=== PATIENT | male | born 1935 | race Caucasian/White ===

== ENCOUNTER 2018-10-11 14:10 | Inpatient (IN) | payer OTHER, MEDICARE ==
[2018-09-19 13:25] VITALS: BMI 28.8
--- NOTE | 2018-09-24 07:53 | HP ---
Admitting History and Physical - Admission Chief Complaint: left knee osteoarthritis x years History of Present Illness: 83 year old male presents in regard to his left knee. Longstanding history of left knee osteoarthritis. Patient complains of pain, limited ROM, difficulty ambulating and difficulty completing ADLs. Patient has failed conservative treatment measures including PO medications, injections, activity modifications and exercise programs. At this point, patient wishes to proceed with a left total knee arthroplasty, MAKOplasty. History Source: Patient - Past Medical History Cardiovascular: Yes: HTN, Hyperlipdemia Endocrine: Yes: Diabetes Mellitus - Past Surgical History Additional Past Surgical History: See written history & physical. - Advance Directives Advance Directives: Yes: Living Will, Health Care Proxy - Smoking History Smoking history: Never smoked - Alcohol/Substance Use Hx Alcohol Use: No Home Medications - Allergies Allergies/Adverse Reactions: Allergies Allergy/AdvReac Type Severity Reaction Status Date / Time No Known Allergies Allergy Verified 03/18/13 10:20 - Home Medications Home Medications: Ambulatory Orders metFORMIN HCL [Glucophage -] 500 mg PO BID 02/28/13 Amlodipine Besylate [Norvasc -] 5 mg PO DAILY 09/19/18 Fenofibrate Nanocrystallized [Fenofibrate] 160 mg PO DAILY 09/19/18 Lisinopril [Zestril] 40 mg PO DAILY 09/19/18 Physical Examination Constitutional: Yes: Well Nourished, No Distress Eyes: Yes: Conjunctiva Clear HENT: Yes: Atraumatic, Normocephalic Neck: Yes: Supple Cardiovascular: Yes: Regular Rate and Rhythm Respiratory: Yes: Regular Gastrointestinal: Yes: Soft ...Rectal Exam: Yes: Deferred Musculoskeletal: Yes: Joint Stiffness (left knee), Joint Swelling (left knee) Assessment/Plan 83 year old male presents in regard to his left knee. Longstanding history of left knee osteoarthritis. Patient complains of pain, limited ROM, difficulty ambulating and difficulty completing ADLs. Patient has failed conservative treatment measures including PO medications, injections, activity modifications and exercise programs. At this point, patient wishes to proceed with a left total knee arthroplasty, MAKOplasty. Pros, cons, risks, benefits and alternatives of a left total knee arthroplasty, MAKOplasty was discussed at length. Patient confirms his understanding and consents to proceed with a left total knee arthroplasty, MAKOplasty.
[~2018-10-11 14:10] MED LIST: CEFAZOLIN 2 GM in DEXTROSE 5%-WATER - 50 ML IVPB ONE; CELECOXIB 200 MG CAPSULE PO ONE; GABAPENTIN 300 MG CAPSULE (FP) PO ONE; PANTOPRAZOLE 40 MG TABLET (FP) PO ONE; TRANEXAMIC ACID 1000 MG/10 ML VIAL IVPUSH ONE; oxyCODONE HCL 10 MG SUSTAINED ACTING TABLET PO ONE
[2018-10-15] MEDS ORDERED: CEFAZOLIN 2 GM in DEXTROSE 5%-WATER - 50 ML IVPB ONE (07:02)
[2018-10-15] MEDS ORDERED: TRANEXAMIC ACID 1000 MG/10 ML VIAL IVPUSH ONE (07:02)
[2018-10-15] MEDS: PANTOPRAZOLE 40 MG TABLET (FP) PO ONE (07:10)
[2018-10-15] MEDS: oxyCODONE HCL 10 MG SUSTAINED ACTING TABLET PO ONE (07:10)
[2018-10-15] MEDS: GABAPENTIN 300 MG CAPSULE (FP) PO ONE (07:10)
[2018-10-15] MEDS: CELECOXIB 200 MG CAPSULE PO ONE (07:10)
[2018-10-15] MEDS ORDERED: oxyCODONE HCL 5 MG TABLET PO PRN ×2 (07:19)
[2018-10-15] MEDS ORDERED: ONDANSETRON 4 MG/2 ML VIAL IVPUSH PRN ×2 (07:19→15:43)
[2018-10-15] MEDS ORDERED: MIDAZOLAM HCL 2 MG/2 ML SINGLE DOSE VIAL ONE (07:24)
[2018-10-15] MEDS ORDERED: BUPIVACAINE LIPOSOME/PF (EXPAREL) 266 MG/20 ML VIAL ONE (07:24)
[2018-10-15] MEDS ORDERED: BUPIVACAINE HCL/PF 2.5 MG/ML - 30 ML VIAL IJ ONE (07:25)
[2018-10-15] MEDS ORDERED: ceFAZolin SODIUM 1 GM VIAL ONE (07:25)
[2018-10-15] MEDS ORDERED: DEXAMETHASONE SOD PHOSPHATE/PF 10 MG/ML SDV ONE (07:25)
[2018-10-15] MEDS ORDERED: VANCOMYCIN 1,000 MG VIAL (RESTRICTED TO ID ONLY) ONE (07:25)
[2018-10-15] MEDS ORDERED: BUPIVACAINE HCL/PF 0.5% (5MG/ML) 10 ML VIAL ONE (07:27)
[2018-10-15] MEDS ORDERED: VANCOMYCIN 1,000 MG VIAL (RESTRICTED TO ID ONLY) IVPB ONE ×2 (11:15)
[2018-10-15] MEDS ORDERED: TRANEXAMIC ACID 1000 MG/10 ML VIAL IVPB ONE ×2 (11:37)
[2018-10-15] MEDS ORDERED: ACETAMINOPHEN 1000 MG/100 ML VIAL (NON FORMULARY) IVPB ONE ×2 (12:00→12:29)
[2018-10-15] MEDS ORDERED: traMADol HCL 50 MG TABLET ONE (12:01)
[2018-10-15] MEDS ORDERED: ACETAMINOPHEN INJECTION 100 ML IVPB ONE (12:01)
[2018-10-15] MEDS ORDERED: KETOROLAC TROMETHAMINE 30 MG/1 ML VIAL ONE (12:01)
--- NOTE | 2018-10-15 12:09 | HP ---
Admitting History and Physical - Admission Chief Complaint: left knee osteoarthritis x years History of Present Illness: 83 year old male presents in regard to their left knee. Longstanding history of left knee osteoarthritis. Patient complains of pain, limited ROM, difficulty ambulating and difficulty completing ADLs. Patient has failed conservative treatment measures including PO medications, injections, exercise programs and activity modification. At this point, patient wishes to proceed with surgical intervention, a left total knee arthroplasty - MAKOplasty. History Source: Patient Limitations to Obtaining History: No Limitations - Past Medical History Cardiovascular: Yes: HTN, Hyperlipdemia, Other (AAA) Endocrine: Yes: Diabetes Mellitus - Past Surgical History Additional Past Surgical History: See written history & physical. - Advance Directives Advance Directives: Yes: Living Will, Health Care Proxy - Smoking History Smoking history: Never smoked Have you smoked in the past 12 months: No - Alcohol/Substance Use Hx Alcohol Use: No Home Medications - Allergies Allergies/Adverse Reactions: Allergies Allergy/AdvReac Type Severity Reaction Status Date / Time No Known Allergies Allergy Verified 10/15/18 07:04 - Home Medications Home Medications: Ambulatory Orders metFORMIN HCL [Glucophage -] 500 mg PO BID 02/28/13 Amlodipine Besylate [Norvasc -] 5 mg PO DAILY 09/19/18 Fenofibrate Nanocrystallized [Fenofibrate] 160 mg PO DAILY 09/19/18 Lisinopril [Zestril] 40 mg PO DAILY 09/19/18 Review of Systems - Review of Systems Musculoskeletal: reports: Crepitus (left knee), Decreased ROM (left knee), Joint Pain (left lnee), Joint Swelling (left knee) Physical Examination Vital Signs: Vital Signs Temperature 97.7 F 10/15/18 06:41 Pulse Rate 73 10/15/18 06:41 Respiratory Rate 18 10/15/18 06:41 Blood Pressure 144/73 10/15/18 06:41 O2 Sat by Pulse Oximetry (%) 100 10/15/18 07:00 Constitutional: Yes: Well Nourished Eyes: Yes: Conjunctiva Clear HENT: Yes: Atraumatic Neck: Yes: Supple Cardiovascular: Yes: Regular Rate and Rhythm Respiratory: Yes: Regular Gastrointestinal: Yes: Soft ...Rectal Exam: Yes: Deferred Musculoskeletal: Yes: Joint Stiffness (left knee), Joint Swelling (left kneep) Assessment/Plan 83 year old presents in regard to their left knee. Longstanding history of left knee osteoarthritis. Patient complains of pain, limited ROM, difficulty ambulating and difficulty completing ADLs. Patient has failed conservative treatment measures including PO medications, injections, exercise programs and activity modification. At this point, patient wishes to proceed with surgical intervention, a left total knee arthroplasty - MAKOplasty. Pros, cons, risks benefits and alternatives of a left total knee arthroplasty, MAKOplasty were discussed with the patient at length. Patient confirms their understanding and consents to proceed with a left total knee arthroplasty, MAKOplasty.
--- NOTE | 2018-10-15 12:27 | OP ---
Operative Note - Note: Operative Date: 10/15/18 Pre-Operative Diagnosis: left knee OA Operation: left OCHOA TKA Post-Operative Diagnosis: Same as Pre-op Surgeon: Abdirahman Post Rn Cardiology: Coco Fong Anesthesia: Spinal Estimated Blood Loss (mls): 100
[2018-10-15] MEDS: traMADol HCL 50 MG TABLET PO SCH ×2 (12:30→17:58)
[2018-10-15] MEDS: KETOROLAC TROMETHAMINE 30 MG/1 ML VIAL IVPUSH SCH ×2 (12:30→17:57)
[2018-10-15] MEDS ORDERED: MAGNESIUM HYDROX 2400MG/30ML ORAL SUSPENSION 30 ML CUP PO PRN (15:43)
[2018-10-15] MEDS ORDERED: MAG HYDROX/AL HYDROX/SIMETH 30 ML UNIT-DOSE CUP PO PRN (15:43)
[2018-10-15] MEDS ORDERED: LACTATED RINGERS SOLUTION 1,000 ML IV SCH (15:45)
[2018-10-15] MEDS: metFORMIN HCL 500 MG TABLET (FP) PO SCH (17:17)
[2018-10-15] MEDS: CEFAZOLIN 2 GM/D5W 2 GM/50 ML ML IVPB SCH (17:56)
[2018-10-15] MEDS ORDERED: DEXAMETHASONE SOD PHOSPHATE 10 MG/1 ML VIAL IVPB ONE (20:00)
--- NOTE | 2018-10-15 21:18 | SPEC ---
DATE OF OPERATION: 10/15/2018 PREOPERATIVE DIAGNOSIS: Left knee osteoarthritis. POSTOPERATIVE DIAGNOSIS: Left knee osteoarthritis. PROCEDURE: Left total knee replacement with MAKOplasty robotic navigation. ATTENDING: Jersey Alicea MD BLUE SPLIT TRIMMER: REMBERTO Hernandez ANESTHESIA: Spinal plus sedation. ESTIMATED BLOOD LOSS: 100 mL. COMPLICATIONS: None. DISPOSITION: The patient was transferred to the PACU in stable condition. IMPLANTS USED: Maritza Triathlon size 8 femoral component, size 7 tibial component, 9-mm total-stabilized polyethylene component, 40-mm patellar component. INDICATIONS: This is an 83-year-old male who presented to the office complaining of severe left knee pain. He was seen and examined by Dr. Alicea and diagnosed with severe left knee osteoarthritis. The patient was treated initially non-operatively with injections, medications, and physical therapy, but continued to have severe pain and ambulatory dysfunction. He was, therefore, indicated for a left total knee replacement. The risks, benefits, and alternatives to the procedure were explained to the patient in great detail, and he elected to proceed with surgery. On the day of surgery, the patient was taken to the operating room and placed on the OR table. Spinal anesthesia was administered by the anesthesiologist. The patient was then positioned supine on the table and all bony prominences were padded. The knee was then prepped and draped in the usual sterile fashion and intravenous antibiotics were given for infection prophylaxis. A surgical time-out was then performed with the team, and the patients identity, procedure, side, availability of implants, and the administration of antibiotics was confirmed. With the knee flexed, a midline incision was made and carried down through the subcutaneous fat to the underlying retinaculum. A medial parapatellar arthrotomy was performed. This was followed by a subperiosteal dissection of the tissue off the proximal, medial tibia. A portion of fat pad was removed from under the patellar tendon, and a small portion of fat was excised off the distal supracondylar femur. Electrocautery and an Aquamantys bipolar sealing device were used to achieve hemostasis. The knee was then flexed further and the anterior horn of the lateral meniscus was released from the midline. Next, the anterior and posterior cruciate ligaments were transected. Grade 4 changes were noted diffusely throughout the knee. Femoral and tibial checkpoints were then placed in the appropriate location using a mallet. Two parallel bicortical self-drilling pins were placed in the tibial diaphysis after making stab incisions and bluntly dissecting down to bone. Two pins were then placed in the distal supracondylar femur. The [employer] navigation arrays were then attached to both the femoral and tibial pins and the lower extremity was then registered to the robotic navigation device using various joint movements, as well as inputting several dozen reference points. The knee was then taken through a full range of motion with a corrective force applied. Alignment in varus/valgus as well as flexion/extension and soft tissue balance was measured in various positions. The navigation device showed a numerical and graphic representation of the soft tissue balance. The components were repositioned virtually using the software until optimal soft tissue balance was achieved on screen. Once this was accomplished, the final plan was saved and sent to the robot. Self-retaining retractors were then placed at the joint line for exposure and protection of the collateral ligaments. The robot was brought into the sterile field and registered with the navigation device. The robotic arm with attached oscillating saw blade was then used to perform femoral and tibial bone cuts as per the saved software plan. The femoral box cut was made using the appropriately sized manual cutting guide. The knee was then irrigated. Trial components were placed and the knee was taken through a full range of motion to assess soft tissue balance and alignment. The range of motion was found to be excellent and the soft tissue balance was optimal and according to plan. The knee was then put into extension and the patella everted. The synovium around the patella was circumscribed with electrocautery. A caliper was used to measure the patellar thickness and a saw was then used to resect the patella at the chondro-osseous junction. The cut surface was then sized and drilled for the appropriate patellar button, with care taken to medialize it. A trial patella was then placed and the knee was again taken through a full range of motion. The knee was found to have both good balance and good patellar tracking. All of the components were removed except the tibial base plate. The appropriate instrumentation was used to drill and punch the proximal tibia for the keel of the final component. All bony surfaces were then cleaned with pulsatile lavage and dried. Bone cement was then prepared on the back table, and final components were cemented in place in the usual fashion. Extruded cement was removed. The polyethylene trial was placed, the knee was put into extension, and axial pressure was applied for compression while the cement hardened. The patellar button was similarly cemented into place. Once the cement had hardened, the knee was taken through a full range of motion to assess stability, balance, and patellar tracking. This was found to be optimal and the trial polyethylene was exchanged for the appropriately sized real implant. The wound was then thoroughly irrigated with normal saline. A 3-minute dilute Betadine lavage was performed. The knee was again irrigated using a pulsatile lavage device. A periarticular injection was used to locally infiltrate the capsular tissues surrounding the implant and prosthesis. Then No. 1 Polysorb and 0 VLoc 180 barbed sutures were used to close the arthrotomy. Then No. 1 Polysorb and 2-0 VLoc 90 sutures were used in the subcutaneous tissues. Then 4-0 undyed Vicryl and Dermabond skin adhesive was used to close the stab incisions made for the navigation pins. The skin was closed using both 3-0 VLoc 90 suture in a running subcuticular fashion and Dermabond skin adhesive. Once this was completed a sterile Aquacel dressing and compressive Rhett-wrap was applied. The patient was then awakened and taken to the PACU in stable condition. JERSEY ALICEA M.D. [id number]
[2018-10-15] MEDS: oxyCODONE HCL 10 MG SUSTAINED ACTING TABLET PO SCH (22:00)
[2018-10-15] MEDS: ASCORBIC ACID 500 MG TABLET (FP) PO SCH (22:00)
[2018-10-15] MEDS: GABAPENTIN 300 MG CAPSULE (FP) PO SCH (22:00)
[2018-10-15] MEDS: SENNOSIDES/DOCUSATE COMBO (SENNA PLUS) TABLET (UD) PO SCH (22:00)
[2018-10-16] MEDS: traMADol HCL 50 MG TABLET PO SCH ×4 (00:36→17:46)
[2018-10-16] MEDS: KETOROLAC TROMETHAMINE 30 MG/1 ML VIAL IVPUSH SCH ×2 (00:37→06:07)
[2018-10-16] MEDS: CEFAZOLIN 2 GM/D5W 2 GM/50 ML ML IVPB SCH (03:29)
[2018-10-16] MEDS: metFORMIN HCL 500 MG TABLET (FP) PO SCH ×2 (06:08→16:30)
[2018-10-16 07:46] LABS: HEMATOCRIT 34.7 % (35.4-49); HEMOGLOBIN 11.8 GM/dl (11.7-16.9); MCH 32.6 pg (25.7-33.7); MCHC 33.9 g/dl (32.0-35.9); MEAN CELL VOLUME 96.2 fl (80-96); MEAN PLT VOLUME 9.1 fl (7.5-11.1); PLATELET COUNT 226 K/MM3 (134-434); RDW 14.5 % (11.9-15.9); WHITE BLOOD COUNT 15.9 K/mm3 (4.0-10.8)
[2018-10-16] MEDS: CELECOXIB 200 MG CAPSULE PO ONE (08:24)
[2018-10-16] MEDS: GABAPENTIN 300 MG CAPSULE (FP) PO ONE (08:24)
[2018-10-16] MEDS: oxyCODONE HCL 10 MG SUSTAINED ACTING TABLET PO ONE (08:24)
[2018-10-16] MEDS: PANTOPRAZOLE 40 MG TABLET (FP) PO ONE (08:25)
[2018-10-16] MEDS: ASPIRIN 325 MG TABLET PO SCH (08:30)
[2018-10-16 08:42] LABS: CALCIUM 8.8 mg/dl (8.5-10); CREATININE 1.7 mg/dl (0.55-1.3); POTASSIUM 4.5 mmol/L (3.5-5.1)
[2018-10-16] MEDS ORDERED: FENOFIBRATE NANOCRYSTALLIZED PO SCH (10:00)
[2018-10-16] MEDS ORDERED: PATIENT'S OWN MEDICATION (NON-FORMULARY) (Lisinopril [Zestril] 40 MG) PO SCH (10:00)
[2018-10-16] MEDS ORDERED: CELECOXIB 200 MG CAPSULE PO SCH (10:00)
[2018-10-16] MEDS: amLODIPine BESYLATE 5 MG TABLET (FP) PO SCH (10:48)
[2018-10-16] MEDS: PANTOPRAZOLE 40 MG TABLET (FP) PO SCH (10:48)
[2018-10-16] MEDS: oxyCODONE HCL 10 MG SUSTAINED ACTING TABLET PO SCH ×2 (10:49→21:42)
[2018-10-16] MEDS: GABAPENTIN 300 MG CAPSULE (FP) PO SCH ×2 (10:49→21:42)
[2018-10-16] MEDS: SENNOSIDES/DOCUSATE COMBO (SENNA PLUS) TABLET (UD) PO SCH ×2 (10:50→21:42)
[2018-10-16] MEDS: LISINOPRIL 20 MG TABLET (FP) PO SCH (10:50)
[2018-10-16] MEDS: FENOFIBRIC ACID 135 MG CAP PO SCH (10:50)
[2018-10-16] MEDS: MULTIVITAMINS (DAILY MVI) TABLET (FP) PO SCH (10:51)
[2018-10-16] MEDS: ASCORBIC ACID 500 MG TABLET (FP) PO SCH ×2 (10:51→21:43)
--- NOTE | 2018-10-16 19:48 | PN ---
Progress Note (short form) - Note Progress Note: Pt seen and examined. Doing well. AVSS Selected Entries 10/16/18 22:00 Temperature 97.7 F Pulse Rate 60 Respiratory 18 Rate Blood Pressure 139/63 O2 Sat by Pulse 96 Oximetry (%) Oxygen Delivery Room Air Method Laboratory Tests 10/16/18 10/16/18 10/17/18 07:09 07:09 07:16 WBC 15.9 H 12.8 H Hgb 11.8 11.1 L Hct 34.7 L 33.1 L Plt Count 226 197 Sodium 138 Potassium 4.5 Chloride 104 Carbon Dioxide 25 Anion Gap 9 BUN 43.0 H Creatinine 1.7 H Random Glucose 183 H Gen: NAD LLE: c/d/i, NVID A/P s/p L OCHOA TKA Doing well D/C home Monday
[2018-10-17] MEDS: traMADol HCL 50 MG TABLET PO SCH ×3 (07:01→13:20)
[2018-10-17] MEDS: metFORMIN HCL 500 MG TABLET (FP) PO SCH (07:01)
[2018-10-17 07:06] VITALS: BP 136/65; PULSE 67; TEMP 97.7
[2018-10-17 07:41] LABS: HEMATOCRIT 33.1 % (35.4-49); HEMOGLOBIN 11.1 GM/dl (11.7-16.9); MCH 32.4 pg (25.7-33.7); MCHC 33.6 g/dl (32.0-35.9); MEAN CELL VOLUME 96.5 fl (80-96); MEAN PLT VOLUME 8.9 fl (7.5-11.1); PLATELET COUNT 197 K/MM3 (134-434); RBC 3.43 M/mm3 (4.00-5.60); RDW 14.8 % (11.9-15.9); WHITE BLOOD COUNT 12.8 K/mm3 (4.0-10.8)
--- NOTE | 2018-10-17 08:29 | DS ---
Physical Examination Vital Signs: Vital Signs Temperature 97.7 F 10/17/18 06:00 Pulse Rate 67 10/17/18 06:00 Respiratory Rate 18 10/17/18 06:00 Blood Pressure 136/65 10/17/18 06:00 O2 Sat by Pulse Oximetry (%) 95 10/17/18 07:05 Labs: CBC, BMP 10/17/18 07:16 10/16/18 07:09 Discharge Summary Current Active Problems Osteoarthritis of left knee (Acute) Procedures: Principal: left TKA [facility] Hospital Course: Admitted for elective surgery. Procedure performed without complications. Pt received postoperative antibiotic prophylaxis and DVT ppx. Ambulated with physical therapy. Stable for discharge home with outpatient followup. Condition: Stable - Instructions Diet, Activity, Other Instructions: Dr. Post - Knee Replacement Instructions Keep the Aquacel dressing on until removed by Dr. Post in 10-14 days - it is antibacterial and waterproof and you can shower with it on. Call the office for a follow-up appointment with Dr. Post in 10-14 days. Take one Aspirin 325mg daily for 6 weeks to prevent blood clots in your legs. Take one Pantoprazole 40mg daily for 6 weeks to protect against heartburn and ulcers. Take Cephalexin (antibiotic) 3x/day for 10 days to help prevent skin infection. Take a multivitamin, stool softener, and extra Vitamin C supplement daily. For pain: *Mild pain (1-3/10): Take 1 Tramadol tablet every 4 hours as needed. Moderate pain (4-6/10): Take 1 Tramadol tablet and 1 Percocet tablet every 4 hours as needed. Severe pain (7-10/10): Take 1 Tramadol tablet and 2 Percocet tablets every 4 hours as needed. Activity: You can put as much weight on the operative leg as you want. Right after you get home, there will be a physical therapist coming to your house to help you walk around and bend/straighten your knee. After your follow-up appointment, you will be sent for more intensive outpatient physical therapy which will include machines and equipment that the home therapist cannot bring to your house. Always use a walker or cane for balance and to prevent falls. Expect to see swelling/bruising from the operative site all the way down to your toes. Wear the compression stocking on the operative side during the day to minimize how much swelling there is in your foot/ankle. Don't wear the stocking at night. You don't have to wear a stocking on the other side. Disposition: VNS/HOME HEALTH CARE - Home Medications Comprehensive Discharge Medication List: Ambulatory Orders metFORMIN HCL [Glucophage -] 500 mg PO BID 02/28/13 Amlodipine Besylate [Norvasc -] 5 mg PO DAILY 09/19/18 Fenofibrate Nanocrystallized [Fenofibrate] 160 mg PO DAILY 09/19/18 Lisinopril [Zestril] 40 mg PO DAILY 09/19/18 Ascorbic Acid [Vitamin C -] 500 mg PO BID tablet 10/17/18 Aspirin [ASA -] 325 mg PO DAILY@0800 tablet 10/17/18 Cephalexin Monohydrate [Keflex -] 500 mg PO TID #30 capsule 10/17/18 Multivitamins [Multivit ([facility] Formulary)] 1 tab PO DAILY tab 10/17/18 Oxycodone HCl/Acetaminophen [Percocet 5-325 mg Tablet] 1 - 2 tab PO Q4H PRN #60 tablet MDD 10 10/17/18 Pantoprazole Sodium [Protonix -] 40 mg PO DAILY #40 tablet.ec 10/17/18 Sennosides/Docusate Sodium [Pericolace -] 2 tablet PO BID tablet 10/17/18 traMADol HCL [Ultram -] 50 mg PO Q4H PRN #42 tablet MDD 6 10/17/18
[2018-10-17] MEDS: ASPIRIN 325 MG TABLET PO SCH (09:16)
[2018-10-17] MEDS: GABAPENTIN 300 MG CAPSULE (FP) PO SCH (09:17)
[2018-10-17] MEDS: oxyCODONE HCL 10 MG SUSTAINED ACTING TABLET PO SCH (09:17)
[2018-10-17] MEDS: amLODIPine BESYLATE 5 MG TABLET (FP) PO SCH (09:18)
[2018-10-17] MEDS: SENNOSIDES/DOCUSATE COMBO (SENNA PLUS) TABLET (UD) PO SCH (09:19)
[2018-10-17] MEDS: LISINOPRIL 20 MG TABLET (FP) PO SCH (09:19)
[2018-10-17] MEDS: MULTIVITAMINS (DAILY MVI) TABLET (FP) PO SCH (09:20)
[2018-10-17] MEDS: PANTOPRAZOLE 40 MG TABLET (FP) PO SCH (09:20)
[2018-10-17] MEDS: FENOFIBRIC ACID 135 MG CAP PO SCH (09:20)
[2018-10-17] MEDS: ASCORBIC ACID 500 MG TABLET (FP) PO SCH (09:21)
--- NOTE | 2018-10-19 11:56 | PATH ---
Surgical Pathology Report Patient Name: VINAY DAY Med. Rec. #: [id number] /Age/Gender: 1935 (Age: 83) / M Account: [id number] Location: [facility] MED-SURG Taken: 10/15/2018 Received: 10/15/2018 Reported: 10/19/2018 Physicians: Abdirahman Post M.D. Specimen(s) Received BONE LEFT KNEE Clinical History Left knee osteoarthritis Final Diagnosis BONE, LEFT KNEE, TOTAL KNEE REPLACEMENT: DEGENERATIVE JOINT DISEASE. Electronically Signed Mayda Hammonds M.D. Gross Description Received in formalin labeled "bone left knee," is a 15.0 x 11.5 x 1.5 cm aggregate of multiple portions of bone soft tissue, consistent with knee bones. There are multiple areas of eburnation present, measuring up to 3.2 cm in greatest dimension. The remaining articular surfaces are guadarrama-brown and diffusely granular. The underlying trabecular bone is yellow and hard. Treater sections are submitted in one cassette, following decalcification. /10/17/2018 [facility]
== END 2018-10-17 13:10 | disposition home health service (06) | DRG 470 ==
LOC: FM/S 10-15 06:08
PROVIDERS: ADMIT Student in an Organized Health Care Education/Training Program; ATTEND Student in an Organized Health Care Education/Training Program
PROC: 8E0Y0CZ Robotic Assisted Procedure of Lower Extremity, Open Approach (ICD-10-PCS; 2018-10-15)
PROC: 0SRD0J9 Replacement of Left Knee Joint with Synthetic Substitute, Cemented, Open Approach (ICD-10-PCS; principal; 2018-10-15 09:17)
DX: M17.12 Unilateral primary osteoarthritis, left knee (principal); I10 Essential (primary) hypertension; E11.9 Type 2 diabetes mellitus without complications; Z79.84 Long term (current) use of oral hypoglycemic drugs; E78.5 Hyperlipidemia, unspecified
CPT/HCPCS: 36415; 73560-TC-LT-FY; 80048; 82962; 85027; 88304-TC; 88311-TC; 97116-GP; 97161-GP; J0131; J1100

== ENCOUNTER 2018-10-22 11:43 | Inpatient (IN) | payer OTHER, MEDICARE ==
[2018-10-22] MEDS ORDERED: methylPREDNISolone NA SUCC 125 MG/2 ML VIAL IVPUSH ONE (12:05)
[2018-10-22] MEDS ORDERED: ALBUTEROL SO4 2.5/IPRATROPIUM 0.5 INH SOL 3 ML VIAL.NEB. NEB ONE ×2 (12:05→13:34)
--- NOTE | 2018-10-22 12:58 | PDOC ---
History of Present Illness - General Chief Complaint: Shortness of Breath Stated Complaint: SHORT OF BREATH Time Seen by Provider: 10/22/18 12:05 - History of Present Illness Initial Comments: 10/22/18 21:43 83yo M hx HTN, HLD, DM, AAA presents with SOB x 2days s/p L knee replacement 1 week ago. Pt states that he has been hearing a "wheezing" for 2 days now, progressive, constant, worse at night, unchanged with activity or lying down. Denies difficulty breathing, CP, F/C, N/V, RICO, vision changes, dizziness, dysuria, D/C, blood in stool or urine, numbness/tingling, weakness. Endorses chronic frequent urination seen by urologist. Daughter states she heard pt dry heaving 2 days ago. Daughter thought it was just anxiety but today the nurse at home said his O2 sat was in the 80s so to come here to assess for a clot. Denies hx smoking, hx COPD/asthma/wheezing, hx similar sx, cardiac hx, recent travel, [place], hemoptysis, hx clot/PE. Pt had L knee replacement on 10/15/18 and was discharged on 10/17/18 on Keflex as well as tramadol and percocet for pain. AAA managed by Dr. Rivera. PCP Dr Barajas. Ortho Dr Post. Past History - Past Medical History Allergies/Adverse Reactions: Allergies Allergy/AdvReac Type Severity Reaction Status Date / Time No Known Allergies Allergy Verified 10/22/18 12:05 Home Medications: Ambulatory Orders metFORMIN HCL [Glucophage -] 500 mg PO BID 02/28/13 Amlodipine Besylate [Norvasc -] 5 mg PO DAILY 09/19/18 Fenofibrate Nanocrystallized [Fenofibrate] 160 mg PO DAILY 09/19/18 Lisinopril [Zestril] 40 mg PO DAILY 09/19/18 Ascorbic Acid [Vitamin C -] 500 mg PO BID tablet 10/17/18 Aspirin [ASA -] 325 mg PO DAILY@0800 tablet 10/17/18 Cephalexin Monohydrate [Keflex -] 500 mg PO TID #30 capsule 10/17/18 Multivitamins [Multivit ([facility] Formulary)] 1 tab PO DAILY tab 10/17/18 Oxycodone HCl/Acetaminophen [Percocet 5-325 mg Tablet] 1 - 2 tab PO Q4H PRN #60 tablet MDD 10 10/17/18 Pantoprazole Sodium [Protonix -] 40 mg PO DAILY #40 tablet.ec 10/17/18 Sennosides/Docusate Sodium [Pericolace -] 2 tablet PO BID tablet 10/17/18 traMADol HCL [Ultram -] 50 mg PO Q4H PRN #42 tablet MDD 6 10/17/18 Anemia: No Asthma: No Cancer: No Cardiac Disorders: Yes (PT HAS AORTIC ANEURYSM HAS BEEN BEING WATCHED/SEEN BY DR MONTOYA 09/24) CVA: No COPD: No CHF: No Dementia: No Diabetes: Yes GI Disorders: No Disorders: No HTN: Yes Hypercholesterolemia: Yes Liver Disease: No Seizures: No Thyroid Disease: No - Surgical History Abdominal Surgery: No Appendectomy: No Cardiac Surgery: No Cholecystectomy: No Lung Surgery: No Neurologic Surgery: No Orthopedic Surgery: Yes - Suicide/Smoking/Psychosocial Hx Smoking History: Never smoked Have you smoked in the past 12 months: No Hx Alcohol Use: No Drug/Substance Use Hx: No Review of Systems - Review of Systems Comments:: 10/22/18 21:44 Constitutional: Negative for chills, fever, fatigue. HENT: Negative for sore throat, rhinorrhea, congestion. Eyes: Negative for visual disturbance. Respiratory: Positive for SOB, wheezing. Negative for cough. Cardiovascular: Negative for chest pain, palpitations, and leg swelling. Gastrointestinal: Negative for abdominal pain, blood in stool, constipation, diarrhea, nausea, and vomiting. Genitourinary: Negative for dysuria, flank pain, and hematuria. Musculoskeletal: Negative for myalgias, back pain, and neck pain. Skin: Negative for rash. Neurological: Negative for light-headedness, dizziness, syncope, weakness, numbness and headaches. Psychiatric/Behavioral: Negative for behavioral problems and confusion. *Physical Exam - Vital Signs Last Vital Signs Temp Pulse Resp BP Pulse Ox 98.6 F 104 H 28 H 126/72 95 10/22/18 12:03 10/22/18 12:19 10/22/18 12:03 10/22/18 12:03 10/22/18 12:19 - Physical Exam Comments: 10/22/18 21:45 Gen: Alert, NAD, comfortable-appearing, on NRB. HEENT: PERRL, EOMI, MMM, NCAT. No conjunctival pallor. Sclera are non-icteric. Oropharynx is clear. CV: Regular rate and rhythm. No murmurs, rubs, or gallops. PULM: No resp distress. CTAB, no wheezes, rales, or rhonchi. ABD: soft, NT/ND, no rebound tenderness or guarding, no CVA tenderness. BACK: No TTP of c/t/l-spine. No step-offs or deformities. MSK: No bony deformities. 2+ pulses in all extremities. NEURO: AAOx3. PERRL. No gross CN deficits. Strength and sensation grossly intact throughout. EXTREMITIES: No cyanosis. No clubbing. No edema. No calf tenderness. Wearing compression stockings. PSYCH: Normal mood and thought pattern. SKIN: Warm and dry. Normal capillary refill. No jaundice. No erythema, purulence, or warmth surrounding L knee surgical site. + large ecchymoses to posterior L calf and thigh. Heart Score/ECG Review - ECG Impressions Comment:: 10/22/18 21:37 sinus tachycardia, 103bpm, L axis deviation, RBBB, TWIs in V2/V3, ST depressions in V4/V5/V6 ED Treatment Course - LABORATORY CBC & Chemistry Diagram: 10/22/18 12:30 10/22/18 12:30 Medical Decision Making - Medical Decision Making 83yo M hx HTN, HLD, DM, AAA presents with SOB x 2days s/p L knee replacement 1week ago. Tachycardic, tachypneic, O2 sat 83% on 5L to 96% on NRB, afebrile, lungs CTAB, ecchymoses to posterior L thigh and calf but otherwise well-healing L knee. High concern for PE due to recent surgery and O2 sat, Wells 6 moderate, obtain D-Dimer and doppler, and pending renal function, CTA PE. Vital signs meet sepsis criteria - start sepsis w/u including UA/UC for possible UTI, BC, and CXR for possible PNA. Also high concern for ACS/WY due to significant RFs and moderate HEART score pre-trop/EKG - obtain EKG and troponin. Less likely PNA due to lack of cough and lungs CTAB, but evaluate with CXR. Give duonebs and methylprednisone for SOB. -EKG -CXR -Labs: CBC, CMP, Coags, VBG, ABG, Trop, Lact, D-dimer, BC, UA/UC -Duonebs, Methylprednisone -Pending labs, consider CTA PE -Dispo: likely admit pending w/u Spoke with Dr Barajas and received previous EKG via fax. EKG 09/11/18: NSR, 1st degree AV block, L axis deviation, RBBB, TWI in V2 EKG today: sinus tachycardia, 103bpm, L axis deviation, RBBB, TWIs in V2/V3, ST depressions in V4/V5/V6 EKG concerning for new ST depressions and TWI. CXR: possible infiltrates at bases and congestive changes and large heart concerning for possible PNA vs PE Labs reviewed. WBC 15.7 (12.8 on 10/17/18), H/H 9.5/28.1 (11.1/33.1 on 10/17/18), PT 19.6, INR 1.77, K 5.4, BUN 62, Cr 2, GFR 29.76, AST 220, ALT 152, ALP 40. Trop 7.64 Due to Cr 2 and BUN 62, will wait for Doppler read before deciding between CTA vs empirical heparin. Started discussion with pt and daughter. Give 1L IVF. Abx started for possible infiltrates on CXR and WBC elevation. 10/22/18 13:[address] Vicente spoke with Dr. Ramirez covering for Dr. Mathis - agreed with plan to empirically start heparin. Spoke with resident in ICU and will admit for hypoxia to Dr Briscoe. Signed out to admitting hospitalist. 10/22/18 15:36 Guiac test done - negative. Discussed risks and benefits of heparin as well as risks and benefits of CTA to make joint decision. Pt and daughter agree with plan and understand risks and all questions were answered. Heparin bolus and drip started. 10/22/18 16:23 Ambulance called - on their way. Pt desatting to 80s, hyperventilating, diaphoretic, rales on exam. Lasix ordered. Put on Bipap and improved to 99%. BP 143/93. Pt feeling much better. 10/22/18 16:38 EMS arrived for pt for transfer to [facility] ICU. D-dimer 2525. VBG pH 7.42, pCO2 36.3, O2 sat 67.3, BE -0.7. *DC/Admit/Observation/Transfer Diagnosis at time of Disposition: Shortness of breath, Hypoxia, Troponin level elevated - Discharge Dispostion Condition at time of disposition: Fair Decision to Admit order: Yes - Referrals - Patient Instructions - Post Discharge Activity
[2018-10-22 13:15] LABS: BASO % 0.1 % (0-2.0); HEMATOCRIT 28.1 % (35.4-49); HEMOGLOBIN 9.5 GM/dl (11.7-16.9); LYMPH % 6.1 % (8-40); MCH 32.3 pg (25.7-33.7); MCHC 33.8 g/dl (32.0-35.9); MEAN CELL VOLUME 95.6 fl (80-96); MEAN PLT VOLUME 8.9 fl (7.5-11.1); MONO % 6.7 % (3.8-10.2); NEUT % 87.1 % (42.8-82.8); PLATELET COUNT 244 K/MM3 (134-434); RBC 2.94 M/mm3 (4.00-5.60); RDW 14.7 % (11.9-15.9); WHITE BLOOD COUNT 15.7 K/mm3 (4.0-10.8)
[2018-10-22 13:23] LABS: ALBUMIN 2.7 g/dl (3.4-5.0); BILIRUBIN,TOTAL 1.7 mg/dl (0.2-1); CALCIUM 8.5 mg/dl (8.5-10); POTASSIUM 5.4 mmol/L (3.5-5.1); TOT PROT 5.8 g/dl (6.4-8.2)
[2018-10-22 13:29] LABS: INR 1.77 (0.82-1.09); PROTHROMBIN TIME (PATIENT) 19.6 SEC (10.2-13.0)
[2018-10-22] MEDS ORDERED: SODIUM CHLORIDE 0.9% 1000 ML INFUS.BAG IV ONE (13:29)
[2018-10-22] MEDS ORDERED: REFRIGERATED ANITBIOTICS ONE (13:31)
[2018-10-22] MEDS ORDERED: methylPREDNISolone NA SUCC 125 MG/2 ML VIAL ONE (13:33)
[2018-10-22] MEDS ORDERED: PIPERACILLIN/TAZOB 3.375 GM 3.375 GM in DEXTROSE 5%-WATER - 50 ML IVPB ONE (13:39)
[2018-10-22] MEDS ORDERED: PIPERACILLIN/TAZOBACTAM 3.375 GM VIAL IVPB ONE (13:48)
[2018-10-22 14:44] LABS: VENOUS PC02 36.3 mmHg (41-51); VENOUS PH 7.42 (7.31-7.41); VENOUS PO2 39.8 mmHg (30-40)
[2018-10-22] MEDS ORDERED: HEPARIN NA (PORCINE) 5,000 UNITS/ML 1ML VIAL IVPUSH PRN ×2 (14:47)
[2018-10-22] MEDS ORDERED: HEPARIN NA (PORCINE) 5,000 UNITS/ML 1ML VIAL IVPUSH ONE (14:47)
[2018-10-22] MEDS ORDERED: HEPARIN NA (PORCINE) 5,000 UNITS/ML 1ML VIAL ONE (15:36)
[2018-10-22] MEDS ORDERED: HEPARIN INFUSION - 25,000 UNITS/500 ML INFUS.BAG IVPB ONE (15:36)
[2018-10-22] MEDS ORDERED: FUROSEMIDE 40 MG/4 ML INJECTABLE VIAL IVPUSH ONE (15:58)
[2018-10-22] MEDS: HEPARIN INFUSION - 25,000 UNITS/500 ML INFUS.BAG IVPB SCH (16:00)
--- NOTE | 2018-10-22 16:11 | PDOC ---
Attending Attestation - Resident Resident Name: Kate Aggarwal - ED Attending Attestation I have performed the following: I have examined & evaluated the patient, The case was reviewed & discussed with the resident, I agree w/resident's findings & plan, Exceptions are as noted - HPI HPI: 10/22/18 16:27 Chief complaint: Shortness of breath History of present illness: 83 years old past medical history significant for hypertension hyperlipidemia diabetes, AAA stable status post left total knee arthroscopy makoplasty 10/15 and some the ED with 2 day history of cough shortness of breath found to be hypoxic by visiting nurse today and sent to the emergency department. Patient tachycardia tachypnea Hypoxic upon Arrival Improved on Nonrebreather Symptoms Are Moderate Persistent Constant with No Exacerbating or Alleviating Factors. - Physicial Exam PE: 10/22/18 16:29 Vitals: Triage Vital signs reviewed General Appearance: no acute distress, well nourished well developed, Eyes: Pupils equal reactive round, extraocular movement intact Neck: Supple;No Nucal rigidity Chest Wall: Nontender Cardiac: Tachycardic Lungs: Crackles at the bases Abdomen: Soft, non distended, normal bowel sounds, non tender to palpation Extremities: Full range of motion to all extremities, no cyanosis, clubbing, or edema Skin: Warm and dry, left lower extremity echhymosis Psych: normal mood, normal affect - Critical Care Time Total Critical Care Time: 65 Critical Care Statement: The care of this patient involved high complexity decision making to prevent further life threatening deterioration of the patient 's condition and/or to evaluate & treat vital organ system(s) failure or risk of failure. - Medical Decision Making 10/22/18 16:32 Hypertension diabetes high cholesterol AAA presents with hypoxia shortness of breath tachycardia status post left knee replacement last week High in the differential diagnosis for this patient is PE. We'll perform a DVT study d-dimer labs EKG chest x-ray observe and reassess Reevaluation elevated white blood cell count chest x-ray concerning for right lower lobe infiltrate broad-spectrum antibiotics given recent hospitalization initiated Reevaluation d-dimer elevated Doppler negative Given patient's elevated kidney function and YANCI decision made to empirically heparinize patient to treat for presumptive PE. This is also in light of an elevated troponin Case discussed with cardiology Dr. Ramirez as well as patient's surgeon Dr. Post No contraindications to heparin guaiac negative Risks and benefits of CAT scans discussed with patient. Reevaluation: Patient progressively becoming more short of breath with IV hydration for pretreatment for CAT scan, IVF Stopped At this time after discussion with family decision made to hold CTA given patient's acute kidney injury and his shortness of breath BiPAP ordered for shortness of breath Lasix given. Reevaluation patient probably would not tolerate laying flat for CT at this time patient a ready being treated for presumed PE ICU has been consult did and has accepted the patient. We'll transfer to [facility] for ICU placement Greater than 30 minutes spent the bedside answering all patient's and daughter' s questions regarding patient's status and prognosis Heart Score/ECG Review - ECG Impressions Comment:: 10/22/18 16:38 EKG demonstrates left axis deviation right bundle-branch block T-wave inversions anteriorly and ST depressions laterally this was compared to previous EKG only acute changes on the lateral ST depressions
[2018-10-22] MEDS ORDERED: FUROSEMIDE 40 MG/4 ML INJECTABLE VIAL ONE (16:36)
[2018-10-22] MEDS ORDERED: ASPIRIN SUPPOSITORY 600 MG SUPP.RECT PR ONE (16:39)
[2018-10-22] MEDS ORDERED: ASPIRIN 300 MG SUPP.RECT RC ONE (16:45)
--- NOTE | 2018-10-22 16:50 | CON.CARD ---
Consult Consult Specialty:: Cardiology Referred by:: Dr. Vicente Reason for Consultation:: Elevated Troponin - History of Present Illness Chief Complaint: Shortness of breath History of Present Illness: ER H&P reviewed: "83 years old past medical history significant for hypertension ,hyperlipidemia diabetes, CKD, AAA stable status post left total knee arthroscopy makoplasty and some the ED with 2 day history of cough shortness of breath found to be hypoxic by visiting nurse today and sent to the emergency department. Patient tachycardia tachypnea Hypoxic upon Arrival Improved on Nonrebreather." ER course notable for: -Sinus tachycardia -Elevated WBC. -CXR reviewed, showed increased PVC and possible RLL infiltrate. -Mildly elevated creatinine above baseline -+ TnI - 7 -elevated D-dimer, LE venous duplex negative b/l -Anemia, stool guaiac negative. Case was discussed w/ ER attending prior to transfer to [facility]: differential includes PNA/SIRS triggering CHF decompensation/ NSTEMI triggering CHF/ Pulmonary embolism also to be ruled out. Patient was cultured, started on IV abx and given dose Solumedrol in ER. Anticoagulation was started for possible NSTEMI and prior to r/o PE. Aspirin was given. Prehydration for CTA was started---> patient then desaturated further prompting need to BIPAP and abort CTA efforts. A dose of IV Lasix was given. Seen and examined in ICU upon arrival by EMS. He spent several days in hospital, went home. 2 days ago reports central chest pressure after he ate a "wedge sandwich." Lasted 15-20 minutes and he went to sleep. Following day, felt dry cough and had difficulty taking deep breath. Gary some chills which he attributed to being in air conditioning. Today, felt very SOB and visiting RN suggested he go back to ER when he was found to be hypoxic. He is feeling improved after dose of IV Lasix and BiPAP. Denies prior cardiac hx; no hx smoking; no h/o asthma or chronic lung disease. - History Source History Provided By: Medical Record - Past Medical History Cardio/Vascular: Yes: HTN, Hyperlipdemia, Other (AAA) Pulmonary: No: Asthma, Bronchitis, Cancer, COPD, O2 Dependent, Pneumonia, Previously Intubated, Pulmonary Embolus, Pulmonary Fibrosis, Sleep Apnea, Other Gastrointestinal: No: Ascites, Cancer, Constipation, Crohn's Disease, Diverticulitis, Diverticulosis, Esophageal Varices, Gastritis, GERD, GI Bleed, Hemorrhoids, Hiatal Hernia, Inflamatory Bowel Disease, Irritable Bowel Disease, Pancreatitis, Peptic Ulcer Disease, Ulcerative Colitis, Other Hepatobiliary: No: Cirrhosis, Cholelithiasis, Cholecystitis, Choledocholithiasis , Hepatitis A, Hepatitis B, Hepatitis C, Other Renal/: Yes: Renal Inusuff (baseline creat around 1.7) Heme/Onc: No: Anemia, B12 Deficiency, Bleeding Disorder, Cancer, Current Chemotherapy, Current Radiation Therapy, Hemochromatosis, Hypercoaguable State, Myeloproliferative Synd, Sickle Cell Disease, Sickle Cell Trait, Thrombocytopenia, Other Infectious Disease: No: AIDS, C-Diff, Herpes Zoster, HIV, MRSA, STD's, Tuberculosis, VREF, Other Endocrine: Yes: Diabetes Mellitus - Past Surgical History Additional Surgical History: Makoplasty knee - Alcohol/Substance Use Hx Alcohol Use: No - Smoking History Smoking history: Never smoked Have you smoked in the past 12 months: No - Social History Usual Living Arrangement: With Spouse History of Recent Travel: No Home Medications - Allergies Allergies/Adverse Reactions: Allergies Allergy/AdvReac Type Severity Reaction Status Date / Time No Known Allergies Allergy Verified 10/22/18 12:05 - Home Medications Home Medications: Ambulatory Orders metFORMIN HCL [Glucophage -] 500 mg PO BID 02/28/13 Amlodipine Besylate [Norvasc -] 5 mg PO DAILY 09/19/18 Fenofibrate Nanocrystallized [Fenofibrate] 160 mg PO DAILY 09/19/18 Lisinopril [Zestril] 40 mg PO DAILY 09/19/18 Ascorbic Acid [Vitamin C -] 500 mg PO BID tablet 10/17/18 Aspirin [ASA -] 325 mg PO DAILY@0800 tablet 10/17/18 Cephalexin Monohydrate [Keflex -] 500 mg PO TID #30 capsule 10/17/18 Multivitamins [Multivit ([facility] Formulary)] 1 tab PO DAILY tab 10/17/18 Oxycodone HCl/Acetaminophen [Percocet 5-325 mg Tablet] 1 - 2 tab PO Q4H PRN #60 tablet MDD 10 10/17/18 Pantoprazole Sodium [Protonix -] 40 mg PO DAILY #40 tablet.ec 10/17/18 Sennosides/Docusate Sodium [Pericolace -] 2 tablet PO BID tablet 10/17/18 traMADol HCL [Ultram -] 50 mg PO Q4H PRN #42 tablet MDD 6 10/17/18 Family Disease History - Family Disease History Family History: Unremarkable (non-contributory to this presentation) Review of Systems Findings/Remarks: see HPI - Review of Systems Constitutional: denies: No Symptoms, Chills, Diaphoresis, Fever, Lethargy, Loss of Appetite, Malaise, Night Sweats, Unintentional Wgt. Loss, Weakness, Other Eyes: denies: No Symptoms, Blind Spots, Blurred Vision, Double Vision, Eye Pain , Floaters, Photophobia, Recent Change in Vision, Other HENT: denies: No Symptoms, Difficult Swallowing, Ear Discharge, Ear Pain, Epistaxis, Gingival Bleeding, Hearing Loss, Mouth Swelling, Nasal Congestion, Ocular Prosthesis, Throat Pain, Toothache, Ringing in Ears, Other Neck: denies: No Symptoms, Decreased ROM, Lumps, Pain on Movement, Stiffness, Swollen Glands, Tenderness, Other Cardiovascular: reports: Chest Pain, Shortness of Breath Respiratory: reports: Cough, SOB on Exertion Gastrointestinal: denies: No Symptoms, Abdominal Pain, Bloating, Constipation, Diarrhea, Dysphagia, Indigestion, Melena, Nausea, Rectal Bleeding, Vomiting, Vomiting Blood, Other Genitourinary: denies: No Symptoms, Burning, Discharge, Dysuria, Flank Pain, Frequency, Hematuria, Incontinence, Lesions, Menses, Pain, Testicular Mass, Testicular Pain, Testicular Swelling, Urgency, Vaginal Bleeding, Other Breasts: denies: No Symptoms Reported, See HPI, Breast Implants, Discharge from Nipple, Lumps, Pain, Skin Changes, Other Musculoskeletal: denies: No Symptoms, Back Pain, Crepitus, Decreased ROM, Extremity Pain, Joint Pain, Joint Swelling, Muscle Pain, Muscle Cramps, Muscle Weakness, Other Integumentary: denies: No Symptoms, Blister, Bruising, Change in Color, Eczema, Erythema, Incision, Lesions, Lump, Pallor, Pruritis, Rash, Wound, Other Neurological: denies: No Symptoms, Change in LOC, Change in Speech, Confusion, Dizziness, Headache, Incoordination, Numbness, Parasthesia, Pre-Existing Deficit , Seizure, Syncope, Tremors, Unsteady Gait, Weakness, Other Endocrine: denies: No Symptoms, Excessive Sweating, Flushing, Increased Hunger, Increased Thirst, Intolerance to Cold, Intolerance to Heat, Unexplained Weight Gain, Unexplained Weight Loss, Other Hematology/Lymphatic: denies: No Symptoms, Easily Bruised, Excessive Bleeding, Swollen Glands, Other Psychiatric: denies: No Symptoms, Altered Sleep Pattern, Anxiety, Depression, Hallucinations, Panic, Paranoia, Suicidal, Other - Risk Factors Known Risk Factors: Yes: Diabetes Mellitus, Hypercholesterolemia, Hypertension Vital Signs: Vital Signs Temperature 98.6 F 10/22/18 12:03 Pulse Rate 115 H 10/22/18 15:00 Respiratory Rate 28 H 10/22/18 15:00 Blood Pressure 120/66 10/22/18 15:00 O2 Sat by Pulse Oximetry (%) 89 L 10/22/18 15:00 Constitutional: Yes: Mild Distress Eyes: Yes: Conjunctiva Clear, EOM Intact HENT: Yes: Atraumatic, Normocephalic Neck: Yes: Supple, Trachea Midline Respiratory: Yes: Other (rales right bases w/ expiratory wheezing. Decreased breath sounds left base with expiratory wheezing.) Gastrointestinal: Yes: Soft, Other (Nontender) Cardiovascular: Yes: Regular Rate and Rhythm, Tachycardia JVD: Yes Carotid Bruit: No PMI: Non-Displaced Heart Sounds: Yes: S1, S2 (Tachy: cannot appreciate murmur but coarse breath sounds make it difficult) Edema: Yes (L Stewart incision C/D/I) Peripheral Pulses WNL: Yes Neurological: Yes: Alert, Oriented - Other Data Labs, Other Data: CBC, BMP 10/22/18 12:30 10/22/18 12:30 INR, PTT INR 1.77 (0.82-1.09) H 10/22/18 12:30 Troponin, BNP 10/22/18 12:30 Troponin I 7.64 H* Troponin, BNP 10/22/18 12:30 Troponin I 7.64 H* ST, 1st degree AV Block, LAHB, RBBB, ST depressions I, AvL, V4-V6 Echo: Pending Imaging - Results Chest X-ray: Image Reviewed EKG: Image Reviewed Assessment/Plan IMP: 1. Hypoxic respiratory failure secondary to possible RLL PNA w/ superimposed CHF ; r/o pulmonary embolism (recent L. knee makoplasty risk factor) 2. Elevated TnI: secondary to possible NSTEMI vs PE (unable to obtain CTA due volume overload and worsening O2 sat with minimal prehydration/ CKD) 3. Leukocytosis 4. CKD 5. DM 6. Anemia, guaiac negative. REC: Admit to ICU 1. Cont IV heparin gtts for NSTEMI vs PE; continued tele monitoring in ICU 2. ASA daily 3. Echo to assess LV/RV fx, RVSP. Daily ECGs. 4. Trend cardiac enzymes overnight. If clear and marked uptrend in enzymes would Plavix load. 5. CTA chest when stable for scan: will depend on volume status and GFR. Was not stable for scan in [facility] ER per my d/w attending. 6. Diurese, daily weights, daily BMP to monitor renal function. 7. BiPAP as needed, as per ICU team. 8. Follow cultures and continue abx as per critical care. Over 60 minutes spent in discussing case with ER staff, reviewing chart (labs/ scans), obtaining history and physical exam and formulating plan of care.
--- NOTE | 2018-10-22 17:02 | HP ---
Admitting History and Physical - Primary Care Physician PCP: Rony Barajas - Admission History Source: Patient, Family Member (daughter) Limitations to Obtaining History: No Limitations - Past Medical History Cardiovascular: Yes: HTN, Hyperlipdemia, Other (AAA) Pulmonary: No: Asthma, Bronchitis, Cancer, COPD, O2 Dependent, Pneumonia, Previously Intubated, Pulmonary Embolus, Pulmonary Fibrosis, Sleep Apnea, Other Gastrointestinal: No: Ascites, Cancer, Constipation, Crohn's Disease, Diverticulitis, Diverticulosis, Esophageal Varices, Gastritis, GERD, GI Bleed, Hemorrhoids, Hiatal Hernia, Inflamatory Bowel Disease, Irritable Bowel Disease, Pancreatitis, Peptic Ulcer Disease, Ulcerative Colitis, Other Hepatobiliary: No: Cirrhosis, Cholelithiasis, Cholecystitis, Choledocholithiasis , Hepatitis A, Hepatitis B, Hepatitis C, Other Renal/: Yes: Renal Inusuff (baseline creat around 1.7) Heme/Onc: No: Anemia, B12 Deficiency, Bleeding Disorder, Cancer, Current Chemotherapy, Current Radiation Therapy, Hemochromatosis, Hypercoaguable State, Myeloproliferative Synd, Sickle Cell Disease, Sickle Cell Trait, Thrombocytopenia, Other Infectious Disease: No: AIDS, C-Diff, Herpes Zoster, HIV, MRSA, STD's, Tuberculosis, VREF, Other Endocrine: Yes: Diabetes Mellitus - Past Surgical History Past Surgical History: Yes: AAA Repair - Smoking History Smoking history: Never smoked Have you smoked in the past 12 months: No - Alcohol/Substance Use Hx Alcohol Use: No - Social History Usual Living Arrangement: Yes: With Spouse ADL: Independent (prior to Left TKR) History of Recent Travel: No Home Medications - Allergies Allergies/Adverse Reactions: Allergies Allergy/AdvReac Type Severity Reaction Status Date / Time No Known Allergies Allergy Verified 10/22/18 12:05 - Home Medications Home Medications: Ambulatory Orders metFORMIN HCL [Glucophage -] 500 mg PO BID 02/28/13 Amlodipine Besylate [Norvasc -] 5 mg PO DAILY 09/19/18 Fenofibrate Nanocrystallized [Fenofibrate] 160 mg PO DAILY 09/19/18 Lisinopril [Zestril] 40 mg PO DAILY 09/19/18 Ascorbic Acid [Vitamin C -] 500 mg PO BID tablet 10/17/18 Aspirin [ASA -] 325 mg PO DAILY@0800 tablet 10/17/18 Cephalexin Monohydrate [Keflex -] 500 mg PO TID #30 capsule 10/17/18 Multivitamins [Multivit ([facility] Formulary)] 1 tab PO DAILY tab 10/17/18 Oxycodone HCl/Acetaminophen [Percocet 5-325 mg Tablet] 1 - 2 tab PO Q4H PRN #60 tablet MDD 10 10/17/18 Pantoprazole Sodium [Protonix -] 40 mg PO DAILY #40 tablet.ec 10/17/18 Sennosides/Docusate Sodium [Pericolace -] 2 tablet PO BID tablet 10/17/18 traMADol HCL [Ultram -] 50 mg PO Q4H PRN #42 tablet MDD 6 10/17/18 Family Disease History - Family Disease History Family History: Unable to Obtain Review of Systems - Review of Systems Constitutional: reports: Lethargy, Malaise Eyes: reports: No Symptoms HENT: reports: No Symptoms Neck: reports: No Symptoms Cardiovascular: reports: Edema, Shortness of Breath Respiratory: reports: Cough, PND, SOB, SOB on Exertion, Wheezing (increased over last 2 days) Genitourinary: reports: No Symptoms Breasts: reports: No Symptoms Reported Musculoskeletal: reports: Other (s/p TKR 11/15) Integumentary: reports: Incision (to left knee) Neurological: reports: No Symptoms Endocrine: reports: No Symptoms Hematology/Lymphatic: reports: No Symptoms Psychiatric: reports: No Symptoms Physical Examination Vital Signs: Vital Signs Temperature 98.6 F 10/22/18 12:03 Pulse Rate 115 H 10/22/18 15:00 Respiratory Rate 28 H 10/22/18 15:00 Blood Pressure 120/66 10/22/18 15:00 O2 Sat by Pulse Oximetry (%) 100 10/22/18 15:45 Constitutional: Yes: Moderate Distress (related to dyspnea) Eyes: Yes: WNL, Conjunctiva Clear, EOM Intact HENT: Yes: WNL, Atraumatic, Normocephalic Neck: Yes: WNL, Supple, Trachea Midline Cardiovascular: Yes: Regular Rate and Rhythm, Tachycardia Respiratory: Yes: On Venti-Mask, Tachypnea, Wheezes (audible) Gastrointestinal: Yes: WNL, Normal Bowel Sounds, Abdomen, Obese ...Rectal Exam: Yes: WNL, Deferred, Other (guaiac negative) Renal/: Yes: WNL Breast(s): Yes: WNL Musculoskeletal: Yes: Joint Swelling (to left TKR) Extremities: Yes: Erythema (to surgical site) Edema: Yes Edema: LLE: 2+, RLE: 2+ Peripheral Pulses WNL: Yes Integumentary: Yes: Other (ecchymosis to left calf to inner thigh) ...Motor Strength: LLE (4/5) Psychiatric: Yes: WNL, Alert, Oriented Labs: CBC, BMP 10/22/18 12:30 10/22/18 12:30 Imaging - Results Chest X-ray: Report Reviewed, Image Reviewed (bl infiltartes?, increased oulmonary vascular congestion) Ultrasound: Report Reviewed (dopplers negativeor DVT) EKG: Report Reviewed, Image Reviewed (ST depressions to lateral leads) Problem List - Problems (1) ACS (acute coronary syndrome) Assessment/Plan: questional ACS vs demand ischema vs PE vs PNA appreciate cardiology consultation. Anticoagulation was started for possible NSTEMI and prior to r/o PE in ED c/w heparin gtt according to protocol continue to trend troponins with serial ekgs Code(s): I24.9 - ACUTE ISCHEMIC HEART DISEASE, UNSPECIFIED (2) Respiratory failure Assessment/Plan: worsening respiratory failure after hydration for preparation for CTA lasix 20mg IVP given and Bipap started with improved respiratory function c/w abx duo nebs prn Code(s): J96.90 - RESPIRATORY FAILURE, UNSP, UNSP W HYPOXIA OR HYPERCAPNIA (3) Elevated brain natriuretic peptide (BNP) level Assessment/Plan: continue to trend BNP continue with lasix 40mg BID appreciate cardiology consultation daily weights Code(s): R79.89 - OTHER SPECIFIED ABNORMAL FINDINGS OF BLOOD CHEMISTRY (4) HTN (hypertension) Assessment/Plan: hold home dose of lisinopril and reassess in am Code(s): I10 - ESSENTIAL (PRIMARY) HYPERTENSION (5) Diabetes Assessment/Plan: BGM q 6h with novolog sliding scale diabetic diet when eating Code(s): E11.9 - TYPE 2 DIABETES MELLITUS WITHOUT COMPLICATIONS (6) HLD (hyperlipidemia) Assessment/Plan: c/w statin Code(s): E78.5 - HYPERLIPIDEMIA, UNSPECIFIED (7) Hypoxia Assessment/Plan: imrpoved with Bipap continue as needed duo nebs prn no further dose of steroids Code(s): R09.02 - HYPOXEMIA (8) Troponin level elevated Assessment/Plan: trop >7.0 Cont IV heparin gtts for NSTEMI vs PE; continued tele monitoring in ICU ASA daily Echo to assess LV/RV fx, RVSP. Daily ECGs. Trend cardiac enzymes overnight, as per cardiology . If clear and marked uptrend in enzymes would Plavix load. Code(s): R74.8 - ABNORMAL LEVELS OF OTHER SERUM ENZYMES (9) Leukocytosis Assessment/Plan: leukocytosis most liekely secondary to SIRS blood /Urine cx pending surgical site without signs of infection, will continue to monitor zosyn started and will continue pending cultures Code(s): D72.829 - ELEVATED WHITE BLOOD CELL COUNT, UNSPECIFIED (10) D-dimer, elevated Assessment/Plan: CTA chest when stable for scan lower extrem dopplers negative Code(s): R79.89 - OTHER SPECIFIED ABNORMAL FINDINGS OF BLOOD CHEMISTRY (11) Prophylactic measure Assessment/Plan: FEN continue diuresis monitor electrolytes, maintain K>4.0 & Mq > 2.0 NPO as of now pending further cardiac testing DVT mainatin on heparin gtt Dispo transfer to [facility] ICU full code discharge planning Code(s): Z29.9 - ENCOUNTER FOR PROPHYLACTIC MEASURES, UNSPECIFIED (12) YANCI (acute kidney injury) Assessment/Plan: Mildly elevated creatinine above baseline now 2.0 continue to trend, avoid all nephrotoxic agents monitor for rising Cr now that standing lasix is started Code(s): N17.9 - ACUTE KIDNEY FAILURE, UNSPECIFIED (13) Admitted to intensive care unit Assessment/Plan: appreciate ICU level of care will continue to follow patient Code(s): Z78.9 - OTHER SPECIFIED HEALTH STATUS (14) Anemia Assessment/Plan: hct 28, continue to trend guaiac negative Code(s): D64.9 - ANEMIA, UNSPECIFIED Assessment/Plan . Visit type - Emergency Visit Emergency Visit: Yes ED Registration Date: 10/22/18 Care time: The patient presented to the Emergency Department on the above date and was hospitalized for further evaluation of their emergent condition. - New Patient This patient is new to me today: Yes Date on this admission: 10/22/18 - Critical Care Critical Care patient: Yes Total Critical Care Time (in minutes): 75 Critical Care Statement: The care of this patient involved high complexity decision making to prevent further life threatening deterioration of the patient 's condition and/or to evaluate & treat vital organ system(s) failure or risk of failure.
--- NOTE | 2018-10-22 17:52 | CONSULT ---
Consultation: CONSULT SERVICE: ICU Resident HISTORY OF PRESENT ILLNESS: 83yo M with h/o HTN, HLd, T2DM, CKD, stable AAA who presents today after L total knee arthroscopy makoplasty on 10/15/18 at [facility] due to 2 days worth of cough and shortness of breath. Pt reports he was doing well after his surgery, however the past two days he would feel worsening shortness of breath. Pt has a visiting nurse due to his rehability needs and today the nurse recommended him to come to the ER for further evaluation. In the ER workup he was found to be tachycardic, tachypneic, and hypoxic to 70% on RA and was placed on NRB with appropriate normalization of his SpO2. CXR revealed enlarged cardiac silhouette, prominent pulmonary vasculature and possible RLL opacification suggestive of an infiltrate. Pt at time of exam in ICU at [facility] appears comfortable on NIPPV and reports improvement of shortness of breath. Pt denies any productivity to his cough, palpitations, chest pain/discomfort, back pain, worsening edema of his legs, numbness/tingling, weakness, lightheadedness/ dizziness. Of note, pt denies any issues with bleeding in the past. Denies any previous DVTs or PEs diagnosed and denies prior history of atrial fibrillation. Pt does not recall any moment of having increased leg swelling. Pt reports 2 weeks prior he drove ~3 hrs to [place] and back prior to his procedure. REVIEW OF SYSTEMS: As per HPI PHYSICAL EXAMINATION Vital Signs 10/22/18 10/22/18 10/22/18 12:03 12:05 12:19 Temperature 98.6 F Pulse Rate 106 H 104 H 104 H Pulse Rate [ Apical] Respiratory 28 H Rate Blood Pressure 126/72 Blood Pressure [Right Arm] O2 Sat by Pulse 83 L 95 95 Oximetry (%) 10/22/18 10/22/18 10/22/18 13:00 13:15 14:05 Temperature Pulse Rate 105 H Pulse Rate [ 107 H 106 H Apical] Respiratory 25 H 22 H Rate Blood Pressure Blood Pressure 107/65 113/73 [Right Arm] O2 Sat by Pulse 95 93 L 93 L Oximetry (%) 10/22/18 10/22/18 10/22/18 14:45 15:00 15:45 Temperature Pulse Rate 114 H Pulse Rate [ 115 H Apical] Respiratory 28 H Rate Blood Pressure Blood Pressure 120/66 [Right Arm] O2 Sat by Pulse 89 L 89 L 100 Oximetry (%) 10/22/18 10/22/18 16:45 17:15 Temperature 97.9 F 97.9 F Pulse Rate 108 H Pulse Rate [ 112 H Apical] Respiratory 18 19 Rate Blood Pressure 143/92 Blood Pressure 143/93 [Right Arm] O2 Sat by Pulse 100 Oximetry (%) GENERAL: Awake, alert, and fully oriented, in no acute distress. HEENT: NC/AT, EOMI, AVRIL, sclera anicteric, MMM, biLevel mask in place NECK: No JVD LUNGS: Diminished breath sounds R>L base. No wheezes, and no crackles. No accessory muscle use. NIPPV S/T mode HEART: Tachycardic with regular rhythm, normal S1 and S2 without murmur. No splitting of S2 appreciated ABDOMEN: Soft, NT/ND, normoactive bowel sounds, no guarding EXTREMITIES: 2+ pulses, warm, well-perfused. No calf tenderness. No peripheral edema. SKIN: Warm, dry, no rashes or lesions noted. Laboratory Results - last 24 hr 10/22/18 10/22/18 10/22/18 12:30 12:30 12:30 WBC 15.7 H RBC 2.94 L Hgb 9.5 L Hct 28.1 L D MCV 95.6 MCH 32.3 MCHC 33.8 RDW 14.7 Plt Count 244 D MPV 8.9 Absolute Neuts (auto) 13.7 Neutrophils % 87.1 H Lymphocytes % 6.1 L Monocytes % 6.7 Eosinophils % 0.0 Basophils % 0.1 PT with INR INR PTT (Actin FS) 25.3 D-Dimer VBG pH POC VBG pCO2 POC VBG pO2 VBG HCO3 VBG O2 Sat (Bhavik) VBG Base Excess Sodium 138 Potassium 5.4 H Chloride 105 Carbon Dioxide 23 Anion Gap 10 BUN 62.0 H Creatinine 2.0 H Est GFR (CKD-EPI)AfAm 34.50 Est GFR (CKD-EPI)NonAf 29.76 Random Glucose 166 H Lactic Acid Calcium 8.5 Total Bilirubin 1.7 H AST 220 H ALT 152 H Alkaline Phosphatase 40 L Troponin I Total Protein 5.8 L Albumin 2.7 L Urine Color Urine Appearance Urine pH Urine Protein Urine Glucose (UA) Urine Ketones Urine Blood Urine Nitrite Urine Bilirubin Urine Urobilinogen Ur Leukocyte Esterase Stool Occult Blood 10/22/18 10/22/18 10/22/18 12:30 12:30 12:30 WBC RBC Hgb Hct MCV MCH MCHC RDW Plt Count MPV Absolute Neuts (auto) Neutrophils % Lymphocytes % Monocytes % Eosinophils % Basophils % PT with INR 19.6 H INR 1.77 H PTT (Actin FS) D-Dimer 2525 H VBG pH POC VBG pCO2 POC VBG pO2 VBG HCO3 VBG O2 Sat (Bhavik) VBG Base Excess Sodium Potassium Chloride Carbon Dioxide Anion Gap BUN Creatinine Est GFR (CKD-EPI)AfAm Est GFR (CKD-EPI)NonAf Random Glucose Lactic Acid 2.9 H* Calcium Total Bilirubin AST ALT Alkaline Phosphatase Troponin I Total Protein Albumin Urine Color Urine Appearance Urine pH Urine Protein Urine Glucose (UA) Urine Ketones Urine Blood Urine Nitrite Urine Bilirubin Urine Urobilinogen Ur Leukocyte Esterase Stool Occult Blood 10/22/18 10/22/18 10/22/18 12:30 12:30 15:30 WBC RBC Hgb Hct MCV MCH MCHC RDW Plt Count MPV Absolute Neuts (auto) Neutrophils % Lymphocytes % Monocytes % Eosinophils % Basophils % PT with INR INR PTT (Actin FS) D-Dimer VBG pH 7.42 H POC VBG pCO2 36.3 L POC VBG pO2 39.8 VBG HCO3 23.0 VBG O2 Sat (Bhavik) 67.3 L VBG Base Excess -0.7 Sodium Potassium Chloride Carbon Dioxide Anion Gap BUN Creatinine Est GFR (CKD-EPI)AfAm Est GFR (CKD-EPI)NonAf Random Glucose Lactic Acid Calcium Total Bilirubin AST ALT Alkaline Phosphatase Troponin I 7.64 H* Total Protein Albumin Urine Color Urine Appearance Urine pH Urine Protein Urine Glucose (UA) Urine Ketones Urine Blood Urine Nitrite Urine Bilirubin Urine Urobilinogen Ur Leukocyte Esterase Stool Occult Blood Negative 10/22/18 17:30 WBC RBC Hgb Hct MCV MCH MCHC RDW Plt Count MPV Absolute Neuts (auto) Neutrophils % Lymphocytes % Monocytes % Eosinophils % Basophils % PT with INR INR PTT (Actin FS) D-Dimer VBG pH POC VBG pCO2 POC VBG pO2 VBG HCO3 VBG O2 Sat (Bhavik) VBG Base Excess Sodium Potassium Chloride Carbon Dioxide Anion Gap BUN Creatinine Est GFR (CKD-EPI)AfAm Est GFR (CKD-EPI)NonAf Random Glucose Lactic Acid Calcium Total Bilirubin AST ALT Alkaline Phosphatase Troponin I Total Protein Albumin Urine Color Yellow Urine Appearance Clear Urine pH 5.0 Urine Protein Negative Urine Glucose (UA) Negative Urine Ketones Negative Urine Blood Negative Urine Nitrite Negative Urine Bilirubin Negative Urine Urobilinogen 0.2 Ur Leukocyte Esterase Negative Stool Occult Blood Active Medications Generic Name Dose Route Start Last Admin Trade Name Freq PRN Reason Stop Dose Admin Aspirin 81 mg 10/23/18 10:00 Asa - PO DAILY [facility] Chlorhexidine Gluconate 1 applic 10/22/18 22:00 Hibiclens For Decolonization - TP HS [facility] Fenofibric Acid 135 mg 10/23/18 10:00 Trilipix - PO DAILY [facility] Heparin Sodium (Porcine) 4,000 unit 10/22/18 14:47 Heparin - 40 unit/kg (4000 unit) IVPUSH PRN PRN For aPTT 35 to 45 seconds Heparin Sodium (Porcine) 8,000 unit 10/22/18 14:47 Heparin - 80 unit/kg (8000 unit) IVPUSH PRN PRN aPTT <35 seconds Heparin Sodium/Dextrose 25,000 units in 500 mls @ 36 mls/hr 10/22/18 15:00 16:00 Heparin Infusion - IVPB 18 units/kg/hr TITR SAE 36 mls/hr Administration Protocol 18 UNITS/KG/HR Insulin Aspart 1 vial 10/22/18 16:30 Novolog Vial Sliding Scale - SQ ACHS [facility] Protocol Mupirocin 1 applic 10/22/18 22:00 Bactroban Ointment (For Decolonization) - NS 10/27/18 21:59 BID [facility] Pantoprazole Sodium 40 mg 10/23/18 10:00 Protonix Iv IVPUSH DAILY [facility] ASSESSMENT/PLAN: Acute hypoxic respiratory distress NSTEMI Pulmonary embolism Possible RLL PNA S/p L knee arthroscopy and makoplasty Lactic acidosis Transaminitis Acute vs. chronic kidney insufficiency Hyperkalemia --DDx at this time includes: NSTEMI, r/o PE, and respiratory distress 2/2 to possible RLL PNA --Pt already started on Heparin gtt --CTA cannot be performed at current point due to Cr 2.0 --Echocardiogram ordered --Cardiology on board and appreciated recommendations --ASA daily --Continue to trend troponins --Zosyn (renally dosed) to continue for possible RLL HCAPna --Monitor fever trend --Continue NIPPV settings as patient's work of breathing is improved --LA possible hypoxemia 2/2 intrapulmonary shunting vs. sepsis 2/2 to PNA; trend until normalization --Transaminitis possibly congestive hepatopathy --RUQ US ordered --Avoid hepatotoxic agents --Monitor for continue downtrend with daily labs --YANCI vs. CKD noted with again possible decreased perfusion pressure to the kidneys --Monitor urine output (goal 0.5cc/kg/hr) --Doubt obstruction as patient is urinating however will order Renal U/S if continues to increase --Avoid nephrotoxic agents --Once pt is stable can continue with physical therapy s/p his orthopedic procedure FEN: Fluids: Active diuresis ongoing Electrolyte abnormalities: Hyperkalemia 2/2 to renal dysfunction; monitor Nutrition: NPO except medications while on NIPPV PPX: DVT - Already on heparin gtt GI - Protonix qdaily Dispo: Monitor in ICU considering r/o submassive PE Case discussed with Dr. Ashley Hall, DO - IM PGY-3 Visit type - Emergency Visit Emergency Visit: Yes ED Registration Date: 10/22/18 Care time: The patient presented to the Emergency Department on the above date and was hospitalized for further evaluation of their emergent condition. - New Patient This patient is new to me today: Yes Date on this admission: 10/22/18 - Critical Care Critical Care patient: Yes Total Critical Care Time (in minutes): 35 Critical Care Statement: The care of this patient involved high complexity decision making to prevent further life threatening deterioration of the patient 's condition and/or to evaluate & treat vital organ system(s) failure or risk of failure.
[2018-10-22] MEDS: INSULIN SLIDING SCALE (NOVOLOG) 1 VIAL SQ SCH ×2 (19:30→21:55)
[2018-10-22] MEDS: CHLORHEXIDINE GLUCONATE 4% CLEANSER FOR DECOLONIZATION TP SCH (21:54)
[2018-10-22] MEDS: MUPIROCIN 2% TOPICAL OINTMENT FOR DECOLONIZATION NS SCH (21:55)
[2018-10-23] MEDS ORDERED: DEXTROSE 5%-WATER - 50 ML IVPB ONE ×3 (02:28→17:05)
[2018-10-23] MEDS ORDERED: PIPERACILLIN/TAZOBACTAM 3.375 GM VIAL IVPB ONE ×3 (02:28→17:05)
[2018-10-23] MEDS: PIPERACILLIN/TAZOB 3.375 GM 3.375 GM in DEXTROSE 5%-WATER - 50 ML IVPB SCH ×3 (02:38→17:10)
--- NOTE | 2018-10-23 05:00 | PN ---
Physical Exam: SUBJECTIVE: Patient seen and examined at bed side , no acute events over night , feeling better , on NIPAP , no fever or chills , no chest pain was reported. OBJECTIVE: Vital Signs Period Temp Pulse Resp BP Sys/العلي Pulse Ox Last 24 Hr 97.2 F-98.6 F 72-117 18-28 95-143/62-93 78-100 GENERAL: AAOx3 in NAD , on NIPAP HEAD: NC/AT, + JVD EYES: Conjunctiva clear, sclera anicteric NECK: Supple, + JVD LUNGS: CTA B/L, no wheezing HEART: RRR, NSR, normal s1, s2, murmur no M/R/G ABDOMEN:Obese , Soft, ND, NT, +BS 4 Q, no CVA Tenderness LOWER EXTREMITIES: no edema, +2DP pulse, NEUROLOGICAL: No focal deficit. Normal speech. gait not observed. Laboratory Results - last 24 hr 10/22/18 10/22/18 10/22/18 12:30 12:30 12:30 WBC 15.7 H RBC 2.94 L Hgb 9.5 L Hct 28.1 L D MCV 95.6 MCH 32.3 MCHC 33.8 RDW 14.7 Plt Count 244 D MPV 8.9 Absolute Neuts (auto) 13.7 Neutrophils % 87.1 H Lymphocytes % 6.1 L Monocytes % 6.7 Eosinophils % 0.0 Basophils % 0.1 PT with INR INR PTT (Actin FS) 25.3 D-Dimer VBG pH POC VBG pCO2 POC VBG pO2 VBG HCO3 VBG O2 Sat (Bhavik) VBG Base Excess Sodium 138 Potassium 5.4 H Chloride 105 Carbon Dioxide 23 Anion Gap 10 BUN 62.0 H Creatinine 2.0 H Est GFR (CKD-EPI)AfAm 34.50 Est GFR (CKD-EPI)NonAf 29.76 POC Glucometer Random Glucose 166 H Lactic Acid Calcium 8.5 Total Bilirubin 1.7 H AST 220 H ALT 152 H Alkaline Phosphatase 40 L Creatine Kinase Creatine Kinase Index CK-MB (CK-2) Troponin I Total Protein 5.8 L Albumin 2.7 L Urine Color Urine Appearance Urine pH Urine Protein Urine Glucose (UA) Urine Ketones Urine Blood Urine Nitrite Urine Bilirubin Urine Urobilinogen Ur Leukocyte Esterase Stool Occult Blood 10/22/18 10/22/18 10/22/18 12:30 12:30 12:30 WBC RBC Hgb Hct MCV MCH MCHC RDW Plt Count MPV Absolute Neuts (auto) Neutrophils % Lymphocytes % Monocytes % Eosinophils % Basophils % PT with INR 19.6 H INR 1.77 H PTT (Actin FS) D-Dimer 2525 H VBG pH POC VBG pCO2 POC VBG pO2 VBG HCO3 VBG O2 Sat (Bhavik) VBG Base Excess Sodium Potassium Chloride Carbon Dioxide Anion Gap BUN Creatinine Est GFR (CKD-EPI)AfAm Est GFR (CKD-EPI)NonAf POC Glucometer Random Glucose Lactic Acid 2.9 H* Calcium Total Bilirubin AST ALT Alkaline Phosphatase Creatine Kinase Creatine Kinase Index CK-MB (CK-2) Troponin I Total Protein Albumin Urine Color Urine Appearance Urine pH Urine Protein Urine Glucose (UA) Urine Ketones Urine Blood Urine Nitrite Urine Bilirubin Urine Urobilinogen Ur Leukocyte Esterase Stool Occult Blood 10/22/18 10/22/18 10/22/18 12:30 12:30 15:30 WBC RBC Hgb Hct MCV MCH MCHC RDW Plt Count MPV Absolute Neuts (auto) Neutrophils % Lymphocytes % Monocytes % Eosinophils % Basophils % PT with INR INR PTT (Actin FS) D-Dimer VBG pH 7.42 H POC VBG pCO2 36.3 L POC VBG pO2 39.8 VBG HCO3 23.0 VBG O2 Sat (Bhavik) 67.3 L VBG Base Excess -0.7 Sodium Potassium Chloride Carbon Dioxide Anion Gap BUN Creatinine Est GFR (CKD-EPI)AfAm Est GFR (CKD-EPI)NonAf POC Glucometer Random Glucose Lactic Acid Calcium Total Bilirubin AST ALT Alkaline Phosphatase Creatine Kinase Creatine Kinase Index CK-MB (CK-2) Troponin I 7.64 H* Total Protein Albumin Urine Color Urine Appearance Urine pH Urine Protein Urine Glucose (UA) Urine Ketones Urine Blood Urine Nitrite Urine Bilirubin Urine Urobilinogen Ur Leukocyte Esterase Stool Occult Blood Negative 10/22/18 10/22/18 10/22/18 17:30 19:18 21:36 WBC RBC Hgb Hct MCV MCH MCHC RDW Plt Count MPV Absolute Neuts (auto) Neutrophils % Lymphocytes % Monocytes % Eosinophils % Basophils % PT with INR INR PTT (Actin FS) D-Dimer VBG pH POC VBG pCO2 POC VBG pO2 VBG HCO3 VBG O2 Sat (Bhavik) VBG Base Excess Sodium Potassium Chloride Carbon Dioxide Anion Gap BUN Creatinine Est GFR (CKD-EPI)AfAm Est GFR (CKD-EPI)NonAf POC Glucometer 209 Random Glucose Lactic Acid Calcium Total Bilirubin AST ALT Alkaline Phosphatase Creatine Kinase 262 Creatine Kinase Index 2.3 CK-MB (CK-2) 6.2 H Troponin I 6.54 H* Total Protein Albumin Urine Color Yellow Urine Appearance Clear Urine pH 5.0 Urine Protein Negative Urine Glucose (UA) Negative Urine Ketones Negative Urine Blood Negative Urine Nitrite Negative Urine Bilirubin Negative Urine Urobilinogen 0.2 Ur Leukocyte Esterase Negative Stool Occult Blood 10/22/18 10/22/18 10/22/18 21:36 21:36 21:38 WBC RBC Hgb Hct MCV MCH MCHC RDW Plt Count MPV Absolute Neuts (auto) Neutrophils % Lymphocytes % Monocytes % Eosinophils % Basophils % PT with INR INR PTT (Actin FS) 60.7 H D-Dimer VBG pH POC VBG pCO2 POC VBG pO2 VBG HCO3 VBG O2 Sat (Bhavik) VBG Base Excess Sodium Potassium Chloride Carbon Dioxide Anion Gap BUN Creatinine Est GFR (CKD-EPI)AfAm Est GFR (CKD-EPI)NonAf POC Glucometer 196 Random Glucose Lactic Acid 1.9 Calcium Total Bilirubin AST ALT Alkaline Phosphatase Creatine Kinase Creatine Kinase Index CK-MB (CK-2) Troponin I Total Protein Albumin Urine Color Urine Appearance Urine pH Urine Protein Urine Glucose (UA) Urine Ketones Urine Blood Urine Nitrite Urine Bilirubin Urine Urobilinogen Ur Leukocyte Esterase Stool Occult Blood Active Medications Generic Name Dose Route Start Last Admin Trade Name Freq PRN Reason Stop Dose Admin Aspirin 81 mg 10/23/18 10:00 Asa - PO DAILY [facility] Chlorhexidine Gluconate 1 applic 10/22/18 22:00 10/22/18 21:54 Hibiclens For Decolonization - TP 1 applic HS [facility] Administration Fenofibric Acid 135 mg 10/23/18 10:00 Trilipix - PO DAILY [facility] Furosemide 40 mg 10/23/18 06:00 Lasix Injection - IVPUSH BID@0600,1400 SAE Heparin Sodium (Porcine) 4,000 unit 10/22/18 14:47 Heparin - 40 unit/kg (4000 unit) IVPUSH PRN PRN For aPTT 35 to 45 seconds Heparin Sodium (Porcine) 8,000 unit 10/22/18 14:47 Heparin - 80 unit/kg (8000 unit) IVPUSH PRN PRN aPTT <35 seconds Heparin Sodium/Dextrose 25,000 units in 500 mls @ 36 mls/hr 10/22/18 15:00 16:00 Heparin Infusion - IVPB 18 units/kg/hr TITR SAE 36 mls/hr Administration Protocol 18 UNITS/KG/HR Piperacillin Sod/Tazobactam 50 mls @ 100 mls/hr 10/23/18 02:00 Sod 3.375 gm/ Dextrose IVPB Q8H-IV SAE Protocol Piperacillin Sod/Tazobactam 50 mls @ 100 mls/hr 10/23/18 02:00 10/23/18 02:38 Sod 3.375 gm/ Dextrose IVPB 10/23/18 18:29 100 mls/hr Q8H-IV SAE Administration Insulin Aspart 1 vial 10/22/18 16:30 10/22/18 21:55 Novolog Vial Sliding Scale - SQ Not Given ACHS SAE Protocol Mupirocin 1 applic 10/22/18 22:00 10/22/18 21:55 Bactroban Ointment (For Decolonization) - NS 10/27/18 21:59 1 applic BID SAE Administration Pantoprazole Sodium 40 mg 10/23/18 10:00 Protonix Iv IVPUSH DAILY SAE EKG :ST, 1st degree AV Block, LAHB, RBBB, ST depressions I, AvL, V4-V6 Echo: EF 30%, nl RV function, mod MR with eccentric jet, mild TR, RVSP 44 mmHg, lg L pleural effusion ASSESSMENT/PLAN: # Acute hypoxic hypercapnic respiratory failure due to Possible HCPNA(RLL) on supperimposed CHF can not R.o PE # NSTEMI # R.P PE # recent Makoplast 10/15 # elevated trop # YANCI on CKD # Hyperkalemia resolved Plan: * maintain O2 sat > 90 % , wean off NIPAP as tolerated * ABx per ID Zosyn , ID on board added on dose of Azithromax pending [employer] * Duoneb , ASA , * Lasix 40 IV push BID * ON Hep Gtt for NSTEMI and possible PE * PPI * ISS * F.U cx * daily weight , I&O * hold on CTA due to kidney function * cont to monitor in ICU Visit type - Emergency Visit Emergency Visit: Yes ED Registration Date: 10/22/18 Care time: The patient presented to the Emergency Department on the above date and was hospitalized for further evaluation of their emergent condition. - New Patient This patient is new to me today: Yes Date on this admission: 10/23/18 - Critical Care Critical Care patient: Yes Total Critical Care Time (in minutes): 45 Critical Care Statement: The care of this patient involved high complexity decision making to prevent further life threatening deterioration of the patient 's condition and/or to evaluate & treat vital organ system(s) failure or risk of failure. ATTENDING PHYSICIAN STATEMENT I saw and evaluated the patient. I reviewed the resident's note and discussed the case with the resident. I agree with the resident's findings and plan as documented. SUBJECTIVE: OBJECTIVE: ASSESSMENT AND PLAN:
[2018-10-23] MEDS: FUROSEMIDE 40 MG/4 ML INJECTABLE VIAL IVPUSH SCH ×2 (05:58→13:49)
[2018-10-23] MEDS: INSULIN SLIDING SCALE (NOVOLOG) 1 VIAL SQ SCH ×4 (06:16→21:57)
[2018-10-23] MEDS: HEPARIN INFUSION - 25,000 UNITS/500 ML INFUS.BAG IVPB SCH ×3 (06:51→21:57)
[2018-10-23 08:19] LABS: BASO % 0.2 % (0-2.0); HEMOGLOBIN 9.7 GM/dL (11.7-16.9); LYMPH % 5.7 % (8-40); MCH 32.1 pg (25.7-33.7); MCHC 33.5 g/dl (32.0-35.9); MEAN CELL VOLUME 95.9 fl (80-96); MEAN PLT VOLUME 8.9 fl (7.5-11.1); MONO % 7.3 % (3.8-10.2); N-TERMINAL BNP > 35000.0 pg/ml (5-450); NEUT % 86.8 % (42.8-82.8); PLATELET COUNT 248 K/MM3 (134-434); RBC 3.02 M/mm3 (4.00-5.60); RDW 15.9 % (11.9-15.9); WHITE BLOOD COUNT 18.7 K/mm3 (4.0-10.0)
[2018-10-23 08:56] LABS: ALBUMIN 2.6 g/dl (3.4-5.0); ALK PHOS 50 U/L (45-117); ANION GAP 9 MMOL/L (8-16); BILIRUBIN,TOTAL 0.7 mg/dL (0.2-1); BLOOD UREA NITROGEN 67.1 mg/dL (7-18); CALCIUM 8.2 mg/dL (8.5-10.1); CHLORIDE 109 mmol/L (98-107); CO2 25 mmol/L (21-32); CREATININE 2.2 mg/dL (0.55-1.3); GLUCOSE,RANDOM 181 mg/dL (74-106); MAGNESIUM 2.4 mg/dL (1.8-2.4); PHOSPHOROUS 4.7 mg/dL (2.5-4.9); SGOT/AST 136 U/L (15-37); SGPT/ALT 151 U/L (13-61); SODIUM 143 mmol/L (136-145); TOT PROT 6.2 g/dl (6.4-8.2)
--- NOTE | 2018-10-23 09:31 | EKG ---
Test Reason : Blood Pressure : / mmHG Vent. Rate : 103 BPM Atrial Rate : 103 BPM P-R Int : 200 ms QRS Dur : 140 ms QT Int : 396 ms P-R-T Axes : 000 -80 092 degrees QTc Int : 518 ms SINUS TACHYCARDIA LEFT AXIS DEVIATION RIGHT BUNDLE BRANCH BLOCK POSSIBLE ANTEROSEPTAL INFARCT , AGE UNDETERMINED ABNORMAL ECG NO PREVIOUS ECGS AVAILABLE Confirmed by Jagdish King MD ([id number]) on 10/23/2018 9:31:31 AM Referred By: HANANH HUNTER Confirmed By:Jagdish King MD
[2018-10-23] MEDS: PANTOPRAZOLE SODIUM 40 MG VIAL IVPUSH SCH (09:38)
--- NOTE | 2018-10-23 09:38 | ECHO ---
Name: VINAY DAY Exam:Adult Echocardiogram Study Date: 10/23/2018 07:25 AM Age: 83 yrs Reason For Study: CHF Height: 72 in Weight: 246 lb BSA: 2.3 m2 MMode/2D Measurements & Calculations IVSd: 1.5 cm Ao root diam: 3.9 cm LVIDd: 4.8 cm LA dimension: 3.2 cm LVIDs: 3.0 cm LVPWd: 1.7 cm EDV(Teich): 109.2 ml LVOT diam: 2.0 cm ESV(Teich): 34.1 ml Doppler Measurements & Calculations MV E max willard: 107.0 cm/sec Ao V2 max: 95.0 cm/sec MV dec time: 0.18 sec Ao max P.6 mmHg AI P1/2t: 462.1 msec BHANU(V,D): 1.7 cm2 AI max willard: 218.5 cm/sec LV V1 max P.96 mmHg AI max P.1 mmHg LV V1 max: 49.0 cm/sec AI dec slope: 138.5 cm/sec2 MR max willard: 432.7 cm/sec TR max willard: 337.6 cm/sec MR max P.2 mmHg TR max P.6 mmHg PA V2 max: 59.7 cm/sec Med Peak E' Willard: 5.5 cm/sec PA max P.4 mmHg Med E/e': 19.3 Lat Peak E' Willard: 8.8 cm/sec Lat E/e': 12.1 PI Vmax: 82.8 cm/sec Procedure A complete two-dimensional transthoracic echocardiogram was performed (2D, M-mode, Doppler and color flow Doppler). Left Ventricle The left ventricle is normal in size. Ejection Fraction = 30%. The transmitral spectral Doppler flow pattern is suggestive of impaired LV relaxation. There is severe global hypokinesis of the left ventricle. Right Ventricle The right ventricle is normal in size and function. Atria Normal left and right atrial size and function. Mitral Valve The mitral valve is normal. There is moderate mitral regurgitation. The mitral regurgitant jet is eccentrically directed. Tricuspid Valve The tricuspid valve is normal. There is mild tricuspid regurgitation. Right ventricular systolic pres sure is elevated at 44 mmhg. Aortic Valve There is mild aortic valve thickening. Trace aortic regurgitation. Pulmonic Valve The pulmonic valve is not well visualized. Great Vessels The aortic root is normal size. Pericardium/Pleura There is no pericardial effusion. Large left pleural effusion. Interpretation Summary The left ventricle is normal in size. Ejection Fraction = 30%. The right ventricle is normal in size and function. There is mild aortic valve thickening. There is moderate mitral regurgitation. The mitral regurgitant jet is eccentrically directed. There is mild tricuspid regurgitation. Right ventricular systolic pressure is elevated at 44 mmhg. Trace aortic regurgitation. Large left pleural effusion. MD Jagdish King 10/23/2018 09:37 AM
[2018-10-23] MEDS: ASPIRIN 81 MG CHEWABLE TABLETS PO SCH (09:40)
[2018-10-23] MEDS ORDERED: PT OWN MED DRAWER 7, Y5N ONE (09:44)
[2018-10-23 10:05] LABS: INR 1.53 (0.83-1.09); PROTHROMBIN TIME (PATIENT) 18.1 SEC (9.7-13.0)
[2018-10-23] MEDS: MUPIROCIN 2% TOPICAL OINTMENT FOR DECOLONIZATION NS SCH ×2 (11:11→21:57)
[2018-10-23] MEDS: FENOFIBRIC ACID 135 MG CAP PO SCH (11:12)
--- NOTE | 2018-10-23 11:29 | CONSULT ---
Admitting History and Physical - Admission History of Present Illness: 83yo M with h/o HTN, HLd, T2DM, CKD, stable AAA who presents today after L total knee arthroscopy makoplasty on 10/15/18 at [facility] due to 2 days worth of cough and shortness of breath. Pt reports he was doing well after his surgery, however the past two days he would feel worsening shortness of breath. In ER found to be tachycardic, tachypneic, and hypoxic to 70% on RA and was placed on NRB with appropriate normalization of his SpO2. CXR revealed enlarged cardiac silhouette, prominent pulmonary vasculature CXR- RLL opacification suggestive of an infiltrate. Selected Entries 10/22/18 10/22/18 10/22/18 12:03 16:45 17:15 Temperature 98.6 F 97.9 F 97.9 F 10/22/18 10/22/18 10/23/18 17:51 19:00 02:00 Temperature 97.5 F L 97.6 F 97.2 F L 10/23/18 06:00 Temperature 97.8 F Laboratory Tests 10/22/18 10/23/18 12:30 06:30 WBC 15.7 H 18.7 H This is my first consult with this pt. Pt is on BIPAP, NPO.Noted by nurses to cough on sips of water Pt reports using Biotene spray for oral dryness at night at home. History Source: Patient Limitations to Obtaining History: No Limitations - Past Medical History Cardiovascular: Yes: HTN, Hyperlipdemia, Other (AAA) Pulmonary: No: Asthma, Bronchitis, Cancer, COPD, O2 Dependent, Pneumonia, Previously Intubated, Pulmonary Embolus, Pulmonary Fibrosis, Sleep Apnea, Other Gastrointestinal: No: Ascites, Cancer, Constipation, Crohn's Disease, Diverticulitis, Diverticulosis, Esophageal Varices, Gastritis, GERD, GI Bleed, Hemorrhoids, Hiatal Hernia, Inflamatory Bowel Disease, Irritable Bowel Disease, Pancreatitis, Peptic Ulcer Disease, Ulcerative Colitis, Other Hepatobiliary: No: Cirrhosis, Cholelithiasis, Cholecystitis, Choledocholithiasis , Hepatitis A, Hepatitis B, Hepatitis C, Other Renal/: Yes: Renal Inusuff (baseline creat around 1.7) Heme/Onc: No: Anemia, B12 Deficiency, Bleeding Disorder, Cancer, Current Chemotherapy, Current Radiation Therapy, Hemochromatosis, Hypercoaguable State, Myeloproliferative Synd, Sickle Cell Disease, Sickle Cell Trait, Thrombocytopenia, Other Infectious Disease: No: AIDS, C-Diff, Herpes Zoster, HIV, MRSA, STD's, Tuberculosis, VREF, Other Endocrine: Yes: Diabetes Mellitus - Past Surgical History Past Surgical History: Yes: AAA Repair - Smoking History Smoking history: Never smoked Have you smoked in the past 12 months: No - Alcohol/Substance Use Hx Alcohol Use: No - Social History ADL: Independent (prior to Left TKR) History of Recent Travel: No History - Admission Reason For Visit: HYPOXIA - Diagnostics X-ray: Report Reviewed (increased pulm/pleural changes on repeat CXR) - General Mental Status: Alert and Oriented, Awake and Alert, Able to Follow Commands Attention: Intact Ability to Follow Directions: Excellent Head/Neck Control: WFL - Hearing Hearing: Functional Hearing: Normal Hearing Aide: No Speech Evaluation - Communication Primary Language: DUTCH Communication: Yes: Within Normal Limits Oral Expression Ability: Yes: No Impairment - Speech Production Able to Make Needs Known: Yes: WNL Intelligibility: Yes: WNL - Speech Characteristics Voice Loudness: Normal Voice Pitch: Yes: Normal Voice Phonatory-based Quality: Yes: Normal, Quivering Speech Clarity: < 100% Nasal Resonance: Normal Articulation: Yes: Precise Rate of Speech: Intact - Language/Auditory Comprehension Follows: Yes: 2 Stage Simple Commands - Language/Verbal Expression Able to Respond to Simple Queries: Yes: WNL Able to Communicate Wants and Needs: Yes: WNL Functional Communication Status: Yes: WNL Attention: Yes: Intact - Memory/Perception CHCF Memory: Yes: WNL Short Term Memory: Yes: WNL - Swallow Evaluation/Bedside Assessment Current Nutritional Intake: NPO, Other (sips of water with intermittent cough response) Oral Secretions: Yes: WFL, Tongue Coated (slight.) Dentition: Yes: Adequate Facial Symmetry at Rest: Symmetrical Facial Symmetry on Retraction: Symmetrical Sensation: Normal Against Resistance Opening: Normal Against Resistance Closing: Normal Pucker Lips: Normal Smile: Normal Lingual Movement: Normal, Symmetric Lingual Speed of Movement: Normal Lingual Movement Strgth Against Opposition: Normal Lingual Movement Characteristics: Normal Velopharyngeal Movement: Normal Laryngeal Elevation: WFL Laryngeal Movement: Able to Palpate Rate of Intake: WFL Bolus Size: WFL Labial Seal: WFL Oral Prep Time: WFL A-P Transit: WFL Pocketing: None Coughing/Throat Clear: Yes (thin liquid.intermittent) Recommendations - Speech Evaluation, Impression/Plan Impression: Unable to tolerate being off BIPAP at this time. Cough response when given sips of water per nursing. Noted to cough intermittently during assessment. Strong voice. - Dysphagia Impressions/Plan Dysphagia Impressions: Mild Impairment, Risk of Aspiration *Silent aspiration: cannot be R/O at bedside Recommendations: Other (Mouth care. To reassess when off BIPAP for PO trials. Please inform me.) - Recommendations Diet Consistency: NPO, Other (ice chips.)
--- NOTE | 2018-10-23 11:51 | PN ---
Physical Exam: SUBJECTIVE: Patient seen and examined at bedside. Patient admitted to ICU for workup of NSTEMI vs. PE vs. respiratory distress 2/2 R LL PNA. Still unable to obtain CTA due to patients renal function, unclear whether acute vs. chronic kidney insufficiency. Plan to continue to diurese patient and follow BMPs, will obtain CTA once renal function improves. Patient appears comfortable on NIPPV and reports improvement of shortness of breath. OBJECTIVE: Vital Signs Period Temp Pulse Resp BP Sys/العلي Pulse Ox Last 24 Hr 97.2 F-98.6 F 72-117 18-28 95-143/62-93 78-100 GENERAL: Awake, alert, and fully oriented, in no acute distress. HEENT: NCAT, EOMI, PERRL, sclera anicteric, moist mucous membranes, biLevel mask in place NECK: No JVD LUNGS: Diminished breath sounds R>L base. No wheezes, and no crackles. No accessory muscle use. NIPPV S/T mode HEART: Tachycardic with regular rhythm, normal S1 and S2 without murmur. ABDOMEN: Soft, NT/ND, normoactive bowel sounds, no guarding EXTREMITIES: 2+ pulses, warm, well-perfused. No calf tenderness. No peripheral edema. SKIN: Warm, dry, no rashes or lesions noted. Laboratory Results - last 24 hr 10/22/18 10/22/18 10/22/18 12:30 12:30 12:30 WBC 15.7 H RBC 2.94 L Hgb 9.5 L Hct 28.1 L D MCV 95.6 MCH 32.3 MCHC 33.8 RDW 14.7 Plt Count 244 D MPV 8.9 Absolute Neuts (auto) 13.7 Neutrophils % 87.1 H Lymphocytes % 6.1 L Monocytes % 6.7 Eosinophils % 0.0 Basophils % 0.1 Nucleated RBC % PT with INR INR PTT (Actin FS) 25.3 D-Dimer VBG pH POC VBG pCO2 POC VBG pO2 VBG HCO3 VBG O2 Sat (Bhavik) VBG Base Excess Sodium 138 Potassium 5.4 H Chloride 105 Carbon Dioxide 23 Anion Gap 10 BUN 62.0 H Creatinine 2.0 H Est GFR (CKD-EPI)AfAm 34.50 Est GFR (CKD-EPI)NonAf 29.76 POC Glucometer Random Glucose 166 H Lactic Acid Calcium 8.5 Phosphorus Magnesium Total Bilirubin 1.7 H AST 220 H ALT 152 H Alkaline Phosphatase 40 L Creatine Kinase Creatine Kinase Index CK-MB (CK-2) Troponin I B-Natriuretic Peptide Total Protein 5.8 L Albumin 2.7 L Urine Color Urine Appearance Urine pH Urine Protein Urine Glucose (UA) Urine Ketones Urine Blood Urine Nitrite Urine Bilirubin Urine Urobilinogen Ur Leukocyte Esterase Stool Occult Blood 10/22/18 10/22/18 10/22/18 12:30 12:30 12:30 WBC RBC Hgb Hct MCV MCH MCHC RDW Plt Count MPV Absolute Neuts (auto) Neutrophils % Lymphocytes % Monocytes % Eosinophils % Basophils % Nucleated RBC % PT with INR 19.6 H INR 1.77 H PTT (Actin FS) D-Dimer 2525 H VBG pH POC VBG pCO2 POC VBG pO2 VBG HCO3 VBG O2 Sat (Bhavik) VBG Base Excess Sodium Potassium Chloride Carbon Dioxide Anion Gap BUN Creatinine Est GFR (CKD-EPI)AfAm Est GFR (CKD-EPI)NonAf POC Glucometer Random Glucose Lactic Acid 2.9 H* Calcium Phosphorus Magnesium Total Bilirubin AST ALT Alkaline Phosphatase Creatine Kinase Creatine Kinase Index CK-MB (CK-2) Troponin I B-Natriuretic Peptide Total Protein Albumin Urine Color Urine Appearance Urine pH Urine Protein Urine Glucose (UA) Urine Ketones Urine Blood Urine Nitrite Urine Bilirubin Urine Urobilinogen Ur Leukocyte Esterase Stool Occult Blood 10/22/18 10/22/18 10/22/18 12:30 12:30 15:30 WBC RBC Hgb Hct MCV MCH MCHC RDW Plt Count MPV Absolute Neuts (auto) Neutrophils % Lymphocytes % Monocytes % Eosinophils % Basophils % Nucleated RBC % PT with INR INR PTT (Actin FS) D-Dimer VBG pH 7.42 H POC VBG pCO2 36.3 L POC VBG pO2 39.8 VBG HCO3 23.0 VBG O2 Sat (Bhavik) 67.3 L VBG Base Excess -0.7 Sodium Potassium Chloride Carbon Dioxide Anion Gap BUN Creatinine Est GFR (CKD-EPI)AfAm Est GFR (CKD-EPI)NonAf POC Glucometer Random Glucose Lactic Acid Calcium Phosphorus Magnesium Total Bilirubin AST ALT Alkaline Phosphatase Creatine Kinase Creatine Kinase Index CK-MB (CK-2) Troponin I 7.64 H* B-Natriuretic Peptide Total Protein Albumin Urine Color Urine Appearance Urine pH Urine Protein Urine Glucose (UA) Urine Ketones Urine Blood Urine Nitrite Urine Bilirubin Urine Urobilinogen Ur Leukocyte Esterase Stool Occult Blood Negative 10/22/18 10/22/18 10/22/18 17:30 19:18 21:36 WBC RBC Hgb Hct MCV MCH MCHC RDW Plt Count MPV Absolute Neuts (auto) Neutrophils % Lymphocytes % Monocytes % Eosinophils % Basophils % Nucleated RBC % PT with INR INR PTT (Actin FS) D-Dimer VBG pH POC VBG pCO2 POC VBG pO2 VBG HCO3 VBG O2 Sat (Bhavik) VBG Base Excess Sodium Potassium Chloride Carbon Dioxide Anion Gap BUN Creatinine Est GFR (CKD-EPI)AfAm Est GFR (CKD-EPI)NonAf POC Glucometer 209 Random Glucose Lactic Acid Calcium Phosphorus Magnesium Total Bilirubin AST ALT Alkaline Phosphatase Creatine Kinase 262 Creatine Kinase Index 2.3 CK-MB (CK-2) 6.2 H Troponin I 6.54 H* B-Natriuretic Peptide Total Protein Albumin Urine Color Yellow Urine Appearance Clear Urine pH 5.0 Urine Protein Negative Urine Glucose (UA) Negative Urine Ketones Negative Urine Blood Negative Urine Nitrite Negative Urine Bilirubin Negative Urine Urobilinogen 0.2 Ur Leukocyte Esterase Negative Stool Occult Blood 10/22/18 10/22/18 10/22/18 21:36 21:36 21:38 WBC RBC Hgb Hct MCV MCH MCHC RDW Plt Count MPV Absolute Neuts (auto) Neutrophils % Lymphocytes % Monocytes % Eosinophils % Basophils % Nucleated RBC % PT with INR INR PTT (Actin FS) 60.7 H D-Dimer VBG pH POC VBG pCO2 POC VBG pO2 VBG HCO3 VBG O2 Sat (Bhavik) VBG Base Excess Sodium Potassium Chloride Carbon Dioxide Anion Gap BUN Creatinine Est GFR (CKD-EPI)AfAm Est GFR (CKD-EPI)NonAf POC Glucometer 196 Random Glucose Lactic Acid 1.9 Calcium Phosphorus Magnesium Total Bilirubin AST ALT Alkaline Phosphatase Creatine Kinase Creatine Kinase Index CK-MB (CK-2) Troponin I B-Natriuretic Peptide Total Protein Albumin Urine Color Urine Appearance Urine pH Urine Protein Urine Glucose (UA) Urine Ketones Urine Blood Urine Nitrite Urine Bilirubin Urine Urobilinogen Ur Leukocyte Esterase Stool Occult Blood 10/23/18 10/23/18 10/23/18 06:03 06:30 06:30 WBC 18.7 H RBC 3.02 L Hgb 9.7 L Hct 29.0 L MCV 95.9 MCH 32.1 MCHC 33.5 RDW 15.9 Plt Count 248 MPV 8.9 Absolute Neuts (auto) 16.2 H Neutrophils % 86.8 H Lymphocytes % 5.7 L Monocytes % 7.3 Eosinophils % 0.0 Basophils % 0.2 Nucleated RBC % 0 PT with INR 18.10 H INR 1.53 H PTT (Actin FS) D-Dimer VBG pH POC VBG pCO2 POC VBG pO2 VBG HCO3 VBG O2 Sat (Bhavik) VBG Base Excess Sodium Potassium Chloride Carbon Dioxide Anion Gap BUN Creatinine Est GFR (CKD-EPI)AfAm Est GFR (CKD-EPI)NonAf POC Glucometer 173 Random Glucose Lactic Acid Calcium Phosphorus Magnesium Total Bilirubin AST ALT Alkaline Phosphatase Creatine Kinase Creatine Kinase Index CK-MB (CK-2) Troponin I B-Natriuretic Peptide Total Protein Albumin Urine Color Urine Appearance Urine pH Urine Protein Urine Glucose (UA) Urine Ketones Urine Blood Urine Nitrite Urine Bilirubin Urine Urobilinogen Ur Leukocyte Esterase Stool Occult Blood 10/23/18 10/23/18 10/23/18 06:30 06:30 06:30 WBC RBC Hgb Hct MCV MCH MCHC RDW Plt Count MPV Absolute Neuts (auto) Neutrophils % Lymphocytes % Monocytes % Eosinophils % Basophils % Nucleated RBC % PT with INR INR PTT (Actin FS) D-Dimer VBG pH POC VBG pCO2 POC VBG pO2 VBG HCO3 VBG O2 Sat (Bhavik) VBG Base Excess Sodium 143 Potassium 5.0 Chloride 109 H Carbon Dioxide 25 Anion Gap 9 BUN 67.1 H Creatinine 2.2 H Est GFR (CKD-EPI)AfAm 30.74 Est GFR (CKD-EPI)NonAf 26.52 POC Glucometer Random Glucose 181 H Lactic Acid 2.3 H* Calcium 8.2 L Phosphorus 4.7 Magnesium 2.4 Total Bilirubin 0.7 AST 136 H ALT 151 H Alkaline Phosphatase 50 Creatine Kinase 223 Creatine Kinase Index 3.3 CK-MB (CK-2) 7.5 H Troponin I 7.51 H* B-Natriuretic Peptide > 80461.0 H Total Protein 6.2 L Albumin 2.6 L Urine Color Urine Appearance Urine pH Urine Protein Urine Glucose (UA) Urine Ketones Urine Blood Urine Nitrite Urine Bilirubin Urine Urobilinogen Ur Leukocyte Esterase Stool Occult Blood 10/23/18 11:17 WBC RBC Hgb Hct MCV MCH MCHC RDW Plt Count MPV Absolute Neuts (auto) Neutrophils % Lymphocytes % Monocytes % Eosinophils % Basophils % Nucleated RBC % PT with INR INR PTT (Actin FS) D-Dimer VBG pH POC VBG pCO2 POC VBG pO2 VBG HCO3 VBG O2 Sat (Bhavik) VBG Base Excess Sodium Potassium Chloride Carbon Dioxide Anion Gap BUN Creatinine Est GFR (CKD-EPI)AfAm Est GFR (CKD-EPI)NonAf POC Glucometer 135 Random Glucose Lactic Acid Calcium Phosphorus Magnesium Total Bilirubin AST ALT Alkaline Phosphatase Creatine Kinase Creatine Kinase Index CK-MB (CK-2) Troponin I B-Natriuretic Peptide Total Protein Albumin Urine Color Urine Appearance Urine pH Urine Protein Urine Glucose (UA) Urine Ketones Urine Blood Urine Nitrite Urine Bilirubin Urine Urobilinogen Ur Leukocyte Esterase Stool Occult Blood Active Medications Generic Name Dose Route Start Last Admin Trade Name Freq PRN Reason Stop Dose Admin Aspirin 81 mg 10/23/18 10:00 10/23/18 09:40 Asa - PO 81 mg DAILY SAE Administration Chlorhexidine Gluconate 1 applic 10/22/18 22:00 10/22/18 21:54 Hibiclens For Decolonization - TP 1 applic HS SAE Administration Fenofibric Acid 135 mg 10/23/18 10:00 10/23/18 11:12 Trilipix - PO Not Given DAILY SAE Furosemide 40 mg 10/23/18 06:00 10/23/18 05:58 Lasix Injection - IVPUSH 40 mg BID@0600,1400 SAE Administration Heparin Sodium (Porcine) 4,000 unit 10/22/18 14:47 Heparin - 40 unit/kg (4000 unit) IVPUSH PRN PRN For aPTT 35 to 45 seconds Heparin Sodium (Porcine) 8,000 unit 10/22/18 14:47 Heparin - 80 unit/kg (8000 unit) IVPUSH PRN PRN aPTT <35 seconds Heparin Sodium/Dextrose 25,000 units in 500 mls @ 36 mls/hr 10/22/18 15:00 06:51 Heparin Infusion - IVPB 18 units/kg/hr TITR SAE 36 mls/hr Administration Protocol 18 UNITS/KG/HR Piperacillin Sod/Tazobactam 50 mls @ 100 mls/hr 10/23/18 02:00 Sod 3.375 gm/ Dextrose IVPB Q8H-IV SAE Protocol Piperacillin Sod/Tazobactam 50 mls @ 100 mls/hr 10/23/18 02:00 10/23/18 09:40 Sod 3.375 gm/ Dextrose IVPB 10/23/18 18:29 100 mls/hr Q8H-IV SAE Administration Insulin Aspart 1 vial 10/22/18 16:30 10/23/18 06:16 Novolog Vial Sliding Scale - SQ Not Given ACHS SAE Protocol Mupirocin 1 applic 10/22/18 22:00 10/23/18 11:11 Bactroban Ointment (For Decolonization) - NS 10/27/18 21:59 1 applic BID SAE Administration Pantoprazole Sodium 40 mg 10/23/18 10:00 10/23/18 09:38 Protonix Iv IVPUSH 40 mg DAILY SAE Administration ASSESSMENT/PLAN: Mr. Tang is an 83yo M with h/o HTN, HLd, T2DM, CKD, stable AAA admitted to the ICU s/p L knee arthroscopy and makoplasty for work up of NSTEMI vs. PE vs. respiratory distress 2/2 RLL PNA. Neurologic/ MSK -AOx4 -stable currently -Once pt is stable can continue with physical therapy s/p his orthopedic procedure Cardiovascular -DDx at this time includes: NSTEMI vs. PE vs. respiratory distress 2/2 to possible RLL PNA -continue heparin gtts for NSTEMI vs PE. troponin 7.6->6.5->7.5 -ischemic workup when euvolemic -CTA cannot be performed at current point due to Cr 2.0 -continue to trend Cr, if renal function improves order CTA -Echocardiogram- EF 30%, RV systolic pressure elevated @ 44mmHg, large L pleural effusion noted -no prior history of HF, continue IV lasix with ischemic workup when euvolemic as above -EKG- sinus arrhythmia with first degree AV block, LA deviation, RBBB, septal infarct (also cited on 10/22 ECG), t wave abnormalities consistent with lateral ischemia.Compared to ECG done on 10/22, the TX interval as increased and there is evidence of serial changes of septal infarct present. -continue Lasix 40 IV push BID -daily weight , strict Is&Os -ASA daily -Continue to trend troponins -Cardiology on board, appreciate recommendations Pulmonary - Continue NIPPV settings as patient's work of breathing is improved - Decreased FiO2 from 100% to 80%, continue to wean down as tolerated - wean off NIPAP as tolerated - maintain O2 sat > 90 % - Duoneb Renal -YANCI vs. CKD noted with again possible decreased perfusion pressure to the kidneys - Monitor urine output (goal 0.5cc/kg/hr) - Avoid nephrotoxic agents ID -Zosyn (renally dosed) to continue for possible RLL HCAPna - Monitor fever trend -Per ID recommendation, added on dose of Azithromax pending [place] AG -Lactic acidosis possible hypoxemia 2/2 intrapulmonary shunting vs. sepsis 2/2 to PNA; trend until normalization -Dr. Bowden following, recommendations appreciated. GI -Transaminitis possibly congestive hepatopathy -F/U RUQ US -Avoid hepatotoxic agents - Monitor for continue downtrend with daily labs Endo: -ISS FEN: Fluids: Active diuresis ongoing Electrolyte abnormalities: Hyperkalemia 2/2 to renal dysfunction; monitor Nutrition: NPO except medications while on NIPPV PPX: DVT - heparin gtt GI - Protonix qdaily Dispo: continue to monitor in ICU Visit type - Emergency Visit Emergency Visit: Yes ED Registration Date: 10/22/18 Care time: The patient presented to the Emergency Department on the above date and was hospitalized for further evaluation of their emergent condition. - New Patient This patient is new to me today: Yes Date on this admission: 10/23/18 - Critical Care Critical Care patient: Yes Total Critical Care Time (in minutes): 40 Critical Care Statement: The care of this patient involved high complexity decision making to prevent further life threatening deterioration of the patient 's condition and/or to evaluate & treat vital organ system(s) failure or risk of failure. ATTENDING PHYSICIAN STATEMENT I saw and evaluated the patient. I reviewed the resident's note and discussed the case with the resident. I agree with the resident's findings and plan as documented. SUBJECTIVE: OBJECTIVE: ASSESSMENT AND PLAN:
--- NOTE | 2018-10-23 11:53 | PN ---
Progress Note (short form) - Note Progress Note: s: feels better, sob improving. on bipap. no chest pain, palps, dizziness Current Medications Aspirin (Asa -) 81 mg PO DAILY [facility] Last Admin: 10/23/18 09:40 Dose: 81 mg Chlorhexidine Gluconate (Hibiclens For Decolonization -) 1 applic TP HS [facility] Last Admin: 10/22/18 21:54 Dose: 1 applic Fenofibric Acid (Trilipix -) 135 mg PO DAILY [facility] Last Admin: 10/23/18 11:12 Dose: Not Given Furosemide (Lasix Injection -) 40 mg IVPUSH BID@0600,1400 [facility] Last Admin: 10/23/18 05:58 Dose: 40 mg Heparin Sodium (Porcine) (Heparin -) 4,000 unit 40 unit/kg (4000 unit) IVPUSH PRN PRN PRN Reason: For aPTT 35 to 45 seconds Heparin Sodium (Porcine) (Heparin -) 8,000 unit 80 unit/kg (8000 unit) IVPUSH PRN PRN PRN Reason: aPTT <35 seconds Heparin Sodium/Dextrose (Heparin Infusion -) 25,000 units in 500 mls @ 36 mls/ hr IVPB TITR SAE; Protocol Last Admin: 10/23/18 06:51 Dose: 18 units/kg/hr, 36 mls/hr Piperacillin Sod/Tazobactam (Sod 3.375 gm/ Dextrose) 50 mls @ 100 mls/hr IVPB Q8H-IV SAE; Protocol Piperacillin Sod/Tazobactam (Sod 3.375 gm/ Dextrose) 50 mls @ 100 mls/hr IVPB Q8H-IV [facility] Stop: 10/23/18 18:29 Last Admin: 10/23/18 09:40 Dose: 100 mls/hr Insulin Aspart (Novolog Vial Sliding Scale -) 1 vial SQ ACHS [facility]; Protocol Last Admin: 10/23/18 06:16 Dose: Not Given Mupirocin (Bactroban Ointment (For Decolonization) -) 1 applic NS BID [facility] Stop: 10/27/18 21:59 Last Admin: 10/23/18 11:11 Dose: 1 applic Pantoprazole Sodium (Protonix Iv) 40 mg IVPUSH DAILY [facility] Last Admin: 10/23/18 09:38 Dose: 40 mg Vital Signs Period Temp Pulse Resp BP Sys/العلي Pulse Ox Last 24 Hr 97.2 F-98.6 F 72-117 18-28 95-143/62-93 78-100 Constitutional: Yes: Mild Distress Eyes: Yes: Conjunctiva Clear, EOM Intact HENT: Yes: Atraumatic, Normocephalic Neck: Yes: Supple, Trachea Midline Respiratory: Yes: Other (rales at bases bilaterally. diffuse expiratory wheezes) Gastrointestinal: Yes: Soft, Other (Nontender) Cardiovascular: Yes: Regular Rate and Rhythm, Tachycardia JVD: Yes Carotid Bruit: No PMI: Non-Displaced Heart Sounds: Yes: S1, S2 (Tachy: cannot appreciate murmur but coarse breath sounds make it difficult) Edema: Yes (L Stewart incision C/D/I) Peripheral Pulses WNL: Yes Neurological: Yes: Alert, Oriented ST, 1st degree AV Block, LAHB, RBBB, ST depressions I, AvL, V4-V6 Echo: EF 30%, nl RV function, mod MR with eccentric jet, mild TR, RVSP 44 mmHg, lg L pleural effusion Imaging - Results Chest X-ray: Image Reviewed EKG: Image Reviewed tele: sinus, PACs Assessment/Plan IMP: 1. Hypoxic respiratory failure secondary to possible RLL PNA w/ superimposed CHF ; r/o pulmonary embolism (recent L. knee makoplasty risk factor) 2. Elevated TnI: secondary to possible NSTEMI vs PE (unable to obtain CTA due volume overload and worsening O2 sat with minimal prehydration/ CKD) 3. Leukocytosis 4. CKD 5. DM 6. Anemia, guaiac negative. REC: Admit to ICU - on IV heparin gtts for NSTEMI vs PE. troponin 7.6->6.5->7.5, flat trend in setting of YANCI on CKD. continue IV heparin, ischemic workup when euvolemic - ASA daily - Echo shows EF 30% - no prior history of HF, continue IV lasix with ischemic workup when euvolemic as above - CTA chest when stable for scan: will depend on volume status and GFR - Diurese, daily weights, daily BMP to monitor renal function. - BiPAP as needed, as per ICU team. - Follow cultures and continue abx as per critical care. estimated critical care time = 35 min
--- NOTE | 2018-10-23 12:46 | PN ---
Teaching Attending Note Name of Resident: Jannette Steen ATTENDING PHYSICIAN STATEMENT I saw and evaluated the patient. I reviewed the resident's note and discussed the case with the resident. I agree with the resident's findings and plan as documented. SUBJECTIVE: Patient seen and examined in the ICU. Awake ad responsive on NIPPV support, 100 % FiO2. Reports breathing is improved on NIPPV support. Some minimal dry cough. No hemoptysis. No CP. Intake & Output 10/20/18 10/21/18 10/22/18 10/23/18 23:59 23:59 23:59 23:59 Intake Total 2118 482 Output Total 475 700 Balance 1643 -218 Weight 247 lb 1.6 oz 246 lb 12.8 oz Last Vital Signs Temp Pulse Resp BP Pulse Ox 97.6 F 88 22 H 120/83 95 10/23/18 10:00 10/23/18 12:14 10/23/18 12:00 10/23/18 12:00 10/23/18 12:14 Active Medications Aspirin (Asa -) 81 mg PO DAILY SAE Last Admin: 10/23/18 09:40 Dose: 81 mg Chlorhexidine Gluconate (Hibiclens For Decolonization -) 1 applic TP HS SAE Last Admin: 10/22/18 21:54 Dose: 1 applic Fenofibric Acid (Trilipix -) 135 mg PO DAILY SAE Last Admin: 10/23/18 11:12 Dose: Not Given Furosemide (Lasix Injection -) 40 mg IVPUSH BID@0600,1400 SAE Last Admin: 10/23/18 05:58 Dose: 40 mg Heparin Sodium (Porcine) (Heparin -) 4,000 unit 40 unit/kg (4000 unit) IVPUSH PRN PRN PRN Reason: For aPTT 35 to 45 seconds Heparin Sodium (Porcine) (Heparin -) 8,000 unit 80 unit/kg (8000 unit) IVPUSH PRN PRN PRN Reason: aPTT <35 seconds Heparin Sodium/Dextrose (Heparin Infusion -) 25,000 units in 500 mls @ 36 mls/ hr IVPB TITR SAE; Protocol Last Titration: 10/23/18 12:21 Dose: 16 units/kg/hr, 32 mls/hr Piperacillin Sod/Tazobactam (Sod 3.375 gm/ Dextrose) 50 mls @ 100 mls/hr IVPB Q8H-IV SAE; Protocol Piperacillin Sod/Tazobactam (Sod 3.375 gm/ Dextrose) 50 mls @ 100 mls/hr IVPB Q8H-IV SAE Stop: 10/23/18 18:29 Last Admin: 10/23/18 09:40 Dose: 100 mls/hr Insulin Aspart (Novolog Vial Sliding Scale -) 1 vial SQ ACHS SAE; Protocol Last Admin: 10/23/18 11:20 Dose: Not Given Mupirocin (Bactroban Ointment (For Decolonization) -) 1 applic NS BID SAE Stop: 10/27/18 21:59 Last Admin: 10/23/18 11:11 Dose: 1 applic Pantoprazole Sodium (Protonix Iv) 40 mg IVPUSH DAILY SAE Last Admin: 10/23/18 09:38 Dose: 40 mg GENERAL: Awake, alert, and fully oriented on NIPPV, mildly tachypneic HEENT: NC/AT, sclera anicteric, (-) Pallor NECK: (+) JVD LUNGS: On NIPPV support, Bibasilar rales, no wheeze HEART: S1 and S2, (-) gallop ABDOMEN: Soft, NT/ND, normoactive bowel sounds, no guarding EXTREMITIES: 2+ pulses, warm, well-perfused. No calf tenderness. No peripheral edema. SKIN: Warm, dry, no rashes or lesions noted. Laboratory Results - last 24 hr 10/22/18 10/22/18 10/22/18 12:30 12:30 12:30 WBC 15.7 H RBC 2.94 L Hgb 9.5 L Hct 28.1 L D MCV 95.6 MCH 32.3 MCHC 33.8 RDW 14.7 Plt Count 244 D MPV 8.9 Absolute Neuts (auto) 13.7 Neutrophils % 87.1 H Lymphocytes % 6.1 L Monocytes % 6.7 Eosinophils % 0.0 Basophils % 0.1 Nucleated RBC % PT with INR INR PTT (Actin FS) 25.3 D-Dimer VBG pH POC VBG pCO2 POC VBG pO2 VBG HCO3 VBG O2 Sat (Bhavik) VBG Base Excess Sodium 138 Potassium 5.4 H Chloride 105 Carbon Dioxide 23 Anion Gap 10 BUN 62.0 H Creatinine 2.0 H Est GFR (CKD-EPI)AfAm 34.50 Est GFR (CKD-EPI)NonAf 29.76 POC Glucometer Random Glucose 166 H Lactic Acid Calcium 8.5 Phosphorus Magnesium Total Bilirubin 1.7 H AST 220 H ALT 152 H Alkaline Phosphatase 40 L Creatine Kinase Creatine Kinase Index CK-MB (CK-2) Troponin I B-Natriuretic Peptide Total Protein 5.8 L Albumin 2.7 L Urine Color Urine Appearance Urine pH Urine Protein Urine Glucose (UA) Urine Ketones Urine Blood Urine Nitrite Urine Bilirubin Urine Urobilinogen Ur Leukocyte Esterase Stool Occult Blood 10/22/18 10/22/18 10/22/18 12:30 12:30 12:30 WBC RBC Hgb Hct MCV MCH MCHC RDW Plt Count MPV Absolute Neuts (auto) Neutrophils % Lymphocytes % Monocytes % Eosinophils % Basophils % Nucleated RBC % PT with INR 19.6 H INR 1.77 H PTT (Actin FS) D-Dimer 2525 H VBG pH POC VBG pCO2 POC VBG pO2 VBG HCO3 VBG O2 Sat (Bhavik) VBG Base Excess Sodium Potassium Chloride Carbon Dioxide Anion Gap BUN Creatinine Est GFR (CKD-EPI)AfAm Est GFR (CKD-EPI)NonAf POC Glucometer Random Glucose Lactic Acid 2.9 H* Calcium Phosphorus Magnesium Total Bilirubin AST ALT Alkaline Phosphatase Creatine Kinase Creatine Kinase Index CK-MB (CK-2) Troponin I B-Natriuretic Peptide Total Protein Albumin Urine Color Urine Appearance Urine pH Urine Protein Urine Glucose (UA) Urine Ketones Urine Blood Urine Nitrite Urine Bilirubin Urine Urobilinogen Ur Leukocyte Esterase Stool Occult Blood 10/22/18 10/22/18 10/22/18 12:30 12:30 15:30 WBC RBC Hgb Hct MCV MCH MCHC RDW Plt Count MPV Absolute Neuts (auto) Neutrophils % Lymphocytes % Monocytes % Eosinophils % Basophils % Nucleated RBC % PT with INR INR PTT (Actin FS) D-Dimer VBG pH 7.42 H POC VBG pCO2 36.3 L POC VBG pO2 39.8 VBG HCO3 23.0 VBG O2 Sat (Bhavik) 67.3 L VBG Base Excess -0.7 Sodium Potassium Chloride Carbon Dioxide Anion Gap BUN Creatinine Est GFR (CKD-EPI)AfAm Est GFR (CKD-EPI)NonAf POC Glucometer Random Glucose Lactic Acid Calcium Phosphorus Magnesium Total Bilirubin AST ALT Alkaline Phosphatase Creatine Kinase Creatine Kinase Index CK-MB (CK-2) Troponin I 7.64 H* B-Natriuretic Peptide Total Protein Albumin Urine Color Urine Appearance Urine pH Urine Protein Urine Glucose (UA) Urine Ketones Urine Blood Urine Nitrite Urine Bilirubin Urine Urobilinogen Ur Leukocyte Esterase Stool Occult Blood Negative 10/22/18 10/22/18 10/22/18 17:30 19:18 21:36 WBC RBC Hgb Hct MCV MCH MCHC RDW Plt Count MPV Absolute Neuts (auto) Neutrophils % Lymphocytes % Monocytes % Eosinophils % Basophils % Nucleated RBC % PT with INR INR PTT (Actin FS) D-Dimer VBG pH POC VBG pCO2 POC VBG pO2 VBG HCO3 VBG O2 Sat (Bhavik) VBG Base Excess Sodium Potassium Chloride Carbon Dioxide Anion Gap BUN Creatinine Est GFR (CKD-EPI)AfAm Est GFR (CKD-EPI)NonAf POC Glucometer 209 Random Glucose Lactic Acid Calcium Phosphorus Magnesium Total Bilirubin AST ALT Alkaline Phosphatase Creatine Kinase 262 Creatine Kinase Index 2.3 CK-MB (CK-2) 6.2 H Troponin I 6.54 H* B-Natriuretic Peptide Total Protein Albumin Urine Color Yellow Urine Appearance Clear Urine pH 5.0 Urine Protein Negative Urine Glucose (UA) Negative Urine Ketones Negative Urine Blood Negative Urine Nitrite Negative Urine Bilirubin Negative Urine Urobilinogen 0.2 Ur Leukocyte Esterase Negative Stool Occult Blood 10/22/18 10/22/18 10/22/18 21:36 21:36 21:38 WBC RBC Hgb Hct MCV MCH MCHC RDW Plt Count MPV Absolute Neuts (auto) Neutrophils % Lymphocytes % Monocytes % Eosinophils % Basophils % Nucleated RBC % PT with INR INR PTT (Actin FS) 60.7 H D-Dimer VBG pH POC VBG pCO2 POC VBG pO2 VBG HCO3 VBG O2 Sat (Bhavik) VBG Base Excess Sodium Potassium Chloride Carbon Dioxide Anion Gap BUN Creatinine Est GFR (CKD-EPI)AfAm Est GFR (CKD-EPI)NonAf POC Glucometer 196 Random Glucose Lactic Acid 1.9 Calcium Phosphorus Magnesium Total Bilirubin AST ALT Alkaline Phosphatase Creatine Kinase Creatine Kinase Index CK-MB (CK-2) Troponin I B-Natriuretic Peptide Total Protein Albumin Urine Color Urine Appearance Urine pH Urine Protein Urine Glucose (UA) Urine Ketones Urine Blood Urine Nitrite Urine Bilirubin Urine Urobilinogen Ur Leukocyte Esterase Stool Occult Blood 10/23/18 10/23/18 10/23/18 06:03 06:30 06:30 WBC 18.7 H RBC 3.02 L Hgb 9.7 L Hct 29.0 L MCV 95.9 MCH 32.1 MCHC 33.5 RDW 15.9 Plt Count 248 MPV 8.9 Absolute Neuts (auto) 16.2 H Neutrophils % 86.8 H Lymphocytes % 5.7 L Monocytes % 7.3 Eosinophils % 0.0 Basophils % 0.2 Nucleated RBC % 0 PT with INR 18.10 H INR 1.53 H PTT (Actin FS) D-Dimer VBG pH POC VBG pCO2 POC VBG pO2 VBG HCO3 VBG O2 Sat (Bhavik) VBG Base Excess Sodium Potassium Chloride Carbon Dioxide Anion Gap BUN Creatinine Est GFR (CKD-EPI)AfAm Est GFR (CKD-EPI)NonAf POC Glucometer 173 Random Glucose Lactic Acid Calcium Phosphorus Magnesium Total Bilirubin AST ALT Alkaline Phosphatase Creatine Kinase Creatine Kinase Index CK-MB (CK-2) Troponin I B-Natriuretic Peptide Total Protein Albumin Urine Color Urine Appearance Urine pH Urine Protein Urine Glucose (UA) Urine Ketones Urine Blood Urine Nitrite Urine Bilirubin Urine Urobilinogen Ur Leukocyte Esterase Stool Occult Blood 10/23/18 10/23/18 10/23/18 06:30 06:30 06:30 WBC RBC Hgb Hct MCV MCH MCHC RDW Plt Count MPV Absolute Neuts (auto) Neutrophils % Lymphocytes % Monocytes % Eosinophils % Basophils % Nucleated RBC % PT with INR INR PTT (Actin FS) D-Dimer VBG pH POC VBG pCO2 POC VBG pO2 VBG HCO3 VBG O2 Sat (Bhavik) VBG Base Excess Sodium 143 Potassium 5.0 Chloride 109 H Carbon Dioxide 25 Anion Gap 9 BUN 67.1 H Creatinine 2.2 H Est GFR (CKD-EPI)AfAm 30.74 Est GFR (CKD-EPI)NonAf 26.52 POC Glucometer Random Glucose 181 H Lactic Acid 2.3 H* Calcium 8.2 L Phosphorus 4.7 Magnesium 2.4 Total Bilirubin 0.7 AST 136 H ALT 151 H Alkaline Phosphatase 50 Creatine Kinase 223 Creatine Kinase Index 3.3 CK-MB (CK-2) 7.5 H Troponin I 7.51 H* B-Natriuretic Peptide > 47862.0 H Total Protein 6.2 L Albumin 2.6 L Urine Color Urine Appearance Urine pH Urine Protein Urine Glucose (UA) Urine Ketones Urine Blood Urine Nitrite Urine Bilirubin Urine Urobilinogen Ur Leukocyte Esterase Stool Occult Blood 10/23/18 10/23/18 10/23/18 06:30 11:00 11:17 WBC RBC Hgb Hct MCV MCH MCHC RDW Plt Count MPV Absolute Neuts (auto) Neutrophils % Lymphocytes % Monocytes % Eosinophils % Basophils % Nucleated RBC % PT with INR INR PTT (Actin FS) 76.6 H D-Dimer VBG pH POC VBG pCO2 POC VBG pO2 VBG HCO3 VBG O2 Sat (Bhavik) VBG Base Excess Sodium Potassium Chloride Carbon Dioxide Anion Gap BUN Creatinine Est GFR (CKD-EPI)AfAm Est GFR (CKD-EPI)NonAf POC Glucometer 135 Random Glucose Lactic Acid 1.9 Calcium Phosphorus Magnesium Total Bilirubin AST ALT Alkaline Phosphatase Creatine Kinase Creatine Kinase Index CK-MB (CK-2) Troponin I B-Natriuretic Peptide Total Protein Albumin Urine Color Urine Appearance Urine pH Urine Protein Urine Glucose (UA) Urine Ketones Urine Blood Urine Nitrite Urine Bilirubin Urine Urobilinogen Ur Leukocyte Esterase Stool Occult Blood ASSESSMENT/PLAN: Acute hypoxic respiratory distress likely due to decompensated CHF (?) VTE: DVT was ruled out NSTEMI Possible RLL PNA: low clinical suspicion S/P L knee arthroscopy and makoplasty Lactic acidosis Transaminitis Acute vs. chronic kidney insufficiency Hyperkalemia Empiric IV Heparin NIPPV support, wean FiO2 as tolerated Strict I & O ID evaluation for ABX coverage Follow cultures Would hold on CTA: low utility of VQ in this setting Aspiration precautions Renal evaluation if worsening renal function Requires ICU monitoring for tenuous respiratory and cardiac status Dr Briscoe Critical care time spent in reviewing chart, evaluating patient and formulating plan - 36 minutes.
--- NOTE | 2018-10-23 13:28 | EKG ---
Test Reason : Blood Pressure : / mmHG Vent. Rate : 087 BPM Atrial Rate : 087 BPM P-R Int : 262 ms QRS Dur : 144 ms QT Int : 390 ms P-R-T Axes : 000 -67 109 degrees QTc Int : 469 ms SINUS RHYTHM WITH MARKED SINUS ARRHYTHMIA WITH 1ST DEGREE A-V BLOCK LEFT AXIS DEVIATION RIGHT BUNDLE BRANCH BLOCK SEPTAL INFARCT (CITED ON OR BEFORE 22-OCT-2018) T WAVE ABNORMALITY, CONSIDER LATERAL ISCHEMIA ABNORMAL ECG WHEN COMPARED WITH ECG OF 22-OCT-2018 13:01, [place] INTERVAL HAS INCREASED SERIAL CHANGES OF SEPTAL INFARCT PRESENT Confirmed by MD NADER, NESTOR ([id number]) on 10/23/2018 1:28:23 PM Referred By: Confirmed By:NESTOR DOE MD
--- NOTE | 2018-10-23 14:29 | PN ---
Progress Note (short form) - Note Progress Note: ID consult dictated imp/reccd respiratory failure hypoxia cannot r/o pneumonia echo with ef of 30%- probable CHF r/o PE- on empiric anticoagulation given elevated Creatinine recent makoplasty 10/15 elevated troponins- probable MN continue zosyn for HAP, zithromax one dose pending urinary antigens for legionella being diuresed f/u cultures check urinary antigens Problem List - Problems (1) Acute respiratory failure with hypoxia Code(s): J96.01 - ACUTE RESPIRATORY FAILURE WITH HYPOXIA (2) CHF (congestive heart failure) Code(s): I50.9 - HEART FAILURE, UNSPECIFIED Qualifiers: Heart failure type: systolic Heart failure chronicity: acute on chronic Qualified Code(s): I50.23 - Acute on chronic systolic (congestive) heart failure (3) Pneumonia Code(s): J18.9 - PNEUMONIA, UNSPECIFIED ORGANISM (4) YANCI (acute kidney injury) Code(s): N17.9 - ACUTE KIDNEY FAILURE, UNSPECIFIED (5) NSTEMI (non-ST elevated myocardial infarction) Code(s): I21.4 - NON-ST ELEVATION (NSTEMI) MYOCARDIAL INFARCTION
[2018-10-23] MEDS ORDERED: AZITHROMYCIN IVPB 500 MG/250 ML BAG IVPB ONE (15:00)
--- NOTE | 2018-10-23 18:39 | PN ---
Teaching Attending Note Name of Resident: Blake Valiente ATTENDING PHYSICIAN STATEMENT I saw and evaluated the patient. I reviewed the resident's note and discussed the case with the resident. I agree with the resident's findings and plan as documented. SUBJECTIVE: Mr Tang says he is feeling better today. He does not enjoy wearing the bipap and hopes to be able to take it off soon. Denies cp and n/v. OBJECTIVE: Last Vital Signs Temp Pulse Resp BP Pulse Ox 36.1 C L 115 H 26 H 141/75 95 10/23/18 16:00 10/23/18 16:00 10/23/18 16:00 10/23/18 16:00 10/23/18 16:26 Gen: nad Pulm: on bipap w/o diffuse ronchi bilaterally L>R CV: tachycardic, slight MART noted Abd: +bs, s/nt/nd Ext: trace edema CBC, BMP 10/23/18 06:30 10/23/18 06:30 36 minutes spent in preparation of this discharge Problem List - Problems (1) Acute respiratory failure with hypoxia Assessment/Plan: -secondary to NSTEMI, CHF exacerbation with pleural effusions, and possible PE -continue ICU care -continue bipap currently -diurese with IV lasix Code(s): J96.01 - ACUTE RESPIRATORY FAILURE WITH HYPOXIA (2) NSTEMI (non-ST elevated myocardial infarction) Assessment/Plan: -case d/w cardiology -continue heparin gtt -continue to trend troponin -continue aspirin Code(s): I21.4 - NON-ST ELEVATION (NSTEMI) MYOCARDIAL INFARCTION (3) CHF (congestive heart failure) Assessment/Plan: -acute on chronic -ECHO reviewed -continue IV lasix -continue bipap -clinically improving Code(s): I50.9 - HEART FAILURE, UNSPECIFIED Qualifiers: Heart failure type: systolic Heart failure chronicity: acute on chronic Qualified Code(s): I50.23 - Acute on chronic systolic (congestive) heart failure (4) Pneumonia Assessment/Plan: -infiltrates noted -also with lactic acid on admission and leukoctosis -sepsis present on admission -appreciate ID assistance -concern for HCAP -continue zosyn Code(s): J18.9 - PNEUMONIA, UNSPECIFIED ORGANISM (5) YANCI (acute kidney injury) Assessment/Plan: -unclear baseline -? cardiorenal syndrome -continue diuresis -monitor Code(s): N17.9 - ACUTE KIDNEY FAILURE, UNSPECIFIED (6) HLD (hyperlipidemia) Assessment/Plan: -continue fenofibrate Code(s): E78.5 - HYPERLIPIDEMIA, UNSPECIFIED (7) HTN (hypertension) Assessment/Plan: -currently controlled Code(s): I10 - ESSENTIAL (PRIMARY) HYPERTENSION
--- NOTE | 2018-10-23 19:27 | CONS ---
DATE OF CONSULTATION: DATE OF DICTATION: 10/23/2018 This is an 83-year-old man. He is status post recent MAKOplasty of his knee on October 15. He has had 2 days of dry cough with shortness of breath at home. He was seen by the visiting nurse who noted that he was hypoxic and he was advised hospital evaluation. He came to the emergency room where he was noted to be hypoxic. He was tachycardic, tachypneic with an O2 saturation of 70% on room air. He was placed on a nonrebreather mask. Chest x-ray revealed cardiomegaly with prominent pulmonary vasculature, possible right lower lobe opacification. He was transferred from [place] to [facility] where he was admitted to the ICU. He is currently on BiPAP, awake and alert. He does not recall having any fevers. PAST MEDICAL HISTORY: Notable for hypertension, hyperlipidemia, type 2 diabetes, CKD. He has a stable abdominal aortic aneurysm. He has a history of diabetes and renal insufficiency with a baseline creatinine of 1.7. PAST SURGICAL HISTORY: His most recent surgery was on October 15 when he underwent MAKOplasty of his left knee. SOCIAL HISTORY: Lives at home. There is no history of any cigarette use. He lives with his spouse. There is no recent travel. 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 He is currently resting comfortably in the ICU. He is feeling better. He has been receiving diuretics and antibiotics. REVIEW OF SYSTEMS: Notable for dry cough. He currently has no chest pain. He has no diarrhea or dysuria. PHYSICAL EXAMINATION: Vital Signs: The temperature is 97. He has had no fever since admission. Pulse of 115, blood pressure of 141/75, respiratory rate is 26. He is saturating 95% with FIO2 of 80%. HEENT: He is normocephalic. I cannot look in his mouth. He is wearing BiPAP. Neck: Supple. Neurologic: He is alert and following commands. Lungs: Have diminished breath sounds at the bases with few crackles. Heart: Regular rate and rhythm. Abdomen: Soft. Extremities: He has a dressing on his knee. He has no lower extremity edema. LABORATORY: White count on admission was 15.7, today is 18.7. He received steroids in the emergency room. Hemoglobin is 9.7, platelets are 248. INR is 1.5. BUN is 67, creatinine 2.2. Lactic acid was 2.3 and is now 1.9. Troponin is 7.5. Urinalysis is negative. Stool occult blood is negative. Blood cultures are pending as well as urine culture. He had an echocardiogram done today that is notable for ejection fraction of 30% with severe global hypokinesis of the left ventricle and he has a left pleural effusion. He has a chest x-ray that revealed cardiomegaly with possible right lower lobe infiltrate versus congestion. IN SUMMARY: This is an 83-year-old man with respiratory failure, hypoxia, cannot rule out pneumonia, probable congestive heart failure, cannot rule out pulmonary embolus with recent MAKOplasty and probable myocardial infarction. I would continue Zosyn for hospital-acquired pneumonia. I would give 1 dose of Zithromax pending urinary antigens and legionella. He is being diuresed and will follow up cultures and check urinary antigens. Further management per Cardiology. Elisa [id number]
[2018-10-23] MEDS: BIOTENE PO SCH (21:57)
[2018-10-23] MEDS: CHLORHEXIDINE GLUCONATE 4% CLEANSER FOR DECOLONIZATION TP SCH (21:57)
--- NOTE | 2018-10-23 22:02 | CONSULT ---
Consult - text type - Consultation Consultation Note: Orthopedics 83yo male s/p L TKA 10/15/18, readmitted for SOB. Chart reviewed / events noted. Pt seen and examined. Awake, on BiPAP but conversive Afebrile Selected Entries 10/23/18 10/23/18 10/23/18 16:00 16:26 18:00 Temperature 97 F L Pulse Rate 117 H Respiratory 28 H Rate Blood Pressure 122/77 O2 Sat by Pulse 95 Oximetry (%) Laboratory Tests 10/23/18 10/23/18 10/23/18 06:03 06:30 06:30 WBC 18.7 H Hgb 9.7 L Hct 29.0 L Plt Count 248 PT with INR 18.10 H INR 1.53 H PTT (Actin FS) Sodium Potassium Chloride Carbon Dioxide Anion Gap BUN Creatinine Est GFR (CKD-EPI)AfAm Est GFR (CKD-EPI)NonAf POC Glucometer 173 Random Glucose Calcium Phosphorus Magnesium Total Bilirubin AST ALT Alkaline Phosphatase Creatine Kinase Creatine Kinase Index CK-MB (CK-2) Troponin I B-Natriuretic Peptide Total Protein Albumin 10/23/18 10/23/18 10/23/18 06:30 06:30 06:30 WBC Hgb Hct Plt Count PT with INR INR PTT (Actin FS) 76.6 H Sodium 143 Potassium 5.0 Chloride 109 H Carbon Dioxide 25 Anion Gap 9 BUN 67.1 H Creatinine 2.2 H Est GFR (CKD-EPI)AfAm 30.74 Est GFR (CKD-EPI)NonAf 26.52 POC Glucometer Random Glucose 181 H Calcium 8.2 L Phosphorus 4.7 Magnesium 2.4 Total Bilirubin 0.7 AST 136 H ALT 151 H Alkaline Phosphatase 50 Creatine Kinase 223 Creatine Kinase Index 3.3 CK-MB (CK-2) 7.5 H Troponin I 7.51 H* B-Natriuretic Peptide > 09257.0 H Total Protein 6.2 L Albumin 2.6 L Duplex U/S negative for DVT CTA chest pending Gen: NAD LLE: incision c/d/i, no erythema, drainage, excessive swelling, or other signs of infection. Minimal discomfort with ROM of knee. Grossly NVID A/P 83yo male s/p L TKA 10/15, readmitted with respiratory distress Dressing changed - wound looks completely benign, normal for 9 days postop. No signs of infection. New Aquacel dressing placed - keep wound covered while in hospital. I will remove it in the office after discharge. PT when able - can do passive ROM exercises in bed to prevent arthrofibrosis until pt is well enough to get OOB with physical therapist. Medical care as per ICU team. Will monitor. If any questions, call my cell phone [phone]
[2018-10-24] MEDS ORDERED: PIPERACILLIN/TAZOBACTAM 3.375 GM VIAL IVPB ONE ×2 (01:39→10:42)
[2018-10-24] MEDS ORDERED: DEXTROSE 5%-WATER - 50 ML IVPB ONE ×2 (01:39→10:42)
[2018-10-24] MEDS: PIPERACILLIN/TAZOB 3.375 GM 3.375 GM in DEXTROSE 5%-WATER - 50 ML IVPB SCH ×3 (01:58→18:19)
[2018-10-24] MEDS: INSULIN SLIDING SCALE (NOVOLOG) 1 VIAL SQ SCH ×4 (06:01→21:33)
[2018-10-24] MEDS: FUROSEMIDE 40 MG/4 ML INJECTABLE VIAL IVPUSH SCH ×2 (06:32→14:02)
[2018-10-24 07:30] LABS: HEMATOCRIT 28.6 % (35.4-49); HEMOGLOBIN 9.5 GM/dL (11.7-16.9); MCH 31.8 pg (25.7-33.7); MCHC 33.1 g/dl (32.0-35.9); MEAN CELL VOLUME 95.9 fl (80-96); MEAN PLT VOLUME 9.1 fl (7.5-11.1); PLATELET COUNT 254 K/MM3 (134-434); RBC 2.99 M/mm3 (4.00-5.60); RDW 15.7 % (11.9-15.9); WHITE BLOOD COUNT 18.9 K/mm3 (4.0-10.0)
[2018-10-24 08:18] LABS: ALBUMIN 2.4 g/dl (3.4-5.0); BILIRUBIN,TOTAL 0.8 mg/dL (0.2-1); BLOOD UREA NITROGEN 71.5 mg/dL (7-18); CALCIUM 8.2 mg/dL (8.5-10.1); CREATININE 2.1 mg/dL (0.55-1.3); MAGNESIUM 2.2 mg/dL (1.8-2.4); PHOSPHOROUS 4.2 mg/dL (2.5-4.9); POTASSIUM 4.5 mmol/L (3.5-5.1); TOT PROT 5.6 g/dl (6.4-8.2)
--- NOTE | 2018-10-24 09:08 | PN ---
Physical Exam: SUBJECTIVE: Patient seen and examined at bed side , breathing is better, asking to remove t he BIPAP and asking for water and food. sat low 90 on non rebreathable mask. OBJECTIVE: Vital Signs Period Temp Pulse Resp BP Sys/العلي Pulse Ox Last 24 Hr 97 F-97.6 F 77-117 17-28 113-141/62-83 93-96 GENERAL: AAOx3 in NAD , on NIPAP , switch to Non rebreathable mask during the day HEAD: NC/AT, + JVD EYES: Conjunctiva clear, sclera anicteric NECK: Supple, + JVD LUNGS: CTA B/L, no wheezing HEART: RRR, NSR, normal s1, s2, murmur no M/R/G ABDOMEN:Obese , Soft, ND, NT, +BS 4 Q, no CVA Tenderness LOWER EXTREMITIES: no edema, +2DP pulse,left knee covered s.p makoplasty NEUROLOGICAL: No focal deficit. Normal speech. gait not observed. Laboratory Results - last 24 hr 10/23/18 10/23/18 10/23/18 06:30 06:30 11:00 WBC RBC Hgb Hct MCV MCH MCHC RDW Plt Count MPV PT with INR 18.10 H INR 1.53 H PTT (Actin FS) 76.6 H Sodium Potassium Chloride Carbon Dioxide Anion Gap BUN Creatinine Est GFR (CKD-EPI)AfAm Est GFR (CKD-EPI)NonAf POC Glucometer Random Glucose Lactic Acid 1.9 Calcium Phosphorus Magnesium Total Bilirubin AST ALT Alkaline Phosphatase Total Protein Albumin 10/23/18 10/23/18 10/23/18 11:17 17:11 17:30 WBC RBC Hgb Hct MCV MCH MCHC RDW Plt Count MPV PT with INR INR PTT (Actin FS) 48.4 H Sodium Potassium Chloride Carbon Dioxide Anion Gap BUN Creatinine Est GFR (CKD-EPI)AfAm Est GFR (CKD-EPI)NonAf POC Glucometer 135 177 Random Glucose Lactic Acid Calcium Phosphorus Magnesium Total Bilirubin AST ALT Alkaline Phosphatase Total Protein Albumin 10/23/18 10/24/18 10/24/18 21:06 00:45 05:50 WBC 18.9 H RBC 2.99 L Hgb 9.5 L Hct 28.6 L MCV 95.9 MCH 31.8 MCHC 33.1 RDW 15.7 Plt Count 254 MPV 9.1 PT with INR INR PTT (Actin FS) 58.7 H Sodium Potassium Chloride Carbon Dioxide Anion Gap BUN Creatinine Est GFR (CKD-EPI)AfAm Est GFR (CKD-EPI)NonAf POC Glucometer 135 Random Glucose Lactic Acid Calcium Phosphorus Magnesium Total Bilirubin AST ALT Alkaline Phosphatase Total Protein Albumin 10/24/18 10/24/18 10/24/18 05:50 05:50 05:59 WBC RBC Hgb Hct MCV MCH MCHC RDW Plt Count MPV PT with INR INR PTT (Actin FS) 62.2 H Sodium 143 Potassium 4.5 Chloride 108 H Carbon Dioxide 26 Anion Gap 9 BUN 71.5 H Creatinine 2.1 H Est GFR (CKD-EPI)AfAm 32.52 Est GFR (CKD-EPI)NonAf 28.06 POC Glucometer 131 Random Glucose 145 H Lactic Acid Calcium 8.2 L Phosphorus 4.2 Magnesium 2.2 Total Bilirubin 0.8 AST 228 H ALT 236 H Alkaline Phosphatase 50 Total Protein 5.6 L Albumin 2.4 L Active Medications Generic Name Dose Route Start Last Admin Trade Name Freq PRN Reason Stop Dose Admin Aspirin 81 mg 10/23/18 10:00 10/23/18 09:40 Asa - PO 81 mg DAILY SAE Administration Chlorhexidine Gluconate 1 applic 10/22/18 22:00 10/23/18 21:57 Hibiclens For Decolonization - TP 1 applic HS SAE Administration Fenofibric Acid 135 mg 10/23/18 10:00 10/23/18 11:12 Trilipix - PO Not Given DAILY SAE Furosemide 40 mg 10/23/18 06:00 10/24/18 06:32 Lasix Injection - IVPUSH 40 mg BID@0600,1400 SAE Administration Heparin Sodium (Porcine) 4,000 unit 10/22/18 14:47 Heparin - 40 unit/kg (4000 unit) IVPUSH PRN PRN For aPTT 35 to 45 seconds Heparin Sodium (Porcine) 8,000 unit 10/22/18 14:47 Heparin - 80 unit/kg (8000 unit) IVPUSH PRN PRN aPTT <35 seconds Heparin Sodium/Dextrose 25,000 units in 500 mls @ 36 mls/hr 10/22/18 15:00 21:57 Heparin Infusion - IVPB 16 units/kg/hr TITR SAE 32 mls/hr Administration Protocol 18 UNITS/KG/HR Piperacillin Sod/Tazobactam 50 mls @ 100 mls/hr 10/23/18 18:00 10/24/18 01:58 Sod 3.375 gm/ Dextrose IVPB 100 mls/hr Q8H-IV SAE Administration Protocol Insulin Aspart 1 vial 10/22/18 16:30 10/24/18 06:01 Novolog Vial Sliding Scale - SQ Not Given ACHS SAE Protocol Mupirocin 1 applic 10/22/18 22:00 10/23/18 21:57 Bactroban Ointment (For Decolonization) - NS 10/27/18 21:59 1 applic BID SAE Administration Patient's Own 1 each 10/23/18 19:15 10/23/18 21:57 Medication (Biotene PO 1 each [place]) DAILY SAE Administration Pantoprazole Sodium 40 mg 10/23/18 10:00 10/23/18 09:38 Protonix Iv IVPUSH 40 mg DAILY SAE Administration CBC, BMP 10/24/18 05:50 10/24/18 05:50 ASSESSMENT/PLAN: Mr. Tang is an 83yo M with h/o HTN, HLd, T2DM, CKD, stable AAA admitted to the ICU s/p L knee arthroscopy and makoplasty for work up of NSTEMI vs. PE vs. respiratory distress 2/2 RLL PNA. Clinical picture is more in line with NSTEMI given most recent EKGs showing evidence of septal infrarct and echo showing new reduced EF heart failure (EF 30%) rather than PE. # Acute hypoxic hypercapnic respiratory failure due to Possible HCPNA(RLL) on supperimposed CHF can not R.o PE # NSTEMI # R.o PE # recent Makoplast 10/15 # elevated trop , peaked # YANCI on CKD # Hyperkalemia resolved # transaminitis likely due to CHF, will obtain US abdomen Plan: * maintain O2 sat > 90 % , wean off NIPAP as tolerated , switch to Non rebreathable mask and sat low 90 % , can go back on BIPAP over night if needed * ABx per ID Zosyn , ID on board added on dose of Azithromax pending Legionall AG which came back negative * Duoneb , ASA , * Lasix 40 IV push BID * ON Hep Gtt for NSTEMI and , unlikely PE * PPI * ISS * F.U cx * daily weight , I&O * hold on CTA due to kidney function * cont to monitor in ICU * Repeat Echo EF 30% * US abdomen for transaminitis Visit type - Emergency Visit Emergency Visit: Yes ED Registration Date: 10/22/18 Care time: The patient presented to the Emergency Department on the above date and was hospitalized for further evaluation of their emergent condition. - New Patient This patient is new to me today: Yes Date on this admission: 10/24/18 - Critical Care Critical Care patient: Yes Total Critical Care Time (in minutes): 45 Critical Care Statement: The care of this patient involved high complexity decision making to prevent further life threatening deterioration of the patient 's condition and/or to evaluate & treat vital organ system(s) failure or risk of failure. ATTENDING PHYSICIAN STATEMENT I saw and evaluated the patient. I reviewed the resident's note and discussed the case with the resident. I agree with the resident's findings and plan as documented. SUBJECTIVE: OBJECTIVE: ASSESSMENT AND PLAN:
[2018-10-24] MEDS: ASPIRIN 81 MG CHEWABLE TABLETS PO SCH (10:00)
--- NOTE | 2018-10-24 10:45 | PN ---
Progress Note (short form) - Note Progress Note: s: dyspnea improving, on nonrebreather. no chest pain, palps, dizziness, dyspnea Current Medications Aspirin (Asa -) 81 mg PO DAILY [facility] Last Admin: 10/23/18 09:40 Dose: 81 mg Chlorhexidine Gluconate (Hibiclens For Decolonization -) 1 applic TP HS [facility]ENDING [facility] Last Admin: 10/23/18 21:57 Dose: 1 applic Fenofibric Acid (Trilipix -) 135 mg PO DAILY [facility] Last Admin: 10/23/18 11:12 Dose: Not Given Furosemide (Lasix Injection -) 40 mg IVPUSH BID@0600,1400 P[facility]ING [facility] Last Admin: 10/24/18 06:32 Dose: 40 mg Heparin Sodium (Porcine) (Heparin -) 4,000 unit 40 unit/kg (4000 unit) IVPUSH PRN PRN PRN Reason: For aPTT 35 to 45 seconds Heparin Sodium (Porcine) (Heparin -) 8,000 unit 80 unit/kg (8000 unit) IVPUSH PRN PRN PRN Reason: aPTT <35 seconds Heparin Sodium/Dextrose (Heparin Infusion -) 25,000 units in 500 mls @ 36 mls/ hr IVPB TITR SAE; Protocol Last Admin: 10/23/18 21:57 Dose: 16 units/kg/hr, 32 mls/hr Piperacillin Sod/Tazobactam (Sod 3.375 gm/ Dextrose) 50 mls @ 100 mls/hr IVPB Q8H-IV SAE; Protocol Last Admin: 10/24/18 01:58 Dose: 100 mls/hr Insulin Aspart (Novolog Vial Sliding Scale -) 1 vial SQ ACHS PENDING SALE TO [facility]; Protocol Last Admin: 10/24/18 06:01 Dose: Not Given Mupirocin (Bactroban Ointment (For Decolonization) -) 1 applic NS BID PENDING [facility] Stop: 10/27/18 21:59 Last Admin: 10/23/18 21:57 Dose: 1 applic Patient's Own Medication (Biotene [place]) 1 each PO DAILY [facility] Last Admin: 10/23/18 21:57 Dose: 1 each Pantoprazole Sodium (Protonix Iv) 40 mg IVPUSH DAILY [facility] Last Admin: 10/23/18 09:38 Dose: 40 mg Vital Signs Period Temp Pulse Resp BP Sys/العلي Pulse Ox Last 24 Hr 97 F-97.6 F 77-117 17-28 113-141/62-83 93-96 Constitutional: Yes: Mild Distress Eyes: Yes: Conjunctiva Clear, EOM Intact HENT: Yes: Atraumatic, Normocephalic Neck: Yes: Supple, Trachea Midline Respiratory: Yes: Other (+ exp wheezes, diminished breath sounds at bases) Gastrointestinal: Yes: Soft, Other (Nontender) Cardiovascular: Yes: Regular Rate and Rhythm, Tachycardia JVD: Yes Carotid Bruit: No PMI: Non-Displaced Heart Sounds: Yes: S1, S2 Edema: Yes 1+ LLE (L Stewart incision C/D/I) Peripheral Pulses WNL: Yes Neurological: Yes: Alert, Oriented ST, 1st degree AV Block, LAHB, RBBB, ST depressions I, AvL, V4-V6 Echo: EF 30%, nl RV function, mod MR with eccentric jet, mild TR, RVSP 44 mmHg, lg L pleural effusion Imaging - Results Chest X-ray: Image Reviewed EKG: Image Reviewed tele: sinus, PACs Assessment/Plan IMP: 1. Hypoxic respiratory failure secondary to possible RLL PNA w/ superimposed CHF ; r/o pulmonary embolism (recent L. knee makoplasty risk factor) 2. Elevated TnI: secondary to possible NSTEMI vs PE (unable to obtain CTA due volume overload and worsening O2 sat with minimal prehydration/ CKD) 3. Leukocytosis 4. CKD 5. DM 6. Anemia, guaiac negative. REC: Admit to ICU - on IV heparin gtts for NSTEMI vs PE. troponin 7.6->6.5->7.5, flat trend in setting of YANCI on CKD. d/w critical care, less likely PE, clinical picture more consistent with NSTEMI type I vs II with acute systolic HF. continue IV heparin for 72 hours, ischemic workup when euvolemic - ASA daily, deferring statin for elevated LFTs, start when able - Echo shows EF 30% - no prior history of HF, continue IV lasix with ischemic workup when euvolemic as above - Continue IV lasix, daily weights, daily BMP to monitor renal function. - BiPAP as needed, as per ICU team - Follow cultures and continue abx as per critical care. estimated critical care time = 35 min
--- NOTE | 2018-10-24 11:12 | PN ---
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 Swallowing reassessed. Still occasional delayed cough with continuous drinking of thin water. Seems to be more related to clearing secretions, however, silent aspiration can not be r/o at bedside. Pt did well with applesauce. Rec: Medication crushed per manufacturers guidelines, given in applesauce Mouth care TID trial of Chopped diet, sips of thin liquid Monitor tolerance If cough response, downgrade to Dys chopped/nectar, and MBS to r/o silent aspiration.
[2018-10-24] MEDS: BIOTENE PO SCH (12:00)
[2018-10-24] MEDS: PANTOPRAZOLE SODIUM 40 MG VIAL IVPUSH SCH (12:03)
[2018-10-24] MEDS: MUPIROCIN 2% TOPICAL OINTMENT FOR DECOLONIZATION NS SCH ×2 (12:03→21:33)
--- NOTE | 2018-10-24 12:12 | PN ---
Progress Note (short form) - Note Progress Note: alert no chest pain remains on NRB mask no fevers Vital Signs Period Temp Pulse Resp BP Sys/العلي Pulse Ox Last 24 Hr 97 F-97.6 F 77-117 17-28 113-141/62-77 93-97 cor-rrr lungs bibasilar crackles abd soft,nt ext dressing on knee, no edema CBC, BMP 10/24/18 05:50 10/24/18 05:50 Microbiology 10/23/18 15:00 Urine For Antigen Detection Legionella Antigen - Final- negative 10/23/18 15:00 Urine For Antigen Detection Streptococcus pneumoniae Antigen (M - Final-negative 10/22/18 17:30 Urine - Urine Clean Catch Urine Culture - Final NO GROWTH OBTAINED 10/22/18 12:30 Blood - Peripheral Venous Blood Culture - Preliminary NO GROWTH OBTAINED AFTER 24 HOURS, INCUBATION TO CONTINUE FOR 4 DAYS. 10/22/18 12:15 Blood - Peripheral Venous Blood Culture - Preliminary NO GROWTH OBTAINED AFTER 24 HOURS, INCUBATION TO CONTINUE FOR 4 DAYS. imp/reccd respiratory failure hypoxia cannot r/o pneumonia echo with ef of 30%- probable CHF r/o PE- on empiric anticoagulation given elevated Creatinine recent makoplasty 10/15 elevated troponins- ?TX abnl transaminases- ?CHF, for liver sonogram continue zosyn urinary antigens and blood cultures are negative continue diuresis nares swab
[2018-10-24] MEDS: CARVEDILOL 3.125 MG TABLET (FP) PO SCH ×2 (14:02→21:32)
--- NOTE | 2018-10-24 14:42 | PN ---
Teaching Attending Note Name of Resident: Jannette Steen ATTENDING PHYSICIAN STATEMENT I saw and evaluated the patient. I reviewed the resident's note and discussed the case with the resident. I agree with the resident's findings and plan as documented. SUBJECTIVE: Pt seen and examined in the ICU. States breathing is significantly improved. Off BiPAP on NRB with saturations low 90s. Denies chest pain. OBJECTIVE: Vital Signs Period Temp Pulse Resp BP Sys/العلي Pulse Ox Last 24 Hr 97 F-99.2 F 77-117 17-28 113-141/62-77 93-97 Intake & Output 10/21/18 10/22/18 10/23/18 10/24/18 23:59 23:59 23:59 23:59 Intake Total 2118 1236 434 Output Total 475 1400 850 Balance 1643 -164 -416 Weight 112.083 kg 111.947 kg 108.409 kg Gen: mildly tachypneic with speaking Heart: RRR Lung: scattered basilar rales Abd: soft, nontender Ext: no edema CBC, BMP 10/24/18 05:50 10/24/18 05:50 Active Medications Aspirin (Asa -) 81 mg PO DAILY [facility] Last Admin: 10/24/18 10:00 Dose: 81 mg Carvedilol (Coreg -) 3.125 mg PO BID [facility] Last Admin: 10/24/18 14:02 Dose: 3.125 mg Chlorhexidine Gluconate (Hibiclens For Decolonization -) 1 applic TP HS [facility] Last Admin: 10/23/18 21:57 Dose: 1 applic Fenofibric Acid (Trilipix -) 135 mg PO DAILY [facility] Last Admin: 10/23/18 11:12 Dose: Not Given Furosemide (Lasix Injection -) 40 mg IVPUSH BID@0600,1400 [facility] Last Admin: 10/24/18 14:02 Dose: 40 mg Heparin Sodium (Porcine) (Heparin -) 4,000 unit 40 unit/kg (4000 unit) IVPUSH PRN PRN PRN Reason: For aPTT 35 to 45 seconds Heparin Sodium (Porcine) (Heparin -) 8,000 unit 80 unit/kg (8000 unit) IVPUSH PRN PRN PRN Reason: aPTT <35 seconds Heparin Sodium/Dextrose (Heparin Infusion -) 25,000 units in 500 mls @ 36 mls/ hr IVPB TITR SAE; Protocol Last Admin: 10/23/18 21:57 Dose: 16 units/kg/hr, 32 mls/hr Piperacillin Sod/Tazobactam (Sod 3.375 gm/ Dextrose) 50 mls @ 100 mls/hr IVPB Q8H-IV SAE; Protocol Last Admin: 10/24/18 12:03 Dose: 100 mls/hr Insulin Aspart (Novolog Vial Sliding Scale -) 1 vial SQ ACHS SAE; Protocol Last Admin: 10/24/18 13:31 Dose: Not Given Mupirocin (Bactroban Ointment (For Decolonization) -) 1 applic NS BID SAE Stop: 10/27/18 21:59 Last Admin: 10/24/18 12:03 Dose: 1 applic Patient's Own Medication (Biotene [place]) 1 each PO DAILY [facility] Last Admin: 10/23/18 21:57 Dose: 1 each Pantoprazole Sodium (Protonix Iv) 40 mg IVPUSH DAILY [facility] Last Admin: 10/24/18 12:03 Dose: 40 mg ASSESSMENT AND PLAN: Acute Hypoxic Respiratory Failure Acute NSTEMI Acute LV Systolic Heart Failure/Acute Pulmonary Edema Lactic Acidosis Acute Kidney Injury Elevated LFTs Recent Left Knee surgery - ASA - anticoagulation per cardiology - beta sharlene - trend LFTs - statin when LFTs stable - continue lasix - monitor urine output, creatinine - attempt to obtain baseline renal function - O2 to keep Spo2 >90% - BiPAP as needed to assist in work of breathing - PO as tolerated - low suspicion for PE given grossly abnormal findings on CXR, can defer further work up - will likely need ischemic evaluation by cardiology - continue ICU monitoring critical care time spent in reviewing chart, evaluating patient and formulating plan 35 min
--- NOTE | 2018-10-24 15:13 | PN ---
Physical Exam: SUBJECTIVE: Patient seen and examined at bedside. Patient did well overnight but became agitated because of BiPAP/ NPO status. This morning patient demanding food and stating he would like to leave. Plan to stop heparin ggt tomorrow afternoon (~3pm) after it has finished running for 72h. Patient switched to non-rebreather mask this morning and is tolerating it well. Will resume diet. OBJECTIVE: Vital Signs Period Temp Pulse Resp BP Sys/العلي Pulse Ox Last 24 Hr 97 F-99.2 F 77-117 17-28 113-141/62-77 93-97 GENERAL: Awake, alert, and fully oriented, in no acute distress. HEENT: NCAT, EOMI, PERRL, sclera anicteric, moist mucous membranes, non- rebreather mask in place, patient satting >88% NECK: No JVD LUNGS: Diminished breath sounds R>L base. No wheezes, and no crackles. No accessory muscle use. HEART: Tachycardic with regular rhythm, normal S1 and S2 without murmur. ABDOMEN: Soft, NT/ND, normoactive bowel sounds, no guarding EXTREMITIES: 2+ pulses, warm, well-perfused. No calf tenderness. No peripheral edema. SKIN: Warm, dry, no rashes or lesions noted. Laboratory Results - last 24 hr 10/23/18 10/23/18 10/23/18 17:11 17:30 21:06 WBC RBC Hgb Hct MCV MCH MCHC RDW Plt Count MPV PTT (Actin FS) 48.4 H Sodium Potassium Chloride Carbon Dioxide Anion Gap BUN Creatinine Est GFR (CKD-EPI)AfAm Est GFR (CKD-EPI)NonAf POC Glucometer 177 135 Random Glucose Calcium Phosphorus Magnesium Total Bilirubin AST ALT Alkaline Phosphatase Troponin I Total Protein Albumin 10/24/18 10/24/18 10/24/18 00:45 05:50 05:50 WBC 18.9 H RBC 2.99 L Hgb 9.5 L Hct 28.6 L MCV 95.9 MCH 31.8 MCHC 33.1 RDW 15.7 Plt Count 254 MPV 9.1 PTT (Actin FS) 58.7 H 62.2 H Sodium Potassium Chloride Carbon Dioxide Anion Gap BUN Creatinine Est GFR (CKD-EPI)AfAm Est GFR (CKD-EPI)NonAf POC Glucometer Random Glucose Calcium Phosphorus Magnesium Total Bilirubin AST ALT Alkaline Phosphatase Troponin I Total Protein Albumin 10/24/18 10/24/18 10/24/18 05:50 05:59 10:30 WBC RBC Hgb Hct MCV MCH MCHC RDW Plt Count MPV PTT (Actin FS) Sodium 143 Potassium 4.5 Chloride 108 H Carbon Dioxide 26 Anion Gap 9 BUN 71.5 H Creatinine 2.1 H Est GFR (CKD-EPI)AfAm 32.52 Est GFR (CKD-EPI)NonAf 28.06 POC Glucometer 131 Random Glucose 145 H Calcium 8.2 L Phosphorus 4.2 Magnesium 2.2 Total Bilirubin 0.8 AST 228 H ALT 236 H Alkaline Phosphatase 50 Troponin I 6.30 H* Total Protein 5.6 L Albumin 2.4 L 10/24/18 13:21 WBC RBC Hgb Hct MCV MCH MCHC RDW Plt Count MPV PTT (Actin FS) Sodium Potassium Chloride Carbon Dioxide Anion Gap BUN Creatinine Est GFR (CKD-EPI)AfAm Est GFR (CKD-EPI)NonAf POC Glucometer 131 Random Glucose Calcium Phosphorus Magnesium Total Bilirubin AST ALT Alkaline Phosphatase Troponin I Total Protein Albumin Active Medications Generic Name Dose Route Start Last Admin Trade Name Freq PRN Reason Stop Dose Admin Aspirin 81 mg 10/23/18 10:00 10/24/18 10:00 Asa - PO 81 mg DAILY SAE Administration Carvedilol 3.125 mg 10/24/18 10:45 10/24/18 14:02 Coreg - PO 3.125 mg BID SAE Administration Chlorhexidine Gluconate 1 applic 10/22/18 22:00 10/23/18 21:57 Hibiclens For Decolonization - TP 1 applic HS SAE Administration Fenofibric Acid 135 mg 10/23/18 10:00 10/23/18 11:12 Trilipix - PO Not Given DAILY SAE Furosemide 40 mg 10/23/18 06:00 10/24/18 14:02 Lasix Injection - IVPUSH 40 mg BID@0600,1400 SAE Administration Heparin Sodium (Porcine) 4,000 unit 10/22/18 14:47 Heparin - 40 unit/kg (4000 unit) IVPUSH PRN PRN For aPTT 35 to 45 seconds Heparin Sodium (Porcine) 8,000 unit 10/22/18 14:47 Heparin - 80 unit/kg (8000 unit) IVPUSH PRN PRN aPTT <35 seconds Heparin Sodium/Dextrose 25,000 units in 500 mls @ 36 mls/hr 10/22/18 15:00 21:57 Heparin Infusion - IVPB 16 units/kg/hr TITR SAE 32 mls/hr Administration Protocol 18 UNITS/KG/HR Piperacillin Sod/Tazobactam 50 mls @ 100 mls/hr 10/23/18 18:00 10/24/18 12:03 Sod 3.375 gm/ Dextrose IVPB 100 mls/hr Q8H-IV SAE Administration Protocol Insulin Aspart 1 vial 10/22/18 16:30 10/24/18 13:31 Novolog Vial Sliding Scale - SQ Not Given ACHS SAE Protocol Mupirocin 1 applic 10/22/18 22:00 10/24/18 12:03 Bactroban Ointment (For Decolonization) - NS 10/27/18 21:59 1 applic BID SAE Administration Patient's Own 1 each 10/23/18 19:15 10/23/18 21:57 Medication (Biotene PO 1 each [place]) DAILY SAE Administration Pantoprazole Sodium 40 mg 10/23/18 10:00 10/24/18 12:03 Protonix Iv IVPUSH 40 mg DAILY SAE Administration ASSESSMENT/PLAN: Mr. Tang is an 83yo M with h/o HTN, HLd, T2DM, CKD, stable AAA admitted to the ICU s/p L knee arthroscopy and makoplasty for work up of NSTEMI vs. PE vs. respiratory distress 2/2 RLL PNA. Clinical picture is more in line with NSTEMI given most recent EKGs showing evidence of septal infrarct and echo showing new reduced EF heart failure (EF 30%) rather than PE. Neurologic/ MSK -AOx4 -stable currently -Once pt is stable can continue with physical therapy s/p his orthopedic procedure Cardiovascular -DDx at this time includes: NSTEMI vs. PE vs. respiratory distress 2/2 to possible RLL PNA. NSTEMI -Echocardiogram- EF 30%, RV systolic pressure elevated @ 44mmHg, large L pleural effusion noted -no prior history of HF, continue IV lasix with ischemic workup when euvolemic as above -EKG- sinus arrhythmia with first degree AV block, LA deviation, RBBB, septal infarct (also cited on 10/22 ECG), t wave abnormalities consistent with lateral ischemia.Compared to ECG done on 10/22, the [place] interval as increased and there is evidence of serial changes of septal infarct present. - Less likely PE, clinical picture more consistent with NSTEMI type I vs II with acute systolic HF, given EKG and ECHO results - troponin 7.6->6.5->7.5> 6.3, flat trend in setting of YANCI on CKD. -continue heparin gtts for 72h (d/c tomorrow afternoon) -ischemic workup when euvolemic -continue Lasix 40 IV push BID -daily weight , strict Is&Os -ASA daily -Continue to trend troponins -F/U lipid panel > was deferring statin for elevated LFTs > start statin pending results of lipid panel in AM -Started on Coreg 3.125mg PO BID -Cardiology on board, appreciate recommendations Pulmonary - Patient currently on non-rebreather, wean down as able - BiPAP PRN at night - maintain O2 sat > 90 % - Duoneb Renal -YANCI vs. CKD noted with again possible decreased perfusion pressure to the kidneys - Monitor urine output (goal 0.5cc/kg/hr) - daily BMP to monitor renal function - Avoid nephrotoxic agents - F/U with Dr. Arthur Barajas's office tomorrow to see if they have a record of patient's baseline renal function. ID - Continue Zosyn (renally dosed) for possible RLL HCAPna - Monitor fever trend - Per ID recommendation, added on dose of Azithromax pending Legionall AG - Lactic acidosis possible hypoxemia 2/2 intrapulmonary shunting vs. sepsis 2/2 to PNA; trend until normalization - urinary antigens and blood cultures are negative - F/U nares swab - Dr. Bowden following, recommendations appreciated. GI - Transaminitis possibly congestive hepatopathy - consider obtaining RUQ US if liver enzymes continue to trend upwards - Avoid hepatotoxic agents - Monitor for continue downtrend with daily labs Endo: -ISS FEN: Fluids: Active diuresis ongoing Electrolyte abnormalities: Hyperkalemia 2/2 to renal dysfunction; monitor Nutrition: Resumed chopped diet PPX: DVT - heparin gtt GI - Protonix qdaily Dispo: continue to monitor in ICU Visit type - Emergency Visit Emergency Visit: Yes ED Registration Date: 10/22/18 Care time: The patient presented to the Emergency Department on the above date and was hospitalized for further evaluation of their emergent condition. - New Patient This patient is new to me today: No - Critical Care Critical Care patient: Yes Total Critical Care Time (in minutes): 40 Critical Care Statement: The care of this patient involved high complexity decision making to prevent further life threatening deterioration of the patient 's condition and/or to evaluate & treat vital organ system(s) failure or risk of failure. ATTENDING PHYSICIAN STATEMENT I saw and evaluated the patient. I reviewed the resident's note and discussed the case with the resident. I agree with the resident's findings and plan as documented. SUBJECTIVE: OBJECTIVE: ASSESSMENT AND PLAN:
--- NOTE | 2018-10-24 15:14 | EKG ---
Test Reason : Blood Pressure : / mmHG Vent. Rate : 108 BPM Atrial Rate : 111 BPM P-R Int : 000 ms QRS Dur : 150 ms QT Int : 420 ms P-R-T Axes : 000 -77 091 degrees QTc Int : 562 ms sinus tachycardia with 1 avb LEFT AXIS DEVIATION RIGHT BUNDLE BRANCH BLOCK SEPTAL INFARCT , AGE UNDETERMINED ABNORMAL ECG Confirmed by ANGELA GATES MD [id number]) on 10/24/2018 3:13:53 PM Referred By: SAMY MARINO Confirmed By:ANGELA GATES MD
[2018-10-24] MEDS: HEPARIN INFUSION - 25,000 UNITS/500 ML INFUS.BAG IVPB SCH (15:30)
[2018-10-24 16:59] LABS: CHOLESTEROL 100 mg/dL (50-200); HDL CHOLESTEROL 29 mg/dL (40-60); TRIGLYCERIDES 114 mg/dL (0-150)
[2018-10-24] MEDS ORDERED: PT OWN MED DRAWER 7, Y5N ONE (17:20)
[2018-10-24] MEDS: FENOFIBRIC ACID 135 MG CAP PO SCH (18:18)
--- NOTE | 2018-10-24 19:22 | PN ---
Teaching Attending Note Name of Resident: Blake Valiente ATTENDING PHYSICIAN STATEMENT I saw and evaluated the patient. I reviewed the resident's note and discussed the case with the resident. I agree with the resident's findings and plan as documented with exceptions below. SUBJECTIVE: Patient seen and examined, on NRB, asking for food, no dyspnea or chest pain concerns. OBJECTIVE: Vital Signs Period Temp Pulse Resp BP Sys/العلي Pulse Ox Last 24 Hr 97.4 F-99.2 F 58-87 17-22 94-133/17-77 93-97 Intake & Output 10/21/18 10/22/18 10/23/18 10/24/18 23:59 23:59 23:59 23:59 Intake Total 2118 1236 434 Output Total 475 1400 1450 Balance 1643 -164 1016 Weight 247 lb 1.6 oz 246 lb 12.8 oz 239 lb General: sitting in bed, no acute distress, able to talk in full sentences CVS:S1S2 irregular Neck: Soft, supple Chest: Bibasilar rales Abdomen:Soft, NT Extremities: 1+ pedal edema, no calf tenderness Home Medications Medication Instructions Recorded metFORMIN HCL [Glucophage -] 500 mg PO BID 02/28/13 Amlodipine Besylate [Norvasc -] 5 mg PO DAILY 09/19/18 Fenofibrate Nanocrystallized 160 mg PO DAILY 09/19/18 [Fenofibrate] Lisinopril [Zestril] 40 mg PO DAILY 09/19/18 Ascorbic Acid [Vitamin C -] 500 mg PO BID tablet 10/17/18 Aspirin [ASA -] 325 mg PO DAILY@0800 tablet 10/17/18 Cephalexin Monohydrate [Keflex -] 500 mg PO TID #30 capsule 10/17/18 Multivitamins [Multivit ([facility] 1 tab PO DAILY tab 10/17/18 Formulary)] Oxycodone HCl/Acetaminophen 1 - 2 tab PO Q4H PRN #60 tablet 10/17/18 [Percocet 5-325 mg Tablet] MDD 10 Pantoprazole Sodium [Protonix -] 40 mg PO DAILY #40 tablet.ec 10/17/18 Sennosides/Docusate Sodium 2 tablet PO BID tablet 10/17/18 [Pericolace -] traMADol HCL [Ultram -] 50 mg PO Q4H PRN #42 tablet MDD 6 10/17/18 Active Medications Aspirin (Asa -) 81 mg PO DAILY [facility] Last Admin: 10/24/18 10:00 Dose: 81 mg Carvedilol (Coreg -) 3.125 mg PO BID [facility] Last Admin: 10/24/18 14:02 Dose: 3.125 mg Chlorhexidine Gluconate (Hibiclens For Decolonization -) 1 applic TP HS [facility] Last Admin: 10/23/18 21:57 Dose: 1 applic Fenofibric Acid (Trilipix -) 135 mg PO DAILY [facility] Last Admin: 10/24/18 18:18 Dose: Not Given Furosemide (Lasix Injection -) 40 mg IVPUSH BID@0600,1400 [facility] Last Admin: 10/24/18 14:02 Dose: 40 mg Heparin Sodium (Porcine) (Heparin -) 4,000 unit 40 unit/kg (4000 unit) IVPUSH PRN PRN PRN Reason: For aPTT 35 to 45 seconds Heparin Sodium (Porcine) (Heparin -) 8,000 unit 80 unit/kg (8000 unit) IVPUSH PRN PRN PRN Reason: aPTT <35 seconds Heparin Sodium/Dextrose (Heparin Infusion -) 25,000 units in 500 mls @ 36 mls/ hr IVPB TITR [facility]; Protocol Last Admin: 10/24/18 15:30 Dose: 16 units/kg/hr, 32 mls/hr Piperacillin Sod/Tazobactam (Sod 3.375 gm/ Dextrose) 50 mls @ 100 mls/hr IVPB Q8H-IV [facility]; Protocol Last Admin: 10/24/18 18:19 Dose: 100 mls/hr Insulin Aspart (Novolog Vial Sliding Scale -) 1 vial SQ ACHS [facility]; Protocol Last Admin: 10/24/18 18:44 Dose: Not Given Mupirocin (Bactroban Ointment (For Decolonization) -) 1 applic NS BID [facility] Stop: 10/27/18 21:59 Last Admin: 10/24/18 12:03 Dose: 1 applic Patient's Own Medication (Biotene [place]) 1 each PO DAILY [facility] Last Admin: 10/24/18 12:00 Dose: 1 each Pantoprazole Sodium (Protonix Iv) 40 mg IVPUSH DAILY [facility] Last Admin: 10/24/18 12:03 Dose: 40 mg Laboratory Results - last 24 hr 10/23/18 10/24/18 10/24/18 21:06 00:45 05:50 WBC 18.9 H RBC 2.99 L Hgb 9.5 L Hct 28.6 L MCV 95.9 MCH 31.8 MCHC 33.1 RDW 15.7 Plt Count 254 MPV 9.1 PTT (Actin FS) 58.7 H Sodium Potassium Chloride Carbon Dioxide Anion Gap BUN Creatinine Est GFR (CKD-EPI)AfAm Est GFR (CKD-EPI)NonAf POC Glucometer 135 Random Glucose Calcium Phosphorus Magnesium Total Bilirubin AST ALT Alkaline Phosphatase Troponin I Total Protein Albumin Triglycerides Cholesterol Total LDL Cholesterol HDL Cholesterol 10/24/18 10/24/18 10/24/18 05:50 05:50 05:59 WBC RBC Hgb Hct MCV MCH MCHC RDW Plt Count MPV PTT (Actin FS) 62.2 H Sodium 143 Potassium 4.5 Chloride 108 H Carbon Dioxide 26 Anion Gap 9 BUN 71.5 H Creatinine 2.1 H Est GFR (CKD-EPI)AfAm 32.52 Est GFR (CKD-EPI)NonAf 28.06 POC Glucometer 131 Random Glucose 145 H Calcium 8.2 L Phosphorus 4.2 Magnesium 2.2 Total Bilirubin 0.8 AST 228 H ALT 236 H Alkaline Phosphatase 50 Troponin I Total Protein 5.6 L Albumin 2.4 L Triglycerides Cholesterol Total LDL Cholesterol HDL Cholesterol 10/24/18 10/24/18 10/24/18 10:30 13:21 15:00 WBC RBC Hgb Hct MCV MCH MCHC RDW Plt Count MPV PTT (Actin FS) Sodium Potassium Chloride Carbon Dioxide Anion Gap BUN Creatinine Est GFR (CKD-EPI)AfAm Est GFR (CKD-EPI)NonAf POC Glucometer 131 Random Glucose Calcium Phosphorus Magnesium Total Bilirubin AST ALT Alkaline Phosphatase Troponin I 6.30 H* Total Protein Albumin Triglycerides 114 Cholesterol 100 Total LDL Cholesterol 57 HDL Cholesterol 29 L 10/24/18 18:38 WBC RBC Hgb Hct MCV MCH MCHC RDW Plt Count MPV PTT (Actin FS) Sodium Potassium Chloride Carbon Dioxide Anion Gap BUN Creatinine Est GFR (CKD-EPI)AfAm Est GFR (CKD-EPI)NonAf POC Glucometer 175 Random Glucose Calcium Phosphorus Magnesium Total Bilirubin AST ALT Alkaline Phosphatase Troponin I Total Protein Albumin Triglycerides Cholesterol Total LDL Cholesterol HDL Cholesterol Microbiology 10/22/18 12:30 Blood - Peripheral Venous Blood Culture - Preliminary NO GROWTH OBTAINED AFTER 48 HOURS, INCUBATION TO CONTINUE FOR 3 DAYS. 07/29/19 12:15 Blood - Peripheral Venous Blood Culture - Preliminary NO GROWTH OBTAINED AFTER 48 HOURS, INCUBATION TO CONTINUE FOR 3 DAYS. 10/23/18 15:00 Urine For Antigen Detection Legionella Antigen - Final 10/23/18 15:00 Urine For Antigen Detection Streptococcus pneumoniae Antigen (M - Final 10/22/18 17:30 Urine - Urine Clean Catch Urine Culture - Final NO GROWTH OBTAINED 2D echo results reviewed ASSESSMENT AND PLAN: 83 yom with PMHx of HTN, HLd, T2DM, CKD, stable AAA who presents today after L total knee arthroscopy makoplasty on 10/15/18, admitted with cough and dyspnea. Acute Hypoxic Respiratory Failure Acute NSTEMI Acute LV Systolic Heart Failure/Acute Pulmonary Edema Lactic Acidosis Acute Kidney Injury Elevated LFTs Recent Left Knee surgery - ASA - anticoagulation per cardiology,plan for heparin drip x 72 hours. - beta sharlene - trend LFTs - statin when LFTs stable - continue lasix - monitor urine output, creatinine - attempt to obtain baseline renal function - O2 to keep Spo2 >90% - BiPAP as needed to assist in work of breathing - PO as tolerated - low suspicion for PE given grossly abnormal findings on CXR, can defer further work up - will likely need ischemic evaluation by cardiology - continue ICU monitoring - Total critical care time spent 37 min
[2018-10-24] MEDS: CHLORHEXIDINE GLUCONATE 4% CLEANSER FOR DECOLONIZATION TP SCH (21:33)
[2018-10-25] MEDS ORDERED: DEXTROSE 5%-WATER - 50 ML IVPB ONE ×3 (01:33→18:16)
[2018-10-25] MEDS ORDERED: PIPERACILLIN/TAZOBACTAM 3.375 GM VIAL IVPB ONE ×3 (01:33→18:16)
[2018-10-25] MEDS: PIPERACILLIN/TAZOB 3.375 GM 3.375 GM in DEXTROSE 5%-WATER - 50 ML IVPB SCH ×3 (01:41→18:25)
[2018-10-25] MEDS: HEPARIN INFUSION - 25,000 UNITS/500 ML INFUS.BAG IVPB SCH (06:19)
[2018-10-25] MEDS: INSULIN SLIDING SCALE (NOVOLOG) 1 VIAL SQ SCH ×4 (06:19→22:31)
[2018-10-25] MEDS: FUROSEMIDE 40 MG/4 ML INJECTABLE VIAL IVPUSH SCH (06:19)
[2018-10-25 06:52] LABS: HEMATOCRIT 28.8 % (35.4-49); HEMOGLOBIN 9.6 GM/dL (11.7-16.9); MCH 32.2 pg (25.7-33.7); MCHC 33.5 g/dl (32.0-35.9); MEAN CELL VOLUME 96.3 fl (80-96); MEAN PLT VOLUME 9.3 fl (7.5-11.1); PLATELET COUNT 263 K/MM3 (134-434); RBC 2.99 M/mm3 (4.00-5.60); WHITE BLOOD COUNT 17.2 K/mm3 (4.0-10.0)
[2018-10-25 07:08] LABS: ALBUMIN 2.3 g/dl (3.4-5.0); BILIRUBIN,TOTAL 0.9 mg/dL (0.2-1); BLOOD UREA NITROGEN 79.1 mg/dL (7-18); CALCIUM 8.1 mg/dL (8.5-10.1); CREATININE 2.1 mg/dL (0.55-1.3); MAGNESIUM 2.6 mg/dL (1.8-2.4); PHOSPHOROUS 4.1 mg/dL (2.5-4.9); POTASSIUM 4.3 mmol/L (3.5-5.1); TOT PROT 5.7 g/dl (6.4-8.2)
--- NOTE | 2018-10-25 08:33 | PN ---
Physical Exam: SUBJECTIVE: Patient seen and examined at bedside this morning. He continues to endorse shortness of breath, and requests water. Patient failed trial of non- rebreather mask today, requiring him to be placed back onto BiLevel ventilation. OBJECTIVE: Vital Signs Period Temp Pulse Resp BP Sys/العلي Pulse Ox Last 24 Hr 97.8 F-99.2 F 58-92 16-25 94-133/17-78 94-97 GENERAL: Patient is awake, alert, and fully oriented, in no acute distress. HEAD: Normal with no signs of trauma. EYES: PERRL, extraocular movements intact, sclera anicteric, conjunctiva clear. ENT: Oropharynx clear without exudates, moist mucous membranes. on BiLevel ventilation NECK: Supple, without JVD. LUNGS: Good inspiratory effort, diminished air entery at bases bilaterally. HEART: Regular rate and rhythm, S1, S2 without murmur, rub or gallop. ABDOMEN: Soft, nontender, nondistended, normoactive bowel sounds, no guarding, no rebound tenderness. EXTREMITIES: 2+ radial, dorsalis pedis pulses bilaterally, warm, well-perfused. No edema. NEUROLOGICAL: Cranial nerves II through XII grossly intact. Normal speech. PSYCH: Normal mood, normal affect. SKIN: Warm, dry. Left knee surgical site bandaged clean, dry. Laboratory Results - last 24 hr 10/24/18 10/24/18 10/24/18 05:50 10:30 13:21 WBC RBC Hgb Hct MCV MCH MCHC RDW Plt Count MPV PTT (Actin FS) 62.2 H Sodium Potassium Chloride Carbon Dioxide Anion Gap BUN Creatinine Est GFR (CKD-EPI)AfAm Est GFR (CKD-EPI)NonAf POC Glucometer 131 Random Glucose Calcium Phosphorus Magnesium Total Bilirubin AST ALT Alkaline Phosphatase Troponin I 6.30 H* Total Protein Albumin Triglycerides Cholesterol Total LDL Cholesterol HDL Cholesterol 10/24/18 10/24/18 10/24/18 15:00 18:38 21:29 WBC RBC Hgb Hct MCV MCH MCHC RDW Plt Count MPV PTT (Actin FS) Sodium Potassium Chloride Carbon Dioxide Anion Gap BUN Creatinine Est GFR (CKD-EPI)AfAm Est GFR (CKD-EPI)NonAf POC Glucometer 175 135 Random Glucose Calcium Phosphorus Magnesium Total Bilirubin AST ALT Alkaline Phosphatase Troponin I Total Protein Albumin Triglycerides 114 Cholesterol 100 Total LDL Cholesterol 57 HDL Cholesterol 29 L 10/25/18 10/25/18 10/25/18 06:13 06:15 06:15 WBC 17.2 H RBC 2.99 L Hgb 9.6 L Hct 28.8 L MCV 96.3 H MCH 32.2 MCHC 33.5 RDW 16.0 H Plt Count 263 MPV 9.3 PTT (Actin FS) 58.5 H Sodium Potassium Chloride Carbon Dioxide Anion Gap BUN Creatinine Est GFR (CKD-EPI)AfAm Est GFR (CKD-EPI)NonAf POC Glucometer 145 Random Glucose Calcium Phosphorus Magnesium Total Bilirubin AST ALT Alkaline Phosphatase Troponin I Total Protein Albumin Triglycerides Cholesterol Total LDL Cholesterol HDL Cholesterol 10/25/18 06:15 WBC RBC Hgb Hct MCV MCH MCHC RDW Plt Count MPV PTT (Actin FS) Sodium 143 Potassium 4.3 Chloride 107 Carbon Dioxide 29 Anion Gap 7 L BUN 79.1 H Creatinine 2.1 H Est GFR (CKD-EPI)AfAm 32.52 Est GFR (CKD-EPI)NonAf 28.06 POC Glucometer Random Glucose 146 H Calcium 8.1 L Phosphorus 4.1 Magnesium 2.6 H Total Bilirubin 0.9 AST 203 H ALT 277 H Alkaline Phosphatase 65 Troponin I Total Protein 5.7 L Albumin 2.3 L Triglycerides 117 Cholesterol 104 Total LDL Cholesterol 64 HDL Cholesterol 29 L Active Medications Generic Name Dose Route Start Last Admin Trade Name Freq PRN Reason Stop Dose Admin Aspirin 81 mg 10/23/18 10:00 10/24/18 10:00 Asa - PO 81 mg DAILY SAE Administration Carvedilol 3.125 mg 10/24/18 10:45 10/24/18 21:32 Coreg - PO 3.125 mg BID SAE Administration Chlorhexidine Gluconate 1 applic 10/22/18 22:00 10/24/18 21:33 Hibiclens For Decolonization - TP 1 applic HS SAE Administration Fenofibric Acid 135 mg 10/23/18 10:00 10/24/18 18:18 Trilipix - PO Not Given DAILY SAE Furosemide 40 mg 10/23/18 06:00 10/25/18 06:19 Lasix Injection - IVPUSH 40 mg BID@0600,1400 SAE Administration Heparin Sodium (Porcine) 4,000 unit 10/22/18 14:47 Heparin - 40 unit/kg (4000 unit) IVPUSH PRN PRN For aPTT 35 to 45 seconds Heparin Sodium (Porcine) 8,000 unit 10/22/18 14:47 Heparin - 80 unit/kg (8000 unit) IVPUSH PRN PRN aPTT <35 seconds Heparin Sodium/Dextrose 25,000 units in 500 mls @ 36 mls/hr 10/22/18 15:00 06:19 Heparin Infusion - IVPB 16 units/kg/hr TITR SAE 32 mls/hr Administration Protocol 18 UNITS/KG/HR Piperacillin Sod/Tazobactam 50 mls @ 100 mls/hr 10/23/18 18:00 10/25/18 01:41 Sod 3.375 gm/ Dextrose IVPB 100 mls/hr Q8H-IV SAE Administration Protocol Insulin Aspart 1 vial 10/22/18 16:30 10/25/18 06:19 Novolog Vial Sliding Scale - SQ Not Given ACHS SAE Protocol Mupirocin 1 applic 10/22/18 22:00 10/24/18 21:33 Bactroban Ointment (For Decolonization) - NS 10/27/18 21:59 1 applic BID SAE Administration Patient's Own 1 each 10/23/18 19:15 10/24/18 12:00 Medication (Biotene PO 1 each [place]) DAILY SAE Administration Pantoprazole Sodium 40 mg 10/23/18 10:00 10/24/18 12:03 Protonix Iv IVPUSH 40 mg DAILY SAE Administration ASSESSMENT/PLAN: Patient is an 83 year old male with history of hypertension, hyperlipidemia, stable aortic aneurysm, admitted to ICU for acute hypoxic respiratory failure. Neurologic -patient is awake, alert, fully oriented -monitor for signs of mental status change Cardiovascular NSTEMI -Troponin peaked at 7.6 -EKG- sinus arrhythmia with first degree AV block, LA deviation, RBBB, septal infarct (also cited on 10/22 ECG), t wave abnormalities consistent with lateral ischemia.Compared to ECG done on 10/22, the [place] interval as increased and there is evidence of serial changes of septal infarct present. -Cardiac Echo reveals ejection fraction at 30%, RV systolic pressure elevated @ 44mmHg, large L pleural effusion noted -Less likely PE, clinical picture more consistent with NSTEMI type I vs II with acute systolic HF, given EKG and ECHO results -Continue heparin drip for total 72h (d/c later today afternoon) -Lasix drip; monitor intake, output -Aspirin 81mg daily -Started on Coreg 3.125mg PO BID -Cardiology recommendations (Dr. Mcghee) appreciated. Pulmonary Acute hypoxic respiratory failure -Paitent failed trial of non-rebreather mask. Currently on BiLevel ventilation at 03/01 at 100% -maintain O2 sat > 90 % -Kulwinder Renal -YANCI vs CKD. Likely pre-renal etiology. -F/U with Dr. Arthur Barajas's office to see if they have a record of patient's baseline renal function. -Monitor urine output; via paiz catheter ID -Zosyn 3.375mg IV Q8 hours for right lower lobe pneumonia -Lactic acidosis possible hypoxemia 2/2 intrapulmonary shunting vs. sepsis 2/2 to PNA; trend until normalization -Urinary antigens for Legionella, Strep negative for growth -Blood cultures negative for growth after 72 hours. -ID recommendations (Dr. Bowden) appreciated. GI -Transaminitis likely secondary to congestive hepatopathy -Follow right upper quadrant abdominal US -Follow transaminases FEN: -Fluids: No IV fluids currently indicated. -Electrolytes: Follow CMP -Nutrition: Chopoped diet, NPO while on BiLevel ventilation. PPX: -DVT- Heparin drip -GI- Protonix Disposition: -Continue to monitor in ICU Visit type - Emergency Visit Emergency Visit: Yes ED Registration Date: 10/22/18 Care time: The patient presented to the Emergency Department on the above date and was hospitalized for further evaluation of their emergent condition. - New Patient This patient is new to me today: Yes Date on this admission: 10/25/18 - Critical Care Critical Care patient: Yes Total Critical Care Time (in minutes): 35 Critical Care Statement: The care of this patient involved high complexity decision making to prevent further life threatening deterioration of the patient 's condition and/or to evaluate & treat vital organ system(s) failure or risk of failure. - Discharge Referral Referred to [facility] No ATTENDING PHYSICIAN STATEMENT I saw and evaluated the patient. I reviewed the resident's note and discussed the case with the resident. I agree with the resident's findings and plan as documented. SUBJECTIVE: OBJECTIVE: ASSESSMENT AND PLAN:
[2018-10-25] MEDS: ASPIRIN 81 MG CHEWABLE TABLETS PO SCH (10:19)
[2018-10-25] MEDS: PANTOPRAZOLE SODIUM 40 MG VIAL IVPUSH SCH (10:19)
[2018-10-25] MEDS: MUPIROCIN 2% TOPICAL OINTMENT FOR DECOLONIZATION NS SCH ×2 (10:20→22:30)
[2018-10-25] MEDS: CARVEDILOL 3.125 MG TABLET (FP) PO SCH ×2 (10:20→22:30)
[2018-10-25] MEDS: FENOFIBRIC ACID 135 MG CAP PO SCH (10:20)
[2018-10-25] MEDS: BIOTENE PO SCH (10:20)
--- NOTE | 2018-10-25 10:50 | PN ---
Physical Exam: SUBJECTIVE: Patient seen and examined at bed side in ICU desat over night on high flow and ICU team put him back on NIPAP no cough no chest pain , but still SOB OBJECTIVE: Vital Signs Period Temp Pulse Resp BP Sys/العلي Pulse Ox Last 24 Hr 97.8 F-99.2 F 58-92 16-25 94-133/17-78 92-97 GENERAL: AAOx3 in NAD , on NIPAP , HEAD: NC/AT, + JVD EYES: Conjunctiva clear, sclera anicteric NECK: Supple, + JVD LUNGS: decrease breath sound at the abses , bibasilar crackles HEART: RRR, NSR, normal s1, s2, murmur no M/R/G ABDOMEN:Obese , Soft, ND, NT, +BS 4 Q, no CVA Tenderness LOWER EXTREMITIES: LLE +2 , +2DP pulse,left knee covered s.p makoplasty NEUROLOGICAL: No focal deficit. Normal speech. gait not observed Laboratory Results - last 24 hr 10/24/18 10/24/18 10/24/18 10:30 13:21 15:00 WBC RBC Hgb Hct MCV MCH MCHC RDW Plt Count MPV PTT (Actin FS) Sodium Potassium Chloride Carbon Dioxide Anion Gap BUN Creatinine Est GFR (CKD-EPI)AfAm Est GFR (CKD-EPI)NonAf POC Glucometer 131 Random Glucose Calcium Phosphorus Magnesium Total Bilirubin AST ALT Alkaline Phosphatase Troponin I 6.30 H* Total Protein Albumin Triglycerides 114 Cholesterol 100 Total LDL Cholesterol 57 HDL Cholesterol 29 L 10/24/18 10/24/18 10/25/18 18:38 21:29 06:13 WBC RBC Hgb Hct MCV MCH MCHC RDW Plt Count MPV PTT (Actin FS) Sodium Potassium Chloride Carbon Dioxide Anion Gap BUN Creatinine Est GFR (CKD-EPI)AfAm Est GFR (CKD-EPI)NonAf POC Glucometer 175 135 145 Random Glucose Calcium Phosphorus Magnesium Total Bilirubin AST ALT Alkaline Phosphatase Troponin I Total Protein Albumin Triglycerides Cholesterol Total LDL Cholesterol HDL Cholesterol 10/25/18 10/25/18 10/25/18 06:15 06:15 06:15 WBC 17.2 H RBC 2.99 L Hgb 9.6 L Hct 28.8 L MCV 96.3 H MCH 32.2 MCHC 33.5 RDW 16.0 H Plt Count 263 MPV 9.3 PTT (Actin FS) 58.5 H Sodium 143 Potassium 4.3 Chloride 107 Carbon Dioxide 29 Anion Gap 7 L BUN 79.1 H Creatinine 2.1 H Est GFR (CKD-EPI)AfAm 32.52 Est GFR (CKD-EPI)NonAf 28.06 POC Glucometer Random Glucose 146 H Calcium 8.1 L Phosphorus 4.1 Magnesium 2.6 H Total Bilirubin 0.9 AST 203 H ALT 277 H Alkaline Phosphatase 65 Troponin I Total Protein 5.7 L Albumin 2.3 L Triglycerides 117 Cholesterol 104 Total LDL Cholesterol 64 HDL Cholesterol 29 L Active Medications Generic Name Dose Route Start Last Admin Trade Name Freq PRN Reason Stop Dose Admin Aspirin 81 mg 10/23/18 10:00 10/25/18 10:19 Asa - PO 81 mg DAILY SAE Administration Carvedilol 3.125 mg 10/24/18 10:45 10/25/18 10:20 Coreg - PO 3.125 mg BID SAE Administration Chlorhexidine Gluconate 1 applic 10/22/18 22:00 10/24/18 21:33 Hibiclens For Decolonization - TP 1 applic HS SAE Administration Fenofibric Acid 135 mg 10/23/18 10:00 10/25/18 10:20 Trilipix - PO 135 mg DAILY SAE Administration Furosemide 40 mg 10/23/18 06:00 10/25/18 06:19 Lasix Injection - IVPUSH 40 mg BID@0600,1400 SAE Administration Heparin Sodium (Porcine) 4,000 unit 10/22/18 14:47 Heparin - 40 unit/kg (4000 unit) IVPUSH PRN PRN For aPTT 35 to 45 seconds Heparin Sodium (Porcine) 8,000 unit 10/22/18 14:47 Heparin - 80 unit/kg (8000 unit) IVPUSH PRN PRN aPTT <35 seconds Heparin Sodium/Dextrose 25,000 units in 500 mls @ 36 mls/hr 10/22/18 15:00 06:19 Heparin Infusion - IVPB 16 units/kg/hr TITR SAE 32 mls/hr Administration Protocol 18 UNITS/KG/HR Piperacillin Sod/Tazobactam 50 mls @ 100 mls/hr 10/23/18 18:00 10/25/18 10:19 Sod 3.375 gm/ Dextrose IVPB 100 mls/hr Q8H-IV SAE Administration Protocol Insulin Aspart 1 vial 10/22/18 16:30 10/25/18 06:19 Novolog Vial Sliding Scale - SQ Not Given ACHS SAE Protocol Mupirocin 1 applic 10/22/18 22:00 10/25/18 10:20 Bactroban Ointment (For Decolonization) - NS 10/27/18 21:59 1 applic BID SAE Administration Patient's Own 1 each 10/23/18 19:15 10/25/18 10:20 Medication (Biotene PO 1 each [place]) DAILY SAE Administration Pantoprazole Sodium 40 mg 10/23/18 10:00 10/25/18 10:19 Protonix Iv IVPUSH 40 mg DAILY SAE Administration CBC, BMP 10/25/18 06:15 10/25/18 06:15 ASSESSMENT/PLAN: Mr. Tang is an 83yo M with h/o HTN, HLd, T2DM, CKD, stable AAA admitted to the ICU s/p L knee arthroscopy and makoplasty for work up of NSTEMI vs. PE vs. respiratory distress 2/2 RLL PNA. Clinical picture is more in line with NSTEMI given most recent EKGs showing evidence of septal infrarct and echo showing new reduced EF heart failure (EF 30%) rather than PE. # Acute hypoxic hypercapnic respiratory failure due to Possible HCPNA(RLL) on supperimposed CHF can not R.o PE # NSTEMI # R.o PE # recent Makoplast 10/15 # elevated trop , peaked # YANCI on CKD # Hyperkalemia resolved # transaminitis likely due to CHF, will obtain US abdomen Plan: * maintain O2 sat > 90 % , wean off NIPAP as tolerated , * ABx per ID Zosyn , ID on board added on dose of Azithromax pending LegionCoastTec AG which came back negative * Duoneb , ASA , * Lasix 40 IV push BID , start on Lasix drip today per ICU * ON Hep Gtt for NSTEMI and , unlikely PE * PPI * ISS * F.U cx * daily weight , I&O * hold on CTA due to kidney function * cont to monitor in ICU * Repeat Echo EF 30% * US abdomen for transaminitis Visit type - Emergency Visit Emergency Visit: Yes ED Registration Date: 10/22/18 Care time: The patient presented to the Emergency Department on the above date and was hospitalized for further evaluation of their emergent condition. - New Patient This patient is new to me today: No - Critical Care Critical Care patient: Yes Total Critical Care Time (in minutes): 45 Critical Care Statement: The care of this patient involved high complexity decision making to prevent further life threatening deterioration of the patient 's condition and/or to evaluate & treat vital organ system(s) failure or risk of failure. ATTENDING PHYSICIAN STATEMENT I saw and evaluated the patient. I reviewed the resident's note and discussed the case with the resident. I agree with the resident's findings and plan as documented. SUBJECTIVE: OBJECTIVE: ASSESSMENT AND PLAN:
--- NOTE | 2018-10-25 10:54 | PN ---
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 Reportedly tolerated sips of water yesterday. Yesterday pt tolerated NR. Now desaturates easily, back on BIPAP. NPO. Seen taking medication in applesauce with sip of water from a straw. Strong, brief cough response observed. Voice is strong. Hold PO until pulmonary function improves. Suggest nectar thick with medication for now. Avoid thin liquids. Intermittent aspiration suspected.
--- NOTE | 2018-10-25 11:22 | PN ---
Progress Note (short form) - Note Progress Note: s: dyspnea improving, on bipap, no chest pain, palps, dizziness, Current Medications Generic Name Dose Route Start Last Admin Trade Name Ru PRN Reason Stop Dose Admin Aspirin 81 mg 10/23/18 10:00 10/25/18 10:19 Asa - PO 81 mg DAILY SAE Administration Carvedilol 3.125 mg 10/24/18 10:45 10/25/18 10:20 Coreg - PO 3.125 mg BID SAE Administration Chlorhexidine Gluconate 1 applic 10/22/18 22:00 10/24/18 21:33 Hibiclens For Decolonization - TP 1 applic HS SAE Administration Fenofibric Acid 135 mg 10/23/18 10:00 10/25/18 10:20 Trilipix - PO 135 mg DAILY SAE Administration Furosemide 40 mg 10/23/18 06:00 10/25/18 06:19 Lasix Injection - IVPUSH 40 mg BID@0600,1400 SAE Administration Heparin Sodium (Porcine) 4,000 unit 10/22/18 14:47 Heparin - 40 unit/kg (4000 unit) IVPUSH PRN PRN For aPTT 35 to 45 seconds Heparin Sodium (Porcine) 8,000 unit 10/22/18 14:47 Heparin - 80 unit/kg (8000 unit) IVPUSH PRN PRN aPTT <35 seconds Heparin Sodium/Dextrose 25,000 units in 500 mls @ 36 mls/hr 10/22/18 15:00 06:19 Heparin Infusion - IVPB 16 units/kg/hr TITR SAE 32 mls/hr Administration Protocol 18 UNITS/KG/HR Piperacillin Sod/Tazobactam 50 mls @ 100 mls/hr 10/23/18 18:00 10/25/18 10:19 Sod 3.375 gm/ Dextrose IVPB 100 mls/hr Q8H-IV SAE Administration Protocol Insulin Aspart 1 vial 10/22/18 16:30 10/25/18 10:56 Novolog Vial Sliding Scale - SQ Not Given ACHS SAE Protocol Mupirocin 1 applic 10/22/18 22:00 10/25/18 10:20 Bactroban Ointment (For Decolonization) - NS 10/27/18 21:59 1 applic BID SAE Administration Patient's Own 1 each 10/23/18 19:15 10/25/18 10:20 Medication (Biotene PO 1 each [place]) DAILY SAE Administration Pantoprazole Sodium 40 mg 10/23/18 10:00 10/25/18 10:19 Protonix Iv IVPUSH 40 mg DAILY SAE Administration Vital Signs Temp 98.7 F 10/25/18 10:00 Pulse 68 10/25/18 10:00 Resp 19 10/25/18 10:00 BP 126/64 10/25/18 10:00 Pulse Ox 92 L 10/25/18 09:00 Intake & Output 10/24/18 10/24/18 10/25/18 11:59 23:59 11:59 Intake Total 434 220 434 Output Total 1750 350 Balance 434 -1530 84 Weight 239 lb 6.4 oz 239 lb 236 lb 6.4 oz Intake: IV 384 384 HEPARIN INFUSION - 25,000 384 384 units In 500 ml @ 18 UNITS/KG/HR 36 mls/hr IVPB TITR SAE Rx#: [id number] IVPB 50 100 50 Oral 120 Output: Urine 1750 350 Brito 1750 350 Other: Voiding Method Indwelling Catheter Indwelling Catheter Bowel Movement No No No Height 6 ft Body Mass Index (BMI) 32.4 Weight Measurement Method Built in [facility] Built in [facility] Constitutional: Yes: Mild Distress Eyes: Yes: Conjunctiva Clear, EOM Intact HENT: Yes: Atraumatic, Normocephalic Neck: Yes: Supple, Trachea Midline Respiratory: Yes: Other (+ exp wheezes, diminished breath sounds at bases) Gastrointestinal: Yes: Soft, Other (Nontender) Cardiovascular: Yes: Regular Rate and Rhythm, Tachycardia JVD: Yes Carotid Bruit: No PMI: Non-Displaced Heart Sounds: Yes: S1, S2 Edema: Yes 1+ LLE (L Stewart incision C/D/I) Peripheral Pulses WNL: Yes Neurological: Yes: Alert, Oriented Laboratory Last Values WBC 17.2 K/mm3 (4.0-10.0) H 10/25/18 06:15 RBC 2.99 M/mm3 (4.00-5.60) L 10/25/18 06:15 Hgb 9.6 GM/dL (11.7-16.9) L 10/25/18 06:15 Hct 28.8 % (35.4-49) L 10/25/18 06:15 MCV 96.3 fl (80-96) H 10/25/18 06:15 MCH 32.2 pg (25.7-33.7) 10/25/18 06:15 MCHC 33.5 g/dl (32.0-35.9) 10/25/18 06:15 RDW 16.0 % (11.9-15.9) H 10/25/18 06:15 Plt Count 263 K/MM3 (134-434) 10/25/18 06:15 MPV 9.3 fl (7.5-11.1) 10/25/18 06:15 Absolute Neuts (auto) 16.2 K/mm3 (1.5-8.0) H 10/23/18 06:30 Neutrophils % 86.8 % (42.8-82.8) H 10/23/18 06:30 Lymphocytes % 5.7 % (8-40) L 10/23/18 06:30 Monocytes % 7.3 % (3.8-10.2) 10/23/18 06:30 Eosinophils % 0.0 % (0-4.5) 10/23/18 06:30 Basophils % 0.2 % (0-2.0) 10/23/18 06:30 Nucleated RBC % 0 % (0-0) 10/23/18 06:30 PT with INR 18.10 SEC (9.7-13.0) H 10/23/18 06:30 INR 1.53 (0.83-1.09) H 10/23/18 06:30 PTT (Actin FS) 58.5 SECONDS (25.2-36.5) H 10/25/18 06:15 D-Dimer 2525 ng/ml (0-500) H 10/22/18 12:30 VBG pH 7.42 (7.31-7.41) H 10/22/18 12:30 POC VBG pCO2 36.3 mmHg (41-51) L 10/22/18 12:30 POC VBG pO2 39.8 mmHg (30-40) 10/22/18 12:30 VBG HCO3 23.0 mmol/L (23-29) 10/22/18 12:30 VBG O2 Sat (Bhavik) 67.3 % (70-80) L 10/22/18 12:30 VBG Base Excess -0.7 meq/l (-2-2) 10/22/18 12:30 Sodium 143 mmol/L (136-145) 10/25/18 06:15 Potassium 4.3 mmol/L (3.5-5.1) 10/25/18 06:15 Chloride 107 mmol/L (98-107) 10/25/18 06:15 Carbon Dioxide 29 mmol/L (21-32) 10/25/18 06:15 Anion Gap 7 MMOL/L (8-16) L 10/25/18 06:15 BUN 79.1 mg/dL (7-18) H 10/25/18 06:15 Creatinine 2.1 mg/dL (0.55-1.3) H 10/25/18 06:15 Est GFR (CKD-EPI)AfAm 32.52 10/25/18 06:15 Est GFR (CKD-EPI)NonAf 28.06 10/25/18 06:15 POC Glucometer 142 UNITS (80-120) 10/25/18 10:53 Random Glucose 146 mg/dL (74-106) H 10/25/18 06:15 Lactic Acid 1.9 mmol/L (0.4-2.0) 10/23/18 11:00 Calcium 8.1 mg/dL (8.5-10.1) L 10/25/18 06:15 Phosphorus 4.1 mg/dL (2.5-4.9) 10/25/18 06:15 Magnesium 2.6 mg/dL (1.8-2.4) H 10/25/18 06:15 Total Bilirubin 0.9 mg/dL (0.2-1) 10/25/18 06:15 AST 203 U/L (15-37) H 10/25/18 06:15 ALT 277 U/L (13-61) H 10/25/18 06:15 Alkaline Phosphatase 65 U/L (45-117) 10/25/18 06:15 Creatine Kinase 223 U/L (26-308) 10/23/18 06:30 Creatine Kinase Index 3.3 % (0.0-5.0) 10/23/18 06:30 CK-MB (CK-2) 7.5 ng/mL (0.5-3.6) H 10/23/18 06:30 Troponin I 6.30 ng/ml (0.00-0.05) H* 10/24/18 10:30 B-Natriuretic Peptide > 58580.0 pg/ml (5-450) H 10/23/18 06:30 Total Protein 5.7 g/dl (6.4-8.2) L 10/25/18 06:15 Albumin 2.3 g/dl (3.4-5.0) L 10/25/18 06:15 Triglycerides 117 mg/dL (0-150) 10/25/18 06:15 Cholesterol 104 mg/dL (50-200) 10/25/18 06:15 Total LDL Cholesterol 64 mg/dL (5-100) 10/25/18 06:15 HDL Cholesterol 29 mg/dL (40-60) L 10/25/18 06:15 Urine Color Yellow 10/22/18 17:30 Urine Appearance Clear 10/22/18 17:30 Urine pH 5.0 (4.5-8) 10/22/18 17:30 Urine Protein Negative (NEGATIVE) 10/22/18 17:30 Urine Glucose (UA) Negative (NEGATIVE) 10/22/18 17:30 Urine Ketones Negative (NEGATIVE) 10/22/18 17:30 Urine Blood Negative (NEGATIVE) 10/22/18 17:30 Urine Nitrite Negative (NEGATIVE) 10/22/18 17:30 Urine Bilirubin Negative (NEGATIVE) 10/22/18 17:30 Urine Urobilinogen 0.2 (0.2-1.0) 10/22/18 17:30 Ur Leukocyte Esterase Negative (NEGATIVE) 10/22/18 17:30 Stool Occult Blood Negative (NEGATIVE) 10/22/18 15:30 ST, 1st degree AV Block, LAHB, RBBB, ST depressions I, AvL, V4-V6 Echo: EF 30%, nl RV function, mod MR with eccentric jet, mild TR, RVSP 44 mmHg, lg L pleural effusion Imaging - Results Chest X-ray: Image Reviewed, still chf EKG: Image Reviewed tele: sinus, PACs Assessment/Plan IMP: 1. Hypoxic respiratory failure secondary to possible RLL PNA w/ superimposed CHF ; r/o pulmonary embolism (recent L. knee makoplasty risk factor) 2. Elevated TnI: secondary to possible NSTEMI vs PE (unable to obtain CTA due volume overload and worsening O2 sat with minimal prehydration/ CKD) 3. Leukocytosis 4. CKD 5. DM 6. Anemia, guaiac negative. REC: Admit to ICU - on IV heparin gtts for NSTEMI vs PE. troponin 7.6->6.5->7.5, flat trend in setting of YANCI on CKD. d/w critical care, less likely PE, clinical picture more consistent with NSTEMI type I vs II with acute systolic HF. continue IV heparin for 72 hours (to stop this afternoon), ischemic workup when euvolemic - ASA daily, deferring statin for elevated LFTs, start when able - Echo shows EF 30% - no prior history of HF, continue IV lasix with ischemic workup when euvolemic as above - Continue IV lasix, daily weights, daily BMP to monitor renal function. - BiPAP as needed, as per ICU team - Follow cultures and continue abx as per critical care. estimated critical care time = 35 min
[2018-10-25] MEDS: FUROSEMIDE INJECTION 100 MG in SODIUM CHLORIDE 40 ML IVPB SCH (13:30)
--- NOTE | 2018-10-25 15:02 | PN ---
Teaching Attending Note Name of Resident: Rodger Andrade ATTENDING PHYSICIAN STATEMENT I saw and evaluated the patient. I reviewed the resident's note and discussed the case with the resident. I agree with the resident's findings and plan as documented. SUBJECTIVE: Patient seen and examined in the ICU. Awake and alert on NIPPV. Remains on 100% FiO2. No significant cough or sputum. OBJECTIVE: Intake & Output 10/22/18 10/23/18 10/24/18 10/25/18 23:59 23:59 23:59 23:59 Intake Total 2118 1236 654 434 Output Total 475 1400 1750 350 Balance 5293 164 -3628 84 Weight 247 lb 1.6 oz 246 lb 12.8 oz 239 lb 236 lb 6.4 oz Last Vital Signs Temp Pulse Resp BP Pulse Ox 97.8 F 74 19 115/52 L 97 10/25/18 14:00 10/25/18 14:00 10/25/18 14:00 10/25/18 14:00 10/25/18 11:37 Active Medications Aspirin (Asa -) 81 mg PO DAILY [facility] Last Admin: 10/25/18 10:19 Dose: 81 mg Carvedilol (Coreg -) 3.125 mg PO BID [facility] Last Admin: 10/25/18 10:20 Dose: 3.125 mg Chlorhexidine Gluconate (Hibiclens For Decolonization -) 1 applic TP HS [facility] Last Admin: 10/24/18 21:33 Dose: 1 applic Fenofibric Acid (Trilipix -) 135 mg PO DAILY [facility] Last Admin: 10/25/18 10:20 Dose: 135 mg Heparin Sodium (Porcine) (Heparin -) 4,000 unit 40 unit/kg (4000 unit) IVPUSH PRN PRN PRN Reason: For aPTT 35 to 45 seconds Heparin Sodium (Porcine) (Heparin -) 8,000 unit 80 unit/kg (8000 unit) IVPUSH PRN PRN PRN Reason: aPTT <35 seconds Heparin Sodium/Dextrose (Heparin Infusion -) 25,000 units in 500 mls @ 36 mls/ hr IVPB [facility]; Protocol Stop: 10/25/18 15:00 Last Admin: 10/25/18 06:19 Dose: 16 units/kg/hr, 32 mls/hr Piperacillin Sod/Tazobactam (Sod 3.375 gm/ Dextrose) 50 mls @ 100 mls/hr IVPB Q8H-IV SAE; Protocol Last Admin: 10/25/18 10:19 Dose: 100 mls/hr Furosemide 100 mg/ Sodium (Chloride) 50 mls @ 5 mls/hr IVPB TITR SAE; Protocol Insulin Aspart (Novolog Vial Sliding Scale -) 1 vial SQ ACHS SAE; Protocol Last Admin: 10/25/18 10:56 Dose: Not Given Mupirocin (Bactroban Ointment (For Decolonization) -) 1 applic NS BID SAE Stop: 10/27/18 21:59 Last Admin: 10/25/18 10:20 Dose: 1 applic Patient's Own Medication (Biotene [place]) 1 each PO DAILY SAE Last Admin: 10/25/18 10:20 Dose: 1 each Pantoprazole Sodium (Protonix Iv) 40 mg IVPUSH DAILY SAE Last Admin: 10/25/18 10:19 Dose: 40 mg Gen: mildly tachypneic with speaking on NIPPV support Heart: RRR Lung: Bilateral rales & rhonchi Abd: soft, nontender Ext: no edema Laboratory Results - last 24 hr 10/24/18 10/24/18 10/24/18 15:00 18:38 21:29 WBC RBC Hgb Hct MCV MCH MCHC RDW Plt Count MPV PTT (Actin FS) Sodium Potassium Chloride Carbon Dioxide Anion Gap BUN Creatinine Est GFR (CKD-EPI)AfAm Est GFR (CKD-EPI)NonAf POC Glucometer 175 135 Random Glucose Calcium Phosphorus Magnesium Total Bilirubin AST ALT Alkaline Phosphatase Total Protein Albumin Triglycerides 114 Cholesterol 100 Total LDL Cholesterol 57 HDL Cholesterol 29 L 10/25/18 10/25/18 10/25/18 06:13 06:15 06:15 WBC 17.2 H RBC 2.99 L Hgb 9.6 L Hct 28.8 L MCV 96.3 H MCH 32.2 MCHC 33.5 RDW 16.0 H Plt Count 263 MPV 9.3 PTT (Actin FS) 58.5 H Sodium Potassium Chloride Carbon Dioxide Anion Gap BUN Creatinine Est GFR (CKD-EPI)AfAm Est GFR (CKD-EPI)NonAf POC Glucometer 145 Random Glucose Calcium Phosphorus Magnesium Total Bilirubin AST ALT Alkaline Phosphatase Total Protein Albumin Triglycerides Cholesterol Total LDL Cholesterol HDL Cholesterol 10/25/18 10/25/18 06:15 10:53 WBC RBC Hgb Hct MCV MCH MCHC RDW Plt Count MPV PTT (Actin FS) Sodium 143 Potassium 4.3 Chloride 107 Carbon Dioxide 29 Anion Gap 7 L BUN 79.1 H Creatinine 2.1 H Est GFR (CKD-EPI)AfAm 32.52 Est GFR (CKD-EPI)NonAf 28.06 POC Glucometer 142 Random Glucose 146 H Calcium 8.1 L Phosphorus 4.1 Magnesium 2.6 H Total Bilirubin 0.9 AST 203 H ALT 277 H Alkaline Phosphatase 65 Total Protein 5.7 L Albumin 2.3 L Triglycerides 117 Cholesterol 104 Total LDL Cholesterol 64 HDL Cholesterol 29 L ASSESSMENT AND PLAN: Acute Hypoxic Respiratory Failure Acute NSTEMI Acute LV Systolic Heart Failure/Acute Pulmonary Edema Lactic Acidosis Acute Kidney Injury Elevated LFTs Recent Left Knee surgery - Lasix drip - (?) use of Milrinone in this setting - ASA - anticoagulation per cardiology - beta sharlene - trend LFTs - monitor urine output, creatinine - O2 to keep Spo2 >90% - NIPPV to assist in work of breathing - Will hold on CT chest as he cannot safely be taken of of NIPPV for testing - Requires continued ICU monitoring Dr Briscoe Critical care time spent in reviewing chart, evaluating patient and formulating plan 35 min
--- NOTE | 2018-10-25 16:42 | PN ---
Progress Note (short form) - Note Progress Note: Ialert on bipap no cough still sob Vital Signs Period Temp Pulse Resp BP Sys/العلي Pulse Ox Last 24 Hr 97.8 F-98.9 F 58-92 16-25 94-134/52-78 92-97 cor-rrr lungs bibasilr crackles abd soft,nt ext dressing on knee CBC, BMP 10/25/18 06:15 10/25/18 06:15 cxray unchanged Microbiology 10/22/18 12:30 Blood - Peripheral Venous Blood Culture - Preliminary NO GROWTH OBTAINED AFTER 72 HOURS, INCUBATION TO CONTINUE FOR 2 DAYS. 10/22/18 12:15 Blood - Peripheral Venous Blood Culture - Preliminary NO GROWTH OBTAINED AFTER 72 HOURS, INCUBATION TO CONTINUE FOR 2 DAYS. 10/23/18 15:00 Urine For Antigen Detection Legionella Antigen - Final 10/23/18 15:00 Urine For Antigen Detection Streptococcus pneumoniae Antigen (M - Final 10/22/18 17:30 Urine - Urine Clean Catch Urine Culture - Final NO GROWTH OBTAINED imp/reccd respiratory failure hypoxia cannot r/o pneumonia echo with ef of 30%- probable CHF r/o PE- on empiric anticoagulation given elevated Creatinine recent makoplasty 10/15 elevated troponins- probable RI continue zosyn for HAP, legionella antigen negative cultures negative being diuresed, lasix drip just started Problem List - Problems (1) Acute respiratory failure with hypoxia Code(s): J96.01 - ACUTE RESPIRATORY FAILURE WITH HYPOXIA (2) CHF (congestive heart failure) Code(s): I50.9 - HEART FAILURE, UNSPECIFIED Qualifiers: Heart failure type: systolic Heart failure chronicity: acute on chronic Qualified Code(s): I50.23 - Acute on chronic systolic (congestive) heart failure (3) Pneumonia Code(s): J18.9 - PNEUMONIA, UNSPECIFIED ORGANISM (4) YANCI (acute kidney injury) Code(s): N17.9 - ACUTE KIDNEY FAILURE, UNSPECIFIED (5) NSTEMI (non-ST elevated myocardial infarction) Code(s): I21.4 - NON-ST ELEVATION (NSTEMI) MYOCARDIAL INFARCTION
--- NOTE | 2018-10-25 16:47 | PN ---
Teaching Attending Note Name of Resident: Blake Valiente ATTENDING PHYSICIAN STATEMENT I saw and evaluated the patient. I reviewed the resident's note and discussed the case with the resident. I agree with the resident's findings and plan as documented with exceptions below. SUBJECTIVE: Patient seen and examined. on bipap, asking for ice cream. OBJECTIVE: Vital Signs Period Temp Pulse Resp BP Sys/العلي Pulse Ox Last 24 Hr 97.8 F-98.9 F 58-92 16-25 94-134/52-78 92-97 Intake & Output 10/22/18 10/23/18 10/24/18 10/25/18 23:59 23:59 23:59 23:59 Intake Total 2118 1236 654 722 Output Total 475 1400 1750 350 Balance 1643 -164 -1096 372 Weight 247 lb 1.6 oz 246 lb 12.8 oz 239 lb 236 lb 6.4 oz General: sitting in bed, on bipap, mild respiratory distress Chest: bilateral scattered rales, pos air entry, no wheezing Abdomen:soft, NT Extremities: 1+ pedal edema Home Medications Medication Instructions Recorded metFORMIN HCL [Glucophage -] 500 mg PO BID 02/28/13 Amlodipine Besylate [Norvasc -] 5 mg PO DAILY 09/19/18 Fenofibrate Nanocrystallized 160 mg PO DAILY 09/19/18 [Fenofibrate] Lisinopril [Zestril] 40 mg PO DAILY 09/19/18 Ascorbic Acid [Vitamin C -] 500 mg PO BID tablet 10/17/18 Aspirin [ASA -] 325 mg PO DAILY@0800 tablet 10/17/18 Cephalexin Monohydrate [Keflex -] 500 mg PO TID #30 capsule 10/17/18 Multivitamins [Multivit ([facility] 1 tab PO DAILY tab 10/17/18 Formulary)] Oxycodone HCl/Acetaminophen 1 - 2 tab PO Q4H PRN #60 tablet 10/17/18 [Percocet 5-325 mg Tablet] MDD 10 Pantoprazole Sodium [Protonix -] 40 mg PO DAILY #40 tablet.ec 10/17/18 Sennosides/Docusate Sodium 2 tablet PO BID tablet 10/17/18 [Pericolace -] traMADol HCL [Ultram -] 50 mg PO Q4H PRN #42 tablet MDD 6 10/17/18 Active Medications Aspirin (Asa -) 81 mg PO DAILY [facility] Last Admin: 10/25/18 10:19 Dose: 81 mg Carvedilol (Coreg -) 3.125 mg PO BID [facility] Last Admin: 10/25/18 10:20 Dose: 3.125 mg Chlorhexidine Gluconate (Hibiclens For Decolonization -) 1 applic TP HS [facility] Last Admin: 10/24/18 21:33 Dose: 1 applic Fenofibric Acid (Trilipix -) 135 mg PO DAILY [facility] Last Admin: 10/25/18 10:20 Dose: 135 mg Heparin Sodium (Porcine) (Heparin -) 4,000 unit 40 unit/kg (4000 unit) IVPUSH PRN PRN PRN Reason: For aPTT 35 to 45 seconds Heparin Sodium (Porcine) (Heparin -) 8,000 unit 80 unit/kg (8000 unit) IVPUSH PRN PRN PRN Reason: aPTT <35 seconds Piperacillin Sod/Tazobactam (Sod 3.375 gm/ Dextrose) 50 mls @ 100 mls/hr IVPB Q8H-IV [facility]; Protocol Last Admin: 10/25/18 10:19 Dose: 100 mls/hr Furosemide 100 mg/ Sodium (Chloride) 50 mls @ 5 mls/hr IVPB TITR [facility]; Protocol Last Admin: 10/25/18 13:30 Dose: 10 mg/hr, 5 mls/hr Insulin Aspart (Novolog Vial Sliding Scale -) 1 vial SQ ACHS [facility]; Protocol Last Admin: 10/25/18 10:56 Dose: Not Given Mupirocin (Bactroban Ointment (For Decolonization) -) 1 applic NS BID [facility] Stop: 10/27/18 21:59 Last Admin: 10/25/18 10:20 Dose: 1 applic Patient's Own Medication (Biotene [place]) 1 each PO DAILY [facility] Last Admin: 10/25/18 10:20 Dose: 1 each Pantoprazole Sodium (Protonix Iv) 40 mg IVPUSH DAILY [facility] Last Admin: 10/25/18 10:19 Dose: 40 mg Laboratory Results - last 24 hr 10/24/18 10/24/18 10/24/18 15:00 18:38 21:29 WBC RBC Hgb Hct MCV MCH MCHC RDW Plt Count MPV PTT (Actin FS) Sodium Potassium Chloride Carbon Dioxide Anion Gap BUN Creatinine Est GFR (CKD-EPI)AfAm Est GFR (CKD-EPI)NonAf POC Glucometer 175 135 Random Glucose Calcium Phosphorus Magnesium Total Bilirubin AST ALT Alkaline Phosphatase Total Protein Albumin Triglycerides 114 Cholesterol 100 Total LDL Cholesterol 57 HDL Cholesterol 29 L 10/25/18 10/25/18 10/25/18 06:13 06:15 06:15 WBC 17.2 H RBC 2.99 L Hgb 9.6 L Hct 28.8 L MCV 96.3 H MCH 32.2 MCHC 33.5 RDW 16.0 H Plt Count 263 MPV 9.3 PTT (Actin FS) 58.5 H Sodium Potassium Chloride Carbon Dioxide Anion Gap BUN Creatinine Est GFR (CKD-EPI)AfAm Est GFR (CKD-EPI)NonAf POC Glucometer 145 Random Glucose Calcium Phosphorus Magnesium Total Bilirubin AST ALT Alkaline Phosphatase Total Protein Albumin Triglycerides Cholesterol Total LDL Cholesterol HDL Cholesterol 10/25/18 10/25/18 10/25/18 06:15 10:53 15:30 WBC RBC Hgb Hct MCV MCH MCHC RDW Plt Count MPV PTT (Actin FS) 53.9 H Sodium 143 Potassium 4.3 Chloride 107 Carbon Dioxide 29 Anion Gap 7 L BUN 79.1 H Creatinine 2.1 H Est GFR (CKD-EPI)AfAm 32.52 Est GFR (CKD-EPI)NonAf 28.06 POC Glucometer 142 Random Glucose 146 H Calcium 8.1 L Phosphorus 4.1 Magnesium 2.6 H Total Bilirubin 0.9 AST 203 H ALT 277 H Alkaline Phosphatase 65 Total Protein 5.7 L Albumin 2.3 L Triglycerides 117 Cholesterol 104 Total LDL Cholesterol 64 HDL Cholesterol 29 L Microbiology 10/22/18 12:30 Blood - Peripheral Venous Blood Culture - Preliminary NO GROWTH OBTAINED AFTER 72 HOURS, INCUBATION TO CONTINUE FOR 2 DAYS. 10/22/18 12:15 Blood - Peripheral Venous Blood Culture - Preliminary NO GROWTH OBTAINED AFTER 72 HOURS, INCUBATION TO CONTINUE FOR 2 DAYS. 10/23/18 15:00 Urine For Antigen Detection Legionella Antigen - Final 10/23/18 15:00 Urine For Antigen Detection Streptococcus pneumoniae Antigen (M - Final 10/22/18 17:30 Urine - Urine Clean Catch Urine Culture - Final NO GROWTH OBTAINED CXr results and images reviewed ASSESSMENT AND PLAN: 83 yom with PMHx of HTN, HLd, T2DM, CKD, stable AAA who presents today after L total knee arthroscopy makoplasty on 10/15/18, admitted with cough and dyspnea. -Acute Hypoxic Respiratory Failure -Acute NSTEMI -Acute LV Systolic Heart Failure/Acute Pulmonary Edema -R/o Pulmonary embolism (Low suspicion given current findings, grossly abnormal xray and clinical exam supporting CHF/DC and neg Duplex) -Lactic Acidosis -Acute Kidney Injury -Elevated LFTs -Recent Left Knee surgery Plan: ASA/betablocker/heparin drip per cardiology Statin when LFTs stable Lasix drip, ?Milrinone vs inotropes if fails to respond. CT chest when clinical status improved. Strict I/Os, monitor renal function. ISS, po as tolerated Dispo continue ICU level of care Total critical care time spent 37 min.
[2018-10-25] MEDS ORDERED: PT OWN MED DRAWER 7, Y5N ONE (17:13)
[2018-10-25] MEDS: CHLORHEXIDINE GLUCONATE 4% CLEANSER FOR DECOLONIZATION TP SCH (22:29)
[2018-10-26] MEDS: PIPERACILLIN/TAZOB 3.375 GM 3.375 GM in DEXTROSE 5%-WATER - 50 ML IVPB SCH ×3 (01:58→18:31)
[2018-10-26 06:34] LABS: ALBUMIN 2.3 g/dl (3.4-5.0); BLOOD UREA NITROGEN 78.1 mg/dL (7-18); CALCIUM 8.1 mg/dL (8.5-10.1); MAGNESIUM 2.6 mg/dL (1.8-2.4); PHOSPHOROUS 4.7 mg/dL (2.5-4.9); POTASSIUM 3.7 mmol/L (3.5-5.1); TOT PROT 5.8 g/dl (6.4-8.2)
[2018-10-26 06:50] LABS: HEMATOCRIT 29.8 % (35.4-49); HEMOGLOBIN 9.9 GM/dL (11.7-16.9); MCH 31.8 pg (25.7-33.7); MCHC 33.3 g/dl (32.0-35.9); MEAN CELL VOLUME 95.5 fl (80-96); MEAN PLT VOLUME 9.2 fl (7.5-11.1); RBC 3.12 M/mm3 (4.00-5.60); RDW 15.9 % (11.9-15.9); WHITE BLOOD COUNT 14.9 K/mm3 (4.0-10.0)
--- NOTE | 2018-10-26 07:07 | PN ---
Physical Exam: SUBJECTIVE: Patient seen and examined in ICU no acute events over night , still on PIPAP and lasix drip, with good out put sleepy and leg edema improving CT chest with moderate B/L effusion , upper lobe consolidation still on hep GTT OBJECTIVE: Vital Signs Period Temp Pulse Resp BP Sys/العلي Pulse Ox Last 24 Hr 97.7 F-98.7 F 66-89 14-23 110-148/52-78 92-97 GENERAL: AAOx3 in NAD , on NIPAP , HEAD: NC/AT, + JVD EYES: Conjunctiva clear, sclera anicteric NECK: Supple, + JVD LUNGS: decrease breath sound at the bases , bibasilar crackles HEART: RRR, NSR, normal s1, s2, murmur no M/R/G ABDOMEN:Obese , Soft, ND, NT, +BS 4 Q, no CVA Tenderness LOWER EXTREMITIES: LLE +1 edema improved , +2DP pulse,left knee covered s.p makoplasty NEUROLOGICAL: No focal deficit. Normal speech. gait not observed Laboratory Results - last 24 hr 10/25/18 10/25/18 10/25/18 06:15 06:15 10:53 WBC 17.2 H RBC 2.99 L Hgb 9.6 L Hct 28.8 L MCV 96.3 H MCH 32.2 MCHC 33.5 RDW 16.0 H Plt Count 263 MPV 9.3 PTT (Actin FS) Sodium 143 Potassium 4.3 Chloride 107 Carbon Dioxide 29 Anion Gap 7 L BUN 79.1 H Creatinine 2.1 H Est GFR (CKD-EPI)AfAm 32.52 Est GFR (CKD-EPI)NonAf 28.06 POC Glucometer 142 Random Glucose 146 H Calcium 8.1 L Phosphorus 4.1 Magnesium 2.6 H Total Bilirubin 0.9 AST 203 H ALT 277 H Alkaline Phosphatase 65 Total Protein 5.7 L Albumin 2.3 L Triglycerides 117 Cholesterol 104 Total LDL Cholesterol 64 HDL Cholesterol 29 L 10/25/18 10/25/18 10/25/18 15:30 17:26 21:00 WBC RBC Hgb Hct MCV MCH MCHC RDW Plt Count MPV PTT (Actin FS) 53.9 H 51.0 H Sodium Potassium Chloride Carbon Dioxide Anion Gap BUN Creatinine Est GFR (CKD-EPI)AfAm Est GFR (CKD-EPI)NonAf POC Glucometer 136 Random Glucose Calcium Phosphorus Magnesium Total Bilirubin AST ALT Alkaline Phosphatase Total Protein Albumin Triglycerides Cholesterol Total LDL Cholesterol HDL Cholesterol 10/25/18 10/26/18 10/26/18 22:26 05:15 05:15 WBC RBC Hgb Hct MCV MCH MCHC RDW Plt Count MPV PTT (Actin FS) 27.6 Sodium 147 H Potassium 3.7 Chloride 109 H Carbon Dioxide 29 Anion Gap 8 BUN 78.1 H Creatinine 2.0 H Est GFR (CKD-EPI)AfAm 34.50 Est GFR (CKD-EPI)NonAf 29.76 POC Glucometer 133 Random Glucose 140 H Calcium 8.1 L Phosphorus 4.7 Magnesium 2.6 H Total Bilirubin 1.0 AST 80 H ALT 197 H Alkaline Phosphatase 61 Total Protein 5.8 L Albumin 2.3 L Triglycerides Cholesterol Total LDL Cholesterol HDL Cholesterol Active Medications Generic Name Dose Route Start Last Admin Trade Name Freq PRN Reason Stop Dose Admin Aspirin 81 mg 10/23/18 10:00 10/25/18 10:19 Asa - PO 81 mg DAILY SAE Administration Carvedilol 3.125 mg 10/24/18 10:45 10/25/18 22:30 Coreg - PO 3.125 mg BID SAE Administration Chlorhexidine Gluconate 1 applic 10/22/18 22:00 10/25/18 22:29 Hibiclens For Decolonization - TP 1 applic HS SAE Administration Fenofibric Acid 135 mg 10/23/18 10:00 10/25/18 10:20 Trilipix - PO 135 mg DAILY SAE Administration Heparin Sodium (Porcine) 4,000 unit 10/22/18 14:47 Heparin - 40 unit/kg (4000 unit) IVPUSH PRN PRN For aPTT 35 to 45 seconds Heparin Sodium (Porcine) 8,000 unit 10/22/18 14:47 Heparin - 80 unit/kg (8000 unit) IVPUSH PRN PRN aPTT <35 seconds Piperacillin Sod/Tazobactam 50 mls @ 100 mls/hr 10/23/18 18:00 10/26/18 01:58 Sod 3.375 gm/ Dextrose IVPB 100 mls/hr Q8H-IV [facility]E Administration Protocol Furosemide 100 mg/ Sodium 50 mls @ 5 mls/hr 10/25/18 12:15 10/26/18 04:33 Chloride IVPB 10 mg/hr TITR SAE 5 mls/hr Titration Protocol 10 MG/HR Insulin Aspart 1 vial 10/22/18 16:30 10/25/18 22:31 Novolog Vial Sliding Scale - SQ Not Given ACHS [facility]E Protocol Mupirocin 1 applic 10/22/18 22:00 10/25/18 22:30 Bactroban Ointment (For Decolonization) - NS 10/27/18 21:59 1 applic BID SAE Administration Patient's Own 1 each 10/23/18 19:15 10/25/18 10:20 Medication (Biotene PO 1 each [place]) DAILY SAE Administration Pantoprazole Sodium 40 mg 10/23/18 10:00 10/25/18 10:19 Protonix Iv IVPUSH 40 mg DAILY SAE Administration CBC, BMP 10/26/18 05:15 10/26/18 05:15 ASSESSMENT/PLAN: Mr. Tang is an 83yo M with h/o HTN, HLd, T2DM, CKD, stable AAA admitted to the ICU s/p L knee arthroscopy and makoplasty for work up of NSTEMI vs. PE vs. respiratory distress 2/2 RLL PNA. Clinical picture is more in line with NSTEMI given most recent EKGs showing evidence of septal infrarct and echo showing new reduced EF heart failure (EF 30%) rather than PE. # Acute hypoxic hypercapnic respiratory failure due to Possible HCPNA(RLL) on supperimposed CHF can not R.o PE # NSTEMI # R.o PE # recent Makoplast 10/15 # elevated trop , peaked # YANCI on CKD # Hyperkalemia resolved # transaminitis likely due to CHF, will obtain US abdomen Plan: * maintain O2 sat > 90 % , wean off NIPAP as tolerated , * ABx per ID Zosyn , ID on board added on dose of Azithromax pending Legionalla AG which came back negative * Duoneb , ASA , * Lasix 40 IV push BID , start on Lasix drip today per ICU * ON Hep Gtt for NSTEMI and , unlikely PE * PPI * ISS * F.U cx negative * daily weight , I&O * Repeat Echo EF 30% * US abdomen for transaminitis : limited study with pleural effusion , 4 cm AAA , cholelithiaisis. * CT Chest with mod pleural effusion and B/L upper lab consolidation possible PNA , bibasilar atelectasis * transfer to [facility] per ICU Visit type - Emergency Visit Emergency Visit: Yes ED Registration Date: 10/22/18 Care time: The patient presented to the Emergency Department on the above date and was hospitalized for further evaluation of their emergent condition. - New Patient This patient is new to me today: No - Critical Care Critical Care patient: Yes Total Critical Care Time (in minutes): 45 Critical Care Statement: The care of this patient involved high complexity decision making to prevent further life threatening deterioration of the patient 's condition and/or to evaluate & treat vital organ system(s) failure or risk of failure. ATTENDING PHYSICIAN STATEMENT I saw and evaluated the patient. I reviewed the resident's note and discussed the case with the resident. I agree with the resident's findings and plan as documented. SUBJECTIVE: OBJECTIVE: ASSESSMENT AND PLAN:
--- NOTE | 2018-10-26 07:58 | PN ---
Progress Note, Physician Chief Complaint: TELE: NSR Weight is down Net negative fluid balance. Denies CP. History of Present Illness: Chest CT showed b/l moderate effusions. Also, upper lobe infiltrates c/w PNA vs pulm edema-??? upper lobe consolidation typically not pulmonary edema?? Creat is stable. - Current Medication List Current Medications: Active Medications Aspirin (Asa -) 81 mg PO DAILY [facility] Last Admin: 10/25/18 10:19 Dose: 81 mg Carvedilol (Coreg -) 3.125 mg PO BID [facility] Last Admin: 10/25/18 22:30 Dose: 3.125 mg Chlorhexidine Gluconate (Hibiclens For Decolonization -) 1 applic TP HS [facility] Last Admin: 10/25/18 22:29 Dose: 1 applic Fenofibric Acid (Trilipix -) 135 mg PO DAILY [facility] Last Admin: 10/25/18 10:20 Dose: 135 mg Heparin Sodium (Porcine) (Heparin -) 4,000 unit 40 unit/kg (4000 unit) IVPUSH PRN PRN PRN Reason: For aPTT 35 to 45 seconds Heparin Sodium (Porcine) (Heparin -) 8,000 unit 80 unit/kg (8000 unit) IVPUSH PRN PRN PRN Reason: aPTT <35 seconds Piperacillin Sod/Tazobactam (Sod 3.375 gm/ Dextrose) 50 mls @ 100 mls/hr IVPB Q8H-IV [facility]; Protocol Last Admin: 10/26/18 01:58 Dose: 100 mls/hr Furosemide 100 mg/ Sodium (Chloride) 50 mls @ 5 mls/hr IVPB TITR [facility]; Protocol Last Titration: 10/26/18 04:33 Dose: 10 mg/hr, 5 mls/hr Insulin Aspart (Novolog Vial Sliding Scale -) 1 vial SQ ACHS [facility]; Protocol Last Admin: 10/25/18 22:31 Dose: Not Given Mupirocin (Bactroban Ointment (For Decolonization) -) 1 applic NS BID [facility] Stop: 10/27/18 21:59 Last Admin: 10/25/18 22:30 Dose: 1 applic Patient's Own Medication (Biotene [place]) 1 each PO DAILY [facility] Last Admin: 10/25/18 10:20 Dose: 1 each Pantoprazole Sodium (Protonix Iv) 40 mg IVPUSH DAILY [facility] Last Admin: 10/25/18 10:19 Dose: 40 mg - Objective Vital Signs: Vital Signs Temperature 98.2 F 10/26/18 06:00 Pulse Rate 61 10/26/18 07:55 Respiratory Rate 14 10/26/18 07:55 Blood Pressure 96/54 L 10/26/18 07:55 O2 Sat by Pulse Oximetry (%) 97 10/26/18 06:33 Constitutional: Yes: No Distress Eyes: Yes: Conjunctiva Clear, EOM Intact Cardiovascular: Yes: Regular Rate and Rhythm Respiratory: Yes: Other (decreased breath sounds at bases) Gastrointestinal: Yes: Soft Edema: Yes Edema: LLE: 1+, RLE: 1+ Neurological: Yes: Alert Labs: CBC, BMP 10/26/18 05:15 INR, PTT INR 1.53 (0.83-1.09) H 10/23/18 06:30 Laboratory Tests 10/25/18 10/25/18 10/26/18 15:30 21:00 05:15 WBC Pending Hgb Pending Plt Count Pending PTT (Actin FS) 53.9 H 51.0 H Sodium Potassium BUN Creatinine 10/26/18 10/26/18 05:15 05:15 WBC Hgb Plt Count PTT (Actin FS) 27.6 Sodium 147 H Potassium 3.7 BUN 78.1 H Creatinine 2.0 H Microbiology 10/22/18 12:30 Blood - Peripheral Venous Blood Culture - Preliminary NO GROWTH OBTAINED AFTER 72 HOURS, INCUBATION TO CONTINUE FOR 2 DAYS. 10/22/18 12:15 Blood - Peripheral Venous Blood Culture - Preliminary NO GROWTH OBTAINED AFTER 72 HOURS, INCUBATION TO CONTINUE FOR 2 DAYS. - ....Imaging EKG: Image Reviewed Assessment/Plan IMP: 1. Hypoxic respiratory failure: now seems more c/w subacute PR (late presentation), w/ resultant LV dysfx and CHF, +/- superimposed PNA 2. Pulmonary embolism, less likely, cannot be ruled out (unable to obtain CTA due volume overload and worsening O2 sat with minimal prehydration/ CKD) 3. Recent L. knee Makoplasty 4. Leukocytosis 5. CKD 6. DM 7. Anemia, guaiac negative. REC: - Received IV heparin gtts for 72 hrs for NSTEMI (vs PE). Troponin 7.6->6.5-> 7.5, flat trend in setting of YANCI on CKD. Clinical picture more consistent with NSTEMI type I vs II with acute systolic HF. Ischemic workup when euvolemic. - ASA daily, deferring statin for elevated LFTs, start when able - Echo shows EF 30% - no prior history of HF - Agree w/ Lasix gtts, seems to have diuresed well. Prefer Lasix gtts vs bolus dosing as BP is now ranging 100mmHg systolic - BiPAP as needed, as per ICU team - Follow cultures and continue abx as per critical care.
[2018-10-26 08:56] LABS: PLATELET COUNT 292 K/MM3 (134-434)
[2018-10-26] MEDS ORDERED: PT OWN MED DRAWER 7, Y5N ONE (08:59)
[2018-10-26] MEDS ORDERED: DEXTROSE 5%-WATER - 50 ML IVPB ONE ×2 (08:59→17:47)
[2018-10-26] MEDS ORDERED: PIPERACILLIN/TAZOBACTAM 3.375 GM VIAL IVPB ONE ×2 (08:59→17:47)
--- NOTE | 2018-10-26 09:09 | PN ---
Progress Note (short form) - Note Progress Note: sleeping on bipap he looks comfortable when awoken, denies chest pain Vital Signs Period Temp Pulse Resp BP Sys/العلي Pulse Ox Last 24 Hr 97.7 F-98.7 F 61-89 14-23 95-148/51-78 95-97 cor-rrr lungs decreased bs at bases abd soft,nt ext trace edema +paiz CBC, BMP 10/26/18 05:15 10/26/18 05:15 Microbiology 10/22/18 12:30 Blood - Peripheral Venous Blood Culture - Preliminary NO GROWTH OBTAINED AFTER 72 HOURS, INCUBATION TO CONTINUE FOR 2 DAYS. 10/22/18 12:15 Blood - Peripheral Venous Blood Culture - Preliminary NO GROWTH OBTAINED AFTER 72 HOURS, INCUBATION TO CONTINUE FOR 2 DAYS. 10/23/18 15:00 Urine For Antigen Detection Legionella Antigen - Final 10/23/18 15:00 Urine For Antigen Detection Streptococcus pneumoniae Antigen (M - Final 10/22/18 17:30 Urine - Urine Clean Catch Urine Culture - Final NO GROWTH OBTAINED chest ct-bilateral upper lobe infiltrates bilateral effusions, infrarenal aortic aneurysm imp/reccd respiratory failure hypoxia leukocytosis- improving cannot r/o pneumonia echo with ef of 30%- probable CHF r/o PE- on empiric anticoagulation given elevated Creatinine recent makoplasty 10/15 elevated troponins- probable NV elevated lfts improving infrarenal aortic aneurysm continue zosyn for HAP, day #4 cultures negative being diuresed, lasix drip Problem List - Problems (1) Acute respiratory failure with hypoxia Code(s): J96.01 - ACUTE RESPIRATORY FAILURE WITH HYPOXIA (2) CHF (congestive heart failure) Code(s): I50.9 - HEART FAILURE, UNSPECIFIED Qualifiers: Heart failure type: systolic Heart failure chronicity: acute on chronic Qualified Code(s): I50.23 - Acute on chronic systolic (congestive) heart failure (3) Pneumonia Code(s): J18.9 - PNEUMONIA, UNSPECIFIED ORGANISM (4) YANCI (acute kidney injury) Code(s): N17.9 - ACUTE KIDNEY FAILURE, UNSPECIFIED (5) NSTEMI (non-ST elevated myocardial infarction) Code(s): I21.4 - NON-ST ELEVATION (NSTEMI) MYOCARDIAL INFARCTION
[2018-10-26] MEDS: INSULIN SLIDING SCALE (NOVOLOG) 1 VIAL SQ SCH ×4 (09:29→22:09)
[2018-10-26] MEDS: ASPIRIN 81 MG CHEWABLE TABLETS PO SCH (09:30)
[2018-10-26] MEDS: BIOTENE PO SCH (09:30)
[2018-10-26] MEDS: PANTOPRAZOLE SODIUM 40 MG VIAL IVPUSH SCH (09:30)
[2018-10-26] MEDS: MUPIROCIN 2% TOPICAL OINTMENT FOR DECOLONIZATION NS SCH (09:30)
--- NOTE | 2018-10-26 11:27 | PN ---
Physical Exam: SUBJECTIVE: Patient seen and examined at bedside. Patient is still volume overloaded and requiring BiPAP for maintaining oxygenation. Now on Lasix drip 10mls/hr. Will attempt trial of non-rebreather mask again today. OBJECTIVE: Vital Signs Period Temp Pulse Resp BP Sys/العلي Pulse Ox Last 24 Hr 97.7 F-98.2 F 61-102 14-23 95-148/47-78 95-97 GENERAL: Patient is awake, alert, and fully oriented, in no acute distress. HEAD: Normal with no signs of trauma. EYES: PERRL, extraocular movements intact, sclera anicteric, conjunctiva clear. ENT: Oropharynx clear without exudates, moist mucous membranes. on BiLevel ventilation NECK: Supple, without JVD. LUNGS: Good inspiratory effort, diminished air entery at bases bilaterally. HEART: Regular rate and rhythm, S1, S2 without murmur, rub or gallop. ABDOMEN: Soft, nontender, nondistended, normoactive bowel sounds, no guarding, no rebound tenderness. EXTREMITIES: 2+ radial, dorsalis pedis pulses bilaterally, warm, well-perfused. No edema. NEUROLOGICAL: Cranial nerves II through XII grossly intact. Normal speech. PSYCH: Normal mood, normal affect. SKIN: Warm, dry. Left knee surgical site bandaged clean, dry. Laboratory Results - last 24 hr 10/25/18 10/25/18 10/25/18 15:30 17:26 21:00 WBC RBC Hgb Hct MCV MCH MCHC RDW Plt Count MPV PTT (Actin FS) 53.9 H 51.0 H Sodium Potassium Chloride Carbon Dioxide Anion Gap BUN Creatinine Est GFR (CKD-EPI)AfAm Est GFR (CKD-EPI)NonAf POC Glucometer 136 Random Glucose Calcium Phosphorus Magnesium Total Bilirubin AST ALT Alkaline Phosphatase Total Protein Albumin 10/25/18 10/26/18 10/26/18 22:26 05:15 05:15 WBC 14.9 H RBC 3.12 L Hgb 9.9 L Hct 29.8 L MCV 95.5 MCH 31.8 MCHC 33.3 RDW 15.9 Plt Count 292 MPV 9.2 PTT (Actin FS) 27.6 Sodium Potassium Chloride Carbon Dioxide Anion Gap BUN Creatinine Est GFR (CKD-EPI)AfAm Est GFR (CKD-EPI)NonAf POC Glucometer 133 Random Glucose Calcium Phosphorus Magnesium Total Bilirubin AST ALT Alkaline Phosphatase Total Protein Albumin 10/26/18 10/26/18 05:15 07:30 WBC RBC Hgb Hct MCV MCH MCHC RDW Plt Count MPV PTT (Actin FS) Sodium 147 H Potassium 3.7 Chloride 109 H Carbon Dioxide 29 Anion Gap 8 BUN 78.1 H Creatinine 2.0 H Est GFR (CKD-EPI)AfAm 34.50 Est GFR (CKD-EPI)NonAf 29.76 POC Glucometer 120 Random Glucose 140 H Calcium 8.1 L Phosphorus 4.7 Magnesium 2.6 H Total Bilirubin 1.0 AST 80 H ALT 197 H Alkaline Phosphatase 61 Total Protein 5.8 L Albumin 2.3 L Active Medications Generic Name Dose Route Start Last Admin Trade Name Freq PRN Reason Stop Dose Admin Aspirin 81 mg 10/23/18 10:00 10/26/18 09:30 Asa - PO 81 mg DAILY SAE Administration Carvedilol 3.125 mg 10/24/18 10:45 10/25/18 22:30 Coreg - PO 3.125 mg BID SAE Administration Chlorhexidine Gluconate 1 applic 10/22/18 22:00 10/25/18 22:29 Hibiclens For Decolonization - TP 1 applic HS SAE Administration Fenofibric Acid 135 mg 10/23/18 10:00 10/25/18 10:20 Trilipix - PO 135 mg DAILY [facility]E Administration Heparin Sodium (Porcine) 4,000 unit 10/22/18 14:47 Heparin - 40 unit/kg (4000 unit) IVPUSH PRN PRN For aPTT 35 to 45 seconds Heparin Sodium (Porcine) 8,000 unit 10/22/18 14:47 Heparin - 80 unit/kg (8000 unit) IVPUSH PRN PRN aPTT <35 seconds Piperacillin Sod/Tazobactam 50 mls @ 100 mls/hr 10/23/18 18:00 10/26/18 09:30 Sod 3.375 gm/ Dextrose IVPB 100 mls/hr Q8H-IV [facility]E Administration Protocol Furosemide 100 mg/ Sodium 50 mls @ 5 mls/hr 10/25/18 12:15 10/26/18 04:33 Chloride IVPB 10 mg/hr TITR SAE 5 mls/hr Titration Protocol 10 MG/HR Insulin Aspart 1 vial 10/22/18 16:30 10/26/18 09:29 Novolog Vial Sliding Scale - SQ Not Given ACHS [facility] Protocol Mupirocin 1 applic 10/22/18 22:00 10/26/18 09:30 Bactroban Ointment (For Decolonization) - NS 10/27/18 21:59 1 applic BID SAE Administration Patient's Own 1 each 10/23/18 19:15 10/26/18 09:30 Medication (Biotene PO 1 each [place]) DAILY SAE Administration Pantoprazole Sodium 40 mg 10/23/18 10:00 10/26/18 09:30 Protonix Iv IVPUSH 40 mg DAILY SAE Administration ASSESSMENT/PLAN: Patient is an 83 year old male with history of hypertension, hyperlipidemia, stable aortic aneurysm, admitted to ICU for acute hypoxic respiratory failure. Neurologic -patient is awake, alert, fully oriented -monitor for signs of mental status change Cardiovascular NSTEMI -Troponin peaked at 7.6 -EKG- sinus arrhythmia with first degree AV block, LA deviation, RBBB, septal infarct (also cited on 10/22 ECG), t wave abnormalities consistent with lateral ischemia.Compared to ECG done on 10/22, the [place] interval as increased and there is evidence of serial changes of septal infarct present. -Cardiac Echo reveals ejection fraction at 30%, RV systolic pressure elevated @ 44mmHg, large L pleural effusion noted -Less likely PE, clinical picture more consistent with NSTEMI type I vs II with acute systolic HF, given EKG and ECHO results -Continue heparin drip for total 72h (d/c later today afternoon) -Lasix drip; monitor intake, output > Milrinone vs inotropes if fails to respond. -Aspirin 81mg daily -Started on Coreg 3.125mg PO BID -deferring statin for elevated LFTs, start when able -Cardiology recommendations (Dr. Mcghee) appreciated. Pulmonary Acute hypoxic respiratory failure -Paitent failed trial of non-rebreather mask. Currently on BiLevel ventilation at 12/ at 100% -maintain O2 sat > 90 % -[place]inder Renal -YANCI vs CKD. Likely pre-renal etiology. -F/U with Dr. Arthur Barajas's office to see if they have a record of patient's baseline renal function. -Monitor urine output; via paiz catheter ID -Zosyn 3.375mg IV Q8 for hospital acquired pneumonia, day 4 -Lactic acidosis possible hypoxemia 2/2 intrapulmonary shunting vs. sepsis 2/2 to PNA; trend until normalization -Urinary antigens for Legionella, Strep negative for growth -Blood cultures negative for growth after 72 hours. -ID recommendations (Dr. Bowden) appreciated. GI -Transaminitis likely secondary to congestive hepatopathy -Follow right upper quadrant abdominal US > Shows R pleural effusion, cholelithiasis without dilation of the CBD and 4cm AAA -Follow transaminases FEN: -Fluids: No IV fluids currently indicated. -Electrolytes: Follow CMP -Nutrition: Chopoped diet, NPO while on BiLevel ventilation. PPX: -DVT- Heparin drip -GI- Protonix Disposition: -Patient is stable and can be transferred to telemetry for further management. Visit type - Emergency Visit Emergency Visit: Yes ED Registration Date: 10/22/18 Care time: The patient presented to the Emergency Department on the above date and was hospitalized for further evaluation of their emergent condition. - New Patient This patient is new to me today: No - Critical Care Critical Care patient: Yes Total Critical Care Time (in minutes): 40 Critical Care Statement: The care of this patient involved high complexity decision making to prevent further life threatening deterioration of the patient 's condition and/or to evaluate & treat vital organ system(s) failure or risk of failure. ATTENDING PHYSICIAN STATEMENT I saw and evaluated the patient. I reviewed the resident's note and discussed the case with the resident. I agree with the resident's findings and plan as documented. SUBJECTIVE: OBJECTIVE: ASSESSMENT AND PLAN:
[2018-10-26] MEDS: CARVEDILOL 3.125 MG TABLET (FP) PO SCH ×2 (11:49→21:44)
[2018-10-26] MEDS: FENOFIBRIC ACID 135 MG CAP PO SCH (11:49)
--- NOTE | 2018-10-26 12:38 | PN ---
Teaching Attending Note Name of Resident: Jannette Steen ATTENDING PHYSICIAN STATEMENT I saw and evaluated the patient. I reviewed the resident's note and discussed the case with the resident. I agree with the resident's findings and plan as documented. SUBJECTIVE: Patient seen and examined in the ICU. Awake and alert on 100% NRBM. Reports feeling better and stronger today. Minimal cough, no sputum. OBJECTIVE: Intake & Output 10/23/18 10/24/18 10/25/18 10/26/18 23:59 23:59 23:59 23:59 Intake Total 5920 369 2121 71 Output Total 1400 1750 1750 1000 Balance -164 -1096 -570 -929 Weight 246 lb 12.8 oz 239 lb 236 lb 6.4 oz 231 lb 4.8 oz Last Vital Signs Temp Pulse Resp BP Pulse Ox 98.2 F 87 20 118/47 L 97 10/26/18 06:00 10/26/18 11:00 10/26/18 11:00 10/26/18 11:00 10/26/18 08:50 Active Medications Aspirin (Asa -) 81 mg PO DAILY [facility] Last Admin: 10/26/18 09:30 Dose: 81 mg Carvedilol (Coreg -) 3.125 mg PO BID [facility] Last Admin: 10/26/18 11:49 Dose: 3.125 mg Chlorhexidine Gluconate (Hibiclens For Decolonization -) 1 applic TP HS [facility] Last Admin: 10/25/18 22:29 Dose: 1 applic Fenofibric Acid (Trilipix -) 135 mg PO DAILY [facility] Last Admin: 10/26/18 11:49 Dose: 135 mg Heparin Sodium (Porcine) (Heparin -) 5,000 unit SQ TID [facility] Piperacillin Sod/Tazobactam (Sod 3.375 gm/ Dextrose) 50 mls @ 100 mls/hr IVPB Q8H-IV [facility]; Protocol Last Admin: 10/26/18 09:30 Dose: 100 mls/hr Furosemide 100 mg/ Sodium (Chloride) 50 mls @ 5 mls/hr IVPB TITR [facility]; Protocol Last Titration: 10/26/18 04:33 Dose: 10 mg/hr, 5 mls/hr Insulin Aspart (Novolog Vial Sliding Scale -) 1 vial SQ ACHS [facility]; Protocol Last Admin: 10/26/18 12:17 Dose: Not Given Mupirocin (Bactroban Ointment (For Decolonization) -) 1 applic NS BID [facility] Stop: 10/27/18 21:59 Last Admin: 10/26/18 09:30 Dose: 1 applic Patient's Own Medication (Biotene [place]) 1 each PO DAILY [facility] Last Admin: 10/26/18 09:30 Dose: 1 each Pantoprazole Sodium (Protonix Iv) 40 mg IVPUSH DAILY [facility] Last Admin: 10/26/18 09:30 Dose: 40 mg Gen: mildly tachypneic on 100% NRBM Heart: S1S2 Lung: Bilateral rales & rhonchi Abd: soft, nontender Ext: no edema Laboratory Results - last 24 hr 10/25/18 10/25/18 10/25/18 15:30 17:26 21:00 WBC RBC Hgb Hct MCV MCH MCHC RDW Plt Count MPV PTT (Actin FS) 53.9 H 51.0 H Sodium Potassium Chloride Carbon Dioxide Anion Gap BUN Creatinine Est GFR (CKD-EPI)AfAm Est GFR (CKD-EPI)NonAf POC Glucometer 136 Random Glucose Calcium Phosphorus Magnesium Total Bilirubin AST ALT Alkaline Phosphatase Total Protein Albumin 10/25/18 10/26/18 10/26/18 22:26 05:15 05:15 WBC 14.9 H RBC 3.12 L Hgb 9.9 L Hct 29.8 L MCV 95.5 MCH 31.8 MCHC 33.3 RDW 15.9 Plt Count 292 MPV 9.2 PTT (Actin FS) 27.6 Sodium Potassium Chloride Carbon Dioxide Anion Gap BUN Creatinine Est GFR (CKD-EPI)AfAm Est GFR (CKD-EPI)NonAf POC Glucometer 133 Random Glucose Calcium Phosphorus Magnesium Total Bilirubin AST ALT Alkaline Phosphatase Total Protein Albumin 10/26/18 10/26/18 05:15 07:30 WBC RBC Hgb Hct MCV MCH MCHC RDW Plt Count MPV PTT (Actin FS) Sodium 147 H Potassium 3.7 Chloride 109 H Carbon Dioxide 29 Anion Gap 8 BUN 78.1 H Creatinine 2.0 H Est GFR (CKD-EPI)AfAm 34.50 Est GFR (CKD-EPI)NonAf 29.76 POC Glucometer 120 Random Glucose 140 H Calcium 8.1 L Phosphorus 4.7 Magnesium 2.6 H Total Bilirubin 1.0 AST 80 H ALT 197 H Alkaline Phosphatase 61 Total Protein 5.8 L Albumin 2.3 L ASSESSMENT AND PLAN: Acute Hypoxic Respiratory Failure Acute NSTEMI Acute LV Systolic Heart Failure/Acute Pulmonary Edema Lactic Acidosis Acute Kidney Injury Elevated LFTs Recent Left Knee surgery - Lasix drip - ASA - anticoagulation per cardiology - beta sharlene - trend LFTs - monitor urine output, creatinine - O2 to keep Spo2 >90% - NIPPV to assist in work of breathing - 4W / 4S monitoring Dr Briscoe
[2018-10-26] MEDS: FUROSEMIDE INJECTION 100 MG in SODIUM CHLORIDE 40 ML IVPB SCH (13:00)
[2018-10-26] MEDS: HEPARIN NA (PORCINE) 5,000 UNITS/ML 1ML VIAL SQ SCH ×2 (14:00→21:44)
--- NOTE | 2018-10-26 15:02 | PN ---
Progress Note, PROJECT DEVELOPER - Note Progress Note: Selected Entries 10/25/18 10/25/18 10/25/18 02:00 06:00 10:00 Breakfast Lunch 50% Supper Temperature 97.8 F 98.2 F 98.7 F 10/25/18 10/25/18 10/25/18 14:00 18:13 22:40 Breakfast Lunch Supper NPO Temperature 97.8 F 97.7 F 10/26/18 10/26/18 10/26/18 04:00 06:00 10:00 Breakfast 50% Lunch 75% Supper Temperature 98.1 F 98.2 F Laboratory Tests 10/23/18 10/24/18 10/25/18 06:30 05:50 06:15 WBC 18.7 H 18.9 H 17.2 H 10/26/18 05:15 WBC 14.9 H Pt coughing on thin liquids this morning. Now on chopped diet, nectar thick liquid with better tolerance. Pulmonary status much improved. Pt tolerating NC. Suggest continuing diet as ordered and ordering MBS to r/o aspiration for Monday.
--- NOTE | 2018-10-26 16:36 | PN ---
Teaching Attending Note Name of Resident: Blake Valiente ATTENDING PHYSICIAN STATEMENT I saw and evaluated the patient. I reviewed the resident's note and discussed the case with the resident. I agree with the resident's findings and plan as documented with exceptions below. SUBJECTIVE: Patient seen and examined. breathing better, conversing through the bipap. Asking for food, no complaints otherwise. OBJECTIVE: Vital Signs Period Temp Pulse Resp BP Sys/العلي Pulse Ox Last 24 Hr 97.7 F-98.2 F 61-102 14-23 95-148/47-78 95-100 Intake & Output 10/23/18 10/24/18 10/25/18 10/26/18 23:59 23:59 23:59 23:59 Intake Total 9708 548 0398 843 Output Total 1400 1750 1750 2600 Balance -164 -1096 -570 -5323 Weight 246 lb 12.8 oz 239 lb 236 lb 6.4 oz 231 lb 4.8 oz General: sitting in bed on NRB, able to talk in full sentences CVS: s1S2 irregular Chest: decreased breath sounds bilateral bases Abdomen:Soft, NT Extremities: 1+ pedal edema HEENT; PERRL telemetry:NSR, PACs, first degree AVB, couplets, Home Medications Medication Instructions Recorded metFORMIN HCL [Glucophage -] 500 mg PO BID 02/28/13 Amlodipine Besylate [Norvasc -] 5 mg PO DAILY 09/19/18 Fenofibrate Nanocrystallized 160 mg PO DAILY 09/19/18 [Fenofibrate] Lisinopril [Zestril] 40 mg PO DAILY 09/19/18 Ascorbic Acid [Vitamin C -] 500 mg PO BID tablet 10/17/18 Aspirin [ASA -] 325 mg PO DAILY@0800 tablet 10/17/18 Cephalexin Monohydrate [Keflex -] 500 mg PO TID #30 capsule 10/17/18 Multivitamins [Multivit ([facility] 1 tab PO DAILY tab 10/17/18 Formulary)] Oxycodone HCl/Acetaminophen 1 - 2 tab PO Q4H PRN #60 tablet 10/17/18 [Percocet 5-325 mg Tablet] MDD 10 Pantoprazole Sodium [Protonix -] 40 mg PO DAILY #40 tablet.ec 10/17/18 Sennosides/Docusate Sodium 2 tablet PO BID tablet 10/17/18 [Pericolace -] traMADol HCL [Ultram -] 50 mg PO Q4H PRN #42 tablet MDD 6 10/17/18 Active Medications Aspirin (Asa -) 81 mg PO DAILY [facility] Last Admin: 10/26/18 09:30 Dose: 81 mg Carvedilol (Coreg -) 3.125 mg PO BID [facility] Last Admin: 10/26/18 11:49 Dose: 3.125 mg Chlorhexidine Gluconate (Hibiclens For Decolonization -) 1 applic TP HS [facility] Last Admin: 10/25/18 22:29 Dose: 1 applic Fenofibric Acid (Trilipix -) 135 mg PO DAILY [facility] Last Admin: 10/26/18 11:49 Dose: 135 mg Heparin Sodium (Porcine) (Heparin -) 5,000 unit SQ TID [facility] Piperacillin Sod/Tazobactam (Sod 3.375 gm/ Dextrose) 50 mls @ 100 mls/hr IVPB Q8H-IV [facility]; Protocol Last Admin: 10/26/18 09:30 Dose: 100 mls/hr Furosemide 100 mg/ Sodium (Chloride) 50 mls @ 5 mls/hr IVPB TITR [facility]; Protocol Last Titration: 10/26/18 04:33 Dose: 10 mg/hr, 5 mls/hr Insulin Aspart (Novolog Vial Sliding Scale -) 1 vial SQ ACHS [facility]; Protocol Last Admin: 10/26/18 12:17 Dose: Not Given Mupirocin (Bactroban Ointment (For Decolonization) -) 1 applic NS BID [facility] Stop: 10/27/18 21:59 Last Admin: 10/26/18 09:30 Dose: 1 applic Patient's Own Medication (Biotene [place]) 1 each PO DAILY [facility] Last Admin: 10/26/18 09:30 Dose: 1 each Pantoprazole Sodium (Protonix Iv) 40 mg IVPUSH DAILY [facility] Last Admin: 10/26/18 09:30 Dose: 40 mg Laboratory Results - last 24 hr 10/25/18 10/25/18 10/25/18 15:30 17:26 21:00 WBC RBC Hgb Hct MCV MCH MCHC RDW Plt Count MPV PTT (Actin FS) 53.9 H 51.0 H Sodium Potassium Chloride Carbon Dioxide Anion Gap BUN Creatinine Est GFR (CKD-EPI)AfAm Est GFR (CKD-EPI)NonAf POC Glucometer 136 Random Glucose Calcium Phosphorus Magnesium Total Bilirubin AST ALT Alkaline Phosphatase Total Protein Albumin 10/25/18 10/26/18 10/26/18 22:26 05:15 05:15 WBC 14.9 H RBC 3.12 L Hgb 9.9 L Hct 29.8 L MCV 95.5 MCH 31.8 MCHC 33.3 RDW 15.9 Plt Count 292 MPV 9.2 PTT (Actin FS) 27.6 Sodium Potassium Chloride Carbon Dioxide Anion Gap BUN Creatinine Est GFR (CKD-EPI)AfAm Est GFR (CKD-EPI)NonAf POC Glucometer 133 Random Glucose Calcium Phosphorus Magnesium Total Bilirubin AST ALT Alkaline Phosphatase Total Protein Albumin 10/26/18 10/26/18 10/26/18 05:15 07:30 12:15 WBC RBC Hgb Hct MCV MCH MCHC RDW Plt Count MPV PTT (Actin FS) Sodium 147 H Potassium 3.7 Chloride 109 H Carbon Dioxide 29 Anion Gap 8 BUN 78.1 H Creatinine 2.0 H Est GFR (CKD-EPI)AfAm 34.50 Est GFR (CKD-EPI)NonAf 29.76 POC Glucometer 120 147 Random Glucose 140 H Calcium 8.1 L Phosphorus 4.7 Magnesium 2.6 H Total Bilirubin 1.0 AST 80 H ALT 197 H Alkaline Phosphatase 61 Total Protein 5.8 L Albumin [address] chest images and results reviewed ASSESSMENT AND PLAN: 83 yom with PMHx of HTN, HLd, T2DM, CKD, stable AAA who presents today after L total knee arthroscopy makoplasty on 10/15/18, admitted with cough and dyspnea. -Acute Hypoxic Respiratory Failure -Acute NSTEMI -Acute LV Systolic Heart Failure/Acute Pulmonary Edema -R/o Pulmonary embolism (Low suspicion given current findings, grossly abnormal xray and clinical exam supporting CHF/DE and neg Duplex) -Lactic Acidosis -Acute Kidney Injury -Elevated LFTs -Recent Left Knee surgery Plan: ASA/betablocker/heparin drip per cardiology Statin when LFTs stable Lasix drip, ?responding well. Titrate for FiO2 >95%, NIPPV prn. CT chest noted Strict I/Os, monitor renal function. ISS, po as tolerated, speech/swallow input noted. Dispo Agree with transfer to telemetry. Possible transfer for cardiac cath once volume status improved Total critical care time spent 36 min.
[2018-10-26] MEDS ORDERED: MUPIROCIN 2% TOPICAL OINTMENT FOR DECOLONIZATION NS SCH (22:00)
[2018-10-26] MEDS ORDERED: CHLORHEXIDINE GLUCONATE 4% CLEANSER FOR DECOLONIZATION TP SCH (22:00)
[2018-10-27] MEDS ORDERED: DEXTROSE 5%-WATER - 50 ML IVPB ONE ×3 (02:35→18:24)
[2018-10-27] MEDS ORDERED: PIPERACILLIN/TAZOBACTAM 3.375 GM VIAL IVPB ONE ×3 (02:35→18:24)
[2018-10-27] MEDS: PIPERACILLIN/TAZOB 3.375 GM 3.375 GM in DEXTROSE 5%-WATER - 50 ML IVPB SCH ×3 (02:53→18:26)
[2018-10-27] MEDS: FUROSEMIDE INJECTION 100 MG in SODIUM CHLORIDE 40 ML IVPB SCH ×2 (03:37→23:00)
[2018-10-27] MEDS: HEPARIN NA (PORCINE) 5,000 UNITS/ML 1ML VIAL SQ SCH ×3 (07:01→21:50)
[2018-10-27] MEDS: INSULIN SLIDING SCALE (NOVOLOG) 1 VIAL SQ SCH ×4 (07:05→21:49)
[2018-10-27 08:31] LABS: BASO % 0.2 % (0-2.0); EOS % 1.8 % (0-4.5); HEMATOCRIT 31.6 % (35.4-49); HEMOGLOBIN 10.4 GM/dL (11.7-16.9); MCH 31.5 pg (25.7-33.7); MCHC 32.9 g/dl (32.0-35.9); MEAN CELL VOLUME 95.8 fl (80-96); MEAN PLT VOLUME 8.8 fl (7.5-11.1); MONO % 7.5 % (3.8-10.2); NEUT % 81.5 % (42.8-82.8); PLATELET COUNT 300 K/MM3 (134-434); RDW 15.7 % (11.9-15.9); WHITE BLOOD COUNT 14.5 K/mm3 (4.0-10.0)
[2018-10-27 09:06] LABS: ALBUMIN 2.4 g/dl (3.4-5.0); BILIRUBIN,TOTAL 1.2 mg/dL (0.2-1); BLOOD UREA NITROGEN 68.7 mg/dL (7-18); CALCIUM 8.4 mg/dL (8.5-10.1); CREATININE 1.8 mg/dL (0.55-1.3); MAGNESIUM 2.4 mg/dL (1.8-2.4); PHOSPHOROUS 3.2 mg/dL (2.5-4.9); POTASSIUM 3.7 mmol/L (3.5-5.1); TOT PROT 5.9 g/dl (6.4-8.2)
[2018-10-27] MEDS: ASPIRIN 81 MG CHEWABLE TABLETS PO SCH (09:08)
[2018-10-27] MEDS: CARVEDILOL 3.125 MG TABLET (FP) PO SCH ×2 (09:08→21:50)
[2018-10-27] MEDS: FENOFIBRIC ACID 135 MG CAP PO SCH (09:08)
--- NOTE | 2018-10-27 10:06 | PN ---
Progress Note, Physician History of Present Illness: No CV complaints No chest pains Tele: NSR, ?wenkeback - Current Medication List Current Medications: Active Medications Aspirin (Asa -) 81 mg PO DAILY [facility] Last Admin: 10/27/18 09:08 Dose: 81 mg Carvedilol (Coreg -) 3.125 mg PO BID [facility] Last Admin: 10/27/18 09:08 Dose: 3.125 mg Fenofibric Acid (Trilipix -) 135 mg PO DAILY [facility] Last Admin: 10/27/18 09:08 Dose: 135 mg Heparin Sodium (Porcine) (Heparin -) 5,000 unit SQ TID [facility] Last Admin: 10/27/18 07:01 Dose: 5,000 unit Furosemide 100 mg/ Sodium (Chloride) 50 mls @ 5 mls/hr IVPB TITR [facility]; Protocol Last Admin: 10/27/18 03:37 Dose: 10 mg/hr, 5 mls/hr Piperacillin Sod/Tazobactam (Sod 3.375 gm/ Dextrose) 50 mls @ 100 mls/hr IVPB Q8H-IV [facility]; Protocol Last Admin: 10/27/18 09:07 Dose: 100 mls/hr Insulin Aspart (Novolog Vial Sliding Scale -) 1 vial SQ ACHS [facility]; Protocol Last Admin: 10/27/18 07:05 Dose: Not Given Non-Formulary Medication (Patient's Own Med) 1 each PO DAILY [facility] Last Admin: 10/27/18 09:09 Dose: 1 each Pantoprazole Sodium (Protonix Iv) 40 mg IVPUSH DAILY [facility] - Objective Vital Signs: Vital Signs Temperature 97.8 F 10/27/18 08:00 Pulse Rate 86 10/27/18 08:00 Respiratory Rate 20 10/27/18 08:00 Blood Pressure 120/44 L 10/27/18 08:00 O2 Sat by Pulse Oximetry (%) 96 10/27/18 02:08 Constitutional: Yes: No Distress, Calm Cardiovascular: Yes: Regular Rate and Rhythm Respiratory: Yes: Diminished Edema: Yes Labs: CBC, BMP 10/27/18 07:30 10/27/18 07:30 INR, PTT INR 1.53 (0.83-1.09) H 10/23/18 06:30 Assessment/Plan IMP: 1. Hypoxic respiratory failure: now seems more c/w subacute MA (late presentation), w/ resultant LV dysfx and CHF, +/- superimposed PNA 2. Pulmonary embolism, less likely, cannot be ruled out (unable to obtain CTA due volume overload and worsening O2 sat with minimal prehydration/ CKD) 3. Recent L. knee Makoplasty 4. Leukocytosis 5. CKD 6. DM 7. Anemia, guaiac negative. REC: - Troponin 7.6->6.5->7.5, flat trend in setting of YANCI on CKD. Clinical picture more consistent with NSTEMI type I vs II with acute systolic HF. As per Dr. Ramirez - Ischemic workup when euvolemic. - ASA daily, deferring statin for elevated LFTs, start when able - Echo shows EF 30% - no prior history of HF - Continue w/ Lasix gtts, Creat 1.8 (2.0) - Follow cultures and continue abx as per primary team.
[2018-10-27] MEDS: PANTOPRAZOLE SODIUM 40 MG VIAL IVPUSH SCH (10:40)
--- NOTE | 2018-10-27 13:03 | PN ---
Physical Exam: SUBJECTIVE: Patient seen and examined, breathing improved, no chest pain, overall feels better. OBJECTIVE: Vital Signs Period Temp Pulse Resp BP Sys/العلي Pulse Ox Last 24 Hr 97.7 F-98.8 F 60-90 20-20 108-123/44-68 94-99 Intake & Output 10/24/18 10/25/18 10/26/18 10/27/18 23:59 23:59 23:59 23:59 Intake Total 654 1180 1083 40 Output Total 1750 1750 4200 Balance -5121 -181 -1311 40 Weight 239 lb 236 lb 6.4 oz 231 lb 4.8 oz 221 lb 9.6 oz GENERAL: sitting in bed no acute distress, no use of accessory muscles of respiration CVS:S1S2 irregular neck: soft, supple, improved neck vein distension Chest: improved air entry, decreased breath sounds at bases Abdomen:Soft, NT Extremities: trace pedal edema Psych: awake, co-operative Laboratory Results - last 24 hr 10/26/18 10/26/18 10/27/18 17:43 22:07 07:03 WBC RBC Hgb Hct MCV MCH MCHC RDW Plt Count MPV Absolute Neuts (auto) Neutrophils % Lymphocytes % Monocytes % Eosinophils % Basophils % Nucleated RBC % PTT (Actin FS) Sodium Potassium Chloride Carbon Dioxide Anion Gap BUN Creatinine Est GFR (CKD-EPI)AfAm Est GFR (CKD-EPI)NonAf POC Glucometer 200 162 120 Random Glucose Calcium Phosphorus Magnesium Total Bilirubin AST ALT Alkaline Phosphatase Total Protein Albumin 10/27/18 10/27/18 10/27/18 07:30 07:30 07:30 WBC 14.5 H RBC 3.30 L Hgb 10.4 L Hct 31.6 L MCV 95.8 MCH 31.5 MCHC 32.9 RDW 15.7 Plt Count 300 MPV 8.8 Absolute Neuts (auto) 11.8 H Neutrophils % 81.5 Lymphocytes % 9.0 D Monocytes % 7.5 Eosinophils % 1.8 D Basophils % 0.2 Nucleated RBC % 1 H PTT (Actin FS) 26.0 Sodium 147 H Potassium 3.7 Chloride 104 Carbon Dioxide 36 H Anion Gap 7 L BUN 68.7 H Creatinine 1.8 H Est GFR (CKD-EPI)AfAm 39.18 Est GFR (CKD-EPI)NonAf 33.81 POC Glucometer Random Glucose 113 H Calcium 8.4 L Phosphorus 3.2 Magnesium 2.4 Total Bilirubin 1.2 H AST 67 H ALT 158 H Alkaline Phosphatase 72 Total Protein 5.9 L Albumin 2.4 L 10/27/18 11:38 WBC RBC Hgb Hct MCV MCH MCHC RDW Plt Count MPV Absolute Neuts (auto) Neutrophils % Lymphocytes % Monocytes % Eosinophils % Basophils % Nucleated RBC % PTT (Actin FS) Sodium Potassium Chloride Carbon Dioxide Anion Gap BUN Creatinine Est GFR (CKD-EPI)AfAm Est GFR (CKD-EPI)NonAf POC Glucometer 190 Random Glucose Calcium Phosphorus Magnesium Total Bilirubin AST ALT Alkaline Phosphatase Total Protein Albumin Active Medications Generic Name Dose Route Start Last Admin Trade Name Freq PRN Reason Stop Dose Admin Aspirin 81 mg 10/27/18 10:00 10/27/18 09:08 Asa - PO 81 mg DAILY [facility] Administration Carvedilol 3.125 mg 10/26/18 22:00 10/27/18 09:08 Coreg - PO 3.125 mg BID [facility] Administration Fenofibric Acid 135 mg 10/27/18 10:00 10/27/18 09:08 Trilipix - PO 135 mg DAILY [facility] Administration Heparin Sodium (Porcine) 5,000 unit 10/26/18 14:00 10/27/18 07:01 Heparin - SQ 5,000 unit TID [facility] Administration Furosemide 100 mg/ Sodium 50 mls @ 5 mls/hr 10/26/18 18:52 10/27/18 03:37 Chloride IVPB 10 mg/hr TITR [facility] 5 mls/hr Administration Protocol 10 MG/HR Piperacillin Sod/Tazobactam 50 mls @ 100 mls/hr 10/27/18 02:00 10/27/18 09:07 Sod 3.375 gm/ Dextrose IVPB 100 mls/hr Q8H-IV [facility] Administration Protocol Insulin Aspart 1 vial 10/26/18 22:00 10/27/18 11:43 Novolog Vial Sliding Scale - SQ 2 units ACHS [facility] Administration Protocol Non-Formulary Medication 1 each 10/27/18 10:00 10/27/18 09:09 Patient's Own Med PO 1 each DAILY [facility] Administration Pantoprazole Sodium 40 mg 10/27/18 10:00 Protonix Iv IVPUSH DAILY [facility] Microbiology 10/22/18 12:30 Blood - Peripheral Venous Blood Culture - Final NO GROWTH AFTER 5 DAYS INCUBATION 10/22/18 12:15 Blood - Peripheral Venous Blood Culture - Final NO GROWTH AFTER 5 DAYS INCUBATION 10/23/18 15:00 Urine For Antigen Detection Legionella Antigen - Final 10/23/18 15:00 Urine For Antigen Detection Streptococcus pneumoniae Antigen (M - Final 10/22/18 17:30 Urine - Urine Clean Catch Urine Culture - Final NO GROWTH OBTAINED ASSESSMENT/PLAN: 83 yom with PMHx of HTN, HLd, T2DM, CKD, stable AAA who presents today after L total knee arthroscopy makoplasty on 10/15/18, admitted with cough and dyspnea. -Acute Hypoxic Respiratory Failure -Acute NSTEMI -Acute LV Systolic Heart Failure/Acute Pulmonary Edema -R/o Pulmonary embolism (Low suspicion given current findings, grossly abnormal xray and clinical exam supporting CHF/[place] and neg Duplex) -Lactic Acidosis -Acute Kidney Injury -Elevated LFTs -Recent Left Knee surgery Plan: ASA/betablocker per cardiology, s/p heparin drip 72 hours. Statin when LFTs stable Lasix drip, responding well. Titrate for FiO2 >95%, NIPPV prn. CT chest noted Strict I/Os, monitor renal function. ISS, po as tolerated, speech/swallow input noted. MBS Monday. OOB, heparin DVTPPx, compression stockings LLE. PT eval. Dispo SNF vs transfer for possible cardiac cath once volume status improved. Discussed with patient and nursing. Visit type - Emergency Visit Emergency Visit: Yes ED Registration Date: 10/22/18 Care time: The patient presented to the Emergency Department on the above date and was hospitalized for further evaluation of their emergent condition. - New Patient This patient is new to me today: No - Critical Care Critical Care patient: No - Discharge Referral Referred to [facility] Med P.C.: No
--- NOTE | 2018-10-27 13:27 | PN ---
Progress Note, Physician History of Present Illness: AWAKE, ALERT IN BED NO C/O CHEST PAIN/ DYSPNEA/ COUGH NO FEVER/CHILLS AFEBRILE WBC REMAINS SL ELEVATED - Current Medication List Current Medications: Active Medications Aspirin (Asa -) 81 mg PO DAILY [facility] Last Admin: 10/27/18 09:08 Dose: 81 mg Carvedilol (Coreg -) 3.125 mg PO BID [facility] Last Admin: 10/27/18 09:08 Dose: 3.125 mg Fenofibric Acid (Trilipix -) 135 mg PO DAILY [facility] Last Admin: 10/27/18 09:08 Dose: 135 mg Heparin Sodium (Porcine) (Heparin -) 5,000 unit SQ TID [facility] Last Admin: 10/27/18 07:01 Dose: 5,000 unit Furosemide 100 mg/ Sodium (Chloride) 50 mls @ 5 mls/hr IVPB TITR [facility]; Protocol Last Admin: 10/27/18 03:37 Dose: 10 mg/hr, 5 mls/hr Piperacillin Sod/Tazobactam (Sod 3.375 gm/ Dextrose) 50 mls @ 100 mls/hr IVPB Q8H-IV [facility]; Protocol Last Admin: 10/27/18 09:07 Dose: 100 mls/hr Insulin Aspart (Novolog Vial Sliding Scale -) 1 vial SQ ACHS [facility]; Protocol Last Admin: 10/27/18 11:43 Dose: 2 units Non-Formulary Medication (Patient's Own Med) 1 each PO DAILY [facility] Last Admin: 10/27/18 09:09 Dose: 1 each Pantoprazole Sodium (Protonix Iv) 40 mg IVPUSH DAILY [facility] - Objective Vital Signs: Vital Signs Temperature 97.8 F 10/27/18 08:00 Pulse Rate 86 10/27/18 08:00 Respiratory Rate 20 10/27/18 09:00 Blood Pressure 120/44 L 10/27/18 08:00 O2 Sat by Pulse Oximetry (%) 94 L 10/27/18 09:00 Constitutional: Yes: No Distress Eyes: Yes: Conjunctiva Clear Cardiovascular: Yes: Regular Rate and Rhythm, S1, S2 Respiratory: Yes: CTA Bilaterally Gastrointestinal: Yes: Normal Bowel Sounds, Soft. No: Tenderness Extremities: No: Calf Tenderness Labs: CBC, BMP 10/27/18 07:30 10/27/18 07:30 INR, PTT INR 1.53 (0.83-1.09) H 10/23/18 06:30 Assessment/Plan CHF R/O PNEUMONIA LEUKOCYTOSIS S/P MAKOplasty Continue zosyn
--- NOTE | 2018-10-27 15:08 | PN ---
Progress Note (short form) - Note Progress Note: PULMONARY States breathing is better. Remains on lasix gtt. Vital Signs Period Temp Pulse Resp BP Sys/العلي Pulse Ox Last 24 Hr 97.7 F-98.8 F 60-90 20-20 117-123/44-68 94-99 Intake & Output 10/24/18 10/25/18 10/26/18 10/27/18 23:59 23:59 23:59 23:59 Intake Total 654 1180 1083 90 Output Total 1750 1750 4200 Balance -2073 -682 -1477 90 Weight 108.409 kg 107.229 kg 104.916 kg 100.516 kg Gen: NAD at rest Heart: RRR Lung: decreased breath sounds at the bases Abd: soft, nontender Ext: no edema CBC, BMP 10/27/18 07:30 10/27/18 07:30 Active Medications Aspirin (Asa -) 81 mg PO DAILY [facility] Last Admin: 10/27/18 09:08 Dose: 81 mg Carvedilol (Coreg -) 3.125 mg PO BID [facility] Last Admin: 10/27/18 09:08 Dose: 3.125 mg Fenofibric Acid (Trilipix -) 135 mg PO DAILY [facility] Last Admin: 10/27/18 09:08 Dose: 135 mg Heparin Sodium (Porcine) (Heparin -) 5,000 unit SQ TID [facility] Last Admin: 10/27/18 14:02 Dose: 5,000 unit Furosemide 100 mg/ Sodium (Chloride) 50 mls @ 5 mls/hr IVPB TITR [facility]; Protocol Last Admin: 10/27/18 03:37 Dose: 10 mg/hr, 5 mls/hr Piperacillin Sod/Tazobactam (Sod 3.375 gm/ Dextrose) 50 mls @ 100 mls/hr IVPB Q8H-IV [facility]; Protocol Last Admin: 10/27/18 09:07 Dose: 100 mls/hr Insulin Aspart (Novolog Vial Sliding Scale -) 1 vial SQ ACHS [facility]; Protocol Last Admin: 10/27/18 11:43 Dose: 2 units Non-Formulary Medication (Patient's Own Med) 1 each PO DAILY [facility] Last Admin: 10/27/18 09:09 Dose: 1 each Pantoprazole Sodium (Protonix Iv) 40 mg IVPUSH DAILY [facility] A/P Acute Hypoxic Respiratory Failure improving Acute NSTEMI Acute LV Systolic Heart Failure/Acute Pulmonary Edema Lactic Acidosis Acute Kidney Injury Elevated LFTs Recent Left Knee surgery - continue lasix gtt - monitor urine output, creatinine - ASA - beta sharlene - trend LFTs - monitor urine output, creatinine - O2 to keep Spo2 >90% - DVT prophylaxis
[2018-10-27] MEDS ORDERED: DOCUSATE SODIUM 100 MG CAPSULE (FP) PO ONE (21:30)
[2018-10-27] MEDS ORDERED: INSULIN (NOVOLOG) ASPART 100 UNITS/ML 10ML VIAL ONE (21:31)
[2018-10-28] MEDS ORDERED: PIPERACILLIN/TAZOBACTAM 3.375 GM VIAL IVPB ONE ×3 (01:18→16:57)
[2018-10-28] MEDS ORDERED: DEXTROSE 5%-WATER - 50 ML IVPB ONE ×3 (01:18→16:57)
[2018-10-28] MEDS: PIPERACILLIN/TAZOB 3.375 GM 3.375 GM in DEXTROSE 5%-WATER - 50 ML IVPB SCH ×3 (01:51→18:33)
[2018-10-28] MEDS: INSULIN SLIDING SCALE (NOVOLOG) 1 VIAL SQ SCH ×4 (06:16→21:37)
[2018-10-28] MEDS: HEPARIN NA (PORCINE) 5,000 UNITS/ML 1ML VIAL SQ SCH ×3 (06:16→21:36)
[2018-10-28] MEDS: ASPIRIN 81 MG CHEWABLE TABLETS PO SCH (09:50)
[2018-10-28] MEDS: CARVEDILOL 3.125 MG TABLET (FP) PO SCH ×2 (09:50→21:36)
[2018-10-28] MEDS: FENOFIBRIC ACID 135 MG CAP PO SCH (09:50)
--- NOTE | 2018-10-28 10:33 | PN ---
Progress Note, Physician History of Present Illness: No cv complaints Tolerating lasix gtt Tele: NSR/ST - Current Medication List Current Medications: Active Medications Aspirin (Asa -) 81 mg PO DAILY [facility] Last Admin: 10/28/18 09:50 Dose: 81 mg Carvedilol (Coreg -) 3.125 mg PO BID [facility] Last Admin: 10/28/18 09:50 Dose: 3.125 mg Fenofibric Acid (Trilipix -) 135 mg PO DAILY [facility] Last Admin: 10/28/18 09:50 Dose: 135 mg Heparin Sodium (Porcine) (Heparin -) 5,000 unit SQ TID [facility] Last Admin: 10/28/18 06:16 Dose: 5,000 unit Furosemide 100 mg/ Sodium (Chloride) 50 mls @ 5 mls/hr IVPB TITR [facility]; Protocol Last Admin: 10/27/18 23:00 Dose: 10 mg/hr, 5 mls/hr Piperacillin Sod/Tazobactam (Sod 3.375 gm/ Dextrose) 50 mls @ 100 mls/hr IVPB Q8H-IV [facility]; Protocol Last Admin: 10/28/18 01:51 Dose: 100 mls/hr Insulin Aspart (Novolog Vial Sliding Scale -) 1 vial SQ ACHS [facility]; Protocol Last Admin: 10/28/18 06:16 Dose: 2 units Non-Formulary Medication (Patient's Own Med) 1 each PO DAILY [facility] Last Admin: 10/28/18 09:51 Dose: 1 each Pantoprazole Sodium (Protonix Iv) 40 mg IVPUSH DAILY [facility] Last Admin: 10/27/18 10:40 Dose: 40 mg - Objective Vital Signs: Vital Signs Temperature 98.1 F 10/28/18 10:00 Pulse Rate 81 10/28/18 10:00 Respiratory Rate 20 10/28/18 10:00 Blood Pressure 131/59 L 10/28/18 10:00 O2 Sat by Pulse Oximetry (%) 96 10/28/18 08:30 Constitutional: Yes: No Distress, Calm Cardiovascular: Yes: Regular Rate and Rhythm Respiratory: Yes: CTA Bilaterally Edema: No Labs: CBC, BMP 10/27/18 07:30 10/27/18 07:30 INR, PTT INR 1.53 (0.83-1.09) H 10/23/18 06:30 Assessment/Plan IMP: 1. Hypoxic respiratory failure: now seems more c/w subacute RI (late presentation), w/ resultant LV dysfx and CHF, +/- superimposed PNA 2. Pulmonary embolism, less likely, cannot be ruled out (unable to obtain CTA due volume overload and worsening O2 sat with minimal prehydration/ CKD) 3. Recent L. knee Makoplasty 4. Leukocytosis 5. CKD 6. DM 7. Anemia, guaiac negative. REC: - Troponin 7.6->6.5->7.5, flat trend in setting of YANCI on CKD. Clinical picture more consistent with NSTEMI type I vs II with acute systolic HF. As per Dr. Ramirez - Ischemic workup when euvolemic. - ASA daily, deferring statin for elevated LFTs, start when able - Echo shows EF 30% - no prior history of HF - Continue w/ Lasix gtts, Creat 1.8 (2.0), pending sCreat this AM - Follow cultures and continue abx as per primary team.
[2018-10-28] MEDS: PANTOPRAZOLE SODIUM 40 MG VIAL IVPUSH SCH (10:53)
--- NOTE | 2018-10-28 11:35 | PN ---
Physical Exam: SUBJECTIVE: Patient seen and examined, breathing improved, Upset that has not been getting physical therapy. No complaints otherwise. OBJECTIVE: Vital Signs Period Temp Pulse Resp BP Sys/العلي Pulse Ox Last 24 Hr 98 F-99.2 F 57-111 20-20 90-131/52-61 93-96 Intake & Output 10/25/18 10/26/18 10/27/18 10/28/18 23:59 23:59 23:59 23:59 Intake Total 1180 1083 335 20 Output Total 1750 4200 2400 Balance -507 -7134 -5561 20 Weight 236 lb 6.4 oz 231 lb 4.8 oz 221 lb 9.6 oz GENERAL: sitting in bed no acute distress, no use of accessory muscles of respiration CVS:S1S2 irregular neck: Soft, supple, improved neck vein distension Chest: improved air entry, decreased breath sounds at bases Abdomen:Soft, NT Extremities: trace pedal edema, left knee band aid Psych: Awake, co-operative Laboratory Results - last 24 hr 10/27/18 10/27/18 10/27/18 11:38 16:44 21:47 POC Glucometer 190 170 209 10/28/18 10/28/18 06:08 11:14 POC Glucometer 158 163 Active Medications Generic Name Dose Route Start Last Admin Trade Name Freq PRN Reason Stop Dose Admin Aspirin 81 mg 10/27/18 10:00 10/28/18 09:50 Asa - PO 81 mg DAILY [facility] Administration Carvedilol 3.125 mg 10/26/18 22:00 10/28/18 09:50 Coreg - PO 3.125 mg BID [facility] Administration Fenofibric Acid 135 mg 10/27/18 10:00 10/28/18 09:50 Trilipix - PO 135 mg DAILY [facility] Administration Heparin Sodium (Porcine) 5,000 unit 10/26/18 14:00 10/28/18 06:16 Heparin - SQ 5,000 unit TID [facility] Administration Furosemide 100 mg/ Sodium 50 mls @ 5 mls/hr 10/26/18 18:52 10/27/18 23:00 Chloride IVPB 10 mg/hr TITR [facility] 5 mls/hr Administration Protocol 10 MG/HR Piperacillin Sod/Tazobactam 50 mls @ 100 mls/hr 10/27/18 02:00 10/28/18 01:51 Sod 3.375 gm/ Dextrose IVPB 100 mls/hr Q8H-IV [facility] Administration Protocol Insulin Aspart 1 vial 10/26/18 22:00 10/28/18 11:17 Novolog Vial Sliding Scale - SQ 2 units ACHS [facility] Administration Protocol Non-Formulary Medication 1 each 10/27/18 10:00 10/28/18 09:51 Patient's Own Med PO 1 each DAILY [facility] Administration Pantoprazole Sodium 40 mg 10/27/18 10:00 10/28/18 10:53 Protonix Iv IVPUSH 40 mg DAILY [facility] Administration ASSESSMENT/PLAN: 83 yom with PMHx of HTN, HLd, T2DM, CKD, stable AAA who presents today after L total knee arthroscopy makoplasty on 10/15/18, admitted with cough and dyspnea. -Acute Hypoxic Respiratory Failure -Acute NSTEMI -Acute LV Systolic Heart Failure/Acute Pulmonary Edema -R/o Pulmonary embolism (Low suspicion given current findings, grossly abnormal xray and clinical exam supporting CHF/[place] and neg Duplex) -R/o PNA -Lactic Acidosis -Acute Kidney Injury -Elevated LFTs -Recent Left Knee surgery Plan: ASA/coreg, s/p heparin drip 72 hours. Statin in 24 hours if LFTs continue to improve. Lasix drip, responding well. Titrate for FiO2 >95%, NIPPV prn. Follow up labs. CT chest noted Zosyn per ID. Strict I/Os, monitor renal function. ISS, po as tolerated, speech/swallow input noted. MBS Monday. OOB, heparin DVTPPx, compression stockings LLE. Ongoing PT, OOB. Dispo SNF vs transfer for possible cardiac cath once volume status improved. Discussed with patient and nursing. Visit type - Emergency Visit Emergency Visit: Yes ED Registration Date: 10/22/18 Care time: The patient presented to the Emergency Department on the above date and was hospitalized for further evaluation of their emergent condition. - New Patient This patient is new to me today: No - Critical Care Critical Care patient: No - Discharge Referral Referred to [facility] Med P.C.: No
[2018-10-28 11:53] LABS: BASO % 0.3 % (0-2.0); EOS % 2.6 % (0-4.5); HEMATOCRIT 33.4 % (35.4-49); HEMOGLOBIN 10.9 GM/dL (11.7-16.9); LYMPH % 9.3 % (8-40); MCH 31.7 pg (25.7-33.7); MCHC 32.6 g/dl (32.0-35.9); MEAN CELL VOLUME 97.4 fl (80-96); MONO % 8.8 % (3.8-10.2); PLATELET COUNT 302 K/MM3 (134-434); RBC 3.43 M/mm3 (4.00-5.60); RDW 16.2 % (11.9-15.9)
[2018-10-28 12:18] LABS: ALBUMIN 2.5 g/dl (3.4-5.0); BILIRUBIN,TOTAL 0.7 mg/dL (0.2-1); BLOOD UREA NITROGEN 57.8 mg/dL (7-18); CALCIUM 8.6 mg/dL (8.5-10.1); CREATININE 1.8 mg/dL (0.55-1.3); MAGNESIUM 2.4 mg/dL (1.8-2.4); PHOSPHOROUS 3.3 mg/dL (2.5-4.9)
--- NOTE | 2018-10-28 13:36 | PN ---
Progress Note (short form) - Note Progress Note: PULMONARY States breathing is better. Denies chest pain, cough or wheezing. Remains on lasix gtt. Vital Signs Period Temp Pulse Resp BP Sys/العلي Pulse Ox Last 24 Hr 98 F-99.2 F 57-111 20-20 90-131/52-61 93-96 Intake & Output 10/25/18 10/26/18 10/27/18 10/28/18 23:59 23:59 23:59 23:59 Intake Total 1180 1083 335 260 Output Total 1750 4200 2400 900 Balance -570 -3117 -2065 -640 Weight 107.229 kg 104.916 kg 100.516 kg Gen: NAD at rest Heart: RRR Lung: decreased breath sounds at the bases Abd: soft, nontender Ext: no edema CBC, BMP 10/28/18 11:11 10/28/18 11:11 Active Medications Aspirin (Asa -) 81 mg PO DAILY [facility] Last Admin: 10/28/18 09:50 Dose: 81 mg Carvedilol (Coreg -) 3.125 mg PO BID [facility] Last Admin: 10/28/18 09:50 Dose: 3.125 mg Fenofibric Acid (Trilipix -) 135 mg PO DAILY [facility] Last Admin: 10/28/18 09:50 Dose: 135 mg Heparin Sodium (Porcine) (Heparin -) 5,000 unit SQ TID [facility] Last Admin: 10/28/18 06:16 Dose: 5,000 unit Furosemide 100 mg/ Sodium (Chloride) 50 mls @ 5 mls/hr IVPB TITR [facility]; Protocol Last Admin: 10/27/18 23:00 Dose: 10 mg/hr, 5 mls/hr Piperacillin Sod/Tazobactam (Sod 3.375 gm/ Dextrose) 50 mls @ 100 mls/hr IVPB Q8H-IV [facility]; Protocol Last Admin: 10/28/18 12:54 Dose: 100 mls/hr Insulin Aspart (Novolog Vial Sliding Scale -) 1 vial SQ ACHS [facility]; Protocol Last Admin: 10/28/18 11:17 Dose: 2 units Non-Formulary Medication (Patient's Own Med) 1 each PO DAILY [facility] Last Admin: 10/28/18 09:51 Dose: 1 each Pantoprazole Sodium (Protonix Iv) 40 mg IVPUSH DAILY [facility] Last Admin: 10/28/18 10:53 Dose: 40 mg A/P Acute Hypoxic Respiratory Failure improving Acute NSTEMI Acute LV Systolic Heart Failure/Acute Pulmonary Edema Lactic Acidosis Acute Kidney Injury Elevated LFTs Recent Left Knee surgery - continue lasix gtt - monitor urine output, creatinine - ASA - beta sharlene - trend LFTs - monitor urine output, creatinine - O2 to keep Spo2 >90% - repeat CXR in AM - DVT prophylaxis
[2018-10-28] MEDS: FUROSEMIDE INJECTION 100 MG in SODIUM CHLORIDE 40 ML IVPB SCH (23:09)
[2018-10-29] MEDS ORDERED: DEXTROSE 5%-WATER - 50 ML IVPB ONE ×2 (00:56→09:23)
[2018-10-29] MEDS ORDERED: PIPERACILLIN/TAZOBACTAM 3.375 GM VIAL IVPB ONE ×2 (00:56→09:23)
[2018-10-29] MEDS: PIPERACILLIN/TAZOB 3.375 GM 3.375 GM in DEXTROSE 5%-WATER - 50 ML IVPB SCH ×2 (01:21→10:22)
[2018-10-29] MEDS: HEPARIN NA (PORCINE) 5,000 UNITS/ML 1ML VIAL SQ SCH ×3 (06:03→22:02)
[2018-10-29] MEDS: INSULIN SLIDING SCALE (NOVOLOG) 1 VIAL SQ SCH ×4 (06:03→22:02)
[2018-10-29 06:25] LABS: BASO % 0.5 % (0-2.0); EOS % 3.7 % (0-4.5); HEMATOCRIT 34.1 % (35.4-49); HEMOGLOBIN 11.4 GM/dL (11.7-16.9); LYMPH % 15.5 % (8-40); MCH 32.1 pg (25.7-33.7); MCHC 33.3 g/dl (32.0-35.9); MEAN CELL VOLUME 96.2 fl (80-96); MEAN PLT VOLUME 8.4 fl (7.5-11.1); MONO % 8.6 % (3.8-10.2); NEUT % 71.7 % (42.8-82.8); PLATELET COUNT 300 K/MM3 (134-434); RBC 3.55 M/mm3 (4.00-5.60); RDW 16.1 % (11.9-15.9)
[2018-10-29 06:43] LABS: ALBUMIN 2.6 g/dl (3.4-5.0); BILIRUBIN,TOTAL 0.8 mg/dL (0.2-1); BLOOD UREA NITROGEN 48.5 mg/dL (7-18); CALCIUM 8.8 mg/dL (8.5-10.1); CREATININE 1.8 mg/dL (0.55-1.3); MAGNESIUM 2.6 mg/dL (1.8-2.4); PHOSPHOROUS 3.8 mg/dL (2.5-4.9); POTASSIUM 4.1 mmol/L (3.5-5.1); TOT PROT 6.3 g/dl (6.4-8.2)
[2018-10-29] MEDS ORDERED: FUROSEMIDE 40 MG/4 ML INJECTABLE VIAL ONE ×2 (08:52→18:04)
--- NOTE | 2018-10-29 10:10 | PN ---
Progress Note, Physician Chief Complaint: chf History of Present Illness: denies sob, leg swelling, cp, palpit no cigs - Current Medication List Current Medications: Active Medications Aspirin (Asa -) 81 mg PO DAILY [facility] Last Admin: 10/28/18 09:50 Dose: 81 mg Carvedilol (Coreg -) 3.125 mg PO BID [facility] Last Admin: 10/28/18 21:36 Dose: 3.125 mg Fenofibric Acid (Trilipix -) 135 mg PO DAILY [facility] Last Admin: 10/28/18 09:50 Dose: 135 mg Heparin Sodium (Porcine) (Heparin -) 5,000 unit SQ TID [facility] Last Admin: 10/29/18 06:03 Dose: 5,000 unit Furosemide 100 mg/ Sodium (Chloride) 50 mls @ 5 mls/hr IVPB TITR [facility]; Protocol Last Admin: 10/28/18 23:09 Dose: 10 mg/hr, 5 mls/hr Piperacillin Sod/Tazobactam (Sod 3.375 gm/ Dextrose) 50 mls @ 100 mls/hr IVPB Q8H-IV [facility]; Protocol Last Admin: 10/29/18 01:21 Dose: 100 mls/hr Insulin Aspart (Novolog Vial Sliding Scale -) 1 vial SQ ACHS [facility]; Protocol Last Admin: 10/29/18 06:03 Dose: Not Given Non-Formulary Medication (Patient's Own Med) 1 each PO DAILY [facility] Last Admin: 10/28/18 09:51 Dose: 1 each Pantoprazole Sodium (Protonix Iv) 40 mg IVPUSH DAILY [facility] Last Admin: 10/28/18 10:53 Dose: 40 mg - Objective Vital Signs: Vital Signs Temperature 97.5 F L 10/29/18 06:00 Pulse Rate 78 10/29/18 06:00 Respiratory Rate 20 10/29/18 06:00 Blood Pressure 137/87 10/29/18 06:00 O2 Sat by Pulse Oximetry (%) 96 10/28/18 22:00 Constitutional: Yes: No Distress, Calm Eyes: No: Sclera Icterus HENT: No: Nasal Congestion Cardiovascular: Yes: Regular Rate and Rhythm, S1, S2, Other (PMI non diplaced). No: Gallop, Murmur Respiratory: Yes: CTA Bilaterally. No: Accessory Muscle Use, Rales, Wheezes Gastrointestinal: Yes: Normal Bowel Sounds, Soft. No: Tenderness Musculoskeletal: Yes: Other (No kyphosis) Extremities: No: Cold, Cyanosis Edema: No Integumentary: No: Jaundice Neurological: Yes: Alert. No: Seizure Psychiatric: No: Agitated Labs: CBC, BMP 10/29/18 05:55 10/29/18 05:55 INR, PTT INR 1.53 (0.83-1.09) H 10/23/18 06:30 Assessment/Plan Echo 11/12: EF 30%, nl RV function, mod MR with eccentric jet, mild TR, RVSP 44 mmHg, lg L pleural effusion CT chest 10/25: bilat mod effusions with adjacent compressive atx; bilat upper lobe opacities congestion vs infiltrate; flank subcutaneous edema; infrarenal AAA at least 5.4 cm (partially imaged); extensive coronary calcifications tele: NSR, mobitz 1 second degree AV block, no long pause IMP: 1. Hypoxic respiratory failure: now seems more c/w subacute [place] (late presentation), w/ resultant LV dysfx and CHF, +/- superimposed PNA 2. Pulmonary embolism, less likely, cannot be ruled out (unable to obtain CTA due volume overload and worsening O2 sat with minimal prehydration/ CKD), V/Q not likely to be definitively helpful given extensive parenchymal findings on CT scan 3. Recent L. knee Makoplasty 4. Leukocytosis, ? component of PNA 5. CKD, ? office baseline creat 6. CAD: extensive cor calcifications on CT chest 7. AAA: at least 5.4 cm (infrarenal) on suboptimal CT scan 6. DM 7. Anemia, guaiac negative--H/H stable 8. Mobitz 1 second degree AVB, stable REC: - Troponin 7.6->6.5->7.5, flat trend in setting of YANCI on CKD. Clinical picture more consistent with NSTEMI type I vs II with acute systolic HF. As per Dr. Ramirez - for ischemic workup when euvolemic. - ASA daily, deferring statin for elevated LFTs, start when able - Echo shows EF 30% - no prior history of HF - signif volume overload evident on 10/25 CT chest: receiving lasix gtt. paiz in : net negative 2-3L each day for the past 3 days, renal fxn stable vs admission and last available baseline data here 10/12--continue same lasix - rpt CXR today - non-contrast CT abdomen dedicated for sizing of AAA--? inpatient vascular surgery eval. cont BB for aneurysm prevention - abx as per primary team/ID. - cont carvedilol, monitor tele for long pauses sec to mobitz 1 physiology
[2018-10-29] MEDS: ASPIRIN 81 MG CHEWABLE TABLETS PO SCH (10:22)
[2018-10-29] MEDS: PANTOPRAZOLE SODIUM 40 MG VIAL IVPUSH SCH (10:22)
[2018-10-29] MEDS: FENOFIBRIC ACID 135 MG CAP PO SCH (10:22)
[2018-10-29] MEDS: CARVEDILOL 3.125 MG TABLET (FP) PO SCH ×2 (10:23→22:02)
--- NOTE | 2018-10-29 10:29 | PN ---
Physical Exam: SUBJECTIVE: Patient seen and examined at bed side , feeling better , sitting at the chiar on 6 L NC , asking about his prognosis , denies nay Fevr, chills, N/V/ D , did not have BM yet will start some miralax, denies any cp, cough. OBJECTIVE: Vital Signs Period Temp Pulse Resp BP Sys/العلي Pulse Ox Last 24 Hr 97.5 F-98.3 F 47-92 20-20 97-137/46-87 96-97 GENERAL: AAOx3 in NAD , on NC , HEAD: NC/AT, + JVD EYES: Conjunctiva clear, sclera anicteric NECK: Supple, + JVD LUNGS: decrease breath sound at the bases , HEART: RRR, NSR, normal s1, s2,no M/R/G ABDOMEN:Obese , Soft, ND, NT, +BS 4 Q, no CVA Tenderness LOWER EXTREMITIES: LLE trace edema improved , +2DP pulse,left knee covered s.p makoplasty NEUROLOGICAL: No focal deficit. Normal speech. gait not observed Laboratory Results - last 24 hr 10/28/18 10/28/18 10/28/18 11:11 11:11 11:14 WBC 15.0 H RBC 3.43 L Hgb 10.9 L Hct 33.4 L MCV 97.4 H MCH 31.7 MCHC 32.6 RDW 16.2 H Plt Count 302 MPV 9.0 Absolute Neuts (auto) 11.9 H Neutrophils % 79.0 Lymphocytes % 9.3 Monocytes % 8.8 Eosinophils % 2.6 Basophils % 0.3 Nucleated RBC % 0 Sodium 142 Potassium 4.0 Chloride 100 Carbon Dioxide 39 H Anion Gap 4 L BUN 57.8 H Creatinine 1.8 H Est GFR (CKD-EPI)AfAm 39.18 Est GFR (CKD-EPI)NonAf 33.81 POC Glucometer 163 Random Glucose 158 H Calcium 8.6 Phosphorus 3.3 Magnesium 2.4 Total Bilirubin 0.7 AST 52 H ALT 126 H Alkaline Phosphatase 66 Total Protein 6.0 L Albumin 2.5 L 10/28/18 10/28/18 10/29/18 17:00 21:28 05:55 WBC 13.0 H RBC 3.55 L Hgb 11.4 L Hct 34.1 L MCV 96.2 H MCH 32.1 MCHC 33.3 RDW 16.1 H Plt Count 300 MPV 8.4 Absolute Neuts (auto) 9.3 H Neutrophils % 71.7 Lymphocytes % 15.5 D Monocytes % 8.6 Eosinophils % 3.7 Basophils % 0.5 Nucleated RBC % 0 Sodium Potassium Chloride Carbon Dioxide Anion Gap BUN Creatinine Est GFR (CKD-EPI)AfAm Est GFR (CKD-EPI)NonAf POC Glucometer 204 208 Random Glucose Calcium Phosphorus Magnesium Total Bilirubin AST ALT Alkaline Phosphatase Total Protein Albumin 10/29/18 10/29/18 05:55 05:56 WBC RBC Hgb Hct MCV MCH MCHC RDW Plt Count MPV Absolute Neuts (auto) Neutrophils % Lymphocytes % Monocytes % Eosinophils % Basophils % Nucleated RBC % Sodium 144 Potassium 4.1 Chloride 99 Carbon Dioxide 40 H Anion Gap 5 L BUN 48.5 H Creatinine 1.8 H Est GFR (CKD-EPI)AfAm 39.18 Est GFR (CKD-EPI)NonAf 33.81 POC Glucometer 125 Random Glucose 131 H Calcium 8.8 Phosphorus 3.8 Magnesium 2.6 H Total Bilirubin 0.8 AST 44 H ALT 110 H Alkaline Phosphatase 65 Total Protein 6.3 L Albumin 2.6 L Active Medications Generic Name Dose Route Start Last Admin Trade Name Freq PRN Reason Stop Dose Admin Aspirin 81 mg 10/27/18 10:00 10/28/18 09:50 Asa - PO 81 mg DAILY [facility] Administration Carvedilol 3.125 mg 10/26/18 22:00 10/28/18 21:36 Coreg - PO 3.125 mg BID [facility] Administration Fenofibric Acid 135 mg 10/27/18 10:00 10/28/18 09:50 Trilipix - PO 135 mg DAILY [facility] Administration Heparin Sodium (Porcine) 5,000 unit 10/26/18 14:00 10/29/18 06:03 Heparin - SQ 5,000 unit TID [facility] Administration Furosemide 100 mg/ Sodium 50 mls @ 5 mls/hr 10/26/18 18:52 10/28/18 23:09 Chloride IVPB 10 mg/hr TITR [facility] 5 mls/hr Administration Protocol 10 MG/HR Piperacillin Sod/Tazobactam 50 mls @ 100 mls/hr 10/27/18 02:00 10/29/18 01:21 Sod 3.375 gm/ Dextrose IVPB 100 mls/hr Q8H-IV [facility] Administration Protocol Insulin Aspart 1 vial 10/26/18 22:00 10/29/18 06:03 Novolog Vial Sliding Scale - SQ Not Given ACHS [facility] Protocol Non-Formulary Medication 1 each 10/27/18 10:00 10/28/18 09:51 Patient's Own Med PO 1 each DAILY [facility] Administration Pantoprazole Sodium 40 mg 10/27/18 10:00 10/28/18 10:53 Protonix Iv IVPUSH 40 mg DAILY [facility] Administration CBC, BMP 10/29/18 05:55 10/29/18 05:55 ASSESSMENT/PLAN: Mr. Tang is an 83yo M with h/o HTN, HLd, T2DM, CKD, stable AAA admitted to the ICU s/p L knee arthroscopy and makoplasty for work up of NSTEMI vs. PE vs. respiratory distress 2/2 RLL PNA. Clinical picture is more in line with NSTEMI given most recent EKGs showing evidence of septal infrarct and echo showing new reduced EF heart failure (EF 30%) rather than PE. # Acute hypoxic hypercapnic respiratory failure due to Possible HCPNA(RLL) on supperimposed CHF can not R.o PE # NSTEMI # R.o PE # recent Makoplast 10/15 # elevated trop , peaked # YANCI on CKD # Hyperkalemia resolved # transaminitis likely due to CHF, will obtain US abdomen Plan: * maintain O2 sat > 90 % , wean off NIPAP as tolerated , * completed 7days of ABx per ID Zosyn, Dc abx today * Duoneb , ASA , * cont on Lasix drip * Off Hep Gtt for NSTEMI , unlikely PE * PPI * ISS * F.U cx negative * daily weight , I&O * Repeat Echo EF 30% * US abdomen for transaminitis : limited study with pleural effusion , 4 cm AAA , cholelithiaisis. * CT Chest with mod pleural effusion and B/L upper lab consolidation possible PNA , bibasilar atelectasis * [facility] ICU * cxr today improve congestion and B/L pleural effusion improving * F.U Abdomen Plevic Ct scan and modified barium swallow :non-contrast CT abdomen dedicated for sizing of AAA--? inpatient vascular surgery eval. cont BB for aneurysm prevention * dispo once medically optomized transferred for cardiac cath Visit type - Emergency Visit Emergency Visit: Yes ED Registration Date: 10/22/18 Care time: The patient presented to the Emergency Department on the above date and was hospitalized for further evaluation of their emergent condition. - New Patient This patient is new to me today: No - Critical Care Critical Care patient: No ATTENDING PHYSICIAN STATEMENT I saw and evaluated the patient. I reviewed the resident's note and discussed the case with the resident. I agree with the resident's findings and plan as documented. SUBJECTIVE: OBJECTIVE: ASSESSMENT AND PLAN:
--- NOTE | 2018-10-29 10:35 | PN ---
Progress Note, PHYSICIAN RELATIONS SPECIALIST - Note Progress Note: Selected Entries 10/28/18 10/28/18 10/28/18 02:00 06:00 10:00 Breakfast Supper Temperature 99.2 F 98.5 F 98.1 F 10/28/18 10/28/18 10/28/18 12:02 14:00 18:14 Breakfast 100% Supper Temperature 98.2 F 98.3 F 10/28/18 10/28/18 10/29/18 22:00 22:13 02:00 Breakfast Supper 100% Temperature 98.3 F 98.2 F 10/29/18 06:00 Breakfast Supper Temperature 97.5 F L Laboratory Tests 10/27/18 10/28/18 10/29/18 07:30 11:11 05:55 WBC 14.5 H 15.0 H 13.0 H Now on chopped diet, nectar thick liquid with better tolerance. Pulmonary status much improved For MBS today to r/o aspiration/upgrade diet if possible
--- NOTE | 2018-10-29 11:37 | PN ---
Teaching Attending Note Name of Resident: Blake Valiente ATTENDING PHYSICIAN STATEMENT I saw and evaluated the patient. I reviewed the resident's note and discussed the case with the resident. I agree with the resident's findings and plan as documented with exceptions below. SUBJECTIVE: Patient seen and examined. breathing improved, no complaints, wants to get up and walk with PT. left knee pain better. OBJECTIVE: Vital Signs Period Temp Pulse Resp BP Sys/العلي Pulse Ox Last 24 Hr 97.5 F-98.3 F 47-92 20-20 97-137/46-87 96-97 Intake & Output 10/26/18 10/27/18 10/28/18 10/29/18 23:59 23:59 23:59 23:59 Intake Total 1083 335 660 35 Output Total 4200 2400 2700 1900 Balance -3117 -5 -2039 -1865 Weight 231 lb 4.8 oz 221 lb 9.6 oz 217 lb 9.6 oz General: sitting in bed in no acute distress Chest: decreased breath sounds at bases, improved air entry CVS:S1S2 regular Abdomen:soft, NT, ND Extremities: left knee bandaid, minimal swelling, no erythema telemetry: NSR, PAC, mobitz type I AVB Home Medications Medication Instructions Recorded metFORMIN HCL [Glucophage -] 500 mg PO BID 02/28/13 Amlodipine Besylate [Norvasc -] 5 mg PO DAILY 09/19/18 Fenofibrate Nanocrystallized 160 mg PO DAILY 09/19/18 [Fenofibrate] Lisinopril [Zestril] 40 mg PO DAILY 09/19/18 Ascorbic Acid [Vitamin C -] 500 mg PO BID tablet 10/17/18 Aspirin [ASA -] 325 mg PO DAILY@0800 tablet 10/17/18 Cephalexin Monohydrate [Keflex -] 500 mg PO TID #30 capsule 10/17/18 Multivitamins [Multivit ([facility] 1 tab PO DAILY tab 10/17/18 Formulary)] Oxycodone HCl/Acetaminophen 1 - 2 tab PO Q4H PRN #60 tablet 10/17/18 [Percocet 5-325 mg Tablet] MDD 10 Pantoprazole Sodium [Protonix -] 40 mg PO DAILY #40 tablet.ec 10/17/18 Sennosides/Docusate Sodium 2 tablet PO BID tablet 10/17/18 [Pericolace -] traMADol HCL [Ultram -] 50 mg PO Q4H PRN #42 tablet MDD 6 10/17/18 Active Medications Aspirin (Asa -) 81 mg PO DAILY [facility] Last Admin: 10/29/18 10:22 Dose: 81 mg Carvedilol (Coreg -) 3.125 mg PO BID [facility] Last Admin: 10/29/18 10:23 Dose: 3.125 mg Fenofibric Acid (Trilipix -) 135 mg PO DAILY [facility] Last Admin: 10/29/18 10:22 Dose: 135 mg Heparin Sodium (Porcine) (Heparin -) 5,000 unit SQ TID [facility] Last Admin: 10/29/18 06:03 Dose: 5,000 unit Furosemide 100 mg/ Sodium (Chloride) 50 mls @ 5 mls/hr IVPB TITR [facility]; Protocol Last Admin: 10/28/18 23:09 Dose: 10 mg/hr, 5 mls/hr Piperacillin Sod/Tazobactam (Sod 3.375 gm/ Dextrose) 50 mls @ 100 mls/hr IVPB Q8H-IV [facility]; Protocol Last Admin: 10/29/18 10:22 Dose: 100 mls/hr Insulin Aspart (Novolog Vial Sliding Scale -) 1 vial SQ ACHS [facility]; Protocol Last Admin: 10/29/18 06:03 Dose: Not Given Non-Formulary Medication (Patient's Own Med) 1 each PO DAILY [facility] Last Admin: 10/29/18 10:24 Dose: 1 each Pantoprazole Sodium (Protonix Iv) 40 mg IVPUSH DAILY [facility] Last Admin: 10/29/18 10:22 Dose: 40 mg Laboratory Results - last 24 hr 10/28/18 10/28/18 10/28/18 11:11 11:11 17:00 WBC 15.0 H RBC 3.43 L Hgb 10.9 L Hct 33.4 L MCV 97.4 H MCH 31.7 MCHC 32.6 RDW 16.2 H Plt Count 302 MPV 9.0 Absolute Neuts (auto) 11.9 H Neutrophils % 79.0 Lymphocytes % 9.3 Monocytes % 8.8 Eosinophils % 2.6 Basophils % 0.3 Nucleated RBC % 0 Sodium 142 Potassium 4.0 Chloride 100 Carbon Dioxide 39 H Anion Gap 4 L BUN 57.8 H Creatinine 1.8 H Est GFR (CKD-EPI)AfAm 39.18 Est GFR (CKD-EPI)NonAf 33.81 POC Glucometer 204 Random Glucose 158 H Calcium 8.6 Phosphorus 3.3 Magnesium 2.4 Total Bilirubin 0.7 AST 52 H ALT 126 H Alkaline Phosphatase 66 Total Protein 6.0 L Albumin 2.5 L 10/28/18 10/29/18 10/29/18 21:28 05:55 05:55 WBC 13.0 H RBC 3.55 L Hgb 11.4 L Hct 34.1 L MCV 96.2 H MCH 32.1 MCHC 33.3 RDW 16.1 H Plt Count 300 MPV 8.4 Absolute Neuts (auto) 9.3 H Neutrophils % 71.7 Lymphocytes % 15.5 D Monocytes % 8.6 Eosinophils % 3.7 Basophils % 0.5 Nucleated RBC % 0 Sodium 144 Potassium 4.1 Chloride 99 Carbon Dioxide 40 H Anion Gap 5 L BUN 48.5 H Creatinine 1.8 H Est GFR (CKD-EPI)AfAm 39.18 Est GFR (CKD-EPI)NonAf 33.81 POC Glucometer 208 Random Glucose 131 H Calcium 8.8 Phosphorus 3.8 Magnesium 2.6 H Total Bilirubin 0.8 AST 44 H ALT 110 H Alkaline Phosphatase 65 Total Protein 6.3 L Albumin 2.6 L 10/29/18 05:56 WBC RBC Hgb Hct MCV MCH MCHC RDW Plt Count MPV Absolute Neuts (auto) Neutrophils % Lymphocytes % Monocytes % Eosinophils % Basophils % Nucleated RBC % Sodium Potassium Chloride Carbon Dioxide Anion Gap BUN Creatinine Est GFR (CKD-EPI)AfAm Est GFR (CKD-EPI)NonAf POC Glucometer 125 Random Glucose Calcium Phosphorus Magnesium Total Bilirubin AST ALT Alkaline Phosphatase Total Protein Albumin ASSESSMENT AND PLAN: 83 yom with PMHx of HTN, HLd, T2DM, CKD, stable AAA who presents today after L total knee arthroscopy makoplasty on 10/15/18, admitted with cough and dyspnea. -Acute Hypoxic Respiratory Failure -Acute NSTEMI -Acute LV Systolic Heart Failure/Acute Pulmonary Edema -R/o Pulmonary embolism (Low suspicion given current findings, grossly abnormal xray and clinical exam supporting CHF/IL and neg Duplex) -R/o PNA -Lactic Acidosis -Acute Kidney Injury -Elevated LFTs -Recent Left Knee surgery Plan: ASA/coreg, s/p heparin drip 72 hours. Statin in 24 hours if LFTs continue to improve. Lasix drip, responding well. Titrate for FiO2 >95%, NIPPV prn. CT chest noted Zosynd ay 6, discuss with ID for abx, taper, WBC improved. Strict I/Os, monitor renal function. ISS, po as tolerated, speech/swallow input noted. MBS Change PPI to PO. heparin DVTPPx, compression stockings LLE. Ongoing PT, OOB. Dispo SNF vs transfer for possible cardiac cath once volume status improved. Discussed with patient and nursing.
--- NOTE | 2018-10-29 12:10 | PN ---
Progress Note (short form) - Note Progress Note: Breathing is overall better. Denies chest pain, cough or wheezing. No acute events overnight. Intake & Output 10/26/18 10/27/18 10/28/18 10/29/18 23:59 23:59 23:59 23:59 Intake Total 1083 335 660 135 Output Total 4200 2400 2700 1900 Balance -6097 -2065 -2040 -2195 Weight 231 lb 4.8 oz 221 lb 9.6 oz 217 lb 9.6 oz Last Vital Signs Temp Pulse Resp BP Pulse Ox 97.5 F L 78 20 137/87 96 10/29/18 06:00 10/29/18 06:00 10/29/18 06:00 10/29/18 06:00 10/28/18 22:00 Active Medications Aspirin (Asa -) 81 mg PO DAILY [facility] Last Admin: 10/29/18 10:22 Dose: 81 mg Carvedilol (Coreg -) 3.125 mg PO BID [facility] Last Admin: 10/29/18 10:23 Dose: 3.125 mg Fenofibric Acid (Trilipix -) 135 mg PO DAILY [facility] Last Admin: 10/29/18 10:22 Dose: 135 mg Heparin Sodium (Porcine) (Heparin -) 5,000 unit SQ TID [facility] Last Admin: 10/29/18 06:03 Dose: 5,000 unit Furosemide 100 mg/ Sodium (Chloride) 50 mls @ 5 mls/hr IVPB TITR [facility]; Protocol Last Admin: 10/28/18 23:09 Dose: 10 mg/hr, 5 mls/hr Piperacillin Sod/Tazobactam (Sod 3.375 gm/ Dextrose) 50 mls @ 100 mls/hr IVPB Q8H-IV [facility]; Protocol Last Admin: 10/29/18 10:22 Dose: 100 mls/hr Insulin Aspart (Novolog Vial Sliding Scale -) 1 vial SQ ACHS [facility]; Protocol Last Admin: 10/29/18 06:03 Dose: Not Given Non-Formulary Medication (Patient's Own Med) 1 each PO DAILY [facility] Last Admin: 10/29/18 10:24 Dose: 1 each Pantoprazole Sodium (Protonix -) 40 mg PO DAILY [facility] Gen: NAD at rest Heart: RRR Lung: decreased breath sounds at the bases Abd: soft, nontender Ext: no edema Laboratory Results - last 24 hr 10/28/18 10/28/18 10/28/18 11:11 17:00 21:28 WBC RBC Hgb Hct MCV MCH MCHC RDW Plt Count MPV Absolute Neuts (auto) Neutrophils % Lymphocytes % Monocytes % Eosinophils % Basophils % Nucleated RBC % Sodium 142 Potassium 4.0 Chloride 100 Carbon Dioxide 39 H Anion Gap 4 L BUN 57.8 H Creatinine 1.8 H Est GFR (CKD-EPI)AfAm 39.18 Est GFR (CKD-EPI)NonAf 33.81 POC Glucometer 204 208 Random Glucose 158 H Calcium 8.6 Phosphorus 3.3 Magnesium 2.4 Total Bilirubin 0.7 AST 52 H ALT 126 H Alkaline Phosphatase 66 Total Protein 6.0 L Albumin 2.5 L 10/29/18 10/29/18 10/29/18 05:55 05:55 05:56 WBC 13.0 H RBC 3.55 L Hgb 11.4 L Hct 34.1 L MCV 96.2 H MCH 32.1 MCHC 33.3 RDW 16.1 H Plt Count 300 MPV 8.4 Absolute Neuts (auto) 9.3 H Neutrophils % 71.7 Lymphocytes % 15.5 D Monocytes % 8.6 Eosinophils % 3.7 Basophils % 0.5 Nucleated RBC % 0 Sodium 144 Potassium 4.1 Chloride 99 Carbon Dioxide 40 H Anion Gap 5 L BUN 48.5 H Creatinine 1.8 H Est GFR (CKD-EPI)AfAm 39.18 Est GFR (CKD-EPI)NonAf 33.81 POC Glucometer 125 Random Glucose 131 H Calcium 8.8 Phosphorus 3.8 Magnesium 2.6 H Total Bilirubin 0.8 AST 44 H ALT 110 H Alkaline Phosphatase 65 Total Protein 6.3 L Albumin 2.6 L 10/29/18 11:29 WBC RBC Hgb Hct MCV MCH MCHC RDW Plt Count MPV Absolute Neuts (auto) Neutrophils % Lymphocytes % Monocytes % Eosinophils % Basophils % Nucleated RBC % Sodium Potassium Chloride Carbon Dioxide Anion Gap BUN Creatinine Est GFR (CKD-EPI)AfAm Est GFR (CKD-EPI)NonAf POC Glucometer 202 Random Glucose Calcium Phosphorus Magnesium Total Bilirubin AST ALT Alkaline Phosphatase Total Protein Albumin A/P Acute Hypoxic Respiratory Failure improving Acute NSTEMI Acute LV Systolic Heart Failure/Acute Pulmonary Edema Lactic Acidosis Acute Kidney Injury Elevated LFTs Recent Left Knee surgery - Lasix drip - monitor urine output, creatinine - ASA - beta sharlene - trend LFTs - monitor urine output, creatinine - O2 to keep Spo2 >90% - DVT prophylaxis Dr Briscoe
--- NOTE | 2018-10-29 15:02 | PN ---
Progress Note (short form) - Note Progress Note: oob in chair feels well wants to go home c/o constipation Vital Signs Period Temp Pulse Resp BP Sys/العلي Pulse Ox Last 24 Hr 97.5 F-98.3 F 47-92 20-20 97-137/46-87 96-97 cor-rrr lungs decreased bs at bases abd softnt ext +dressing left knee, no edema +paiz sebastian clearer- much improved CBC, BMP 10/29/18 05:55 10/29/18 05:55 Microbiology 10/22/18 12:30 Blood - Peripheral Venous Blood Culture - Final NO GROWTH AFTER 5 DAYS INCUBATION 10/22/18 12:15 Blood - Peripheral Venous Blood Culture - Final NO GROWTH AFTER 5 DAYS INCUBATION 10/23/18 15:00 Urine For Antigen Detection Legionella Antigen - Final 10/23/18 15:00 Urine For Antigen Detection Streptococcus pneumoniae Antigen (M - Final 10/22/18 17:30 Urine - Urine Clean Catch Urine Culture - Final NO GROWTH OBTAINED Current Medications Aspirin (Asa -) 81 mg PO DAILY [facility] Last Admin: 10/29/18 10:22 Dose: 81 mg Carvedilol (Coreg -) 3.125 mg PO BID [facility] Last Admin: 10/29/18 10:23 Dose: 3.125 mg Fenofibric Acid (Trilipix -) 135 mg PO DAILY [facility] Last Admin: 10/29/18 10:22 Dose: 135 mg Heparin Sodium (Porcine) (Heparin -) 5,000 unit SQ TID [facility] Last Admin: 10/29/18 06:03 Dose: 5,000 unit Furosemide 100 mg/ Sodium (Chloride) 50 mls @ 5 mls/hr IVPB TITR [facility]; Protocol Last Admin: 10/28/18 23:09 Dose: 10 mg/hr, 5 mls/hr Piperacillin Sod/Tazobactam (Sod 3.375 gm/ Dextrose) 50 mls @ 100 mls/hr IVPB Q8H-IV [facility]; Protocol Last Admin: 10/29/18 10:22 Dose: 100 mls/hr Insulin Aspart (Novolog Vial Sliding Scale -) 1 vial SQ ACHS [facility]; Protocol Last Admin: 10/29/18 06:03 Dose: Not Given Non-Formulary Medication (Patient's Own Med) 1 each PO DAILY [facility] Last Admin: 10/29/18 10:24 Dose: 1 each Pantoprazole Sodium (Protonix -) 40 mg PO DAILY [facility] imp/reccd chf/mi- per cardiology day #7 zosyn- will d/c today leukocytosis- improving recent makoplasty 10/15 infrarenal aortic aneurysm treat constipation please call back if needed Problem List - Problems (1) Acute respiratory failure with hypoxia Code(s): J96.01 - ACUTE RESPIRATORY FAILURE WITH HYPOXIA (2) CHF (congestive heart failure) Code(s): I50.9 - HEART FAILURE, UNSPECIFIED Qualifiers: Heart failure type: systolic Heart failure chronicity: acute on chronic Qualified Code(s): I50.23 - Acute on chronic systolic (congestive) heart failure (3) Pneumonia Code(s): J18.9 - PNEUMONIA, UNSPECIFIED ORGANISM (4) YANCI (acute kidney injury) Code(s): N17.9 - ACUTE KIDNEY FAILURE, UNSPECIFIED (5) NSTEMI (non-ST elevated myocardial infarction) Code(s): I21.4 - NON-ST ELEVATION (NSTEMI) MYOCARDIAL INFARCTION
[2018-10-29] MEDS: DOCUSATE SODIUM 100 MG CAPSULE (FP) PO SCH (17:48)
[2018-10-29] MEDS: FUROSEMIDE INJECTION 100 MG in SODIUM CHLORIDE 40 ML IVPB SCH (18:16)
[2018-10-29] MEDS ORDERED: INSULIN (NOVOLOG) ASPART 100 UNITS/ML 10ML VIAL ONE (21:29)
[2018-10-29] MEDS: POLYETHYLENE GLYCOL 3350 119 GM BTL PO SCH (22:02)
[2018-10-30] MEDS: HEPARIN NA (PORCINE) 5,000 UNITS/ML 1ML VIAL SQ SCH ×3 (06:07→22:07)
[2018-10-30] MEDS: INSULIN SLIDING SCALE (NOVOLOG) 1 VIAL SQ SCH ×4 (06:07→22:11)
[2018-10-30 06:43] LABS: BASO % 1.3 % (0-2.0); EOS % 4.4 % (0-4.5); HEMATOCRIT 31.7 % (35.4-49); HEMOGLOBIN 10.7 GM/dL (11.7-16.9); LYMPH % 14.5 % (8-40); MCH 32.1 pg (25.7-33.7); MCHC 33.6 g/dl (32.0-35.9); MEAN CELL VOLUME 95.6 fl (80-96); MEAN PLT VOLUME 8.6 fl (7.5-11.1); MONO % 8.2 % (3.8-10.2); NEUT % 71.6 % (42.8-82.8); PLATELET COUNT 287 K/MM3 (134-434); RBC 3.32 M/mm3 (4.00-5.60); RDW 15.8 % (11.9-15.9); WHITE BLOOD COUNT 10.8 K/mm3 (4.0-10.0)
[2018-10-30 07:09] LABS: ALBUMIN 2.5 g/dl (3.4-5.0); BILIRUBIN,TOTAL 1.4 mg/dL (0.2-1); BLOOD UREA NITROGEN 47.9 mg/dL (7-18); CALCIUM 8.7 mg/dL (8.5-10.1); CREATININE 1.8 mg/dL (0.55-1.3); POTASSIUM 4.3 mmol/L (3.5-5.1); TOT PROT 6.2 g/dl (6.4-8.2)
[2018-10-30] MEDS: DOCUSATE SODIUM 100 MG CAPSULE (FP) PO SCH (10:32)
[2018-10-30] MEDS: ASPIRIN 81 MG CHEWABLE TABLETS PO SCH (10:32)
[2018-10-30] MEDS: CARVEDILOL 3.125 MG TABLET (FP) PO SCH ×2 (10:33→22:06)
[2018-10-30] MEDS: POLYETHYLENE GLYCOL 3350 119 GM BTL PO SCH ×2 (10:33→22:16)
[2018-10-30] MEDS: FENOFIBRIC ACID 135 MG CAP PO SCH (11:34)
[2018-10-30] MEDS: PANTOPRAZOLE 40 MG TABLET (FP) PO SCH (11:34)
--- NOTE | 2018-10-30 11:43 | PN ---
Progress Note, GENERAL OPERATIONS MANAGER - Note Progress Note: Selected Entries 10/29/18 10/29/18 10/29/18 02:00 06:00 10:00 Breakfast Supper Temperature 98.2 F 97.5 F L 98.4 F 10/29/18 10/29/18 10/29/18 11:43 14:00 17:00 Breakfast 25% Supper 25% Temperature 98.2 F 98.0 F 10/29/18 10/30/18 10/30/18 21:00 02:00 05:55 Breakfast Supper Temperature 98.5 F 98.2 F 98.5 F 10/30/18 08:00 Breakfast 50% Supper Temperature Laboratory Tests 10/29/18 10/30/18 05:55 06:15 WBC 13.0 H 10.8 H MBS reviewed with staff. Diet upgraded to Dys whole/chopped meat, single sips this liquids. No difficulty reported or observed.
--- NOTE | 2018-10-30 12:03 | PN ---
Physical Exam: SUBJECTIVE: Patient seen and examined, breathing improved, no complaints. OBJECTIVE: Vital Signs Period Temp Pulse Resp BP Sys/العلي Pulse Ox Last 24 Hr 98.0 F-98.5 F 72-82 20-20 100-126/56-63 93 Intake & Output 10/27/18 10/28/18 10/29/18 10/30/18 23:59 23:59 23:59 23:59 Intake Total 335 660 775 410 Output Total 2400 2700 3600 1900 Balance -2064 -2039 -5 -1490 Weight 221 lb 9.6 oz 217 lb 9.6 oz 218 lb 3.2 oz General: sitting in bed in no acute distress Chest: decreased breath sounds at bases, improved air entry CVS:S1S2 regular Abdomen:soft, NT, ND Extremities: left knee bandaid, minimal swelling, no erythema telemetry: NSR, PAC, mobitz type I AVB Laboratory Results - last 24 hr 10/29/18 10/29/18 10/30/18 17:31 22:00 05:58 WBC RBC Hgb Hct MCV MCH MCHC RDW Plt Count MPV Absolute Neuts (auto) Neutrophils % Lymphocytes % Monocytes % Eosinophils % Basophils % Nucleated RBC % Sodium Potassium Chloride Carbon Dioxide Anion Gap BUN Creatinine Est GFR (CKD-EPI)AfAm Est GFR (CKD-EPI)NonAf POC Glucometer 155 176 128 Random Glucose Calcium Total Bilirubin AST ALT Alkaline Phosphatase Total Protein Albumin 10/30/18 10/30/18 06:15 06:15 WBC 10.8 H RBC 3.32 L Hgb 10.7 L Hct 31.7 L MCV 95.6 MCH 32.1 MCHC 33.6 RDW 15.8 Plt Count 287 MPV 8.6 Absolute Neuts (auto) 7.7 Neutrophils % 71.6 Lymphocytes % 14.5 Monocytes % 8.2 Eosinophils % 4.4 Basophils % 1.3 Nucleated RBC % 0 Sodium 140 Potassium 4.3 Chloride 94 L Carbon Dioxide 38 H Anion Gap 8 BUN 47.9 H Creatinine 1.8 H Est GFR (CKD-EPI)AfAm 39.18 Est GFR (CKD-EPI)NonAf 33.81 POC Glucometer Random Glucose 121 H Calcium 8.7 Total Bilirubin 1.4 H AST 32 ALT 80 H Alkaline Phosphatase 59 Total Protein 6.2 L Albumin 2.5 L Active Medications Generic Name Dose Route Start Last Admin Trade Name Freq PRN Reason Stop Dose Admin Aspirin 81 mg 10/27/18 10:00 10/30/18 10:32 Asa - PO 81 mg DAILY [facility] Administration Carvedilol 3.125 mg 10/26/18 22:00 10/30/18 10:33 Coreg - PO 3.125 mg BID [facility] Administration Docusate Sodium 100 mg 10/29/18 16:15 10/30/18 10:32 Colace - PO 100 mg DAILY [facility] Administration Fenofibric Acid 135 mg 10/27/18 10:00 10/30/18 11:34 Trilipix - PO 135 mg DAILY [facility] Administration Heparin Sodium (Porcine) 5,000 unit 10/26/18 14:00 10/30/18 06:07 Heparin - SQ 5,000 unit TID [facility] Administration Furosemide 100 mg/ Sodium 50 mls @ 5 mls/hr 10/26/18 18:52 10/29/18 18:16 Chloride IVPB 10 mg/hr TITR [facility] 5 mls/hr Administration Protocol 10 MG/HR Insulin Aspart 1 vial 10/26/18 22:00 10/30/18 06:07 Novolog Vial Sliding Scale - SQ Not Given ACHS [facility] Protocol Non-Formulary Medication 1 each 10/27/18 10:00 10/29/18 10:24 Patient's Own Med PO 1 each DAILY [facility] Administration Pantoprazole Sodium 40 mg 10/30/18 10:00 10/30/18 11:34 Protonix - PO 40 mg DAILY [facility] Administration Polyethylene Glycol 17 gm 10/29/18 22:00 10/30/18 10:33 Miralax (For Daily Use) - PO 17 gm BID SAE Administration CT A/P results reviewed ASSESSMENT/PLAN: 83 yom with PMHx of HTN, HLd, T2DM, CKD, stable AAA who presents today after L total knee arthroscopy makoplasty on 10/15/18, admitted with cough and dyspnea. -Acute Hypoxic Respiratory Failure -Acute NSTEMI -Acute LV Systolic Heart Failure/Acute Pulmonary Edema -R/o Pulmonary embolism (Low suspicion given current findings, grossly abnormal xray and clinical exam supporting CHF/TX and neg Duplex) -R/o PNA -Contraction alkalosis -Lactic Acidosis -Acute Kidney Injury -Elevated LFTs -Recent Left Knee surgery -5.5 cm AAA Plan: ASA/coreg, s/p heparin drip 72 hours. LFTs improved, start statin. Diuresing well, hco3 rising. Discuss with cardiology to transition lasix drip to IV daily. Titrate for FiO2 >95%, NIPPV prn. CT chest noted s/p 7days of zosyn. ID input noted. Abx d/bessie. Strict I/Os, monitor renal function. ISS, po as tolerated, speech/swallow and MBS noted. GIPPX heparin DVTPPx, compression stockings LLE. Ongoing PT, OOB. Dispo SNF vs transfer for possible cardiac cath pending cardiology recommendations. Discussed with patient and nursing. Visit type - Emergency Visit Emergency Visit: Yes ED Registration Date: 10/22/18 Care time: The patient presented to the Emergency Department on the above date and was hospitalized for further evaluation of their emergent condition. - New Patient This patient is new to me today: No - Critical Care Critical Care patient: No - Discharge Referral Referred to [facility] No
--- NOTE | 2018-10-30 13:02 | PN ---
Progress Note (short form) - Note Progress Note: Chief Complaint: chf History of Present Illness: walked today with PT, a little sob, not sob at rest. no chest pain, palps, dizziness, dyspnea. no cigs Current Medications Aspirin (Asa -) 81 mg PO DAILY [facility] Last Admin: 10/30/18 10:32 Dose: 81 mg Atorvastatin Calcium (Lipitor -) 40 mg PO HS [facility] Carvedilol (Coreg -) 3.125 mg PO BID [facility] Last Admin: 10/30/18 10:33 Dose: 3.125 mg Docusate Sodium (Colace -) 100 mg PO DAILY [facility] Last Admin: 10/30/18 10:32 Dose: 100 mg Fenofibric Acid (Trilipix -) 135 mg PO DAILY [facility] Last Admin: 10/30/18 11:34 Dose: 135 mg Heparin Sodium (Porcine) (Heparin -) 5,000 unit SQ TID [facility] Last Admin: 10/30/18 06:07 Dose: 5,000 unit Furosemide 100 mg/ Sodium (Chloride) 50 mls @ 5 mls/hr IVPB TITR [facility]; Protocol Last Admin: 10/29/18 18:16 Dose: 10 mg/hr, 5 mls/hr Insulin Aspart (Novolog Vial Sliding Scale -) 1 vial SQ ACHS [facility]; Protocol Last Admin: 10/30/18 12:40 Dose: 2 units Non-Formulary Medication (Patient's Own Med) 1 each PO DAILY [facility] Last Admin: 10/30/18 12:41 Dose: 1 each Pantoprazole Sodium (Protonix -) 40 mg PO DAILY [facility] Last Admin: 10/30/18 11:34 Dose: 40 mg Polyethylene Glycol (Miralax (For Daily Use) -) 17 gm PO BID [facility] Last Admin: 10/30/18 10:33 Dose: 17 gm Vital Signs Period Temp Pulse Resp BP Sys/العلي Pulse Ox Last 24 Hr 98.0 F-98.9 F 72-84 20-20 100-126/56-74 93-94 Constitutional: Yes: No Distress, Calm Eyes: No: Sclera Icterus HENT: No: Nasal Congestion Cardiovascular: Yes: Regular Rate and Rhythm, S1, S2, Other (PMI non diplaced). No: Gallop, Murmur Respiratory: Yes: CTA Bilaterally. No: Accessory Muscle Use, Rales, Wheezes Gastrointestinal: Yes: Normal Bowel Sounds, Soft. No: Tenderness Musculoskeletal: Yes: Other (No kyphosis) Extremities: No: Cold, Cyanosis Edema: No Integumentary: No: Jaundice Neurological: Yes: Alert. No: Seizure Psychiatric: No: Agitated Assessment/Plan Echo 11/12: EF 30%, nl RV function, mod MR with eccentric jet, mild TR, RVSP 44 mmHg, lg L pleural effusion CT chest 10/25: bilat mod effusions with adjacent compressive atx; bilat upper lobe opacities congestion vs infiltrate; flank subcutaneous edema; infrarenal AAA at least 5.4 cm (partially imaged); extensive coronary calcifications tele: NSR, mobitz 1 second degree AV block, no long pause IMP: 1. Hypoxic respiratory failure: now seems more c/w subacute [place] (late presentation), w/ resultant LV dysfx and CHF, +/- superimposed PNA 2. Pulmonary embolism, less likely, cannot be ruled out (unable to obtain CTA due volume overload and worsening O2 sat with minimal prehydration/ CKD), V/Q not likely to be definitively helpful given extensive parenchymal findings on CT scan 3. Recent L. knee Makoplasty 4. Leukocytosis, ? component of PNA 5. CKD, ? office baseline creat 6. CAD: extensive cor calcifications on CT chest 7. AAA: at least 5.4 cm (infrarenal) on suboptimal CT scan 6. DM 7. Anemia, guaiac negative--H/H stable 8. Mobitz 1 second degree AVB, stable REC: - Troponin 7.6->6.5->7.5, flat trend in setting of YANCI on CKD. Clinical picture more consistent with NSTEMI type I vs II with acute systolic HF. ischemic workup when euvolemic. - ASA daily, deferring statin for elevated LFTs, start when able - Echo shows EF 30% - no prior history of HF - signif volume overload evident on 10/25 CT chest: receiving lasix gtt. paiz in : net negative 2-3L each day for the past 3 days, renal fxn stable vs admission and last available baseline data here 10/12, BUN coming down, bicarb stable - CXR yesterday shows improved congestion with some fluid at L base--continue same lasix for now - non-contrast CT abdomen dedicated for sizing of AAA--consider inpatient vascular surgery eval. cont BB for aneurysm prevention - abx as per primary team/ID. - cont carvedilol, monitor tele for long pauses sec to mobitz 1 physiology
--- NOTE | 2018-10-30 13:03 | PN ---
Progress Note (short form) - Note Progress Note: Breathing is slowly getting better. PARMAR with PT today. Denies chest pain, cough or wheezing. No acute events overnight. Intake & Output 10/27/18 10/28/18 10/29/18 10/30/18 23:59 23:59 23:59 23:59 Intake Total 335 660 775 410 Output Total 2400 2700 3600 1900 Balance -6065 -2040 -2825 -8730 Weight 221 lb 9.6 oz 217 lb 9.6 oz 218 lb 3.2 oz Last Vital Signs Temp Pulse Resp BP Pulse Ox 98.9 F 84 20 122/74 94 L 10/30/18 10:00 10/30/18 10:00 10/30/18 10:00 10/30/18 10:00 10/30/18 10:00 Active Medications Aspirin (Asa -) 81 mg PO DAILY [facility] Last Admin: 10/30/18 10:32 Dose: 81 mg Atorvastatin Calcium (Lipitor -) 40 mg PO HS [facility] Carvedilol (Coreg -) 3.125 mg PO BID [facility] Last Admin: 10/30/18 10:33 Dose: 3.125 mg Docusate Sodium (Colace -) 100 mg PO DAILY [facility] Last Admin: 10/30/18 10:32 Dose: 100 mg Fenofibric Acid (Trilipix -) 135 mg PO DAILY [facility] Last Admin: 10/30/18 11:34 Dose: 135 mg Heparin Sodium (Porcine) (Heparin -) 5,000 unit SQ TID [facility] Last Admin: 10/30/18 06:07 Dose: 5,000 unit Furosemide 100 mg/ Sodium (Chloride) 50 mls @ 5 mls/hr IVPB TITR [facility]; Protocol Last Admin: 10/29/18 18:16 Dose: 10 mg/hr, 5 mls/hr Insulin Aspart (Novolog Vial Sliding Scale -) 1 vial SQ ACHS [facility]; Protocol Last Admin: 10/30/18 12:40 Dose: 2 units Non-Formulary Medication (Patient's Own Med) 1 each PO DAILY [facility] Last Admin: 10/30/18 12:41 Dose: 1 each Pantoprazole Sodium (Protonix -) 40 mg PO DAILY [facility] Last Admin: 10/30/18 11:34 Dose: 40 mg Polyethylene Glycol (Miralax (For Daily Use) -) 17 gm PO BID [facility] Last Admin: 10/30/18 10:33 Dose: 17 gm Gen: NAD at rest Heart: RRR Lung: decreased breath sounds at the bases Abd: soft, nontender Ext: no edema Laboratory Results - last 24 hr 10/29/18 10/29/18 10/30/18 17:31 22:00 05:58 WBC RBC Hgb Hct MCV MCH MCHC RDW Plt Count MPV Absolute Neuts (auto) Neutrophils % Lymphocytes % Monocytes % Eosinophils % Basophils % Nucleated RBC % Sodium Potassium Chloride Carbon Dioxide Anion Gap BUN Creatinine Est GFR (CKD-EPI)AfAm Est GFR (CKD-EPI)NonAf POC Glucometer 155 176 128 Random Glucose Calcium Total Bilirubin AST ALT Alkaline Phosphatase Total Protein Albumin 10/30/18 10/30/18 06:15 06:15 WBC 10.8 H RBC 3.32 L Hgb 10.7 L Hct 31.7 L MCV 95.6 MCH 32.1 MCHC 33.6 RDW 15.8 Plt Count 287 MPV 8.6 Absolute Neuts (auto) 7.7 Neutrophils % 71.6 Lymphocytes % 14.5 Monocytes % 8.2 Eosinophils % 4.4 Basophils % 1.3 Nucleated RBC % 0 Sodium 140 Potassium 4.3 Chloride 94 L Carbon Dioxide 38 H Anion Gap 8 BUN 47.9 H Creatinine 1.8 H Est GFR (CKD-EPI)AfAm 39.18 Est GFR (CKD-EPI)NonAf 33.81 POC Glucometer Random Glucose 121 H Calcium 8.7 Total Bilirubin 1.4 H AST 32 ALT 80 H Alkaline Phosphatase 59 Total Protein 6.2 L Albumin 2.5 L A/P Acute Hypoxic Respiratory Failure improving Acute NSTEMI Acute LV Systolic Heart Failure/Acute Pulmonary Edema Lactic Acidosis Acute Kidney Injury Elevated LFTs Recent Left Knee surgery - Lasix drip - monitor urine output, creatinine - ASA - beta sharlene - trend LFTs - monitor urine output, creatinine - O2 to keep Spo2 >90% - DVT prophylaxis Dr Briscoe
[2018-10-30] MEDS ORDERED: INSULIN (NOVOLOG) ASPART 100 UNITS/ML 10ML VIAL ONE (21:18)
[2018-10-30] MEDS: FUROSEMIDE INJECTION 100 MG in SODIUM CHLORIDE 40 ML IVPB SCH (22:06)
[2018-10-30] MEDS: ATORVASTATIN CA 40 MG TABLET (FP) PO SCH (22:07)
[2018-10-31] MEDS: INSULIN SLIDING SCALE (NOVOLOG) 1 VIAL SQ SCH ×4 (06:20→21:27)
[2018-10-31] MEDS: HEPARIN NA (PORCINE) 5,000 UNITS/ML 1ML VIAL SQ SCH ×3 (06:21→21:21)
--- NOTE | 2018-10-31 07:55 | PN ---
Physical Exam: SUBJECTIVE: Patient seen and examined no new complain, denies any cp, sob ,ahd BM this AM out put 3 letters yesterday and 2 Letters today. OBJECTIVE: Vital Signs Period Temp Pulse Resp BP Sys/العلي Pulse Ox Last 24 Hr 97.8 F-98.9 F 68-84 20-20 106-124/43-74 94-96 GENERAL: AAOx3 in NAD , on NC , on 4 L NC HEAD: NC/AT, + JVD EYES: Conjunctiva clear, sclera anicteric NECK: Supple, + JVD LUNGS: decrease breath sound at the bases , HEART: RRR, normal s1, s2,no M/R/G ABDOMEN:Obese , Soft, ND, NT, +BS 4 Q, no CVA Tenderness LOWER EXTREMITIES:no edema , +2DP pulse,left knee covered s.p makoplasty NEUROLOGICAL: No focal deficit. Normal speech. gait not observed Laboratory Results - last 24 hr 10/30/18 10/30/18 10/30/18 12:38 18:05 22:10 POC Glucometer 190 149 185 10/31/18 05:10 POC Glucometer 132 Active Medications Generic Name Dose Route Start Last Admin Trade Name Freq PRN Reason Stop Dose Admin Aspirin 81 mg 10/27/18 10:00 10/30/18 10:32 Asa - PO 81 mg DAILY [facility] Administration Atorvastatin Calcium 40 mg 10/30/18 22:00 10/30/18 22:07 Lipitor - PO 40 mg HS [facility] Administration Carvedilol 3.125 mg 10/26/18 22:00 10/30/18 22:06 Coreg - PO 3.125 mg BID [facility] Administration Docusate Sodium 100 mg 10/29/18 16:15 10/30/18 10:32 Colace - PO 100 mg DAILY [facility] Administration Fenofibric Acid 135 mg 10/27/18 10:00 10/30/18 11:34 Trilipix - PO 135 mg DAILY [facility] Administration Heparin Sodium (Porcine) 5,000 unit 10/26/18 14:00 10/31/18 06:21 Heparin - SQ 5,000 unit TID [facility] Administration Furosemide 100 mg/ Sodium 50 mls @ 5 mls/hr 10/26/18 18:52 10/30/18 22:06 Chloride IVPB 10 mg/hr TITR [facility] 5 mls/hr Administration Protocol 10 MG/HR Insulin Aspart 1 vial 10/26/18 22:00 10/31/18 06:20 Novolog Vial Sliding Scale - SQ Not Given ACHS [facility] Protocol Non-Formulary Medication 1 each 10/27/18 10:00 10/30/18 12:41 Patient's Own Med PO 1 each DAILY [facility] Administration Pantoprazole Sodium 40 mg 10/30/18 10:00 10/30/18 11:34 Protonix - PO 40 mg DAILY [facility] Administration Polyethylene Glycol 17 gm 10/29/18 22:00 10/30/18 22:16 Miralax (For Daily Use) - PO 17 gm BID [facility] Administration CBC, BMP 10/31/18 05:24 10/31/18 05:24 ASSESSMENT/PLAN: Mr. Tang is an 83yo M with h/o HTN, HLd, T2DM, CKD, stable AAA admitted to the ICU s/p L knee arthroscopy and makoplasty for work up of NSTEMI vs. PE vs. respiratory distress 2/2 RLL PNA. Clinical picture is more in line with NSTEMI given most recent EKGs showing evidence of septal infrarct and echo showing new reduced EF heart failure (EF 30%) rather than PE. # Acute hypoxic hypercapnic respiratory failure due to Possible HCPNA(RLL) on supperimposed CHF can not R.o PE # NSTEMI # R.o PE # recent Makoplast 10/15 # elevated trop , peaked # YANCI on CKD # Hyperkalemia resolved # transaminitis likely due to CHF, will obtain US abdomen Plan: * maintain O2 sat > 90 % , wean off NIPAP as tolerated , * completed 7days of ABx per ID Zosyn, Dc abx today * Duoneb , ASA , * switch Lasix drip to 80 IV BID * Off Hep Gtt for NSTEMI , unlikely PE * PPI * ISS * F.U cx negative * daily weight , I&O * Repeat Echo EF 30% * US abdomen for transaminitis : limited study with pleural effusion , 4 cm AAA , cholelithiaisis. * CT Chest with mod pleural effusion and B/L upper lab consolidation possible PNA , bibasilar atelectasis * transfer to [facility] per ICU * cxr today improve congestion and B/L pleural effusion improving * F.U Abdomen Plevic Ct scan and modified barium swallow :non-contrast CT abdomen dedicated for sizing of AAA--? inpatient vascular surgery eval. cont BB for aneurysm prevention * dispo once medically optomized transferred for cardiac cath * dysphasia whole diet with ground meat. Visit type - Emergency Visit Emergency Visit: Yes ED Registration Date: 10/22/18 Care time: The patient presented to the Emergency Department on the above date and was hospitalized for further evaluation of their emergent condition. - New Patient This patient is new to me today: No - Critical Care Critical Care patient: No ATTENDING PHYSICIAN STATEMENT I saw and evaluated the patient. I reviewed the resident's note and discussed the case with the resident. I agree with the resident's findings and plan as documented. SUBJECTIVE: OBJECTIVE: ASSESSMENT AND PLAN:
[2018-10-31 08:18] LABS: BASO % 0.4 % (0-2.0); EOS % 3.3 % (0-4.5); HEMATOCRIT 31.9 % (35.4-49); HEMOGLOBIN 10.7 GM/dL (11.7-16.9); LYMPH % 16.6 % (8-40); MCHC 33.5 g/dl (32.0-35.9); MEAN CELL VOLUME 95.5 fl (80-96); MEAN PLT VOLUME 9.1 fl (7.5-11.1); MONO % 10.1 % (3.8-10.2); NEUT % 69.6 % (42.8-82.8); PLATELET COUNT 301 K/MM3 (134-434); RBC 3.34 M/mm3 (4.00-5.60); RDW 16.4 % (11.9-15.9); WHITE BLOOD COUNT 9.5 K/mm3 (4.0-10.0)
[2018-10-31 09:05] LABS: ALBUMIN 2.6 g/dl (3.4-5.0); CALCIUM 8.7 mg/dL (8.5-10.1); CREATININE 1.7 mg/dL (0.55-1.3); MAGNESIUM 2.7 mg/dL (1.8-2.4); PHOSPHOROUS 3.4 mg/dL (2.5-4.9); POTASSIUM 4.2 mmol/L (3.5-5.1); TOT PROT 6.2 g/dl (6.4-8.2)
[2018-10-31] MEDS: FENOFIBRIC ACID 135 MG CAP PO SCH (10:00)
[2018-10-31] MEDS: CARVEDILOL 3.125 MG TABLET (FP) PO SCH ×2 (10:00→21:20)
[2018-10-31] MEDS: POLYETHYLENE GLYCOL 3350 119 GM BTL PO SCH ×2 (10:00→21:26)
[2018-10-31] MEDS: ASPIRIN 81 MG CHEWABLE TABLETS PO SCH (10:00)
[2018-10-31] MEDS: PANTOPRAZOLE 40 MG TABLET (FP) PO SCH (10:00)
[2018-10-31] MEDS: DOCUSATE SODIUM 100 MG CAPSULE (FP) PO SCH (10:00)
--- NOTE | 2018-10-31 11:06 | PN ---
Progress Note (short form) - Note Progress Note: no chest pain, palps, dizziness, dyspnea. no cigs Current Medications Aspirin (Asa -) 81 mg PO DAILY [facility] Last Admin: 10/31/18 10:00 Dose: 81 mg Atorvastatin Calcium (Lipitor -) 40 mg PO HS [facility] Last Admin: 10/30/18 22:07 Dose: 40 mg Carvedilol (Coreg -) 3.125 mg PO BID [facility] Last Admin: 10/31/18 10:00 Dose: 3.125 mg Docusate Sodium (Colace -) 100 mg PO DAILY [facility] Last Admin: 10/31/18 10:00 Dose: 100 mg Fenofibric Acid (Trilipix -) 135 mg PO DAILY [facility] Last Admin: 10/31/18 10:00 Dose: 135 mg Heparin Sodium (Porcine) (Heparin -) 5,000 unit SQ TID [facility] Last Admin: 10/31/18 06:21 Dose: 5,000 unit Furosemide 100 mg/ Sodium (Chloride) 50 mls @ 5 mls/hr IVPB TITR [facility]; Protocol Last Admin: 10/30/18 22:06 Dose: 10 mg/hr, 5 mls/hr Insulin Aspart (Novolog Vial Sliding Scale -) 1 vial SQ ACHS [facility]; Protocol Last Admin: 10/31/18 06:20 Dose: Not Given Non-Formulary Medication (Patient's Own Med) 1 each PO DAILY [facility] Last Admin: 10/31/18 10:00 Dose: Not Given Pantoprazole Sodium (Protonix -) 40 mg PO DAILY [facility] Last Admin: 10/31/18 10:00 Dose: 40 mg Polyethylene Glycol (Miralax (For Daily Use) -) 17 gm PO BID [facility] Last Admin: 10/31/18 10:00 Dose: Not Given Vital Signs Period Temp Pulse Resp BP Sys/العلي Pulse Ox Last 24 Hr 97.8 F-98.6 F 68-103 18-20 77-124/43-65 94-97 Constitutional: Yes: No Distress, Calm Eyes: No: Sclera Icterus HENT: No: Nasal Congestion Cardiovascular: Yes: Regular Rate and Rhythm, S1, S2, Other (PMI non diplaced). No: Gallop, Murmur Respiratory: Yes: CTA Bilaterally. No: Accessory Muscle Use, Rales, Wheezes Gastrointestinal: Yes: Normal Bowel Sounds, Soft. No: Tenderness Musculoskeletal: Yes: Other (No kyphosis) Extremities: No: Cold, Cyanosis Edema: No Integumentary: No: Jaundice Neurological: Yes: Alert. No: Seizure Psychiatric: No: Agitated Assessment/Plan Echo 11/12: EF 30%, nl RV function, mod MR with eccentric jet, mild TR, RVSP 44 mmHg, lg L pleural effusion CT chest 10/25: bilat mod effusions with adjacent compressive atx; bilat upper lobe opacities congestion vs infiltrate; flank subcutaneous edema; infrarenal AAA at least 5.4 cm (partially imaged); extensive coronary calcifications tele: NSR, mobitz 1 second degree AV block, no long pause IMP: 1. Hypoxic respiratory failure: now seems more c/w subacute [place] (late presentation), w/ resultant LV dysfx and CHF, +/- superimposed PNA 2. Pulmonary embolism, less likely, cannot be ruled out (unable to obtain CTA due volume overload and worsening O2 sat with minimal prehydration/ CKD), V/Q not likely to be definitively helpful given extensive parenchymal findings on CT scan 3. Recent L. knee Makoplasty 4. Leukocytosis, ? component of PNA 5. CKD, ? office baseline creat 6. CAD: extensive cor calcifications on CT chest 7. AAA: at least 5.4 cm (infrarenal) on suboptimal CT scan 6. DM 7. Anemia, guaiac negative--H/H stable 8. Mobitz 1 second degree AVB, stable REC: - Troponin 7.6->6.5->7.5, flat trend in setting of YANCI on CKD. Clinical picture more consistent with NSTEMI type I vs II with acute systolic HF. ischemic workup when euvolemic. - ASA daily, deferring statin for elevated LFTs, start when able - Echo shows EF 30% - no prior history of HF - signif volume overload evident on 10/25 CT chest: receiving lasix gtt. paiz in : had been net negative 2-3L/day while on lasix gtt, with renal function stable BUN coming down, bicarb stable - hypotensive this morning, remains on supplemental O2 - dc lasix gtt and start lasix 80 mg IV BID, likely near euvolemic. chest xray in AM, wean O2 as tolerated - non-contrast CT abdomen dedicated for sizing of AAA--consider inpatient vascular surgery eval. cont BB for aneurysm prevention - abx as per primary team/ID. - cont carvedilol, monitor tele for long pauses sec to mobitz 1 physiology
--- NOTE | 2018-10-31 11:26 | PN ---
Progress Note (short form) - Note Progress Note: Breathing continues to slowly improve. Denies chest pain, cough or wheezing. No acute events overnight. Intake & Output 10/28/18 10/29/18 10/30/18 10/31/18 23:59 23:59 23:59 23:59 Intake Total 660 775 790 Output Total 2700 3600 4000 2100 Balance -2040 -2825 -3210 -2100 Weight 217 lb 9.6 oz 218 lb 3.2 oz 214 lb 3.2 oz Last Vital Signs Temp Pulse Resp BP Pulse Ox 98.0 F 103 H 18 77/49 L 95 10/31/18 09:00 10/31/18 09:00 10/31/18 09:00 10/31/18 09:00 10/31/18 09:00 Active Medications Aspirin (Asa -) 81 mg PO DAILY [facility] Last Admin: 10/31/18 10:00 Dose: 81 mg Atorvastatin Calcium (Lipitor -) 40 mg PO HS [facility] Last Admin: 10/30/18 22:07 Dose: 40 mg Carvedilol (Coreg -) 3.125 mg PO BID [facility] Last Admin: 10/31/18 10:00 Dose: 3.125 mg Docusate Sodium (Colace -) 100 mg PO DAILY [facility] Last Admin: 10/31/18 10:00 Dose: 100 mg Fenofibric Acid (Trilipix -) 135 mg PO DAILY [facility] Last Admin: 10/31/18 10:00 Dose: 135 mg Furosemide (Lasix Injection -) 80 mg IVPB BID@0600,1400 [facility] Heparin Sodium (Porcine) (Heparin -) 5,000 unit SQ TID [facility] Last Admin: 10/31/18 06:21 Dose: 5,000 unit Insulin Aspart (Novolog Vial Sliding Scale -) 1 vial SQ [facility]; Protocol Last Admin: 10/31/18 06:20 Dose: Not Given Non-Formulary Medication (Patient's Own Med) 1 each PO DAILY [facility] Last Admin: 10/31/18 10:00 Dose: Not Given Pantoprazole Sodium (Protonix -) 40 mg PO DAILY [facility] Last Admin: 10/31/18 10:00 Dose: 40 mg Polyethylene Glycol (Miralax (For Daily Use) -) 17 gm PO BID [facility] Last Admin: 10/31/18 10:00 Dose: Not Given Gen: NAD at rest Heart: RRR Lung: few scattered rhonchi, decreased breath sounds at the bases Abd: soft, nontender Ext: no edema Laboratory Results - last 24 hr 10/30/18 10/30/18 10/30/18 12:38 18:05 22:10 WBC RBC Hgb Hct MCV MCH MCHC RDW Plt Count MPV Absolute Neuts (auto) Neutrophils % Lymphocytes % Monocytes % Eosinophils % Basophils % Nucleated RBC % Sodium Potassium Chloride Carbon Dioxide Anion Gap BUN Creatinine Est GFR (CKD-EPI)AfAm Est GFR (CKD-EPI)NonAf POC Glucometer 190 149 185 Random Glucose Calcium Phosphorus Magnesium Total Bilirubin AST ALT Alkaline Phosphatase Total Protein Albumin 10/31/18 10/31/18 10/31/18 05:10 05:24 05:24 WBC 9.5 RBC 3.34 L Hgb 10.7 L Hct 31.9 L MCV 95.5 MCH 32.0 MCHC 33.5 RDW 16.4 H Plt Count 301 MPV 9.1 Absolute Neuts (auto) 6.6 Neutrophils % 69.6 Lymphocytes % 16.6 Monocytes % 10.1 Eosinophils % 3.3 Basophils % 0.4 Nucleated RBC % 0 Sodium 139 Potassium 4.2 Chloride 94 L Carbon Dioxide 37 H Anion Gap 8 BUN 48.0 H Creatinine 1.7 H Est GFR (CKD-EPI)AfAm 41.99 Est GFR (CKD-EPI)NonAf 36.23 POC Glucometer 132 Random Glucose 115 H Calcium 8.7 Phosphorus 3.4 Magnesium 2.7 H Total Bilirubin 1.0 AST 29 ALT 63 H Alkaline Phosphatase 58 Total Protein 6.2 L Albumin 2.6 L A/P Acute Hypoxic Respiratory Failure improving Acute NSTEMI Acute LV Systolic Heart Failure/Acute Pulmonary Edema Lactic Acidosis Acute Kidney Injury Elevated LFTs Recent Left Knee surgery - Lasix IVP - monitor urine output, creatinine - ASA - beta sharlene - monitor urine output, creatinine - O2 to keep Spo2 >90% - DVT prophylaxis Dr Briscoe
[2018-10-31] MEDS: FUROSEMIDE 100 MG/10 ML INJECTABLE VIAL IVPB SCH (14:49)
--- NOTE | 2018-10-31 16:37 | PN ---
Progress Note, [employer]ILING [employer]ER - Note Progress Note: Selected Entries 10/31/18 10/31/18 10/31/18 01:00 05:00 09:00 Breakfast Lunch Temperature 98.6 F 97.8 F 98.0 F 10/31/18 10/31/18 10/31/18 09:52 12:37 14:05 Breakfast 75% Lunch 75% Temperature 98.2 F Laboratory Tests 10/30/18 10/31/18 06:15 05:24 WBC 10.8 H 9.5 cxr-slightened worsened congestion Nursing reports pt tolerating diet well. He tolerated water with his pills without difficulty. Monitor tolerance.
--- NOTE | 2018-10-31 16:51 | PN ---
Teaching Attending Note Name of Resident: Blake Valiente ATTENDING PHYSICIAN STATEMENT I saw and evaluated the patient. I reviewed the resident's note and discussed the case with the resident. I agree with the resident's findings and plan as documented. SUBJECTIVE: Mr Tang says he is doing well. Denies cp, sob, n/v. OBJECTIVE: Last Vital Signs Temp Pulse Resp BP Pulse Ox 36.8 C 72 18 126/55 L 95 10/31/18 14:05 10/31/18 14:05 10/31/18 14:05 10/31/18 14:05 10/31/18 09:00 Gen: nad Pulm: ctab w/o w/r/r CV: rrr w/o m/r/g Abd: +bs, s/nt/nd Ext: trace edema CBC, BMP 10/31/18 05:24 10/31/18 05:24 ASSESSMENT AND PLAN: (1) Acute respiratory failure with hypoxia Assessment/Plan: -acute aspect resolved -suspect will need oxygen fro chronic respiratory failure on discharge -continue oxygen support Code(s): J96.01 - ACUTE RESPIRATORY FAILURE WITH HYPOXIA (2) NSTEMI (non-ST elevated myocardial infarction) Assessment/Plan: -cardiology following and appreciate assistance -continue coreg, aspirin, and lipitor -will d/w cardiology if needs transfer for cardiac catheterization Code(s): I21.4 - NON-ST ELEVATION (NSTEMI) MYOCARDIAL INFARCTION (3) CHF (congestive heart failure) Assessment/Plan: -changed from lasix gtt to Iv lasix -continue lasix 80mg IV bid -will d/w cardiology when safe to transition to oral lasix Code(s): I50.9 - HEART FAILURE, UNSPECIFIED Qualifiers: Heart failure type: systolic Heart failure chronicity: acute on chronic Qualified Code(s): I50.23 - Acute on chronic systolic (congestive) heart failure (4) Pneumonia Assessment/Plan: -s/p treatment Code(s): J18.9 - PNEUMONIA, UNSPECIFIED ORGANISM (5) YANCI (acute kidney injury) Assessment/Plan: -at baseline Code(s): N17.9 - ACUTE KIDNEY FAILURE, UNSPECIFIED (6) HLD (hyperlipidemia) Assessment/Plan: -continue fenofibrate Code(s): E78.5 - HYPERLIPIDEMIA, UNSPECIFIED (7) HTN (hypertension) Assessment/Plan: -currently controlled Code(s): I10 - ESSENTIAL (PRIMARY) HYPERTENSION Problem List - Problems (1) Acute respiratory failure with hypoxia Code(s): J96.01 - ACUTE RESPIRATORY FAILURE WITH HYPOXIA (2) NSTEMI (non-ST elevated myocardial infarction) Code(s): I21.4 - NON-ST ELEVATION (NSTEMI) MYOCARDIAL INFARCTION (3) CHF (congestive heart failure) Code(s): I50.9 - HEART FAILURE, UNSPECIFIED Qualifiers: Heart failure type: systolic Heart failure chronicity: acute on chronic Qualified Code(s): I50.23 - Acute on chronic systolic (congestive) heart failure (4) Pneumonia Code(s): J18.9 - PNEUMONIA, UNSPECIFIED ORGANISM (5) YANCI (acute kidney injury) Code(s): N17.9 - ACUTE KIDNEY FAILURE, UNSPECIFIED (6) HLD (hyperlipidemia) Code(s): E78.5 - HYPERLIPIDEMIA, UNSPECIFIED (7) HTN (hypertension) Code(s): I10 - ESSENTIAL (PRIMARY) HYPERTENSION
[2018-10-31] MEDS: ATORVASTATIN CA 40 MG TABLET (FP) PO SCH (21:21)
[2018-11-01] MEDS: HEPARIN NA (PORCINE) 5,000 UNITS/ML 1ML VIAL SQ SCH ×3 (06:12→21:22)
[2018-11-01] MEDS: FUROSEMIDE 100 MG/10 ML INJECTABLE VIAL IVPB SCH ×2 (06:13→17:17)
[2018-11-01] MEDS: INSULIN SLIDING SCALE (NOVOLOG) 1 VIAL SQ SCH ×2 (06:13→11:17)
[2018-11-01 08:15] LABS: BASO % 0.5 % (0-2.0); HEMATOCRIT 30.7 % (35.4-49); HEMOGLOBIN 10.2 GM/dL (11.7-16.9); LYMPH % 18.1 % (8-40); MCH 31.9 pg (25.7-33.7); MCHC 33.4 g/dl (32.0-35.9); MEAN CELL VOLUME 95.6 fl (80-96); NEUT % 68.4 % (42.8-82.8); PLATELET COUNT 298 K/MM3 (134-434); RBC 3.21 M/mm3 (4.00-5.60); RDW 16.3 % (11.9-15.9)
[2018-11-01 08:22] LABS: ALBUMIN 2.6 g/dl (3.4-5.0); BILIRUBIN,TOTAL 0.6 mg/dL (0.2-1); BLOOD UREA NITROGEN 53.9 mg/dL (7-18); CALCIUM 8.9 mg/dL (8.5-10.1); CREATININE 1.8 mg/dL (0.55-1.3); MAGNESIUM 2.9 mg/dL (1.8-2.4); PHOSPHOROUS 3.9 mg/dL (2.5-4.9); TOT PROT 6.2 g/dl (6.4-8.2)
--- NOTE | 2018-11-01 10:42 | PN ---
Progress Note (short form) - Note Progress Note: s:no chest pain, palps, dizziness, dyspnea. no cigs Current Medications Generic Name Dose Route Start Last Admin Trade Name Ru PRN Reason Stop Dose Admin Aspirin 81 mg 10/27/18 10:00 10/31/18 10:00 Asa - PO 81 mg DAILY SAE Administration Atorvastatin Calcium 40 mg 10/30/18 22:00 10/31/18 21:21 Lipitor - PO 40 mg HS SAE Administration Carvedilol 3.125 mg 10/26/18 22:00 10/31/18 21:20 Coreg - PO 3.125 mg BID SAE Administration Docusate Sodium 100 mg 10/29/18 16:15 10/31/18 10:00 Colace - PO 100 mg DAILY SAE Administration Fenofibric Acid 135 mg 10/27/18 10:00 10/31/18 10:00 Trilipix - PO 135 mg DAILY SAE Administration Furosemide 80 mg 10/31/18 14:00 11/01/18 06:13 Lasix Injection - IVPB 80 mg BID@0600,1400 SAE Administration Heparin Sodium (Porcine) 5,000 unit 10/26/18 14:00 11/01/18 06:12 Heparin - SQ 5,000 unit TID SAE Administration Insulin Aspart 1 vial 10/26/18 22:00 11/01/18 06:13 Novolog Vial Sliding Scale - SQ Not Given ACHS [facility] Protocol Non-Formulary Medication 1 each 10/27/18 10:00 10/31/18 10:00 Patient's Own Med PO Not Given DAILY SAE Pantoprazole Sodium 40 mg 10/30/18 10:00 10/31/18 10:00 Protonix - PO 40 mg DAILY SAE Administration Polyethylene Glycol 17 gm 10/29/18 22:00 10/31/18 21:26 Miralax (For Daily Use) - PO 17 gm BID SAE Administration Vital Signs Period Temp Pulse Resp BP Sys/العلي Pulse Ox Last 24 Hr 97.8 F-98.7 F 61-87 18-20 108-126/47-58 96-96 Constitutional: Yes: No Distress, Calm Eyes: No: Sclera Icterus HENT: No: Nasal Congestion Cardiovascular: Yes: Regular Rate and Rhythm, S1, S2, Other (PMI non diplaced). No: Gallop, Murmur Respiratory: Yes: CTA Bilaterally. No: Accessory Muscle Use, Rales, Wheezes Gastrointestinal: Yes: Normal Bowel Sounds, Soft. No: Tenderness Musculoskeletal: Yes: Other (No kyphosis) Extremities: No: Cold, Cyanosis Edema: No Integumentary: No: Jaundice Neurological: Yes: Alert. No: Seizure Psychiatric: No: Agitated Assessment/Plan Echo 11/12: EF 30%, nl RV function, mod MR with eccentric jet, mild TR, RVSP 44 mmHg, lg L pleural effusion CT chest 10/25: bilat mod effusions with adjacent compressive atx; bilat upper lobe opacities congestion vs infiltrate; flank subcutaneous edema; infrarenal AAA at least 5.4 cm (partially imaged); extensive coronary calcifications tele: sr IMP: 1. Hypoxic respiratory failure: now seems more c/w subacute KS (late presentation), w/ resultant LV dysfx and CHF, +/- superimposed PNA 2. Pulmonary embolism, less likely, cannot be ruled out (unable to obtain CTA due volume overload and worsening O2 sat with minimal prehydration/ CKD), V/Q not likely to be definitively helpful given extensive parenchymal findings on CT scan 3. Recent L. knee Makoplasty 4. Leukocytosis, ? component of PNA 5. CKD, ? office baseline creat 6. CAD: extensive cor calcifications on CT chest 7. AAA: at least 5.4 cm (infrarenal) on suboptimal CT scan 6. DM 7. Anemia, guaiac negative--H/H stable 8. Mobitz 1 second degree AVB, stable REC: - Troponin 7.6->6.5->7.5, flat trend in setting of YANCI on CKD. Clinical picture more consistent with NSTEMI type I vs II with acute systolic HF. ischemic workup when euvolemic with cath - ASA, statin daily - Echo shows EF 30% - no prior history of HF - signif volume overload evident on 10/25 CT chest: receiving lasix gtt. paiz in : had been net negative 2-3L/day while on lasix gtt, with renal function stable BUN coming down, bicarb stable - still with pulm congestion, continue lasix 80 mg IV BID, likely near euvolemic - non-contrast CT abdomen dedicated for sizing of AAA--consider inpatient vascular surgery eval. cont BB for aneurysm prevention - abx as per primary team/ID. - cont carvedilol, tele benign
[2018-11-01] MEDS: POLYETHYLENE GLYCOL 3350 119 GM BTL PO SCH ×2 (10:48→21:23)
[2018-11-01] MEDS: PANTOPRAZOLE 40 MG TABLET (FP) PO SCH (10:49)
[2018-11-01] MEDS: FENOFIBRIC ACID 135 MG CAP PO SCH (10:49)
[2018-11-01] MEDS: CARVEDILOL 3.125 MG TABLET (FP) PO SCH ×2 (10:49→21:22)
[2018-11-01] MEDS: ASPIRIN 81 MG CHEWABLE TABLETS PO SCH (10:49)
[2018-11-01] MEDS: DOCUSATE SODIUM 100 MG CAPSULE (FP) PO SCH (10:50)
--- NOTE | 2018-11-01 10:53 | PN ---
Progress Note (short form) - Note Progress Note: Breathing continues to slowly improve. Denies chest pain, cough or wheezing. No acute events overnight. Intake & Output 10/29/18 10/30/18 10/31/18 11/01/18 23:59 23:59 23:59 23:59 Intake Total 775 790 Output Total 3600 4000 2300 150 Balance -2825 -3210 -2300 -150 Weight 217 lb 9.6 oz 218 lb 3.2 oz 214 lb 3.2 oz 212 lb Last Vital Signs Temp Pulse Resp BP Pulse Ox 98 F 72 20 111/47 L 96 11/01/18 08:54 11/01/18 08:54 11/01/18 08:54 11/01/18 08:54 11/01/18 08:54 Active Medications Aspirin (Asa -) 81 mg PO DAILY [facility] Last Admin: 11/01/18 10:49 Dose: 81 mg Atorvastatin Calcium (Lipitor -) 40 mg PO HS [facility] Last Admin: 10/31/18 21:21 Dose: 40 mg Carvedilol (Coreg -) 3.125 mg PO BID [facility] Last Admin: 11/01/18 10:49 Dose: 3.125 mg Docusate Sodium (Colace -) 100 mg PO DAILY [facility] Last Admin: 11/01/18 10:50 Dose: 100 mg Fenofibric Acid (Trilipix -) 135 mg PO DAILY [facility] Last Admin: 11/01/18 10:49 Dose: 135 mg Furosemide (Lasix Injection -) 80 mg IVPB BID@0600,1400 [facility] Last Admin: 11/01/18 06:13 Dose: 80 mg Heparin Sodium (Porcine) (Heparin -) 5,000 unit SQ TID [facility] Last Admin: 11/01/18 06:12 Dose: 5,000 unit Insulin Aspart (Novolog Vial Sliding Scale -) 1 vial SQ [facility]; Protocol Last Admin: 11/01/18 06:13 Dose: Not Given Non-Formulary Medication (Patient's Own Med) 1 each PO DAILY [facility] Last Admin: 11/01/18 10:50 Dose: Not Given Pantoprazole Sodium (Protonix -) 40 mg PO DAILY [facility] Last Admin: 11/01/18 10:49 Dose: 40 mg Polyethylene Glycol (Miralax (For Daily Use) -) 17 gm PO BID [facility] Last Admin: 11/01/18 10:48 Dose: Not Given Gen: NAD at rest Heart: RRR Lung: few scattered rhonchi, decreased breath sounds at the bases Abd: soft, nontender Ext: no edema Laboratory Results - last 24 hr 10/31/18 10/31/18 10/31/18 11:36 16:46 21:25 WBC RBC Hgb Hct MCV MCH MCHC RDW Plt Count MPV Absolute Neuts (auto) Neutrophils % Lymphocytes % Monocytes % Eosinophils % Basophils % Nucleated RBC % Sodium Potassium Chloride Carbon Dioxide Anion Gap BUN Creatinine Est GFR (CKD-EPI)AfAm Est GFR (CKD-EPI)NonAf POC Glucometer 317 151 188 Random Glucose Calcium Phosphorus Magnesium Total Bilirubin AST ALT Alkaline Phosphatase Total Protein Albumin 11/01/18 11/01/18 11/01/18 05:50 05:50 05:56 WBC 9.0 RBC 3.21 L Hgb 10.2 L Hct 30.7 L MCV 95.6 MCH 31.9 MCHC 33.4 RDW 16.3 H Plt Count 298 MPV 9.0 Absolute Neuts (auto) 6.2 Neutrophils % 68.4 Lymphocytes % 18.1 Monocytes % 10.0 Eosinophils % 3.0 Basophils % 0.5 Nucleated RBC % 0 Sodium 138 Potassium 4.0 Chloride 95 L Carbon Dioxide 37 H Anion Gap 5 L BUN 53.9 H Creatinine 1.8 H Est GFR (CKD-EPI)AfAm 39.18 Est GFR (CKD-EPI)NonAf 33.81 POC Glucometer 133 Random Glucose 119 H Calcium 8.9 Phosphorus 3.9 Magnesium 2.9 H Total Bilirubin 0.6 AST 24 ALT 54 Alkaline Phosphatase 55 Total Protein 6.2 L Albumin 2.6 L A/P Acute Hypoxic Respiratory Failure improving Acute NSTEMI Acute LV Systolic Heart Failure/Acute Pulmonary Edema Lactic Acidosis Acute Kidney Injury Elevated LFTs Recent Left Knee surgery - Lasix IVP - monitor urine output, creatinine - ASA - beta sharlene - monitor urine output, creatinine - O2 to keep Spo2 >90% - DVT prophylaxis Dr Briscoe
--- NOTE | 2018-11-01 11:22 | PN ---
Progress Note, [employer]IN[employer]NER - Note Progress Note: Selected Entries 11/01/18 11/01/18 11/01/18 02:00 06:00 08:54 Breakfast 50% Temperature 98.2 F 97.8 F 98 F Laboratory Tests 11/01/18 05:50 WBC 9.0 Tolerating diet/single sips of water better. Dislikes diet. Receiving "dry chicken, no loving" with difficulty. Trial of diet upgrade to Soft, regular, extra gravy. Single careful sips of thin liquid. No straws or continuous drinking.
--- NOTE | 2018-11-01 11:56 | PN ---
Physical Exam: SUBJECTIVE: Patient seen and examined breathing better , BM this AM , asking to remove the knee stetches no chest pain , no plapitation , sat well on 4 L nc pending transfer to tertiary facility for cardiac cath out put 250 cc on lasix 80 BID IV OBJECTIVE: Vital Signs Period Temp Pulse Resp BP Sys/العلي Pulse Ox Last 24 Hr 97.8 F-98.7 F 61-87 18-20 108-126/47-58 96-96 GENERAL: AAOx3 in NAD , on NC , on 4 L NC HEAD: NC/AT, + JVD EYES: Conjunctiva clear, sclera anicteric NECK: Supple, + JVD LUNGS: decrease breath sound at the bases , HEART: RRR, normal s1, s2,no M/R/G ABDOMEN:Obese , Soft, ND, NT, +BS 4 Q, no CVA Tenderness LOWER EXTREMITIES:no edema , +2DP pulse,left knee covered s.p makoplasty NEUROLOGICAL: No focal deficit. Normal speech. gait not observed Laboratory Results - last 24 hr 10/31/18 10/31/18 10/31/18 11:36 16:46 21:25 WBC RBC Hgb Hct MCV MCH MCHC RDW Plt Count MPV Absolute Neuts (auto) Neutrophils % Lymphocytes % Monocytes % Eosinophils % Basophils % Nucleated RBC % Sodium Potassium Chloride Carbon Dioxide Anion Gap BUN Creatinine Est GFR (CKD-EPI)AfAm Est GFR (CKD-EPI)NonAf POC Glucometer 317 151 188 Random Glucose Calcium Phosphorus Magnesium Total Bilirubin AST ALT Alkaline Phosphatase Total Protein Albumin 11/01/18 11/01/18 11/01/18 05:50 05:50 05:56 WBC 9.0 RBC 3.21 L Hgb 10.2 L Hct 30.7 L MCV 95.6 MCH 31.9 MCHC 33.4 RDW 16.3 H Plt Count 298 MPV 9.0 Absolute Neuts (auto) 6.2 Neutrophils % 68.4 Lymphocytes % 18.1 Monocytes % 10.0 Eosinophils % 3.0 Basophils % 0.5 Nucleated RBC % 0 Sodium 138 Potassium 4.0 Chloride 95 L Carbon Dioxide 37 H Anion Gap 5 L BUN 53.9 H Creatinine 1.8 H Est GFR (CKD-EPI)AfAm 39.18 Est GFR (CKD-EPI)NonAf 33.81 POC Glucometer 133 Random Glucose 119 H Calcium 8.9 Phosphorus 3.9 Magnesium 2.9 H Total Bilirubin 0.6 AST 24 ALT 54 Alkaline Phosphatase 55 Total Protein 6.2 L Albumin 2.6 L Active Medications Generic Name Dose Route Start Last Admin Trade Name Ru PRN Reason Stop Dose Admin Aspirin 81 mg 10/27/18 10:00 11/01/18 10:49 Asa - PO 81 mg DAILY [facility]E Administration Atorvastatin Calcium 40 mg 10/30/18 22:00 10/31/18 21:21 Lipitor - PO 40 mg HS SAE Administration Carvedilol 3.125 mg 10/26/18 22:00 11/01/18 10:49 Coreg - PO 3.125 mg BID SAE Administration Docusate Sodium 100 mg 10/29/18 16:15 11/01/18 10:50 Colace - PO 100 mg DAILY [facility]E Administration Fenofibric Acid 135 mg 10/27/18 10:00 11/01/18 10:49 Trilipix - PO 135 mg DAILY [facility]E Administration Furosemide 80 mg 10/31/18 14:00 11/01/18 06:13 Lasix Injection - IVPB 80 mg BID@0600,1400 [facility]E Administration Heparin Sodium (Porcine) 5,000 unit 10/26/18 14:00 11/01/18 06:12 Heparin - SQ 5,000 unit TID [facility]E Administration Insulin Aspart 1 vial 10/26/18 22:00 11/01/18 06:13 Novolog Vial Sliding Scale - SQ Not Given ACHS [facility] Protocol Non-Formulary Medication 1 each 10/27/18 10:00 11/01/18 10:50 Patient's Own Med PO Not Given DAILY [facility]E Pantoprazole Sodium 40 mg 10/30/18 10:00 11/01/18 10:49 Protonix - PO 40 mg DAILY [facility]E Administration Polyethylene Glycol 17 gm 10/29/18 22:00 11/01/18 10:48 Miralax (For Daily Use) - PO Not Given BID [facility] CBC, BMP 11/01/18 05:50 11/01/18 05:50 ASSESSMENT/PLAN: Mr. Tang is an 83yo M with h/o HTN, HLd, T2DM, CKD, stable AAA admitted to the ICU s/p L knee arthroscopy and makoplasty for work up of NSTEMI vs. PE vs. respiratory distress 2/2 RLL PNA. Clinical picture is more in line with NSTEMI given most recent EKGs showing evidence of septal infrarct and echo showing new reduced EF heart failure (EF 30%) rather than PE. # Acute hypoxic hypercapnic respiratory failure due to Possible HCPNA(RLL) on supperimposed CHF can not R.o PE # NSTEMI # R.o PE # recent Makoplast 10/15 # elevated trop , peaked # YANCI on CKD # Hyperkalemia resolved # transaminitis likely due to CHF, will obtain US abdomen Plan: * maintain O2 sat > 90 % , wean off NIPAP as tolerated , * completed 7days of ABx per ID Zosyn, Dc abx today * Duoneb , ASA , * switch Lasix drip to 80 IV BID * Off Hep Gtt for NSTEMI , unlikely PE * PPI * ISS * F.U cx negative * daily weight , I&O * Repeat Echo EF 30% * US abdomen for transaminitis : limited study with pleural effusion , 4 cm AAA , cholelithiaisis. * CT Chest with mod pleural effusion and B/L upper lab consolidation possible PNA , bibasilar atelectasis * transfer to [facility] per ICU * cxr today improve congestion and B/L pleural effusion improving * F.U Abdomen Plevic Ct scan and modified barium swallow :non-contrast CT abdomen dedicated for sizing of AAA--? inpatient vascular surgery eval. cont BB for aneurysm prevention * dispo once medically optomized transferred for cardiac cath * dysphasia whole diet with ground meat. * pending transfer to tertiary facility by cardiology for cardiac cath. Visit type - Emergency Visit Emergency Visit: Yes ED Registration Date: 10/22/18 Care time: The patient presented to the Emergency Department on the above date and was hospitalized for further evaluation of their emergent condition. - New Patient This patient is new to me today: No - Critical Care Critical Care patient: No ATTENDING PHYSICIAN STATEMENT I saw and evaluated the patient. I reviewed the resident's note and discussed the case with the resident. I agree with the resident's findings and plan as documented. SUBJECTIVE: OBJECTIVE: ASSESSMENT AND PLAN:
[2018-11-01 13:44] VITALS: BMI 28.7
--- NOTE | 2018-11-01 17:17 | PN ---
Teaching Attending Note Name of Resident: Blake Valiente ATTENDING PHYSICIAN STATEMENT I saw and evaluated the patient. I reviewed the resident's note and discussed the case with the resident. I agree with the resident's findings and plan as documented. SUBJECTIVE: Mr Tang is without complaint. Denies cp, sob, n/v. Asking when can he go home. OBJECTIVE: Last Vital Signs Temp Pulse Resp BP Pulse Ox 36.8 C 73 18 115/55 L 96 11/01/18 14:15 11/01/18 14:15 11/01/18 14:15 11/01/18 14:15 11/01/18 08:54 Gen: nad Pulm: ctab w/o w/r/r, on NC CV: rrr w/o m/r/g Abd: +bs, s/nt/nd Ext: trace edema CBC, BMP 11/01/18 05:50 11/01/18 05:50 ASSESSMENT AND PLAN: (1) Acute respiratory failure with hypoxia Assessment/Plan: -acute aspect resolved -suspect will need oxygen fro chronic respiratory failure on discharge -continue oxygen support Code(s): J96.01 - ACUTE RESPIRATORY FAILURE WITH HYPOXIA (2) NSTEMI (non-ST elevated myocardial infarction) Assessment/Plan: -cardiology following and appreciate assistance -continue coreg, aspirin, and lipitor -case d/w Dr Mcghee -transfer for cardiac catheterization Code(s): I21.4 - NON-ST ELEVATION (NSTEMI) MYOCARDIAL INFARCTION (3) CHF (congestive heart failure) Assessment/Plan: -continue lasix 80mg I V bid currently Code(s): I50.9 - HEART FAILURE, UNSPECIFIED Qualifiers: Heart failure type: systolic Heart failure chronicity: acute on chronic Qualified Code(s): I50.23 - Acute on chronic systolic (congestive) heart failure (4) Pneumonia Assessment/Plan: -s/p treatment Code(s): J18.9 - PNEUMONIA, UNSPECIFIED ORGANISM (5) YANCI (acute kidney injury) Assessment/Plan: -at baseline Code(s): N17.9 - ACUTE KIDNEY FAILURE, UNSPECIFIED (6) HLD (hyperlipidemia) Assessment/Plan: -continue fenofibrate Code(s): E78.5 - HYPERLIPIDEMIA, UNSPECIFIED (7) HTN (hypertension) Assessment/Plan: -currently controlled Code(s): I10 - ESSENTIAL (PRIMARY) HYPERTENSION Problem List - Problems (1) Acute respiratory failure with hypoxia Code(s): J96.01 - ACUTE RESPIRATORY FAILURE WITH HYPOXIA (2) NSTEMI (non-ST elevated myocardial infarction) Code(s): I21.4 - NON-ST ELEVATION (NSTEMI) MYOCARDIAL INFARCTION (3) CHF (congestive heart failure) Code(s): I50.9 - HEART FAILURE, UNSPECIFIED Qualifiers: Heart failure type: systolic Heart failure chronicity: acute on chronic Qualified Code(s): I50.23 - Acute on chronic systolic (congestive) heart failure (4) Pneumonia Code(s): J18.9 - PNEUMONIA, UNSPECIFIED ORGANISM (5) YANCI (acute kidney injury) Code(s): N17.9 - ACUTE KIDNEY FAILURE, UNSPECIFIED (6) HLD (hyperlipidemia) Code(s): E78.5 - HYPERLIPIDEMIA, UNSPECIFIED (7) HTN (hypertension) Code(s): I10 - ESSENTIAL (PRIMARY) HYPERTENSION
[2018-11-01] MEDS: ATORVASTATIN CA 40 MG TABLET (FP) PO SCH (21:22)
[2018-11-01 23:07] VITALS: BP 110/51; PULSE 98; TEMP 97.9
--- NOTE | 2018-11-02 10:19 | DS ---
Physical Exam: SUBJECTIVE: Patient seen and examined felling better on 3 L NC , no CP , no SOB , euvolemic and afe to be trasferred to tertiary facility for cardiac cath per cardiology. OBJECTIVE: Vital Signs Period Temp Pulse Resp BP Sys/العلي Pulse Ox Last 24 Hr 97.5 F-98.2 F 73-98 18-20 110-138/51-70 96 PHYSICAL EXAM GENERAL: AAOx3 in NAD , on NC , on 3 L NC HEAD: NC/AT, + JVD EYES: Conjunctiva clear, sclera anicteric NECK: Supple, + JVD LUNGS: decrease breath sound at the bases , HEART: RRR, normal s1, s2,no M/R/G ABDOMEN:Obese , Soft, ND, NT, +BS 4 Q, no CVA Tenderness LOWER EXTREMITIES:no edema , +2DP pulse,left knee covered s.p makoplasty NEUROLOGICAL: No focal deficit. Normal speech. gait not observed LABS Laboratory Results - last 24 hr 11/01/18 11/01/18 17:45 21:36 POC Glucometer 178 202 CBC, BMP 11/01/18 05:50 11/01/18 05:50 CT Chest with mod pleural effusion and B/L upper lab consolidation possible PNA , bibasilar atelectasis HOSPITAL COURSE: Date of Admission:10/22/18 Date of Discharge: 11/02/18 Mr. Tang is an 83yo M with h/o HTN, HLd, T2DM, CKD, stable AAA admitted to the ICU s/p L knee arthroscopy and makoplasty for work up of NSTEMI vs. PE vs. respiratory distress 2/2 RLL PNA. Clinical picture is more in line with NSTEMI given most recent EKGs showing evidence of septal infrarct and echo showing new reduced EF heart failure (EF 30%) rather than PE. for Acute hypoxic hypercapnic respiratory failure due to Possible HCPNA(RLL) on superimposed CHF unlikely PE, completed course of antibiotics ZOsyn and his respiration has improved , CTA was differed due to worsening kidney functioning , pt treated with 3 days heparin Drip for NSTEMI and possible PE ,was intubated and sedated and monitored in the ICU , repeated Echo with EF30 % , pt was placed on lasix drip for hypervolemia and pulmonary edema ,pt then extubated and transferred to [facility] , kidney function improved , his base line Cr 1.7 and his liver number improved after diaeresis. pt is now euvolemic and stable to be transferred to tertiary facility for cardiac cath per cardiology.swallow was evaluated and recommend whole diet with ground meat. Minutes to complete discharge: 45 Discharge Summary Reason For Visit: HYPOXIA Condition: Fair - Instructions Disposition: TRANSFER ACUTE CARE/OTHER HOSP - Home Medications Comprehensive Discharge Medication List: Ambulatory Orders metFORMIN HCL [Glucophage -] 500 mg PO BID 02/28/13 Amlodipine Besylate [Norvasc -] 5 mg PO DAILY 09/19/18 Fenofibrate Nanocrystallized [Fenofibrate] 160 mg PO DAILY 09/19/18 Lisinopril [Zestril] 40 mg PO DAILY 09/19/18 Ascorbic Acid [Vitamin C -] 500 mg PO BID tablet 10/17/18 Aspirin [ASA -] 325 mg PO DAILY@0800 tablet 10/17/18 Cephalexin Monohydrate [Keflex -] 500 mg PO TID #30 capsule 10/17/18 Multivitamins [Multivit ([facility] Formulary)] 1 tab PO DAILY tab 10/17/18 Oxycodone HCl/Acetaminophen [Percocet 5-325 mg Tablet] 1 - 2 tab PO Q4H PRN #60 tablet MDD 10 10/17/18 Pantoprazole Sodium [Protonix -] 40 mg PO DAILY #40 tablet.ec 10/17/18 Sennosides/Docusate Sodium [Pericolace -] 2 tablet PO BID tablet 10/17/18 traMADol HCL [Ultram -] 50 mg PO Q4H PRN #42 tablet MDD 6 10/17/18 This patient is new to me today: No Emergency Visit: Yes ED Registration Date: 10/22/18 Care time: The patient presented to the Emergency Department on the above date and was hospitalized for further evaluation of their emergent condition. Critical Care patient: Yes Total Critical Care Time (in minutes): 45 Critical Care Statement: The care of this patient involved high complexity decision making to prevent further life threatening deterioration of the patient 's condition and/or to evaluate & treat vital organ system(s) failure or risk of failure. - Discharge Referral Referred to [facility] No ATTENDING PHYSICIAN STATEMENT I saw and evaluated the patient. I reviewed the resident's note and discussed the case with the resident. I agree with the resident's findings and plan as documented. SUBJECTIVE: OBJECTIVE: ASSESSMENT AND PLAN:
== END 2018-11-02 02:15 | disposition short-term general hospital (02) | DRG 280 ==
LOC: FER 11:43 → JICU 17:51 → J4W 10-26 18:07
PROVIDERS: ADMIT Internal Medicine; ATTEND Internal Medicine
DX: I13.0 Hypertensive heart and chronic kidney disease with heart failure and stage 1 through stage 4 chronic kidney disease, or unspecified chronic kidney disease (principal); I21.4 Non-ST elevation (NSTEMI) myocardial infarction; J96.01 Acute respiratory failure with hypoxia; J18.9 Pneumonia, unspecified organism; I26.99 Other pulmonary embolism without acute cor pulmonale; J96.02 Acute respiratory failure with hypercapnia; I50.23 Acute on chronic systolic (congestive) heart failure; N17.9 Acute kidney failure, unspecified; E87.2 Acidosis; E11.9 Type 2 diabetes mellitus without complications; D72.829 Elevated white blood cell count, unspecified; E78.5 Hyperlipidemia, unspecified; E87.5 Hyperkalemia; R74.0 Nonspecific elevation of levels of transaminase and lactic acid dehydrogenase [LDH]; I25.10 Atherosclerotic heart disease of native coronary artery without angina pectoris; D64.9 Anemia, unspecified; I44.1 Atrioventricular block, second degree; N18.9 Chronic kidney disease, unspecified
CPT/HCPCS: 36415; 71045-TC-FY; 71250-TC; 74176-TC; 74230-TC-FY; 76705-TC; 80053; 80061; 81003; 82272; 82550; 82553; 82803; 82962; 83605; 83721; 83735; 83880; 84100; 84484; 85025; 85027; 85379; 85610; 85730; 87040; 87086; 87899; 92611-GN; 93005; 93010; 93306-TC; 93971-TC; 94660; 97116-GP; 97161-GP; 99285-25; J1644; J7030

== ENCOUNTER 2019-02-01 16:40 | Emergency (ER) | payer OTHER, MEDICARE ==
[2019-02-01 16:52] VITALS: BP 112/67; PULSE 76; TEMP 98.1; BMI 28.3
--- NOTE | 2019-02-01 16:52 | PDOC ---
Attending Attestation - Resident Resident Name: Miki Vuong - ED Attending Attestation I have performed the following: I have examined & evaluated the patient, The case was reviewed & discussed with the resident, I agree w/resident's findings & plan, Exceptions are as noted
--- NOTE | 2019-02-01 17:14 | PDOC ---
History of Present Illness - General Chief Complaint: Pain Stated Complaint: "I HAVE AN INFECTION IN MY SCROTUM" Time Seen by Provider: 02/01/19 16:43 - History of Present Illness Initial Comments: 02/01/19 17:09 Chief complaint: Swelling in scrotum HPI: Patient complains of a swelling in his scrotum that was discovered by visiting nurse today. He was previously aware only of mild discomfort in the area. Review of systems: No dysuria frequency urgency hesitancy or hematuria. No significant pain. Past medical history: Left knee replacement, myocardial infarction subsequent to surgery in October, treated medically, no bypass or stents. Aortic aneurysms in upper and lower aorta, exact locations uncertain, the upper having been repaired in the lower one scheduled for repair in the future. Social/family history: No tobacco alcohol or drugs. Mild dementia but able to care for himself, according to his daughter who is present. Adequately ambulatory on his repaired left knee. Physical exam: Mildly confused but completely awake and responsive. Able to furnish an adequate history Afebrile, vital signs normal There is a large scrotal mass present that is hard, and nontender, on the right side. This is suggestive of a tumor. There is no discharge. There is no overlying erythema, warmth, induration, or other inflammatory change in the scrotum itself. Impression: Testicular mass Plan: Ultrasound and appropriate referral. Past History - Past Medical History Allergies/Adverse Reactions: Allergies Allergy/AdvReac Type Severity Reaction Status Date / Time No Known Allergies Allergy Verified 02/01/19 16:42 Home Medications: Ambulatory Orders metFORMIN HCL [Glucophage -] 500 mg PO BID 02/28/13 Fenofibrate Nanocrystallized [Fenofibrate] 160 mg PO DAILY 09/19/18 Lisinopril [Zestril] 40 mg PO DAILY 09/19/18 Pantoprazole Sodium [Protonix -] 40 mg PO DAILY #40 tablet.ec 10/17/18 Aspirin [Aspirin EC] 81 mg PO DAILY 02/01/19 Carvedilol [Coreg] 6.25 mg PO BID 02/01/19 Ciprofloxacin [Cipro -] 500 mg PO Q12H #30 tablet 02/01/19 Clopidogrel Bisulfate [Plavix] 75 mg PO DAILY 02/01/19 Fenofibrate 160 mg PO DAILY 02/01/19 Furosemide [Lasix] 60 mg PO DAILY 02/01/19 Anemia: No Asthma: No Cancer: No Cardiac Disorders: Yes (aortic, pelvic aneurysm) CVA: No COPD: No CHF: No Dementia: No Diabetes: Yes GI Disorders: No Disorders: No HTN: Yes Hypercholesterolemia: Yes Liver Disease: No Seizures: No Thyroid Disease: No - Surgical History Abdominal Surgery: No Appendectomy: No Cardiac Surgery: No Cholecystectomy: No Lung Surgery: No Neurologic Surgery: No Orthopedic Surgery: Yes - Psycho Social/Smoking Cessation Hx Smoking History: Former smoker Have you smoked in the past 12 months: No Information on smoking cessation initiated: No Hx Alcohol Use: No Drug/Substance Use Hx: No Substance Use Type: None Hx Substance Use Treatment: No *Physical Exam - Vital Signs Last Vital Signs Temp Pulse Resp BP Pulse Ox 98.1 F 76 18 112/67 100 02/01/19 16:40 02/01/19 16:40 02/01/19 16:40 02/01/19 16:40 02/01/19 16:40 ED Treatment Course - RADIOLOGY Radiology Studies Ordered: Category Date Time Status SCROTUM AND CONTENTS US [US] Stat Ultrasound 02/01/19 17:03 Ordered Medical Decision Making - Medical Decision Making 02/01/19 18:35 Ultrasound shows epididymitis, bilateral hydroceles. No definite mass was noted. Patient has a urologist, Dr. Edwards, with whom he will follow-up. Antibiotics prescribed today pending urological consultation. Discharge - Discharge Information Problems reviewed: Yes Clinical Impression/Diagnosis: Epididymitis Condition: Stable Disposition: HOME - Admission No - Additional Discharge Information Prescriptions: Ciprofloxacin [Cipro -] 500 mg PO Q12H #30 tablet - Follow up/Referral Referrals: Rony Barajas MD [Primary Care Provider] - - Patient Discharge Instructions Patient Printed Discharge Instructions: DI for Epididymitis Additional Instructions: Warm compresses, support of the scrotum may be helpful. See urologist for follow-up as directed. - Post Discharge Activity
== END 2019-02-01 18:45 | disposition home or self-care (01) ==
LOC: FER 16:40
DX: N45.1 Epididymitis (principal); I10 Essential (primary) hypertension; E11.9 Type 2 diabetes mellitus without complications; E78.5 Hyperlipidemia, unspecified; I25.2 Old myocardial infarction; I71.9 Aortic aneurysm of unspecified site, without rupture; F03.90 Unspecified dementia, unspecified severity, without behavioral disturbance, psychotic disturbance, mood disturbance, and anxiety; Z79.82 Long term (current) use of aspirin; Z79.84 Long term (current) use of oral hypoglycemic drugs; Z87.891 Personal history of nicotine dependence; Z96.652 Presence of left artificial knee joint
CPT/HCPCS: 76870-TC; 99282-25

== ENCOUNTER 2021-02-03 04:28 | Day surgery (SDC) | payer OTHER, MEDICARE ==
[2021-02-01 17:05] VITALS: BMI 30.6
[2021-02-03] MEDS ORDERED: LIDOCAINE HCL 1%, 10 MG/ML (20ML VIAL) ONE (11:43)
[2021-02-03] MEDS ORDERED: PHENYLEPHRINE HCL 10 MG/1 ML SINGLE DOSE VIAL ONE (12:02)
[2021-02-03] MEDS ORDERED: SODIUM CHLORIDE 0.9% P/F 10 ML VIAL IJ ONE (12:02)
[2021-02-03] MEDS ORDERED: ONDANSETRON 4 MG/2 ML VIAL ONE (12:02)
[2021-02-03] MEDS ORDERED: ePHEDrine SULFATE 50 MG/1 ML AMPULE ONE ×2 (12:02→12:05)
[2021-02-03] MEDS ORDERED: LIDOCAINE HCL/PF 2% SDV 5ML VIAL ONE (12:02)
[2021-02-03] MEDS ORDERED: PROPOFOL 20 ML ONE (12:03)
[2021-02-03] MEDS ORDERED: SUCCINYLCHOLINE CHLORIDE 200 MG/10 ML SYRINGE ONE (12:06)
[2021-02-03] MEDS ORDERED: KETAMINE HCL 200 MG/20 ML VIAL ONE (12:06)
[2021-02-03] MEDS ORDERED: GLYCOPYRROLATE 0.2 MG/1 ML VIAL ONE (12:06)
[2021-02-03] MEDS ORDERED: BUPIVACAINE HCL/PF 0.5% (5MG/ML) 10 ML VIAL ONE (12:56)
[2021-02-03] MEDS ORDERED: ceFAZolin 2 GRAM PREMIX BAG IVPB ONE (13:00)
[2021-02-03] MEDS ORDERED: LIDOCAINE 1%/EPI 1:100000 (20 ML MULTI DOSE VIAL) IJ ONE (13:10)
[2021-02-03] MEDS ORDERED: EPINEPHrine 1:10,000 (P-F SYR) 1 MG/10 ML DISP.SYRIN ONE (13:13)
[2021-02-03] MEDS ORDERED: BACITRACIN 15 GM TUBE TOPICAL OINTMENT ONE (15:28)
[2021-02-03] MEDS ORDERED: oxyCODONE HCL 5 MG TABLET PO PRN ×2 (16:00)
[2021-02-03] MEDS ORDERED: ONDANSETRON 4 MG/2 ML VIAL IVPUSH PRN (16:00)
[2021-02-03] MEDS ORDERED: LACTATED RINGERS SOLUTION 1,000 ML/1,000 ML INFUS.BAG IV SCH (16:00)
[2021-02-03] MEDS ORDERED: diphenhydrAMINE HCL 25 MG CAPSULE (FP) PO PRN (16:00)
[2021-02-03] MEDS ORDERED: LACTATED RINGERS SOLUTION 1,000 ML IV SCH (17:00)
[2021-02-03] MEDS ORDERED: ACETAMINOPHEN 1000 MG/100 ML VIAL IVPB PRN (18:19)
[2021-02-03] MEDS ORDERED: ceFAZolin SODIUM 1 GM VIAL ONE (21:10)
[2021-02-03] MEDS ORDERED: DEXTROSE 5%-WATER - 50 ML IVPB ONE (21:10)
[2021-02-03] MEDS: CEFAZOLIN 1 GM in DEXTROSE 5%-WATER - 1 GM/50 ML IVPB IVPB SCH (21:14)
[2021-02-03] MEDS: DOCUSATE SODIUM 100 MG CAPSULE (FP) PO SCH (21:14)
[2021-02-03] MEDS: CARVEDILOL 6.25 MG TABLET (FP) PO SCH (21:15)
[2021-02-03] MEDS ORDERED: ATORVASTATIN CA 40 MG TABLET (FP) PO SCH (22:00)
[2021-02-04] MEDS ORDERED: ceFAZolin SODIUM 1 GM VIAL ONE ×2 (04:27→13:42)
[2021-02-04] MEDS ORDERED: DEXTROSE 5%-WATER - 50 ML IVPB ONE ×2 (04:28→13:42)
[2021-02-04] MEDS: CEFAZOLIN 1 GM in DEXTROSE 5%-WATER - 1 GM/50 ML IVPB IVPB SCH ×2 (05:10→13:43)
[2021-02-04] MEDS: HEPARIN NA (PORCINE) 5,000 UNITS/ML 1ML VIAL SQ SCH ×2 (06:37→13:43)
[2021-02-04] MEDS: DOCUSATE SODIUM 100 MG CAPSULE (FP) PO SCH ×2 (06:37→13:44)
[2021-02-04] MEDS ORDERED: metFORMIN HCL 500 MG TABLET (FP) PO SCH (07:00)
[2021-02-04] MEDS ORDERED: LEVOTHYROXINE NA 25 MCG TABLET (FP) PO SCH (07:00)
[2021-02-04 09:48] LABS: HEMATOCRIT 30.1 % (35.4-49); HEMOGLOBIN 10.4 GM/dL (11.7-16.9); MCH 32.4 pg (25.7-33.7); MCHC 34.5 g/dl (32.0-35.9); MEAN CELL VOLUME 93.7 fl (80-96); MEAN PLT VOLUME 7.9 fl (7.5-11.1); PLATELET COUNT 222 10^3/uL (134-434); RBC 3.22 M/mm3 (4.00-5.60); RDW 16.9 % (11.9-15.9); WHITE BLOOD COUNT 11.1 K/mm3 (4.0-10.0)
[2021-02-04] MEDS ORDERED: CHOLECALCIFEROL (VIT D3) 1,000 UNIT (25 MCG) TABLET PO SCH (10:00)
[2021-02-04] MEDS ORDERED: CYANOCOBALAMIN 1,000 MCG TABLET (FP) PO SCH (10:00)
[2021-02-04] MEDS ORDERED: PATIENT'S OWN MEDICATION (NON-FORMULARY) (Vit C/E/Zn/Coppr/Lutein/Zeaxan [Preservision Are PO SCH (10:00)
[2021-02-04] MEDS ORDERED: PATIENT'S OWN MEDICATION (NON-FORMULARY) (Glucosa Su 2kcl/Chondroitin Su [Glucosamine & Ch PO SCH (10:00)
[2021-02-04] MEDS ORDERED: MULTIVITAMINS (DAILY MVI) TABLET (FP) PO SCH (10:00)
[2021-02-04] MEDS ORDERED: PANTOPRAZOLE 40 MG TABLET PO SCH (10:00)
[2021-02-04] MEDS ORDERED: FUROSEMIDE 20 MG TABLET (FP) PO SCH (10:00)
[2021-02-04] MEDS ORDERED: FENOFIBRIC ACID 135 MG CAP PO SCH (10:00)
[2021-02-04] MEDS ORDERED: VITAMIN B COMPLEX W/C COMBO TABLET (FP) PO SCH (10:00)
[2021-02-04] MEDS ORDERED: ASCORBIC ACID 500 MG TABLET (FP) PO SCH (10:00)
[2021-02-04 10:13] LABS: BLOOD UREA NITROGEN 35.6 mg/dL (7-18); CALCIUM 9.2 mg/dL (8.5-10.1)
[2021-02-04] MEDS ORDERED: PT OWN MED DRAWER 7, Y5N ONE (10:14)
[2021-02-04 10:16] LABS: CREATININE 1.7 mg/dL (0.55-1.3)
[2021-02-04] MEDS: CARVEDILOL 6.25 MG TABLET (FP) PO SCH (10:21)
[2021-02-04 11:24] VITALS: TEMP 97.7
[2021-02-04 14:02] VITALS: BP 113/50; PULSE 77
== END 2021-02-04 16:30 | disposition home or self-care (01) ==
LOC: JASUSAT 04:28 → SUATTDRO 04:28 → J6S 17:10 → UNDOADMIN 17:10 → J6S 17:11 → JASUSAT 17:11 → J6S 17:39 → JASUSAT 02-04 16:30
PROVIDERS: ATTEND Nurse Practitioner Family
PROC: 0JR007Z Replacement of Scalp Subcutaneous Tissue and Fascia with Autologous Tissue Substitute, Open Approach (ICD-10-PCS; 2021-02-03)
PROC: 0HR0X74 Replacement of Scalp Skin with Autologous Tissue Substitute, Partial Thickness, External Approach (ICD-10-PCS; 2021-02-03)
PROC: 0HBHXZZ Excision of Right Upper Leg Skin, External Approach (ICD-10-PCS; 2021-02-03)
PROC: 0HB0XZZ Excision of Scalp Skin, External Approach (ICD-10-PCS; principal; 2021-02-03 13:00)
DX: C44.42 Squamous cell carcinoma of skin of scalp and neck (principal)
CPT/HCPCS: 36415; 80048; 82962; 85027; 86850; 86900; 86901; 88305-TC; 88331-TC; 94010; 94760; 97116-GP; 97161-GP; J0131; J1644

== ENCOUNTER 2021-07-12 15:10 | Inpatient (IN) | payer OTHER, MEDICARE ==
[2021-07-12 16:39] LABS: ALBUMIN 3.3 g/dl (3.4-5.0); BILIRUBIN,TOTAL 1.6 mg/dl (0.2-1); CALCIUM 8.9 mg/dl (8.5-10); CREATININE 2.1 mg/dl (0.55-1.3); TOT PROT 6.8 g/dl (6.4-8.2)
[2021-07-12 16:55] LABS: HEMATOCRIT 30.8 % (35.4-49); MCH 29.3 pg (25.7-33.7); MCHC 32.4 g/dl (32.0-35.9); MEAN CELL VOLUME 90.4 fl (80-96); MEAN PLT VOLUME 8.8 fl (7.5-11.1); PLATELET COUNT 186.1 10^3/uL (134-434); RBC 3.41 10^6/uL (4.00-5.60); RDW 20.1 % (11.9-15.9); WHITE BLOOD COUNT 8.2 10^3/uL (4.0-10.8)
[2021-07-12 17:00] LABS: ANISOCYTOSIS 2+
[2021-07-12 17:01] LABS: PLATELET ESTIMATE ADEQUATE
[2021-07-12] MEDS ORDERED: FUROSEMIDE 40 MG/4 ML INJECTABLE VIAL IVPUSH ONE (17:30)
[2021-07-12] MEDS ORDERED: FUROSEMIDE 40 MG/4 ML INJECTABLE VIAL ONE (18:21)
[2021-07-12 18:53] LABS: N-TERMINAL BNP 26462.5 pg/ml (5-450)
[2021-07-12] MEDS ORDERED: POLYETHYLENE GLYCOL (HEALTHYLAX) 3350 17 GM PACKET PO PRN (19:27)
[2021-07-12] MEDS: CARVEDILOL 6.25 MG TABLET (FP) PO SCH (21:51)
[2021-07-12] MEDS: HEPARIN NA (PORCINE) 5,000 UNITS/ML 1ML VIAL SQ SCH (21:51)
[2021-07-12] MEDS ORDERED: ATORVASTATIN CA 40 MG TABLET (FP) PO SCH (22:00)
[2021-07-13] MEDS: HEPARIN NA (PORCINE) 5,000 UNITS/ML 1ML VIAL SQ SCH ×3 (06:22→21:35)
[2021-07-13] MEDS: LEVOTHYROXINE NA 25 MCG TABLET (FP) PO SCH (06:23)
[2021-07-13] MEDS: INSULIN SLIDING SCALE (NOVOLOG) 1 VIAL SQ SCH ×5 (06:27→21:39)
[2021-07-13] MEDS: BACITRACIN 15 GM TUBE TOPICAL OINTMENT TP SCH ×3 (06:53→21:42)
[2021-07-13 07:33] LABS: PROTHROMBIN TIME (PATIENT) 23.2 SEC (9.7-13.0)
[2021-07-13 07:36] LABS: ACTIVATED PTT 32.3 SECONDS (25.2-36.5)
[2021-07-13 07:37] LABS: ALBUMIN 3.2 g/dl (3.4-5.0); BILIRUBIN,TOTAL 1.7 mg/dl (0.2-1); CREATININE 2.3 mg/dl (0.55-1.3); MAGNESIUM 2.2 mg/dL (1.8-2.4); PHOSPHOROUS 4.5 mg/dl (2.5-4.9); TOT PROT 6.3 g/dl (6.4-8.2)
[2021-07-13 07:46] LABS: HEMATOCRIT 30.1 % (35.4-49); HEMOGLOBIN 9.7 G/dL (11.7-16.9); MCH 28.8 pg (25.7-33.7); MCHC 32.3 g/dl (32.0-35.9); MEAN CELL VOLUME 89.2 fl (80-96); MEAN PLT VOLUME 8.9 fl (7.5-11.1); RBC 3.37 10^6/uL (4.00-5.60); RDW 19.9 % (11.9-15.9); WHITE BLOOD COUNT 8.3 10^3/uL (4.0-10.8)
[2021-07-13] MEDS ORDERED: FUROSEMIDE 40 MG TABLET (FP) PO SCH (10:00)
[2021-07-13] MEDS ORDERED: FUROSEMIDE 40 MG/4 ML INJECTABLE VIAL IVPUSH SCH (10:15)
[2021-07-13] MEDS: CHOLECALCIFEROL (VIT D3) 1,000 UNIT (25 MCG) TABLET PO SCH (10:22)
[2021-07-13] MEDS: ASPIRIN COATED 81 MG TABLET.EC PO SCH (10:22)
[2021-07-13] MEDS: CARVEDILOL 6.25 MG TABLET (FP) PO SCH ×2 (10:22→21:40)
[2021-07-13] MEDS: PANTOPRAZOLE 40 MG TABLET PO SCH (10:22)
[2021-07-13] MEDS: FUROSEMIDE 40 MG/4 ML INJECTABLE VIAL IVPUSH SCH (13:31)
[2021-07-13] MEDS ORDERED: ACETAMINOPHEN 1000 MG/100 ML BAG IVPB ONE (21:23)
[2021-07-13] MEDS ORDERED: MELATONIN 1 MG TABLET PO ONE (21:25)
[2021-07-14] MEDS: METHYL SALICYLATE/MENTHOL OINT 30 GM TUBE TP PRN (03:05)
[2021-07-14] MEDS: FUROSEMIDE 40 MG/4 ML INJECTABLE VIAL IVPUSH SCH ×2 (06:00→13:23)
[2021-07-14] MEDS: HEPARIN NA (PORCINE) 5,000 UNITS/ML 1ML VIAL SQ SCH ×3 (06:00→22:13)
[2021-07-14] MEDS: LEVOTHYROXINE NA 25 MCG TABLET (FP) PO SCH (06:01)
[2021-07-14] MEDS: INSULIN SLIDING SCALE (NOVOLOG) 1 VIAL SQ SCH ×4 (06:18→22:08)
[2021-07-14] MEDS: PANTOPRAZOLE 40 MG TABLET PO SCH (09:45)
[2021-07-14] MEDS: ASPIRIN COATED 81 MG TABLET.EC PO SCH (09:45)
[2021-07-14] MEDS: BACITRACIN 15 GM TUBE TOPICAL OINTMENT TP SCH ×2 (09:45→22:09)
[2021-07-14] MEDS: CHOLECALCIFEROL (VIT D3) 1,000 UNIT (25 MCG) TABLET PO SCH (09:45)
[2021-07-14] MEDS: CARVEDILOL 6.25 MG TABLET (FP) PO SCH ×2 (09:45→22:13)
[2021-07-14 09:49] LABS: HEMATOCRIT 29.6 % (35.4-49); HEMOGLOBIN 9.6 G/dL (11.7-16.9); MCH 28.9 pg (25.7-33.7); MCHC 32.3 g/dl (32.0-35.9); MEAN CELL VOLUME 89.3 fl (80-96); MEAN PLT VOLUME 8.9 fl (7.5-11.1); RBC 3.31 10^6/uL (4.00-5.60); RDW 20.3 % (11.9-15.9)
[2021-07-14 09:56] LABS: BILIRUBIN,TOTAL 1.7 mg/dl (0.2-1); CALCIUM 8.5 mg/dl (8.5-10); CREATININE 2.6 mg/dl (0.55-1.3); MAGNESIUM 2.2 mg/dL (1.8-2.4); TOT PROT 6.3 g/dl (6.4-8.2)
[2021-07-14] MEDS ORDERED: FUROSEMIDE 40 MG/4 ML INJECTABLE VIAL IVPUSH SCH (12:15)
[2021-07-14 18:26] VITALS: BMI 32.0
[2021-07-14] MEDS: NYSTATIN POWDER 100,000 UNITS/GM - 15 GM TOPICAL POWDER TP SCH (23:06)
[2021-07-15] MEDS ORDERED: traMADol HCL 50 MG TABLET PO ONE (03:16)
[2021-07-15] MEDS: FUROSEMIDE 40 MG/4 ML INJECTABLE VIAL IVPUSH SCH ×2 (06:06→13:09)
[2021-07-15] MEDS: LEVOTHYROXINE NA 25 MCG TABLET (FP) PO SCH (06:06)
[2021-07-15] MEDS: HEPARIN NA (PORCINE) 5,000 UNITS/ML 1ML VIAL SQ SCH ×3 (06:06→21:30)
[2021-07-15] MEDS: NYSTATIN POWDER 100,000 UNITS/GM - 15 GM TOPICAL POWDER TP SCH ×3 (06:07→21:30)
[2021-07-15] MEDS: INSULIN SLIDING SCALE (NOVOLOG) 1 VIAL SQ SCH ×4 (06:08→22:12)
[2021-07-15 07:54] LABS: ALBUMIN 2.9 g/dl (3.4-5.0); BILIRUBIN,TOTAL 1.3 mg/dl (0.2-1); CALCIUM 8.4 mg/dl (8.5-10); CREATININE 2.1 mg/dl (0.55-1.3)
[2021-07-15] MEDS: ASPIRIN COATED 81 MG TABLET.EC PO SCH (09:47)
[2021-07-15] MEDS: CHOLECALCIFEROL (VIT D3) 1,000 UNIT (25 MCG) TABLET PO SCH (09:47)
[2021-07-15] MEDS: PANTOPRAZOLE 40 MG TABLET PO SCH (09:50)
[2021-07-15] MEDS: CARVEDILOL 6.25 MG TABLET (FP) PO SCH ×2 (09:51→21:30)
[2021-07-15] MEDS: BACITRACIN 15 GM TUBE TOPICAL OINTMENT TP SCH ×2 (09:52→21:30)
[2021-07-15] MEDS ORDERED: METOLAZONE 2.5 MG TABLET (FP) PO ONE (14:30)
[2021-07-16] MEDS: INSULIN SLIDING SCALE (NOVOLOG) 1 VIAL SQ SCH ×4 (06:11→22:08)
[2021-07-16] MEDS: LEVOTHYROXINE NA 25 MCG TABLET (FP) PO SCH (06:11)
[2021-07-16] MEDS: FUROSEMIDE 40 MG/4 ML INJECTABLE VIAL IVPUSH SCH ×2 (06:11→14:04)
[2021-07-16] MEDS: HEPARIN NA (PORCINE) 5,000 UNITS/ML 1ML VIAL SQ SCH ×3 (06:11→21:39)
[2021-07-16] MEDS: NYSTATIN POWDER 100,000 UNITS/GM - 15 GM TOPICAL POWDER TP SCH ×3 (06:12→21:38)
[2021-07-16 07:56] LABS: ALBUMIN 2.9 g/dl (3.4-5.0); BILIRUBIN,TOTAL 1.4 mg/dl (0.2-1); CALCIUM 8.7 mg/dl (8.5-10); MAGNESIUM 2.2 mg/dL (1.8-2.4)
[2021-07-16 08:00] LABS: HEMOGLOBIN 9.5 G/dL (11.7-16.9); MCH 29.3 pg (25.7-33.7); MCHC 32.7 g/dl (32.0-35.9); MEAN CELL VOLUME 89.6 fl (80-96); MEAN PLT VOLUME 8.8 fl (7.5-11.1); PLATELET COUNT 177.4 10^3/uL (134-434); RBC 3.24 10^6/uL (4.00-5.60); RDW 19.8 % (11.9-15.9); WHITE BLOOD COUNT 7.9 10^3/uL (4.0-10.8)
[2021-07-16] MEDS ORDERED: BISACODYL 10 MG SUPP.RECT PR ONE (09:15)
[2021-07-16] MEDS: PANTOPRAZOLE 40 MG TABLET PO SCH (09:25)
[2021-07-16] MEDS: CHOLECALCIFEROL (VIT D3) 1,000 UNIT (25 MCG) TABLET PO SCH (09:25)
[2021-07-16] MEDS: ASPIRIN COATED 81 MG TABLET.EC PO SCH (09:25)
[2021-07-16] MEDS: CARVEDILOL 6.25 MG TABLET (FP) PO SCH ×2 (09:27→21:37)
[2021-07-16] MEDS: BACITRACIN 15 GM TUBE TOPICAL OINTMENT TP SCH ×2 (09:28→21:39)
[2021-07-16] MEDS ORDERED: METOLAZONE 2.5 MG TABLET (FP) PO ONE (09:45)
[2021-07-16] MEDS: ACETAMINOPHEN 325 MG TABLET (FP) PO PRN (21:53)
[2021-07-17] MEDS: FUROSEMIDE 40 MG/4 ML INJECTABLE VIAL IVPUSH SCH ×2 (06:23→13:16)
[2021-07-17] MEDS: HEPARIN NA (PORCINE) 5,000 UNITS/ML 1ML VIAL SQ SCH ×3 (06:24→21:12)
[2021-07-17] MEDS: LEVOTHYROXINE NA 25 MCG TABLET (FP) PO SCH (06:24)
[2021-07-17] MEDS: NYSTATIN POWDER 100,000 UNITS/GM - 15 GM TOPICAL POWDER TP SCH ×3 (06:33→21:11)
[2021-07-17] MEDS: INSULIN SLIDING SCALE (NOVOLOG) 1 VIAL SQ SCH ×4 (07:06→21:19)
[2021-07-17] MEDS: ASPIRIN COATED 81 MG TABLET.EC PO SCH (09:35)
[2021-07-17] MEDS: CHOLECALCIFEROL (VIT D3) 1,000 UNIT (25 MCG) TABLET PO SCH (09:35)
[2021-07-17] MEDS: PANTOPRAZOLE 40 MG TABLET PO SCH (09:35)
[2021-07-17] MEDS: CARVEDILOL 6.25 MG TABLET (FP) PO SCH ×2 (09:36→21:12)
[2021-07-17] MEDS: BACITRACIN 15 GM TUBE TOPICAL OINTMENT TP SCH ×2 (09:36→21:11)
[2021-07-17 09:40] LABS: HEMATOCRIT 29.8 % (35.4-49); HEMOGLOBIN 9.5 G/dL (11.7-16.9); MCH 28.2 pg (25.7-33.7); MCHC 31.8 g/dl (32.0-35.9); MEAN CELL VOLUME 88.5 fl (80-96); MEAN PLT VOLUME 8.9 fl (7.5-11.1); PLATELET COUNT 187.7 10^3/uL (134-434); RBC 3.37 10^6/uL (4.00-5.60); RDW 19.8 % (11.9-15.9); WHITE BLOOD COUNT 8.1 10^3/uL (4.0-10.8)
[2021-07-17 09:49] LABS: BILIRUBIN,TOTAL 1.3 mg/dl (0.2-1); CALCIUM 8.9 mg/dl (8.5-10); CREATININE 1.7 mg/dl (0.55-1.3); MAGNESIUM 2.1 mg/dL (1.8-2.4); TOT PROT 6.4 g/dl (6.4-8.2)
[2021-07-17] MEDS ORDERED: LEVOTHYROXINE NA 25 MCG TABLET (FP) PO ONE (14:06)
[2021-07-18] MEDS: LEVOTHYROXINE NA 50 MCG TABLET (FP) PO SCH (06:52)
[2021-07-18] MEDS: NYSTATIN POWDER 100,000 UNITS/GM - 15 GM TOPICAL POWDER TP SCH ×3 (06:52→21:21)
[2021-07-18] MEDS: HEPARIN NA (PORCINE) 5,000 UNITS/ML 1ML VIAL SQ SCH ×3 (06:52→21:22)
[2021-07-18] MEDS: FUROSEMIDE 40 MG/4 ML INJECTABLE VIAL IVPUSH SCH ×2 (06:52→13:55)
[2021-07-18] MEDS: INSULIN SLIDING SCALE (NOVOLOG) 1 VIAL SQ SCH ×4 (06:53→21:23)
[2021-07-18] MEDS: CHOLECALCIFEROL (VIT D3) 1,000 UNIT (25 MCG) TABLET PO SCH (09:15)
[2021-07-18] MEDS: ASPIRIN COATED 81 MG TABLET.EC PO SCH (09:15)
[2021-07-18] MEDS: BACITRACIN 15 GM TUBE TOPICAL OINTMENT TP SCH ×2 (09:15→21:21)
[2021-07-18] MEDS: PANTOPRAZOLE 40 MG TABLET PO SCH (09:15)
[2021-07-18] MEDS: CARVEDILOL 6.25 MG TABLET (FP) PO SCH ×3 (09:15→21:22)
[2021-07-18 09:19] LABS: HEMATOCRIT 29.5 % (35.4-49); HEMOGLOBIN 9.5 G/dL (11.7-16.9); MCH 28.8 pg (25.7-33.7); MCHC 32.1 g/dl (32.0-35.9); MEAN CELL VOLUME 89.6 fl (80-96); MEAN PLT VOLUME 8.7 fl (7.5-11.1); PLATELET COUNT 201.6 10^3/uL (134-434); RBC 3.29 10^6/uL (4.00-5.60); RDW 19.7 % (11.9-15.9); WHITE BLOOD COUNT 7.4 10^3/uL (4.0-10.8)
[2021-07-18 09:23] LABS: CALCIUM 8.9 mg/dl (8.5-10); CREATININE 1.7 mg/dl (0.55-1.3)
[2021-07-18 09:27] LABS: BILIRUBIN,TOTAL 1.2 mg/dl (0.2-1); CALCIUM 8.9 mg/dl (8.5-10); CREATININE 1.6 mg/dl (0.55-1.3); TOT PROT 6.2 g/dl (6.4-8.2)
[2021-07-18 13:03] LABS: N-TERMINAL BNP 13544.9 pg/ml (5-450)
[2021-07-18] MEDS: ACETAMINOPHEN 325 MG TABLET (FP) PO PRN (21:24)
[2021-07-19] MEDS: HEPARIN NA (PORCINE) 5,000 UNITS/ML 1ML VIAL SQ SCH ×2 (05:54→13:22)
[2021-07-19] MEDS: FUROSEMIDE 40 MG/4 ML INJECTABLE VIAL IVPUSH SCH ×2 (05:54→13:22)
[2021-07-19] MEDS: NYSTATIN POWDER 100,000 UNITS/GM - 15 GM TOPICAL POWDER TP SCH ×3 (05:54→22:17)
[2021-07-19] MEDS: LEVOTHYROXINE NA 50 MCG TABLET (FP) PO SCH (06:50)
[2021-07-19] MEDS: INSULIN SLIDING SCALE (NOVOLOG) 1 VIAL SQ SCH ×4 (06:50→22:16)
[2021-07-19 07:54] LABS: HEMATOCRIT 29.7 % (35.4-49); HEMOGLOBIN 9.4 G/dL (11.7-16.9); MCH 28.1 pg (25.7-33.7); MCHC 31.5 g/dl (32.0-35.9); MEAN CELL VOLUME 88.8 fl (80-96); MEAN PLT VOLUME 8.4 fl (7.5-11.1); PLATELET COUNT 186.2 10^3/uL (134-434); RBC 3.34 10^6/uL (4.00-5.60); RDW 20.2 % (11.9-15.9); WHITE BLOOD COUNT 7.2 10^3/uL (4.0-10.8)
[2021-07-19 08:03] LABS: ALBUMIN 2.9 g/dl (3.4-5.0); BILIRUBIN,TOTAL 1.2 mg/dl (0.2-1); CALCIUM 8.9 mg/dl (8.5-10); CREATININE 1.6 mg/dl (0.55-1.3); MAGNESIUM 2.1 mg/dL (1.8-2.4); TOT PROT 6.3 g/dl (6.4-8.2)
[2021-07-19 08:51] LABS: ADD RBC MORPHOLOGY YES
[2021-07-19] MEDS: ASPIRIN COATED 81 MG TABLET.EC PO SCH (09:48)
[2021-07-19] MEDS: CARVEDILOL 6.25 MG TABLET (FP) PO SCH ×2 (09:48→22:11)
[2021-07-19] MEDS: PANTOPRAZOLE 40 MG TABLET PO SCH (09:48)
[2021-07-19] MEDS: CHOLECALCIFEROL (VIT D3) 1,000 UNIT (25 MCG) TABLET PO SCH (09:48)
[2021-07-19] MEDS: BACITRACIN 15 GM TUBE TOPICAL OINTMENT TP SCH ×2 (09:49→22:16)
[2021-07-19 09:53] LABS: ANISOCYTOSIS 1+; PLATELET ESTIMATE ADEQUATE
[2021-07-19] MEDS: ACETAMINOPHEN 325 MG TABLET (FP) PO PRN (15:18)
[2021-07-20] MEDS: ACETAMINOPHEN 325 MG TABLET (FP) PO PRN (04:09)
[2021-07-20] MEDS: FUROSEMIDE 40 MG/4 ML INJECTABLE VIAL IVPUSH SCH ×2 (06:19→13:21)
[2021-07-20] MEDS: LEVOTHYROXINE NA 50 MCG TABLET (FP) PO SCH (06:21)
[2021-07-20] MEDS: NYSTATIN POWDER 100,000 UNITS/GM - 15 GM TOPICAL POWDER TP SCH ×3 (06:28→21:51)
[2021-07-20] MEDS: INSULIN SLIDING SCALE (NOVOLOG) 1 VIAL SQ SCH ×4 (06:29→21:56)
[2021-07-20 09:15] LABS: ALBUMIN 3.1 g/dl (3.4-5.0); BILIRUBIN,TOTAL 1.4 mg/dl (0.2-1); CALCIUM 9.2 mg/dl (8.5-10); CREATININE 1.6 mg/dl (0.55-1.3); TOT PROT 6.7 g/dl (6.4-8.2)
[2021-07-20] MEDS: ASPIRIN COATED 81 MG TABLET.EC PO SCH (09:38)
[2021-07-20] MEDS: CHOLECALCIFEROL (VIT D3) 1,000 UNIT (25 MCG) TABLET PO SCH (09:38)
[2021-07-20] MEDS: CARVEDILOL 6.25 MG TABLET (FP) PO SCH ×2 (09:38→21:51)
[2021-07-20] MEDS: BACITRACIN 15 GM TUBE TOPICAL OINTMENT TP SCH ×2 (09:38→21:52)
[2021-07-20] MEDS: PANTOPRAZOLE 40 MG TABLET PO SCH (09:38)
[2021-07-20] MEDS ORDERED: METOLAZONE 2.5 MG TABLET (FP) PO ONE (11:15)
[2021-07-21] MEDS: LEVOTHYROXINE NA 50 MCG TABLET (FP) PO SCH (06:00)
[2021-07-21] MEDS: FUROSEMIDE 40 MG/4 ML INJECTABLE VIAL IVPUSH SCH ×2 (06:00→14:26)
[2021-07-21] MEDS: NYSTATIN POWDER 100,000 UNITS/GM - 15 GM TOPICAL POWDER TP SCH ×3 (06:01→21:13)
[2021-07-21] MEDS: INSULIN SLIDING SCALE (NOVOLOG) 1 VIAL SQ SCH ×4 (06:01→21:13)
[2021-07-21 08:18] LABS: ALBUMIN 3.2 g/dl (3.4-5.0); BILIRUBIN,TOTAL 1.4 mg/dl (0.2-1); CALCIUM 9.3 mg/dl (8.5-10); CREATININE 1.7 mg/dl (0.55-1.3); MAGNESIUM 1.9 mg/dL (1.8-2.4); TOT PROT 6.7 g/dl (6.4-8.2)
[2021-07-21 08:21] LABS: HEMATOCRIT 29.9 % (35.4-49); HEMOGLOBIN 9.8 G/dL (11.7-16.9); MCH 28.9 pg (25.7-33.7); MCHC 32.7 g/dl (32.0-35.9); MEAN CELL VOLUME 88.5 fl (80-96); MEAN PLT VOLUME 8.4 fl (7.5-11.1); PLATELET COUNT 193.2 10^3/uL (134-434); RBC 3.38 10^6/uL (4.00-5.60); RDW 19.9 % (11.9-15.9)
[2021-07-21] MEDS: CARVEDILOL 6.25 MG TABLET (FP) PO SCH ×2 (09:00→21:12)
[2021-07-21] MEDS: PANTOPRAZOLE 40 MG TABLET PO SCH (09:00)
[2021-07-21] MEDS: CHOLECALCIFEROL (VIT D3) 1,000 UNIT (25 MCG) TABLET PO SCH (09:00)
[2021-07-21] MEDS: ASPIRIN COATED 81 MG TABLET.EC PO SCH (09:00)
[2021-07-21] MEDS: METHYL SALICYLATE/MENTHOL OINT 30 GM TUBE TP PRN (09:01)
[2021-07-21] MEDS: BACITRACIN 15 GM TUBE TOPICAL OINTMENT TP SCH ×2 (09:07→21:13)
[2021-07-21 10:02] LABS: ADD RBC MORPHOLOGY YES
[2021-07-21 10:04] LABS: ANISOCYTOSIS 1+
[2021-07-21 10:05] LABS: PLATELET ESTIMATE ADEQUATE
[2021-07-21] MEDS ORDERED: acetaZOLAMIDE 250 MG TABLET PO ONE (11:00)
[2021-07-21 21:06] LABS: HEMOGLOBIN 10.5 G/dL (11.7-16.9); MCH 29.1 pg (25.7-33.7); MCHC 32.9 g/dl (32.0-35.9); MEAN CELL VOLUME 88.3 fl (80-96); MEAN PLT VOLUME 8.3 fl (7.5-11.1); PLATELET COUNT 192.5 10^3/uL (134-434); RBC 3.62 10^6/uL (4.00-5.60); RDW 20.8 % (11.9-15.9); WHITE BLOOD COUNT 8.2 10^3/uL (4.0-10.8)
[2021-07-21 21:07] LABS: INR 1.42 (0.83-1.09); PROTHROMBIN TIME (PATIENT) 16.4 SEC (9.7-13.0)
[2021-07-21 22:06] LABS: PLATELET ESTIMATE ADEQUATE
[2021-07-22] MEDS: FUROSEMIDE 40 MG/4 ML INJECTABLE VIAL IVPUSH SCH ×2 (06:16→15:37)
[2021-07-22] MEDS: LEVOTHYROXINE NA 50 MCG TABLET (FP) PO SCH (06:18)
[2021-07-22] MEDS: NYSTATIN POWDER 100,000 UNITS/GM - 15 GM TOPICAL POWDER TP SCH ×3 (06:18→21:09)
[2021-07-22] MEDS: INSULIN SLIDING SCALE (NOVOLOG) 1 VIAL SQ SCH ×4 (07:00→22:00)
[2021-07-22 08:30] LABS: ALBUMIN 3.1 g/dl (3.4-5.0); BILIRUBIN,TOTAL 1.6 mg/dl (0.2-1); CALCIUM 9.3 mg/dl (8.5-10); CREATININE 1.8 mg/dl (0.55-1.3); TOT PROT 6.7 g/dl (6.4-8.2)
[2021-07-22] MEDS: CHOLECALCIFEROL (VIT D3) 1,000 UNIT (25 MCG) TABLET PO SCH (09:35)
[2021-07-22] MEDS: CARVEDILOL 6.25 MG TABLET (FP) PO SCH ×2 (09:36→21:09)
[2021-07-22] MEDS: ASPIRIN COATED 81 MG TABLET.EC PO SCH (09:36)
[2021-07-22] MEDS: PANTOPRAZOLE 40 MG TABLET PO SCH (09:36)
[2021-07-22] MEDS: BACITRACIN 15 GM TUBE TOPICAL OINTMENT TP SCH ×2 (10:00→21:09)
[2021-07-22] MEDS ORDERED: acetaZOLAMIDE 250 MG TABLET PO ONE (15:31)
[2021-07-23] MEDS: FUROSEMIDE 40 MG/4 ML INJECTABLE VIAL IVPUSH SCH ×2 (06:01→14:59)
[2021-07-23] MEDS: NYSTATIN POWDER 100,000 UNITS/GM - 15 GM TOPICAL POWDER TP SCH ×2 (06:03→15:00)
[2021-07-23] MEDS: LEVOTHYROXINE NA 50 MCG TABLET (FP) PO SCH (06:04)
[2021-07-23] MEDS: INSULIN SLIDING SCALE (NOVOLOG) 1 VIAL SQ SCH (06:35)
[2021-07-23] MEDS: ASPIRIN COATED 81 MG TABLET.EC PO SCH (10:59)
[2021-07-23] MEDS: CHOLECALCIFEROL (VIT D3) 1,000 UNIT (25 MCG) TABLET PO SCH (10:59)
[2021-07-23] MEDS: CARVEDILOL 6.25 MG TABLET (FP) PO SCH (11:00)
[2021-07-23] MEDS: BACITRACIN 15 GM TUBE TOPICAL OINTMENT TP SCH (11:01)
[2021-07-23] MEDS: PANTOPRAZOLE 40 MG TABLET PO SCH (11:01)
[2021-07-23 14:02] VITALS: BP 103/50; PULSE 73; TEMP 97.8
== END 2021-07-23 17:59 | disposition home or self-care (01) | DRG 291 ==
LOC: FER 15:10 → FM/S 15:47
PROVIDERS: ADMIT Hospitalist; ATTEND Nurse Practitioner Acute Care
DX: I13.0 Hypertensive heart and chronic kidney disease with heart failure and stage 1 through stage 4 chronic kidney disease, or unspecified chronic kidney disease (principal); J96.01 Acute respiratory failure with hypoxia; I50.23 Acute on chronic systolic (congestive) heart failure; N17.9 Acute kidney failure, unspecified; E03.9 Hypothyroidism, unspecified; E11.22 Type 2 diabetes mellitus with diabetic chronic kidney disease; D64.9 Anemia, unspecified; N18.9 Chronic kidney disease, unspecified; I25.10 Atherosclerotic heart disease of native coronary artery without angina pectoris; E78.5 Hyperlipidemia, unspecified; R31.0 Gross hematuria; I27.20 Pulmonary hypertension, unspecified; E66.9 Obesity, unspecified; Z68.30 Body mass index [BMI] 30.0-30.9, adult; I34.0 Nonrheumatic mitral (valve) insufficiency
CPT/HCPCS: 36415; 70450-TC; 71045-TC-FY; 72125-TC; 72128-TC; 76775-TC; 80048; 80053; 81003; 81015; 82962; 83036; 83735; 83880; 84100; 84439; 84443; 84481; 84484; 85025; 85027; 85610; 85730; 87086; 87186; 93005; 97116-GP; 97162-GP; 99285-25; C9803-CS; J1644; U0003; U0005

== ENCOUNTER 2021-08-12 13:59 | Inpatient (IN) | payer OTHER, MEDICARE ==
[2021-08-12 14:56] LABS: HEMATOCRIT 28.8 % (35.4-49); HEMOGLOBIN 9.8 G/dL (11.7-16.9); MCH 29.5 pg (25.7-33.7); MEAN CELL VOLUME 86.6 fl (80-96); MEAN PLT VOLUME 8.6 fl (7.5-11.1); PLATELET COUNT 165.2 10^3/uL (134-434); RBC 3.32 10^6/uL (4.00-5.60); RDW 21.3 % (11.9-15.9)
[2021-08-12 14:57] LABS: INR 1.8 (0.83-1.09); PROTHROMBIN TIME (PATIENT) 20.8 SEC (9.7-13.0)
[2021-08-12 15:00] LABS: ACTIVATED PTT 31.4 SECONDS (25.2-36.5)
[2021-08-12 15:03] LABS: ALBUMIN 3.2 g/dl (3.4-5.0); BILIRUBIN,TOTAL 1.1 mg/dl (0.2-1); CALCIUM 8.9 mg/dl (8.5-10); CREATININE 2.4 mg/dl (0.55-1.3); MAGNESIUM 2.2 mg/dL (1.8-2.4); TOT PROT 6.3 g/dl (6.4-8.2)
[2021-08-12] MEDS ORDERED: POLYETHYLENE GLYCOL (HEALTHYLAX) 3350 17 GM PACKET PO PRN (20:49)
[2021-08-12] MEDS: INSULIN SLIDING SCALE (NOVOLOG) 1 VIAL SQ SCH (21:57)
[2021-08-12] MEDS: CARVEDILOL 6.25 MG TABLET (FP) PO SCH (21:57)
[2021-08-13] MEDS ORDERED: FUROSEMIDE 40 MG/4 ML INJECTABLE VIAL IVPUSH ONE (06:00)
[2021-08-13] MEDS: LEVOTHYROXINE NA 50 MCG TABLET (FP) PO SCH (06:24)
[2021-08-13] MEDS: INSULIN SLIDING SCALE (NOVOLOG) 1 VIAL SQ SCH ×4 (06:34→21:10)
[2021-08-13] MEDS ORDERED: metFORMIN HCL 500 MG TABLET (FP) PO SCH (07:00)
[2021-08-13 08:10] LABS: HEMATOCRIT 29.9 % (35.4-49); HEMOGLOBIN 9.5 G/dL (11.7-16.9); MCH 27.7 pg (25.7-33.7); MCHC 31.6 g/dl (32.0-35.9); MEAN CELL VOLUME 87.7 fl (80-96); MEAN PLT VOLUME 8.8 fl (7.5-11.1); PLATELET COUNT 175.7 10^3/uL (134-434); RBC 3.41 10^6/uL (4.00-5.60); RDW 21.2 % (11.9-15.9); WHITE BLOOD COUNT 7.3 10^3/uL (4.0-10.8)
[2021-08-13 08:28] LABS: CALCIUM 8.9 mg/dl (8.5-10); CREATININE 2.2 mg/dl (0.55-1.3)
[2021-08-13 09:05] LABS: ANISOCYTOSIS 1+
[2021-08-13 09:06] LABS: PLATELET ESTIMATE ADEQUATE
[2021-08-13] MEDS: FENOFIBRIC ACID 135 MG CAP PO SCH (10:04)
[2021-08-13] MEDS: HEPARIN NA (PORCINE) 5,000 UNITS/ML 1ML VIAL SQ SCH ×2 (10:05→17:55)
[2021-08-13] MEDS: CARVEDILOL 6.25 MG TABLET (FP) PO SCH ×2 (10:05→21:08)
[2021-08-13] MEDS: PANTOPRAZOLE 40 MG TABLET PO SCH (10:05)
[2021-08-13] MEDS: ASPIRIN COATED 81 MG TABLET.EC PO SCH (10:05)
[2021-08-13] MEDS: CHOLECALCIFEROL (VIT D3) 1,000 UNIT (25 MCG) TABLET PO SCH (10:05)
[2021-08-13] MEDS: ATORVASTATIN CA 40 MG TABLET (FP) PO SCH (10:06)
[2021-08-13] MEDS: VITAMIN B COMPLEX W/C COMBO TABLET (FP) PO SCH (10:07)
[2021-08-13] MEDS: METHYL SALICYLATE/MENTHOL OINT 30 GM TUBE TP SCH ×2 (10:14→21:09)
[2021-08-13] MEDS: FUROSEMIDE 40 MG/4 ML INJECTABLE VIAL IVPUSH SCH (14:54)
[2021-08-13] MEDS: ACETAMINOPHEN 325 MG TABLET (FP) PO PRN (21:10)
[2021-08-14] MEDS: HEPARIN NA (PORCINE) 5,000 UNITS/ML 1ML VIAL SQ SCH ×3 (02:32→18:29)
[2021-08-14] MEDS: INSULIN SLIDING SCALE (NOVOLOG) 1 VIAL SQ SCH ×4 (06:26→21:22)
[2021-08-14] MEDS: LEVOTHYROXINE NA 50 MCG TABLET (FP) PO SCH (06:26)
[2021-08-14] MEDS: FUROSEMIDE 40 MG/4 ML INJECTABLE VIAL IVPUSH SCH ×2 (06:26→14:10)
[2021-08-14 08:16] LABS: HEMATOCRIT 31.7 % (35.4-49); HEMOGLOBIN 10.1 G/dL (11.7-16.9); MCH 28.2 pg (25.7-33.7); MCHC 31.9 g/dl (32.0-35.9); MEAN CELL VOLUME 88.6 fl (80-96); MEAN PLT VOLUME 9.1 fl (7.5-11.1); PLATELET COUNT 159.4 10^3/uL (134-434); RBC 3.58 10^6/uL (4.00-5.60); RDW 21.9 % (11.9-15.9); WHITE BLOOD COUNT 7.9 10^3/uL (4.0-10.8)
[2021-08-14 08:20] LABS: ALBUMIN 3.2 g/dl (3.4-5.0); CALCIUM 8.9 mg/dl (8.5-10); TOT PROT 6.5 g/dl (6.4-8.2)
[2021-08-14] MEDS: METHYL SALICYLATE/MENTHOL OINT 30 GM TUBE TP SCH ×2 (09:21→21:20)
[2021-08-14] MEDS: CHOLECALCIFEROL (VIT D3) 1,000 UNIT (25 MCG) TABLET PO SCH (09:22)
[2021-08-14] MEDS: ATORVASTATIN CA 40 MG TABLET (FP) PO SCH (09:22)
[2021-08-14] MEDS: FENOFIBRIC ACID 135 MG CAP PO SCH (09:22)
[2021-08-14] MEDS: CARVEDILOL 6.25 MG TABLET (FP) PO SCH ×2 (09:22→21:21)
[2021-08-14] MEDS: ASPIRIN COATED 81 MG TABLET.EC PO SCH (09:22)
[2021-08-14] MEDS: PANTOPRAZOLE 40 MG TABLET PO SCH (09:22)
[2021-08-14] MEDS: VITAMIN B COMPLEX W/C COMBO TABLET (FP) PO SCH (09:22)
[2021-08-14 09:44] LABS: EPITHELIAL CELLS FEW /hpf
[2021-08-14] MEDS: ACETAMINOPHEN 325 MG TABLET (FP) PO PRN (21:21)
[2021-08-14] MEDS: NYSTATIN 100,000 UNIT/GM TOPICAL CREAM 15 GM TUBE TP SCH (21:22)
[2021-08-15] MEDS: HEPARIN NA (PORCINE) 5,000 UNITS/ML 1ML VIAL SQ SCH ×3 (02:07→17:54)
[2021-08-15] MEDS: LEVOTHYROXINE NA 50 MCG TABLET (FP) PO SCH (06:26)
[2021-08-15] MEDS: FUROSEMIDE 40 MG/4 ML INJECTABLE VIAL IVPUSH SCH ×2 (06:26→14:12)
[2021-08-15] MEDS: INSULIN SLIDING SCALE (NOVOLOG) 1 VIAL SQ SCH ×3 (06:27→21:38)
[2021-08-15 08:51] LABS: HEMATOCRIT 29.1 % (35.4-49); HEMOGLOBIN 9.5 G/dL (11.7-16.9); MCH 28.9 pg (25.7-33.7); MCHC 32.5 g/dl (32.0-35.9); MEAN CELL VOLUME 88.7 fl (80-96); MEAN PLT VOLUME 8.9 fl (7.5-11.1); PLATELET COUNT 161.8 10^3/uL (134-434); RBC 3.28 10^6/uL (4.00-5.60); RDW 21.1 % (11.9-15.9); WHITE BLOOD COUNT 7.4 10^3/uL (4.0-10.8)
[2021-08-15] MEDS: PANTOPRAZOLE 40 MG TABLET PO SCH (09:47)
[2021-08-15] MEDS: ASPIRIN COATED 81 MG TABLET.EC PO SCH (09:47)
[2021-08-15] MEDS: ATORVASTATIN CA 40 MG TABLET (FP) PO SCH (09:47)
[2021-08-15] MEDS: CARVEDILOL 6.25 MG TABLET (FP) PO SCH ×2 (09:47→21:39)
[2021-08-15] MEDS: VITAMIN B COMPLEX W/C COMBO TABLET (FP) PO SCH (09:48)
[2021-08-15] MEDS: FENOFIBRIC ACID 135 MG CAP PO SCH (09:48)
[2021-08-15] MEDS: CHOLECALCIFEROL (VIT D3) 1,000 UNIT (25 MCG) TABLET PO SCH (09:48)
[2021-08-15] MEDS: METHYL SALICYLATE/MENTHOL OINT 30 GM TUBE TP SCH ×2 (09:49→21:39)
[2021-08-15] MEDS: NYSTATIN 100,000 UNIT/GM TOPICAL CREAM 15 GM TUBE TP SCH ×2 (09:50→22:29)
[2021-08-15 10:47] LABS: BLOOD UREA NITROGEN 57.9 mg/dL (7-18); CALCIUM 8.6 mg/dL (8.5-10.1); MAGNESIUM 2.4 mg/dL (1.8-2.4)
[2021-08-15 10:52] LABS: BILIRUBIN,TOTAL 0.8 mg/dL (0.2-1); TOT PROT 6.6 g/dl (6.4-8.2)
[2021-08-15 10:55] LABS: N-TERMINAL BNP 17613.1 pg/ml (5-450)
[2021-08-15] MEDS: MELATONIN 1 MG TABLET PO SCH (21:39)
[2021-08-16] MEDS: HEPARIN NA (PORCINE) 5,000 UNITS/ML 1ML VIAL SQ SCH ×3 (02:00→17:24)
[2021-08-16] MEDS: FUROSEMIDE 40 MG/4 ML INJECTABLE VIAL IVPUSH SCH ×2 (06:25→13:57)
[2021-08-16] MEDS: LEVOTHYROXINE NA 50 MCG TABLET (FP) PO SCH (06:25)
[2021-08-16] MEDS: INSULIN SLIDING SCALE (NOVOLOG) 1 VIAL SQ SCH ×3 (06:30→16:57)
[2021-08-16 09:19] LABS: HEMATOCRIT 28.2 % (35.4-49); HEMOGLOBIN 9.1 G/dL (11.7-16.9); MCH 28.4 pg (25.7-33.7); MCHC 32.3 g/dl (32.0-35.9); MEAN PLT VOLUME 9.1 fl (7.5-11.1); RBC 3.21 10^6/uL (4.00-5.60); RDW 21.8 % (11.9-15.9); WHITE BLOOD COUNT 7.3 10^3/uL (4.0-10.8)
[2021-08-16 09:27] LABS: CALCIUM 8.9 mg/dL (8.5-10.1)
[2021-08-16 09:28] LABS: BLOOD UREA NITROGEN 55.8 mg/dL (7-18)
[2021-08-16 09:32] LABS: BILIRUBIN,TOTAL 1.9 mg/dL (0.2-1); TOT PROT 6.6 g/dl (6.4-8.2)
[2021-08-16 09:36] LABS: CREATININE 1.8 mg/dL (0.55-1.3)
[2021-08-16] MEDS: VITAMIN B COMPLEX W/C COMBO TABLET (FP) PO SCH (09:53)
[2021-08-16] MEDS: CHOLECALCIFEROL (VIT D3) 1,000 UNIT (25 MCG) TABLET PO SCH (09:53)
[2021-08-16] MEDS: PANTOPRAZOLE 40 MG TABLET PO SCH (09:54)
[2021-08-16] MEDS: CARVEDILOL 6.25 MG TABLET (FP) PO SCH ×2 (09:54→21:13)
[2021-08-16] MEDS: ASPIRIN COATED 81 MG TABLET.EC PO SCH (09:54)
[2021-08-16] MEDS: FENOFIBRIC ACID 135 MG CAP PO SCH (09:54)
[2021-08-16] MEDS: ATORVASTATIN CA 40 MG TABLET (FP) PO SCH (09:54)
[2021-08-16] MEDS: METHYL SALICYLATE/MENTHOL OINT 30 GM TUBE TP SCH ×2 (09:59→22:29)
[2021-08-16] MEDS: NYSTATIN 100,000 UNIT/GM TOPICAL CREAM 15 GM TUBE TP SCH ×3 (10:05→22:29)
[2021-08-16 12:53] LABS: ANISOCYTOSIS 2+
[2021-08-16 12:54] LABS: PLATELET ESTIMATE ADEQUATE
[2021-08-16 15:29] VITALS: BMI 31.0
[2021-08-16] MEDS: MELATONIN 1 MG TABLET PO SCH (21:13)
[2021-08-17] MEDS: HEPARIN NA (PORCINE) 5,000 UNITS/ML 1ML VIAL SQ SCH ×2 (02:00→10:24)
[2021-08-17] MEDS: INSULIN SLIDING SCALE (NOVOLOG) 1 VIAL SQ SCH ×4 (06:29→16:31)
[2021-08-17] MEDS: LEVOTHYROXINE NA 50 MCG TABLET (FP) PO SCH (06:31)
[2021-08-17] MEDS: FUROSEMIDE 40 MG/4 ML INJECTABLE VIAL IVPUSH SCH ×2 (06:31→15:39)
[2021-08-17] MEDS: VITAMIN B COMPLEX W/C COMBO TABLET (FP) PO SCH (09:45)
[2021-08-17] MEDS: CARVEDILOL 6.25 MG TABLET (FP) PO SCH (09:45)
[2021-08-17] MEDS: CHOLECALCIFEROL (VIT D3) 1,000 UNIT (25 MCG) TABLET PO SCH (09:45)
[2021-08-17] MEDS: FENOFIBRIC ACID 135 MG CAP PO SCH (09:45)
[2021-08-17] MEDS: METHYL SALICYLATE/MENTHOL OINT 30 GM TUBE TP SCH (09:45)
[2021-08-17] MEDS: ATORVASTATIN CA 40 MG TABLET (FP) PO SCH (09:45)
[2021-08-17] MEDS: ASPIRIN COATED 81 MG TABLET.EC PO SCH (09:45)
[2021-08-17] MEDS: NYSTATIN 100,000 UNIT/GM TOPICAL CREAM 15 GM TUBE TP SCH (09:46)
[2021-08-17] MEDS: PANTOPRAZOLE 40 MG TABLET PO SCH (09:47)
[2021-08-17 14:08] VITALS: BP 110/61; PULSE 70; TEMP 97.7
== END 2021-08-17 17:48 | disposition home or self-care (01) | DRG 291 ==
LOC: FER 13:59 → FM/S 16:06
PROVIDERS: ADMIT Internal Medicine; ATTEND Nurse Practitioner Acute Care
DX: I13.0 Hypertensive heart and chronic kidney disease with heart failure and stage 1 through stage 4 chronic kidney disease, or unspecified chronic kidney disease (principal); I50.23 Acute on chronic systolic (congestive) heart failure; J96.11 Chronic respiratory failure with hypoxia; N17.9 Acute kidney failure, unspecified; E78.5 Hyperlipidemia, unspecified; E03.9 Hypothyroidism, unspecified; I27.20 Pulmonary hypertension, unspecified; I25.10 Atherosclerotic heart disease of native coronary artery without angina pectoris; E11.22 Type 2 diabetes mellitus with diabetic chronic kidney disease; N18.9 Chronic kidney disease, unspecified; I25.2 Old myocardial infarction; I34.0 Nonrheumatic mitral (valve) insufficiency; D64.9 Anemia, unspecified; Z95.0 Presence of cardiac pacemaker
CPT/HCPCS: 0241U-QW; 36415; 71045-TC-FY; 80048; 80053; 81003; 81015; 82962; 83735; 83880; 84443; 84484; 85025; 85027; 85610; 85730; 87086; 87186; 93005; 97116-GP; 97161-GP; 99285-25; J1644

== ENCOUNTER 2021-08-20 14:57 | Inpatient (IN) | payer OTHER, MEDICARE ==
[2021-08-20 15:50] VITALS: BMI 30.9
[2021-08-20 16:56] LABS: VENOUS BASE EXCESS -3.2 mmol/L (-2-2); VENOUS O2 SATURATION 48.3 % (70-80); VENOUS PCO2 49.3 mmHg (38-52); VENOUS PH 7.3 (7.310-7.410)
[2021-08-20 17:01] LABS: BASO % 0.5 % (0-2.0); EOS % 0.9 % (0-4.5); HEMATOCRIT 29.4 % (35.4-49); HEMOGLOBIN 9.5 GM/dL (11.7-16.9); MCH 27.7 pg (25.7-33.7); MCHC 32.4 g/dl (32.0-35.9); MEAN CELL VOLUME 85.7 fl (80-96); MEAN PLT VOLUME 8.6 fl (7.5-11.1); MONO % 15.6 % (3.8-10.2); PLATELET COUNT 154 10^3/uL (134-434); RBC 3.43 M/mm3 (4.00-5.60); RDW 22.1 % (11.9-15.9); WHITE BLOOD COUNT 5.5 K/mm3 (4.0-10.0)
[2021-08-20 17:18] LABS: INR 1.91 (0.83-1.09); PROTHROMBIN TIME (PATIENT) 22.1 SEC (9.7-13.0)
[2021-08-20 17:56] LABS: ANISOCYTOSIS 2+; MACROCYTOSIS 2+
[2021-08-20 17:59] LABS: PLATELET ESTIMATE ADEQUATE
[2021-08-20 18:06] LABS: ALBUMIN 3.2 g/dl (3.4-5.0); BLOOD UREA NITROGEN 70.3 mg/dL (7-18); CALCIUM 9.1 mg/dL (8.5-10.1)
[2021-08-20 18:09] LABS: CREATININE 2.7 mg/dL (0.55-1.3)
[2021-08-20 18:10] LABS: BILIRUBIN,TOTAL 1.3 mg/dL (0.2-1)
[2021-08-20 18:11] LABS: TOT PROT 6.9 g/dl (6.4-8.2)
[2021-08-20] MEDS ORDERED: VANCOMYCIN 1 GM in D5W (PRE-DOCKED) 1,000 MG/250 ML IVPB ONE (19:33)
[2021-08-20] MEDS ORDERED: PIPERACILLIN/TAZOB 4.5 GM 4.5 GM in DEXTROSE 5%-WATER 100 ML IVPB ONE (19:33)
[2021-08-20] MEDS ORDERED: PIPERACILLIN/TAZOB 4.5 GM 4.5 GM/100 ML BAG IVPB ONE (20:14)
[2021-08-20] MEDS ORDERED: VANCOMYCIN 1 GRAM (PRE-DOCKED) 1,000 MG/250 ML BAG IVPB ONE (22:56)
[2021-08-21 00:22] LABS: EPI CELLS 1 /uL (0-25.1); HYALINE CASTS 1 /uL (0-3.1); URINE APPEARANCE CLEAR; URINE BACTERIA 150 /uL (0-1359); URINE BILIRUBIN NEGATIVE (NEGATIVE); URINE COLOR YELLOW; URINE GLUCOSE (UA) NEGATIVE (NEGATIVE); URINE KETONE NEGATIVE (NEGATIVE); URINE LEUK ESTERASE 1+ (NEGATIVE); URINE NITRITE NEGATIVE (NEGATIVE); URINE PROTEIN NEGATIVE (NEGATIVE); URINE RBC 2 /uL (0-23.9); URINE UROBILINOGEN 0.2 mg/dL (0.2-1.0); URINE WBC 141 /uL (0-25.8)
[2021-08-21] MEDS ORDERED: FUROSEMIDE 40 MG/4 ML INJECTABLE VIAL ONE ×2 (05:29→13:23)
[2021-08-21] MEDS ORDERED: HEPARIN NA (PORCINE) 5,000 UNITS/ML 1ML VIAL ONE ×3 (05:29→21:39)
[2021-08-21] MEDS: HEPARIN NA (PORCINE) 5,000 UNITS/ML 1ML VIAL SQ SCH ×3 (06:08→21:50)
[2021-08-21] MEDS: FUROSEMIDE 40 MG/4 ML INJECTABLE VIAL IVPUSH SCH ×2 (06:09→13:20)
[2021-08-21] MEDS ORDERED: LEVOTHYROXINE NA 25 MCG TABLET (FP) PO SCH ×2 (07:00→12:31)
[2021-08-21 08:22] LABS: HEMATOCRIT 28.4 % (35.4-49); HEMOGLOBIN 9.1 GM/dL (11.7-16.9); MCH 27.5 pg (25.7-33.7); MCHC 32.1 g/dl (32.0-35.9); MEAN CELL VOLUME 85.6 fl (80-96); MEAN PLT VOLUME 8.8 fl (7.5-11.1); PLATELET COUNT 150 10^3/uL (134-434); RBC 3.32 M/mm3 (4.00-5.60); RDW 22.3 % (11.9-15.9); WHITE BLOOD COUNT 6.7 K/mm3 (4.0-10.0)
[2021-08-21] MEDS ORDERED: ASPIRIN COATED 81 MG TABLET.EC ONE (08:43)
[2021-08-21] MEDS ORDERED: CARVEDILOL 6.25 MG TABLET (FP) ONE ×2 (08:43→21:38)
[2021-08-21] MEDS ORDERED: LEVOTHYROXINE NA 25 MCG TABLET (FP) ONE (08:43)
[2021-08-21] MEDS ORDERED: PANTOPRAZOLE 40 MG TABLET PO ONE (08:43)
[2021-08-21] MEDS ORDERED: MULTIVITAMINS (DAILY MVI) TABLET (FP) ONE (08:43)
[2021-08-21 08:47] LABS: CALCIUM 9.2 mg/dL (8.5-10.1)
[2021-08-21] MEDS: INSULIN SLIDING SCALE (NOVOLOG) 1 VIAL SQ SCH ×4 (08:47→21:36)
[2021-08-21 08:48] LABS: ALBUMIN 3.1 g/dl (3.4-5.0); BLOOD UREA NITROGEN 71.4 mg/dL (7-18); MAGNESIUM 2.4 mg/dL (1.8-2.4)
[2021-08-21 08:50] LABS: CREATININE 2.7 mg/dL (0.55-1.3); PHOSPHOROUS 4.8 mg/dL (2.5-4.9)
[2021-08-21 08:52] LABS: BILIRUBIN,TOTAL 1.4 mg/dL (0.2-1); TOT PROT 6.6 g/dl (6.4-8.2)
[2021-08-21] MEDS: CARVEDILOL 6.25 MG TABLET (FP) PO SCH ×2 (10:23→21:50)
[2021-08-21] MEDS: ASPIRIN COATED 81 MG TABLET.EC PO SCH (10:23)
[2021-08-21] MEDS: PANTOPRAZOLE 40 MG TABLET PO SCH (10:23)
[2021-08-21] MEDS: FENOFIBRIC ACID 135 MG CAP PO SCH (10:24)
[2021-08-21] MEDS: MULTIVITAMINS (DAILY MVI) TABLET (FP) PO SCH (10:24)
[2021-08-21] MEDS ORDERED: LEVOTHYROXINE NA 50 MCG TABLET (FP) PO SCH (12:34)
[2021-08-21] MEDS ORDERED: MELATONIN 5 MG TABLETS ONE (21:38)
[2021-08-21] MEDS ORDERED: ATORVASTATIN CA 10 MG TABLET (FP) ONE (21:38)
[2021-08-21] MEDS ORDERED: ATORVASTATIN CA 40 MG TABLET (FP) ONE (21:39)
[2021-08-21] MEDS: ATORVASTATIN CA 40 MG TABLET (FP) PO SCH (21:50)
[2021-08-21] MEDS: MELATONIN 5 MG TABLETS PO PRN (21:50)
[2021-08-22] MEDS: FUROSEMIDE 40 MG/4 ML INJECTABLE VIAL IVPUSH SCH ×2 (06:01→14:10)
[2021-08-22] MEDS: INSULIN SLIDING SCALE (NOVOLOG) 1 VIAL SQ SCH ×4 (06:01→21:52)
[2021-08-22] MEDS: HEPARIN NA (PORCINE) 5,000 UNITS/ML 1ML VIAL SQ SCH ×3 (06:01→21:52)
[2021-08-22 07:21] LABS: BASO % 0.5 % (0-2.0); EOS % 2.2 % (0-4.5); HEMATOCRIT 27.7 % (35.4-49); LYMPH % 13.6 % (8-40); MCH 27.8 pg (25.7-33.7); MCHC 32.6 g/dl (32.0-35.9); MEAN CELL VOLUME 85.2 fl (80-96); MEAN PLT VOLUME 8.7 fl (7.5-11.1); MONO % 13.5 % (3.8-10.2); NEUT % 70.2 % (42.8-82.8); PLATELET COUNT 150 10^3/uL (134-434); RBC 3.25 M/mm3 (4.00-5.60); RDW 22.5 % (11.9-15.9); WHITE BLOOD COUNT 6.7 K/mm3 (4.0-10.0)
[2021-08-22 07:40] LABS: CALCIUM 9.1 mg/dL (8.5-10.1); MAGNESIUM 2.3 mg/dL (1.8-2.4)
[2021-08-22 07:41] LABS: BLOOD UREA NITROGEN 76.5 mg/dL (7-18)
[2021-08-22 07:44] LABS: CREATININE 2.7 mg/dL (0.55-1.3)
[2021-08-22] MEDS: MULTIVITAMINS (DAILY MVI) TABLET (FP) PO SCH (10:08)
[2021-08-22] MEDS: PANTOPRAZOLE 40 MG TABLET PO SCH (10:08)
[2021-08-22] MEDS: ASPIRIN COATED 81 MG TABLET.EC PO SCH (10:08)
[2021-08-22] MEDS: FENOFIBRIC ACID 135 MG CAP PO SCH (10:08)
[2021-08-22] MEDS: CARVEDILOL 6.25 MG TABLET (FP) PO SCH ×2 (12:28→21:52)
[2021-08-22] MEDS: ATORVASTATIN CA 40 MG TABLET (FP) PO SCH (21:52)
[2021-08-23] MEDS: MELATONIN 5 MG TABLETS PO PRN ×2 (00:52→21:27)
[2021-08-23] MEDS: FUROSEMIDE 40 MG/4 ML INJECTABLE VIAL IVPUSH SCH ×2 (05:21→13:13)
[2021-08-23] MEDS: HEPARIN NA (PORCINE) 5,000 UNITS/ML 1ML VIAL SQ SCH ×3 (05:21→21:16)
[2021-08-23] MEDS: LEVOTHYROXINE NA 125 MCG TABLET (FP) PO SCH (06:00)
[2021-08-23] MEDS: INSULIN SLIDING SCALE (NOVOLOG) 1 VIAL SQ SCH ×4 (06:15→21:16)
[2021-08-23 08:07] LABS: BASO % 0.2 % (0-2.0); BLOOD UREA NITROGEN 74.6 mg/dL (7-18); EOS % 2.4 % (0-4.5); HEMATOCRIT 28.4 % (35.4-49); HEMOGLOBIN 9.1 GM/dL (11.7-16.9); LYMPH % 13.1 % (8-40); MCH 27.4 pg (25.7-33.7); MEAN CELL VOLUME 85.8 fl (80-96); NEUT % 69.3 % (42.8-82.8); PLATELET COUNT 148 10^3/uL (134-434); RBC 3.31 M/mm3 (4.00-5.60); WHITE BLOOD COUNT 6.2 K/mm3 (4.0-10.0)
[2021-08-23 08:08] LABS: ALBUMIN 2.9 g/dl (3.4-5.0)
[2021-08-23 08:11] LABS: CREATININE 2.5 mg/dL (0.55-1.3)
[2021-08-23 08:12] LABS: BILIRUBIN,TOTAL 0.8 mg/dL (0.2-1); TOT PROT 6.6 g/dl (6.4-8.2)
[2021-08-23] MEDS: FENOFIBRIC ACID 135 MG CAP PO SCH (09:11)
[2021-08-23] MEDS: PANTOPRAZOLE 40 MG TABLET PO SCH (09:11)
[2021-08-23] MEDS: CARVEDILOL 6.25 MG TABLET (FP) PO SCH ×2 (09:11→21:16)
[2021-08-23] MEDS: MULTIVITAMINS (DAILY MVI) TABLET (FP) PO SCH (09:11)
[2021-08-23] MEDS: ASPIRIN COATED 81 MG TABLET.EC PO SCH (09:11)
[2021-08-23] MEDS: ATORVASTATIN CA 40 MG TABLET (FP) PO SCH (21:16)
[2021-08-24] MEDS: FUROSEMIDE 40 MG/4 ML INJECTABLE VIAL IVPUSH SCH ×2 (05:48→16:28)
[2021-08-24] MEDS: HEPARIN NA (PORCINE) 5,000 UNITS/ML 1ML VIAL SQ SCH ×3 (05:49→21:22)
[2021-08-24] MEDS: INSULIN SLIDING SCALE (NOVOLOG) 1 VIAL SQ SCH ×4 (05:59→21:27)
[2021-08-24] MEDS: LEVOTHYROXINE NA 125 MCG TABLET (FP) PO SCH (05:59)
[2021-08-24 08:20] LABS: BASO % 0.3 % (0-2.0); EOS % 2.5 % (0-4.5); HEMATOCRIT 28.1 % (35.4-49); HEMOGLOBIN 8.9 GM/dL (11.7-16.9); LYMPH % 12.5 % (8-40); MCH 27.3 pg (25.7-33.7); MCHC 31.8 g/dl (32.0-35.9); MEAN PLT VOLUME 8.7 fl (7.5-11.1); MONO % 13.8 % (3.8-10.2); NEUT % 70.9 % (42.8-82.8); PLATELET COUNT 146 10^3/uL (134-434); RBC 3.27 M/mm3 (4.00-5.60); RDW 21.9 % (11.9-15.9); WHITE BLOOD COUNT 6.1 K/mm3 (4.0-10.0)
[2021-08-24 08:42] LABS: CALCIUM 8.8 mg/dL (8.5-10.1)
[2021-08-24 08:43] LABS: ALBUMIN 2.8 g/dl (3.4-5.0); BLOOD UREA NITROGEN 76.8 mg/dL (7-18)
[2021-08-24 08:46] LABS: CREATININE 2.3 mg/dL (0.55-1.3)
[2021-08-24 08:47] LABS: TOT PROT 6.4 g/dl (6.4-8.2)
[2021-08-24 09:17] LABS: ANISOCYTOSIS 2+; MACROCYTOSIS 1+
[2021-08-24] MEDS: PANTOPRAZOLE 40 MG TABLET PO SCH (09:26)
[2021-08-24] MEDS: ASPIRIN COATED 81 MG TABLET.EC PO SCH (09:26)
[2021-08-24] MEDS: CARVEDILOL 6.25 MG TABLET (FP) PO SCH ×2 (09:26→21:21)
[2021-08-24] MEDS: MULTIVITAMINS (DAILY MVI) TABLET (FP) PO SCH (09:27)
[2021-08-24] MEDS: FENOFIBRIC ACID 135 MG CAP PO SCH (11:30)
[2021-08-24] MEDS: ATORVASTATIN CA 40 MG TABLET (FP) PO SCH (21:21)
[2021-08-24] MEDS: MELATONIN 5 MG TABLETS PO PRN (21:23)
[2021-08-25] MEDS: HEPARIN NA (PORCINE) 5,000 UNITS/ML 1ML VIAL SQ SCH ×3 (05:49→21:54)
[2021-08-25] MEDS: FUROSEMIDE 40 MG/4 ML INJECTABLE VIAL IVPUSH SCH ×2 (05:50→13:28)
[2021-08-25] MEDS: LEVOTHYROXINE NA 125 MCG TABLET (FP) PO SCH (06:02)
[2021-08-25] MEDS: INSULIN SLIDING SCALE (NOVOLOG) 1 VIAL SQ SCH ×4 (06:03→22:15)
[2021-08-25 09:32] LABS: BLOOD UREA NITROGEN 77.9 mg/dL (7-18); CALCIUM 9.1 mg/dL (8.5-10.1)
[2021-08-25 09:35] LABS: CREATININE 2.3 mg/dL (0.55-1.3)
[2021-08-25] MEDS: ASPIRIN COATED 81 MG TABLET.EC PO SCH (10:51)
[2021-08-25] MEDS: MULTIVITAMINS (DAILY MVI) TABLET (FP) PO SCH (10:51)
[2021-08-25] MEDS: PANTOPRAZOLE 40 MG TABLET PO SCH (10:51)
[2021-08-25] MEDS: CARVEDILOL 6.25 MG TABLET (FP) PO SCH ×2 (10:51→21:54)
[2021-08-25] MEDS: FENOFIBRIC ACID 135 MG CAP PO SCH (10:52)
[2021-08-25] MEDS: ATORVASTATIN CA 40 MG TABLET (FP) PO SCH (21:54)
[2021-08-25] MEDS: MELATONIN 5 MG TABLETS PO PRN (21:56)
[2021-08-26] MEDS: FUROSEMIDE 40 MG/4 ML INJECTABLE VIAL IVPUSH SCH ×2 (06:12→13:58)
[2021-08-26] MEDS: LEVOTHYROXINE NA 125 MCG TABLET (FP) PO SCH (06:12)
[2021-08-26] MEDS: HEPARIN NA (PORCINE) 5,000 UNITS/ML 1ML VIAL SQ SCH ×2 (06:12→13:58)
[2021-08-26] MEDS: INSULIN SLIDING SCALE (NOVOLOG) 1 VIAL SQ SCH ×3 (06:12→16:56)
[2021-08-26] MEDS ORDERED: cefTRIAXone SODIUM 1 GM VIAL ONE (09:07)
[2021-08-26] MEDS ORDERED: DEXTROSE 5%-WATER - 50 ML IVPB ONE (09:07)
[2021-08-26] MEDS: MULTIVITAMINS (DAILY MVI) TABLET (FP) PO SCH (09:13)
[2021-08-26] MEDS: CARVEDILOL 6.25 MG TABLET (FP) PO SCH (09:14)
[2021-08-26] MEDS: FENOFIBRIC ACID 135 MG CAP PO SCH (09:14)
[2021-08-26] MEDS: PANTOPRAZOLE 40 MG TABLET PO SCH (09:14)
[2021-08-26] MEDS: ASPIRIN COATED 81 MG TABLET.EC PO SCH (09:14)
[2021-08-26 09:54] LABS: BLOOD UREA NITROGEN 82.2 mg/dL (7-18)
[2021-08-26 09:57] LABS: CREATININE 2.4 mg/dL (0.55-1.3)
[2021-08-26] MEDS ORDERED: CEFTRIAXONE 1 GM in DEXTROSE 5%-WATER - 50 ML IVPB SCH (10:00)
[2021-08-26 12:42] VITALS: PULSE 73
[2021-08-26] MEDS ORDERED: SODIUM CHLORIDE 100 ML IVPB ONE (14:06)
[2021-08-26] MEDS ORDERED: AMPICILLIN NA/SULBACTAM NA 1.5 GM VIAL ONE (14:06)
[2021-08-26] MEDS ORDERED: AMPICILLIN NA/SULBACTAM NA 1.5 GM in SODIUM CHLORIDE 100 ML IVPB SCH (15:00)
[2021-08-26 18:43] VITALS: BP 97/60; TEMP 97.6
== END 2021-08-26 18:44 | disposition short-term general hospital (02) | DRG 291 ==
LOC: JER 14:57 → JERBED 19:21 → J4S 08-22 02:45
PROVIDERS: ADMIT Hospitalist
DX: I13.0 Hypertensive heart and chronic kidney disease with heart failure and stage 1 through stage 4 chronic kidney disease, or unspecified chronic kidney disease (principal); I50.23 Acute on chronic systolic (congestive) heart failure; J96.21 Acute and chronic respiratory failure with hypoxia; E03.9 Hypothyroidism, unspecified; I34.0 Nonrheumatic mitral (valve) insufficiency; I25.10 Atherosclerotic heart disease of native coronary artery without angina pectoris; E78.5 Hyperlipidemia, unspecified; E11.9 Type 2 diabetes mellitus without complications; N18.9 Chronic kidney disease, unspecified; I27.20 Pulmonary hypertension, unspecified; N40.1 Benign prostatic hyperplasia with lower urinary tract symptoms
CPT/HCPCS: 0241U-QW; 36415; 70450-TC; 71045-TC-FY; 74176-TC; 76604; 80048; 80053; 81003; 82550; 82553; 82803; 82962; 83605; 83735; 83880; 84100; 84443; 84484; 85025; 85027; 85610; 85730; 86850; 86900; 86901; 87086; 87186; 93005; 93010; 93306-TC; 93308; 97116-GP; 97162-GP; 99285-25; C9803-CS; J1644; U0003; U0005

== ENCOUNTER 2021-09-19 09:45 | Emergency (ER) | payer OTHER, MEDICARE ==
[2021-09-19 10:09] VITALS: TEMP 97.7; BMI 32.8
[2021-09-19] MEDS ORDERED: PHENYLEPHRINE HCL 10 MG/1 ML SINGLE DOSE VIAL ONE (10:26)
[2021-09-19 10:27] LABS: HEMATOCRIT 27.6 % (35.4-49); HEMOGLOBIN 8.9 G/dL (11.7-16.9); MCHC 32.3 g/dl (32.0-35.9); MEAN CELL VOLUME 86.5 fl (80-96); MEAN PLT VOLUME 8.9 fl (7.5-11.1); PLATELET COUNT 173.2 10^3/uL (134-434); RBC 3.19 10^6/uL (4.00-5.60); RDW 25.7 % (11.9-15.9)
[2021-09-19] MEDS ORDERED: OXYMETAZOLINE 0.05% NASAL SOLUTION 15 ML BOTTLE NS ONE (10:30)
[2021-09-19 10:47] LABS: BILIRUBIN,TOTAL 1.3 mg/dl (0.2-1); CALCIUM 9.2 mg/dl (8.5-10); CREATININE 3.1 mg/dl (0.55-1.3); TOT PROT 6.4 g/dl (6.4-8.2)
[2021-09-19 10:48] LABS: INR 2.02 (0.83-1.09); PROTHROMBIN TIME (PATIENT) 23.4 SEC (9.7-13.0)
[2021-09-19 11:03] LABS: PLATELET ESTIMATE ADEQUATE
[2021-09-19 15:05] VITALS: BP 97/63; PULSE 90
== END 2021-09-19 16:17 | disposition home or self-care (01) ==
LOC: FER 09:45
DX: R04.0 Epistaxis (principal)
CPT/HCPCS: 36415; 80053; 85025; 85610; 99283-25

== ENCOUNTER 2021-09-28 15:41 | Inpatient (IN) | payer OTHER, MEDICARE ==
[2021-09-28 16:21] VITALS: BMI 32.5
[2021-09-28 17:28] LABS: BASO % 0.6 % (0-2.0); EOS % 2.8 % (0-4.5); HEMATOCRIT 28.9 % (35.4-49); HEMOGLOBIN 9.4 GM/dL (11.7-16.9); LYMPH % 16.6 % (8-40); MCH 27.7 pg (25.7-33.7); MCHC 32.4 g/dl (32.0-35.9); MEAN CELL VOLUME 85.5 fl (80-96); MEAN PLT VOLUME 8.3 fl (7.5-11.1); MONO % 12.7 % (3.8-10.2); NEUT % 67.3 % (42.8-82.8); PLATELET COUNT 141 10^3/uL (134-434); RBC 3.38 M/mm3 (4.00-5.60); RDW 24.7 % (11.9-15.9); WHITE BLOOD COUNT 4.5 K/mm3 (4.0-10.0)
[2021-09-28 17:34] LABS: INR 1.8 (0.83-1.09); PROTHROMBIN TIME (PATIENT) 20.8 SEC (9.7-13.0)
[2021-09-28 17:37] LABS: ACTIVATED PTT 33.3 SECONDS (25.2-36.5)
[2021-09-28 17:45] LABS: BLOOD UREA NITROGEN 77.3 mg/dL (7-18); CALCIUM 8.5 mg/dL (8.5-10.1)
[2021-09-28 17:46] LABS: ALBUMIN 2.9 g/dl (3.4-5.0); MAGNESIUM 1.7 mg/dL (1.8-2.4)
[2021-09-28 17:50] LABS: BILIRUBIN,TOTAL 0.8 mg/dL (0.2-1); TOT PROT 6.7 g/dl (6.4-8.2)
[2021-09-28 17:54] LABS: N-TERMINAL BNP 28931.2 pg/ml (5-450)
[2021-09-28] MEDS ORDERED: FUROSEMIDE INJECTION 100 MG in SODIUM CHLORIDE 40 ML IVPB ONE ×2 (18:19→18:22)
[2021-09-28 18:32] LABS: CHLORIDE 99 mmol/L (98-107); SODIUM 135 mmol/L (136-145)
[2021-09-28 18:33] LABS: CALCIUM 8.2 mg/dL (8.5-10.1)
[2021-09-28 18:34] LABS: BLOOD UREA NITROGEN 79.5 mg/dL (7-18); CO2 30 mmol/L (21-32); GLUCOSE,RANDOM 114 mg/dL (74-106)
[2021-09-28 18:41] LABS: ANISOCYTOSIS 2+; MACROCYTOSIS 1+
[2021-09-28 18:54] LABS: ANION GAP 6 MMOL/L (8-16)
[2021-09-28] MEDS ORDERED: SACUBITRIL/VALSARTAN 24 MG-26 MG TABLET PO SCH (22:00)
[2021-09-28] MEDS ORDERED: SENNOSIDES 8.6MG TABLET (FP) PO ONE (23:40)
[2021-09-28] MEDS: INSULIN SLIDING SCALE (NOVOLOG) 1 VIAL SQ SCH (23:45)
[2021-09-28] MEDS: SENNOSIDES 8.6MG TABLET (FP) PO SCH (23:45)
[2021-09-29] MEDS ORDERED: ACETAMINOPHEN 1000 MG/100 ML BAG IVPB ONE (00:49)
[2021-09-29] MEDS: INSULIN SLIDING SCALE (NOVOLOG) 1 VIAL SQ SCH ×4 (06:41→22:19)
[2021-09-29] MEDS ORDERED: LEVOTHYROXINE NA 75 MCG TABLET (FP) PO SCH (07:00)
[2021-09-29 07:13] LABS: EOS % 3.1 % (0-4.5); HEMATOCRIT 26.8 % (35.4-49); HEMOGLOBIN 8.7 GM/dL (11.7-16.9); LYMPH % 19.3 % (8-40); MCH 27.7 pg (25.7-33.7); MCHC 32.4 g/dl (32.0-35.9); MEAN CELL VOLUME 85.4 fl (80-96); MEAN PLT VOLUME 8.5 fl (7.5-11.1); MONO % 15.4 % (3.8-10.2); NEUT % 61.2 % (42.8-82.8); PLATELET COUNT 136 10^3/uL (134-434); RBC 3.13 M/mm3 (4.00-5.60); WHITE BLOOD COUNT 4.5 K/mm3 (4.0-10.0)
[2021-09-29 07:36] LABS: CALCIUM 8.4 mg/dL (8.5-10.1)
[2021-09-29 07:37] LABS: ALBUMIN 2.8 g/dl (3.4-5.0); BLOOD UREA NITROGEN 78.9 mg/dL (7-18)
[2021-09-29 07:40] LABS: CREATININE 3.8 mg/dL (0.55-1.3)
[2021-09-29 07:42] LABS: TOT PROT 6.2 g/dl (6.4-8.2)
[2021-09-29] MEDS: POLYETHYLENE GLYCOL (HEALTHYLAX) 3350 17 GM PACKET PO SCH (09:10)
[2021-09-29] MEDS: ASPIRIN COATED 81 MG TABLET.EC PO SCH (09:10)
[2021-09-29] MEDS: HEPARIN NA (PORCINE) 5,000 UNITS/ML 1ML VIAL SQ SCH ×2 (09:10→22:19)
[2021-09-29] MEDS: ATORVASTATIN CA 40 MG TABLET (FP) PO SCH (09:10)
[2021-09-29] MEDS: MULTIVITAMINS (DAILY MVI) TABLET (FP) PO SCH (09:10)
[2021-09-29] MEDS: VITAMIN B COMPLEX W/C COMBO TABLET (FP) PO SCH (09:10)
[2021-09-29] MEDS: PANTOPRAZOLE 40 MG TABLET PO SCH (09:10)
[2021-09-29] MEDS: CARVEDILOL 3.125 MG TABLET (FP) PO SCH ×2 (09:10→22:10)
[2021-09-29] MEDS: FENOFIBRIC ACID 135 MG CAP PO SCH (10:34)
[2021-09-29] MEDS ORDERED: FUROSEMIDE INJECTION 100 MG in SODIUM CHLORIDE 40 ML IVPB ONE (10:47)
[2021-09-29] MEDS ORDERED: ACETAMINOPHEN 325 MG TABLET (FP) PO PRN (11:10)
[2021-09-29] MEDS: CYANOCOBALAMIN 1,000 MCG TABLET (FP) PO SCH (12:00)
[2021-09-29] MEDS: SENNOSIDES 8.6MG TABLET (FP) PO SCH (22:19)
[2021-09-30] MEDS: LEVOTHYROXINE NA 100 MCG TABLET (FP) PO SCH (06:59)
[2021-09-30] MEDS: INSULIN SLIDING SCALE (NOVOLOG) 1 VIAL SQ SCH ×4 (06:59→21:51)
[2021-09-30 07:06] LABS: CALCIUM 8.4 mg/dL (8.5-10.1)
[2021-09-30 07:07] LABS: ALBUMIN 2.8 g/dl (3.4-5.0); BLOOD UREA NITROGEN 77.8 mg/dL (7-18)
[2021-09-30 07:10] LABS: CREATININE 3.8 mg/dL (0.55-1.3)
[2021-09-30 07:11] LABS: TOT PROT 6.4 g/dl (6.4-8.2)
[2021-09-30 07:12] LABS: BILIRUBIN,TOTAL 0.9 mg/dL (0.2-1)
[2021-09-30] MEDS: CARVEDILOL 3.125 MG TABLET (FP) PO SCH ×2 (10:45→21:35)
[2021-09-30] MEDS: FUROSEMIDE 40 MG/4 ML INJECTABLE VIAL IVPUSH SCH ×2 (11:01→13:29)
[2021-09-30] MEDS: VITAMIN B COMPLEX W/C COMBO TABLET (FP) PO SCH (11:02)
[2021-09-30] MEDS: FENOFIBRIC ACID 135 MG CAP PO SCH (11:02)
[2021-09-30] MEDS: ATORVASTATIN CA 40 MG TABLET (FP) PO SCH (11:02)
[2021-09-30] MEDS: MULTIVITAMINS (DAILY MVI) TABLET (FP) PO SCH (11:02)
[2021-09-30] MEDS: PANTOPRAZOLE 40 MG TABLET PO SCH (11:02)
[2021-09-30] MEDS: ASPIRIN COATED 81 MG TABLET.EC PO SCH (11:02)
[2021-09-30] MEDS: CYANOCOBALAMIN 1,000 MCG TABLET (FP) PO SCH (11:02)
[2021-09-30] MEDS: HEPARIN NA (PORCINE) 5,000 UNITS/ML 1ML VIAL SQ SCH ×2 (11:02→21:35)
[2021-09-30] MEDS: POLYETHYLENE GLYCOL (HEALTHYLAX) 3350 17 GM PACKET PO SCH (11:02)
[2021-09-30] MEDS: SENNOSIDES 8.6MG TABLET (FP) PO SCH (21:35)
[2021-10-01] MEDS: FUROSEMIDE 40 MG/4 ML INJECTABLE VIAL IVPUSH SCH ×2 (06:05→13:27)
[2021-10-01] MEDS: LEVOTHYROXINE NA 100 MCG TABLET (FP) PO SCH (06:05)
[2021-10-01] MEDS: INSULIN SLIDING SCALE (NOVOLOG) 1 VIAL SQ SCH ×3 (06:35→17:21)
[2021-10-01 07:26] LABS: BASO % 0.3 % (0-2.0); EOS % 1.5 % (0-4.5); HEMATOCRIT 27.4 % (35.4-49); HEMOGLOBIN 8.9 GM/dL (11.7-16.9); LYMPH % 5.9 % (8-40); MCH 27.8 pg (25.7-33.7); MCHC 32.6 g/dl (32.0-35.9); MEAN CELL VOLUME 85.3 fl (80-96); MEAN PLT VOLUME 8.4 fl (7.5-11.1); MONO % 14.1 % (3.8-10.2); NEUT % 78.2 % (42.8-82.8); PLATELET COUNT 136 10^3/uL (134-434); RBC 3.22 M/mm3 (4.00-5.60); RDW 24.8 % (11.9-15.9); WHITE BLOOD COUNT 6.7 K/mm3 (4.0-10.0)
[2021-10-01 07:50] LABS: CALCIUM 8.6 mg/dL (8.5-10.1)
[2021-10-01 07:51] LABS: ALBUMIN 2.8 g/dl (3.4-5.0); BLOOD UREA NITROGEN 73.4 mg/dL (7-18)
[2021-10-01 07:54] LABS: CREATININE 3.2 mg/dL (0.55-1.3)
[2021-10-01 07:56] LABS: BILIRUBIN,TOTAL 1.1 mg/dL (0.2-1); TOT PROT 6.5 g/dl (6.4-8.2)
[2021-10-01] MEDS: PANTOPRAZOLE 40 MG TABLET PO SCH (09:19)
[2021-10-01] MEDS: POLYETHYLENE GLYCOL (HEALTHYLAX) 3350 17 GM PACKET PO SCH (09:19)
[2021-10-01] MEDS: HEPARIN NA (PORCINE) 5,000 UNITS/ML 1ML VIAL SQ SCH (09:19)
[2021-10-01] MEDS: CARVEDILOL 3.125 MG TABLET (FP) PO SCH (09:19)
[2021-10-01] MEDS: ASPIRIN COATED 81 MG TABLET.EC PO SCH (09:19)
[2021-10-01] MEDS: ATORVASTATIN CA 40 MG TABLET (FP) PO SCH (09:19)
[2021-10-01] MEDS: MULTIVITAMINS (DAILY MVI) TABLET (FP) PO SCH (09:19)
[2021-10-01] MEDS: VITAMIN B COMPLEX W/C COMBO TABLET (FP) PO SCH (09:19)
[2021-10-01] MEDS: CYANOCOBALAMIN 1,000 MCG TABLET (FP) PO SCH (09:20)
[2021-10-01] MEDS: FENOFIBRIC ACID 135 MG CAP PO SCH (09:20)
[2021-10-01 14:47] VITALS: TEMP 98.6
[2021-10-01 17:28] VITALS: BP 99/55; PULSE 88
== END 2021-10-01 20:10 | disposition short-term general hospital (02) | DRG 291 ==
LOC: JER 15:41 → JERBED 20:28 → J2W 09-29 00:10
PROVIDERS: ADMIT Internal Medicine; ATTEND Internal Medicine
DX: I13.0 Hypertensive heart and chronic kidney disease with heart failure and stage 1 through stage 4 chronic kidney disease, or unspecified chronic kidney disease (principal); I50.23 Acute on chronic systolic (congestive) heart failure; N17.9 Acute kidney failure, unspecified; I25.10 Atherosclerotic heart disease of native coronary artery without angina pectoris; E11.9 Type 2 diabetes mellitus without complications; I27.20 Pulmonary hypertension, unspecified; Z95.0 Presence of cardiac pacemaker; E78.5 Hyperlipidemia, unspecified; E03.9 Hypothyroidism, unspecified; N18.9 Chronic kidney disease, unspecified; I34.0 Nonrheumatic mitral (valve) insufficiency; E87.5 Hyperkalemia; I25.2 Old myocardial infarction
CPT/HCPCS: 36415; 71045-TC-FY; 80048; 80053; 82962; 83735; 83880; 84132; 84443; 84484; 85025; 85610; 85730; 93005; 93010; 93970-TC; 97116-GP; 97161-GP; 99285-25; C9803-CS; J1644; U0003; U0005